=== PATIENT | female | born 1945 | race Caucasian/White ===

== ENCOUNTER 2020-11-22 18:49 | Emergency (ER) | payer OTHER ==
--- OUTSIDE RECORDS SUMMARY | 2020-11-22 18:51 | XMS REPORT | Continuity of Care Document ---
:1945 Author Organization [facility] t Address [address] [place] [address] Care Team Providers Name Role Phone Unavailable Unavailable Unavailable Problems This patient has no known problems. Allergies, Adverse Reactions, Alerts Allergy Allergy Status Severity Reaction(s) Onset Inactive Treating Comm ents Source Name Type Date Date Clinician penicill Adverse Active Info [facility] Tetanus Adverse Active Info Not [facility] Toxoid Reaction Available [facility] Amoxicil Adverse Active Info Not [facility] kaelyn Reaction Available [facility] - [facility] Medications Ordered Filled Start Stop Current Ordering Indication Dosage Frequency Signature Comments Components Source Medication Medication Date Date Medication? Clinician (SIG) Name Name Nasonex Nasonex 2018-04 Yes Na Aguilar [address] [facility] 0-22 in each [facility] 00:00: nostril [facility]oria 00 l [facility] Triamcinolo Triamcinolo 2018-04 Yes Na Aguilar [address] [facility] ne ne 0-22 applicatio [facility] - Acetonide Acetonide 00:00: n to Mem oria 00 affected l area Outpati ent Clinics Myrbetriq Myrbetriq 2020- No Na Aguilar [address] [facility] 11-17 [facility] 00:[facility]: 00:00 [facility] 00 :00 l [facility] Hemocyte Hemocyte Yes Na Aguilar [address] [facility] Plus Plus 10-28 [facility] - 00:[facility]: [facility]oria 00 l [facility] Omeprazole Omeprazole Yes Na Aguilar [address] [facility] Celexa Celexa Yes Na Aguilar TAKE [address] [facility] TABLET BY [facility] MOUTH ONCE [facility]oria DAILY l [facility] Symbicort Symbicort Yes Na Aguilar INHALE [address] [facility] PUFFS BY [facility] MOUTH 2 Memoria TIMES A l DAY [facility] Myrbetriq Myrbetriq Yes Na Aguilar TAKE [address] [facility] TABLET BY [facility] MOUTH ONCE Memoria DAILY l [facility] Temovate Temovate Yes Na Aguilar [address] [facility] applicatio [facility] - n to Memoria affected l area [facility] ProAir HFA ProAir HFA Yes Na Aguilar INHALE [address] [facility] PUFFS 4 [facility] - TIMES A Memoria DAY FOR 30 l DAYS [facility] Alendronate Alendronate Yes Na Aguilar TAKE [address] [facility] Sodium Sodium TABLET BY [facility] M[facility]TH Memoria EVERY WEEK l [facility] Cranberry Cranberry Yes Na Aguilar as [facility] Plus Plus directed [facility] Vitamin C Vitamin C [facility] ia l [facility] Centrum Centrum Yes Na Aguilar as [facility] Silver Silver directed [facility] - Adult 50+ Adult 50+ Memor ia l [facility] Turmeric Turmeric Yes Na Aguilar as [facility] directed [facility] Potassium Potassium Yes Na Aguilar TAKE [address] [facility] Chloride Chloride TABLET BY Beckie kes - Deborah ER Deborah ER MOUTH Memoria DAILY l [facility] Ocuvite Ocuvite Yes Na Aguilar [address] [facility] B12 Fast B12 Fast Yes Na Aguilar not [facility] Dissolve Dissolve defined [facility] - Memoria l [facility] ProAir HFA ProAir HFA Yes Na Aguilar INHALE [address] [facility] PUFFS 4 [facility] - TIMES A Memoria DAY FOR 30 l DAYS [facility] Citalopram Citalopram Yes Na Aguilar TAKE [address] [facility] Hydrobromid Hydrobromid TABLET BY [facility] - e e MOUTH ONCE Memoria DAILY l [facility] Magnesium Magnesium 2019- No Na Aguilar [address] [facility] Oxide -Mg Oxide -Mg 11-17 as needed [facility] - Supplement Supplement 00:00 Me moria :00 l [facility] Procedures This patient has no known procedures. Encounters Start End Encounter Admission Attending Care Care Encounter Source Date/Time Date/Time Type Type Clinicians Facility Department ID 2020-10-19 2020-10-19 Outpatient [facility] [id number] [facility] 2020-10-11 2020-10-11 Outpatient [facility] [id number] [facility] 2020-08-07 2020-08-07 Outpatient [facility] [id number] [facility] 2020-08-06 2020-08-06 Outpatient [facility] [id number] [facility] 2020-07-04 2020-07-04 Outpatient [facility] [id number] [facility] 2020-07-03 2020-07-03 Outpatient [facility] STLC [id number] [facility] 2020-06-02 2020-06-02 Outpatient [facility] [id number] [facility] 2020-04-06 2020-04-06 Outpatient [facility] [id number] [facility] 2020-04-04 2020-04-04 Outpatient [facility] [id number] [facility] 2020-01-06 2020-01-06 [facility] [id number] [facility] 04:55:00 04:55:00 t [employer] [facility] Clin[facility] 2020 2020 [facility] [id number] 13:20:00 13:20:00 t [employer] [facility] Out[facility] Clin[facility] 2019-10-28 2019-10-28 [facility] [id number] 15:22:00 15:22:00 t Wildomar [employer] s - Drive [facility] Medicine Medicine Outpati ent Clinics 2019-10-04 2019-10-04 [facility] [id number] [facility] 13:20:00 13:20:00 t Wildomar [employer] s - Drive [facility] Medicine l Medicine Outpati ent Clinics 2019-07-02 2019-07-02 [facility] [id number] 14:00:00 14:00:00 t [employer]ar [employer] s - Drive [facility] Medicine l Medicine Outpati ent Clinics 2019-06-11 2019-06-11 [facility] [id number] 14:53:00 14:53:00 t [employer]ar [employer] [facility] Outpat[facility] ent Clinics 2019-05-20 2019-05-20 [facility] [id number] 13:40:00 13:40:00 t Wildomar [employer] s - Drive [facility] Medicine Medicine Outpati ent Clinics 2019-05-05 2019-05-05 [facility] [id number] 12:00:00 12:00:00 t [employer] [facility] Outpati ent Clinics 2019-02-27 2019-02-27 [facility] [id number] [facility] 23:48:00 23:48:00 t [employer] s - Drive [facility] Medicine Medicine Outpati ent Clinics 2019-02-16 2019-02-16 [facility] [id number] 13:20:00 13:20:00 t Wildomar Wild[employer] s - Drive [facility] Medicine Medicine Outpati ent Clinics 2018-11-17 2018-11-17 [facility] [id number] [facility] 14:40:00 14:40:00 t [employer] s - Drive [facility] Outpati ent Clinics 2018-10-27 2018-10-27 [facility] [id number] 13:43:00 13:43:00 t [employer] s - Drive [facility] Outpat[facility] ent Clinics 2018-08-18 2018-08-18 [facility] [id number] 14:00:00 14:00:00 t Wildomar [employer] s - Drive [facility] Outpat[facility] ent Clinics 2018-08-07 2018-08-07 [facility] [id number] [facility] 15:28:00 15:28:00 t [employer] s - Drive [facility] Out[facility] ent Clinics 2018-07-03 2018-07-03 [facility] [id number] [facility] 09:48:00 09:48:00 t [employer] [facility] Out[facility] Clin[facility] 2018-05-20 2018-05-20 [facility] [id number] [facility] 14:45:00 14:45:00 t [employer]64 s - [employer] [facility] Out[facility] Clinics 2018-01-22 2018-01-22 [facility] [id number] [facility] 14:45:00 14:45:00 t Floor64 s - Drive [facility] Out[facility] ent Clinics 2017-10-23 2017-10-23 [facility] [id number] [facility] 14:15:00 14:15:00 t Floor64 s - Drive [facility] Out[facility] ent Clinics 2017-07-23 2017-07-23 [facility] [id number] 14:15:00 14:15:00 t Floor64 s - [employer] [facility] Out[facility] Clinics Results This patient has no known results.
== END 2020-11-22 20:14 | disposition left against medical advice (07) ==
LOC: ER 18:49
DX: Z02.9 Encounter for administrative examinations, unspecified (principal)

== ENCOUNTER 2021-01-19 16:46 | Observation (INO) | payer OTHER ==
--- NOTE | 2021-01-19 17:42 | RAD REPORT ---
EXAM DESCRIPTION: RAD - Chest Single View - 01/19/2021 5:37 pm CLINICAL HISTORY: dizziness COMPARISON: Chest Single View dated 09/19/2015; CHEST SINGLE VIEW dated 05/05/2015; ABDOMEN 1 VIEW KUB dated 05/02/2015; CHEST PA AND LAT 2 VIEW dated 05/02/2015 FINDINGS: Lines: None. Lungs: No evidence of edema or pneumonia. Pleural: No significant pleural effusions or pneumothorax. Cardiac: The heart size is within normal limits. Bones: No acute fractures. Other: IMPRESSION: No acute cardiopulmonary disease.
[2021-01-19 18:27] LABS: Absolute Lymphocytes (CBC) 2.1 K/uL (0.7-4.9); Basophils % 0.3 % (0-1.3); Lymphocytes % 26.4 % (15.3-44.8); MPV 8.5 fL (7.6-11.3); RBC Red Blood Cell Count 3.76 M/uL (3.86-4.86)
[2021-01-19 18:30] LABS: Protime INR 0.93
--- NOTE | 2021-01-19 18:36 | RAD REPORT ---
EXAM DESCRIPTION: CT - Head Brain Wo Cont - 01/19/2021 6:26 pm CLINICAL HISTORY: DIZZINESS COMPARISON: Head Brain Wo Cont dated 09/19/2015; HEAD BRAIN W O CONTRAST dated 10/22/2012 TECHNIQUE: All CT scans are performed using dose optimization technique as appropriate and may inclu de automated exposure control or mA/KV adjustment according to patient size. FINDINGS: No intracranial hemorrhage, hydrocephalus or extra-axial fluid collection.No areas of brai n edema or evidence of midline shift. Chronic small vessel ischemic changes. Cerebral atrophy. The paranasal sinuses and mastoids are clear. The calvarium is intact. IMPRESSION: No acute intracranial abnormality.
[2021-01-19 18:44] LABS: Urine Blood Negative (Negative); Urine Glucose Negative (Negative); Urine Protein Negative (Negative); Urine Specific Gravity 1.015 (1.005-1.030)
[2021-01-19 18:54] LABS: ALT/SGPT 16 U/L (12-78); AST/SGOT 12 U/L (15-37); Albumin 3.7 g/dL (3.4-5.0); Alkaline Phosphatase 88 U/L (45-117); BUN Blood Urea Nitrogen 12 mg/dL (7-18); Bicarbonate 27 mmol/L (21-32); Bilirubin Direct 0.1 mg/dL (0-0.2); Bilirubin Total 0.4 mg/dL (0.2-1.0); Glucose Level 96 mg/dL (74-106); Magnesium 2.2 mg/dL (1.8-2.4); NT PRO-BNP 850 pg/mL (<450); Potassium 3.9 mmol/L (3.5-5.1); Protein, Total 7.1 g/dL (6.4-8.2); Sodium Level 139 mmol/L (136-145); Troponin (Emerg Dept Use Only) < 0.02 ng/mL (0.0-0.045)
[2021-01-19 19:11] LABS: Urine Bacteria NONE SEEN /HPF (<20); Urine RBC NONE SEEN /HPF (NONE SEEN)
[2021-01-19] MEDS ORDERED: ASPIRIN 81 MG CHEWABLE TABLET ONE (19:55)
[2021-01-19] MEDS ORDERED: MECLIZINE HCL 12.5 MG TAB ONE (19:56)
[2021-01-19] MEDS ORDERED: NA CHLORIDE 0.9% 250 ML ONE (19:56)
[2021-01-19] MEDS ORDERED: FOLIC ACID 5 MG/ML VIAL ONE (19:57)
--- NOTE | 2021-01-19 20:11 | RAD REPORT ---
EXAM DESCRIPTION: MRI - MRA Head Wo Cont - 01/19/2021 8:06 pm CLINICAL HISTORY: DIZZINESS COMPARISON: MRI BRAIN W WO CONTRAST dated 10/23/2012 FINDINGS: The anterior circulation is intact. No aneurysm, occlusion, or stenosis. The posterior cir culation is intact. No aneurysm, occlusion, or stenosis. The vertebral arteries are codominant. type left posterior cerebral artery. IMPRESSION: No hemodynamically significance stenosis, aneurysm, or occlusion.
--- NOTE | 2021-01-19 20:15 | RAD REPORT ---
EXAM DESCRIPTION: MRI - Brain W/Wo Cont - 01/19/2021 8:06 pm CLINICAL HISTORY: DIZZINESS COMPARISON: MRA Head Wo Cont dated 01/19/2021; MRI BRAIN W WO CONTRAST dated 10/23/2012 TECHNIQUE: Sagittal and axial T1-weighted images were obtained. Axial PD/heavily T2-weighted and T2- FLAIR images were obtained along with axial DWI/ADC mapping sequences. Axial and coronal post-contras t T1-weighted images were also obtained. FINDINGS: No intracranial hemorrhage, mass or acute infarction. There is no edema or shift of midlin e structures. No extra-axial fluid collections. Contreras-matter/white matter junction is preserved. Signa l voids are seen as a normal finding in the major intracranial vessels. Mild chronic small vessel isc hemic changes. Cerebral atrophy. Post-contrast images show normal enhancement. No dural thickening. Mastoid air cells and paranasal sinuses are clear. IMPRESSION: No acute intracranial abnormality. Specifically, no evidence of acute infarct. No abnorm al enhancement. Mild chronic small vessel ischemic changes and cerebral atrophy.
--- NOTE | 2021-01-19 20:20 | RAD REPORT ---
EXAM DESCRIPTION: MRI - MRA Neck W/Wo Cont - 01/19/2021 8:06 pm CLINICAL HISTORY: DIZZINESS COMPARISON: No comparisons FINDINGS: Contrast enhance 2D [id number] MR angiography of the neck vessels was performed. Contr ast was administered. No stenosis or dissection is identified. The vertebral arteries are codominant. IMPRESSION: No hemodynamically significant stenosis within the neck. No dissection.
--- NOTE | 2021-01-19 22:05 | ER ---
Nurse's Notes [facility] Name: Qing Mojica Age: 76 yrs Sex: Female : 1945 Arrival Date: 01/19/2021 Time: 16:47 Bed 3 Private MD: Diagnosis: Other abnormalities of gait and mobility;Dizziness and giddiness Presentation: 01/19 17:01 Chief complaint: EMS states: VERTIGO x 3 DAYS. Coronavirus screen: At this time, the bp client does not indicate any symptoms associated with coronavirus-19. Ebola Screen: No symptoms or risks identified at this time. Initial Sepsis Screen: Does the patient meet any 2 criteria? No. Patient's initial sepsis screen is negative. Does the patient have a suspected source of infection? No. Patient's initial sepsis screen is negative. Risk Assessment: Do you want to hurt yourself or someone else? Patient reports no desire to harm self or others. Onset of symptoms is unknown. 17:01 Method Of Arrival: EMS: [facility] bp 17:01 Acuity: LUIS 3 bp Triage Assessment: 17:04 General: Appears in no apparent distress. comfortable, Behavior is cooperative, bp appropriate for age, anxious. Pain: Denies pain. EENT: No deficits noted. Neuro: Reports dizziness. Cardiovascular: Rhythm is sinus rhythm. Respiratory: Airway is patent Respiratory effort is even, unlabored. GI: No signs and/or symptoms were reported involving the gastrointestinal system. : No signs and/or symptoms were reported regarding the genitourinary system. Derm: No deficits noted. Musculoskeletal: No deficits noted. Historical: - Allergies: 17:04 PENICILLINS; bp - PMHx: 17:04 Anxiety; Chronic obstructive lung disease; bp 01/20 02:26 Depression; GERD; COPD; ea - PSHx: 02:26 h/ocolostomy; Hernia repair; partial hysterectomy; ea - Immunization history:: Adult Immunizations unknown. - Social history:: Smoking status: Patient reports the use of cigarette tobacco products, smokes one pack cigarettes per day. Screenin/24 17:06 Abuse screen: Denies threats or abuse. Denies injuries from another. Nutritional bp screening: No deficits noted. Tuberculosis screening: No symptoms or risk factors identified. Fall Risk None identified. Assessment: 17:06 General: SEE TRIAGE NOTE. bp 18:00 Reassessment: No changes from previously documented assessment. Patient and/or family bp updated on plan of care and expected duration. Pain level reassessed. Patient is alert, oriented x 3, equal unlabored respirations, skin warm/dry/pink. PT TO CT. Vital Signs: 17:01 BP 165 / 95; Pulse 75; Resp 18; Temp 98.8; Pulse Ox 100% ; Weight 65.77 kg; Height 5 bp ft. 5 in. (165.10 cm); 18:00 BP 160 / 71; Pulse 72; Resp 22; Pulse Ox 100% ; bp 01/20 02:50 BP 175 / 79; Pulse 62; Resp 18; Pulse Ox 100% on R/A; ea 04:59 BP 134 / 49; Pulse 64; Resp 18; Pulse Ox 96% on R/A; ea 01/19 17:01 Body Mass Index 24.13 (65.77 kg, 165.10 cm) bp ED Course: 01/19 16:47 Patient arrived in ED. ds1 17:00 Juan Armstrong, RN is Primary Nurse. bp 17:04 Triage completed. bp 17:04 Arm band placed on. bp 17:06 Patient has correct armband on for positive identification. Bed in low position. Call bp light in reach. Side rails up X2. 17:11 Syd Pak PA is PHCP. cp 17:11 Norris Ortega MD is Attending Physician. cp 17:37 XRAY Chest (1 view) In Process Unspecified. EDMS 17:50 Missed attempt(s): 20 gauge in right antecubital area. Bleeding controlled, band aid dh3 applied, catheter tip intact. 17:55 Inserted saline lock: 22 gauge in right forearm, using aseptic technique. dh3 18:04 Initial lab(s) drawn, by pr, sent to lab. dh3 18:25 CT Head Brain wo Cont In Process Unspecified. EDMS 18:36 Warm blanket given. java developer with security clearance on. Pulse ox on. NIBP on. mh5 18:36 EKG done, by ED staff, reviewed by Syd PENA. mh5 19:53 MRA Head Wo Cont In Process Unspecified. EDMS 19:53 MRA Neck W/Wo Cont In Process Unspecified. EDMS 19:53 Brain W/Wo Cont In Process Unspecified. EDMS 22:04 Joshua Arroyo MD is Hospitalizing Provider. 01/20 04:59 No provider procedures requiring assistance completed. Patient admitted, IV remains in ea place. 05:00 COVID-19 : Document "Date of Symptom Onset" if Symptomatic. Sent. ea Administered Medications: 01/19 19:55 Drug: NS 0.9% 250 ml Route: IV; Rate: bolus; Site: right wrist; mr2 19:55 Drug: NS 0.9% 250 ml Route: IV; Rate: 125 ml/hr; Site: right wrist; mr2 19:55 Drug: Aspirin Chewable Tablet 81 mg Route: PO; mr2 19:55 Drug: foLIC Acid 1 mg Route: IVPB; Site: right wrist; mr2 19:55 Drug: Meclizine 25 mg Route: PO; mr2 Outcome: 22:05 Decision to Hospitalize by Provider. 01/20 05:00 Admitted to Med/surg accompanied by tech. ea Condition: stable Instructed on the need for admit. 06:58 Patient left the ED. ea Signatures: Dispatcher [employer] EDCO Nayeli Jackson ds1 Syd Pak PA PA cp Martinez, Maria 5 Alonzo, Kristal 3 Lisa Coy RN RN ea Peltier, Brian, KAY RN Hank Schneider RN RN mr2 Corrections: (The following items were deleted from the chart) 01/19 17:05 17:04 PMHx: Chronic obstructive lung disease; bp bp 20:41 17:55 foLIC Acid 1 mg IVPB in right wrist mr2 mr2
--- NOTE | 2021-01-19 22:06 | EDPHYS ---
Physician Documentation [facility] Name: Qing Mojica Age: 76 yrs Sex: Female : 1945 Arrival Date: 01/19/2021 Time: 16:47 Bed 3 Private MD: ED Physician Norris Ortega HPI: 01/19 17:20 This 76 yrs old Female presents to ER via EMS with complaints of Dizziness. cp 17:20 The patient presents with dizziness, feeling off balance. Onset: The symptoms/episode cp began/occurred 3 day(s) ago. 17:20 Context: just prior to the episode the patient experienced no apparent symptoms. cp 17:20 Associated signs and symptoms: Pertinent negatives: abdominal pain, chest pain, cp combativeness, confusion, diaphoresis, focal weakness, head injury, headache, palpitations, shortness of breath, syncope. Patient's baseline: Neuro: alert and fully oriented, Motor: no deficits, Ambulation: walks without assistance, Speech: normal. Patient reports dizziness with unsteady gait for past 3 days. Patient denies any falls. Historical: - Allergies: 17:04 PENICILLINS; bp - PMHx: 17:04 Anxiety; Chronic obstructive lung disease; bp 01/20 02:26 Depression; GERD; COPD; ea - PSHx: 02:26 h/ocolostomy; Hernia repair; partial hysterectomy; ea - Immunization history:: Adult Immunizations unknown. - Social history:: Smoking status: Patient reports the use of cigarette tobacco products, smokes one pack cigarettes per day. ROS: 01/19 17:25 Constitutional: Negative for body aches, chills, fever, poor PO intake. cp 17:25 Eyes: Negative for injury, pain, redness, and discharge. cp 17:25 ENT: Negative for ear pain, sore throat, difficulty swallowing, difficulty handling secretions. 17:25 Cardiovascular: Negative for chest pain, edema, palpitations. 17:25 Respiratory: Negative for cough, shortness of breath, wheezing. 17:25 Abdomen/GI: Negative for abdominal pain, nausea, vomiting, and diarrhea, anorexia, black/tarry stool, rectal bleeding. 17:25 : Negative for urinary symptoms. 17:25 Neuro: Positive for dizziness, gait disturbance, Negative for altered mental status, headache, speech changes, syncope, weakness. 17:25 All other systems are negative. Exam: 17:30 Constitutional: The patient appears in no acute distress, alert, awake, comfortable, cp non-diaphoretic, non-toxic, well developed, well nourished. 17:30 Head/Face: Normocephalic, atraumatic. cp 17:30 Eyes: Periorbital structures: appear normal, Pupils: equal, round, and reactive to light and accomodation, Extraocular movements: intact throughout, Conjunctiva: normal, no exudate, no injection, Sclera: no appreciated abnormality, Lids and lashes: appear normal, bilaterally. 17:30 ENT: External ear(s): are unremarkable, Ear canal(s): are normal, clear, TM's: dullness, bilaterally, Nose: is normal, Mouth: Lips: moist, Oral mucosa: moist, Posterior pharynx: Airway: no evidence of obstruction, patent. 17:30 Neck: ROM/movement: is normal, is supple, without pain, no range of motions limitations. 17:30 Chest/axilla: Inspection: normal, Palpation: is normal, no crepitus, no tenderness. 17:30 Cardiovascular: Rate: normal, Rhythm: regular, Edema: is not appreciated, JVD: is not appreciated. 17:30 Respiratory: the patient does not display signs of respiratory distress, Respirations: normal, no use of accessory muscles, no retractions, labored breathing, is not present, Breath sounds: are clear throughout, no decreased breath sounds. 17:30 Abdomen/GI: Inspection: abdomen appears normal, Palpation: abdomen is soft and non-tender, in all quadrants. 17:30 Neuro: Orientation: to person, place \\T\\ time. Mentation: is normal, Cerebellar function: Romberg testing is negative, Motor: moves all fours, strength is normal, Sensation: is normal. 18:04 ECG was reviewed by the Attending Physician. cp Vital Signs: 17:01 BP 165 / 95; Pulse 75; Resp 18; Temp 98.8; Pulse Ox 100% ; Weight 65.77 kg; Height 5 bp ft. 5 in. (165.10 cm); 18:00 BP 160 / 71; Pulse 72; Resp 22; Pulse Ox 100% ; bp 01/20 02:50 BP 175 / 79; Pulse 62; Resp 18; Pulse Ox 100% on R/A; ea 04:59 BP 134 / 49; Pulse 64; Resp 18; Pulse Ox 96% on R/A; ea 01/19 17:01 Body Mass Index 24.13 (65.77 kg, 165.10 cm) bp MDM: 01/19 17:17 Patient medically screened. 21:00 Data reviewed: vital signs, nurses notes, lab test result(s), EKG, radiologic studies, cp CT scan, MRI, plain films. 21:00 Test interpretation: by ED physician or midlevel provider: ECG, plain radiologic cp studies. 22:00 ED course: VSS. Reevaluation: Patient ambulated in ED and requires assistance from nursing staff as patient is observed to appear unsteady and veering to left. Will admit for continued observation. 22:00 Physician consultation: Stanley PENA was contacted at 22:00, regarding admission, to the telemetry unit. patient's condition. 01/19 17:18 Order name: Basic Metabolic Panel; Complete Time: 19:25 01/19 19:25 Interpretation: Normal except: GFR 60. 01/19 17:18 Order name: CBC with Diff; Complete Time: 18:40 01/19 19:25 Interpretation: Normal except: RBC 3.76; HGB 11.6; HCT 34.0. 01/19 17:18 Order name: LFT's; Complete Time: 19:25 01/19 17:18 Order name: Magnesium; Complete Time: 19:25 01/19 17:18 Order name: NT PRO-BNP; Complete Time: 19:25 01/19 17:18 Order name: PT-INR; Complete Time: 18:40 01/19 17:18 Order name: Troponin (emerg Dept Use Only); Complete Time: 19:25 01/19 17:18 Order name: XRAY Chest (1 view); Complete Time: 18:18 01/19 17:18 Order name: CT Head Brain wo Cont; Complete Time: 18:40 01/19 17:18 Order name: Urine Microscopic Only; Complete Time: 19:25 01/19 18:44 Order name: Urine Dipstick-Ancillary; Complete Time: 19:25 EDMS 01/20 00:18 Order name: COVID-19 : Document "Date of Symptom Onset" if Symptomatic. 01/20 00:18 Order name: CORONAVIRUS EDFL 01/20 03:22 Order name: SARS-COV-2 RT PCR [facility] 01/19 17:18 Order name: EKG; Complete Time: 17:18 01/19 17:18 Order name: Cardiac monitoring; Complete Time: 17:55 01/19 17:18 Order name: EKG - Nurse/Tech; Complete Time: 17:55 01/19 17:18 Order name: IV Saline Lock; Complete Time: 17:55 01/19 17:18 Order name: Labs collected and sent; Complete Time: 18:07 01/19 17:18 Order name: O2 Per Protocol; Complete Time: 17:56 01/19 18:55 Order name: MRA Head Wo Cont; Complete Time: 20:34 [facility] 01/19 20:34 Interpretation: Report reviewed. 01/19 18:56 Order name: MRA Neck W/Wo Cont; Complete Time: 20:34 [facility] 01/19 20:35 Interpretation: Report reviewed. 01/19 18:56 Order name: Brain W/Wo Cont; Complete Time: 20:34 [facility] 01/19 20:35 Interpretation: Report reviewed. 01/20 00:20 Order name: CONS Physician Consult [facility] 01/19 17:18 Order name: O2 Sat Monitoring; Complete Time: 17:56 01/19 21:39 Order name: Misc. Order: ambulate patient; Complete Time: 05:00 cp EC:04 Rate is 58 beats/min. Rhythm is regular. IL interval is normal. QRS interval is normal. cp QT interval is normal. T waves are Inverted in lead aVR. Interpreted by me. Reviewed by me. Administered Medications: 19:55 Drug: NS 0.9% 250 ml Route: IV; Rate: bolus; Site: right wrist; mr2 19:55 Drug: NS 0.9% 250 ml Route: IV; Rate: 125 ml/hr; Site: right wrist; mr2 19:55 Drug: Aspirin Chewable Tablet 81 mg Route: PO; mr2 19:55 Drug: foLIC Acid 1 mg Route: IVPB; Site: right wrist; mr2 19:55 Drug: Meclizine 25 mg Route: PO; mr2 Disposition: 01/20 17:00 Co-signature as Attending Physician, Norris Ortega MD I agree with the assessment and kdr plan of care. Disposition Summary: 01/19/21 22:05 Hospitalization Ordered Hospitalization Status: Inpatient Admission cp Provider: Joshua Arroyo cp Location: Telemetry/MedSurg (Inpatient) cp Condition: Stable cp Problem: new cp Symptoms: are unchanged cp Bed/Room Type: Standard cp Room Assignment: 218(01/20/21 04:29) mw Diagnosis - Other abnormalities of gait and mobility cp - Dizziness and giddiness cp Forms: - Medication Reconciliation Form cp - SBAR form cp Signatures: Dispatcher [employer] EDFL Ammy Thomas RN RN mw Rittger, Kevin, MD MD kdr Syd Pak PA PA cp Lisa Coy RN RN Juan Persaud, RN RN bp Hank Pendleton RN RN mr2 Corrections: (The following items were deleted from the chart) 01/19 17:05 17:04 PMHx: Chronic obstructive lung disease; bp bp 18:55 18:44 MR STROKE PROTOCOL+MRI.RAD.BRZ ordered. EDFL EDFL 01/20 04:29 01/19 22:05 cp mw
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
[2021-01-20] MEDS ORDERED: ALBUTEROL 2.5 MG/3 ML NEB SOL NEB PRN (05:52)
[2021-01-20] MEDS ORDERED: ONDANSETRON 4 MG/2 ML VIAL IV PRN (05:52)
[2021-01-20] MEDS ORDERED: IPRATROPIUM BROM 0.5MG/2.5ML NEB PRN (05:52)
[2021-01-20] MEDS ORDERED: MECLIZINE HCL 12.5 MG TAB PO PRN (05:52)
[2021-01-20] MEDS ORDERED: ACETAMINOPHEN 500 MG TAB PO PRN (05:52)
[2021-01-20 06:19] VITALS: BMI 24.1
[2021-01-20 07:22] LABS: Absolute Lymphocytes (CBC) 1.8 K/uL (0.7-4.9); Basophils % 0.4 % (0-1.3); Hematocrit 35.8 % (36.0-45.0); MPV 8.4 fL (7.6-11.3); RBC Red Blood Cell Count 3.94 M/uL (3.86-4.86)
[2021-01-20 08:25] LABS: ALT/SGPT 18 U/L (12-78); AST/SGOT 13 U/L (15-37); Albumin 3.9 g/dL (3.4-5.0); Alkaline Phosphatase 98 U/L (45-117); BUN Blood Urea Nitrogen 11 mg/dL (7-18); Bicarbonate 27 mmol/L (21-32); Bilirubin Total 0.6 mg/dL (0.2-1.0); Ferritin 175.9 ng/mL (8-388); Folic Acid, (Folate) > 20.0 ng/mL (3.1-17.5); Glucose Level 88 mg/dL (74-106); Magnesium 2.3 mg/dL (1.8-2.4); Phosphorus 3.3 mg/dL (2.5-4.9); Potassium 3.8 mmol/L (3.5-5.1); Protein, Total 7.4 g/dL (6.4-8.2); Sodium Level 139 mmol/L (136-145); Thyroid Stimulating Hormone 0.765 uIU/mL (0.360-3.740); Transferrin 157 mg/dL (200-360)
[2021-01-20 08:46] VITALS: O2SAT 93
[2021-01-20] MEDS ORDERED: ENOXAPARIN 40 MG/0.4 ML SQ SCH (09:00)
[2021-01-20] MEDS ORDERED: POTASSIUM CL SA 10 MEQ TAB PO ONE (09:30)
[2021-01-20] MEDS ORDERED: PNEUMOCOCCAL VACCINE 0.5 ML IMVAC ONE (10:00)
--- NOTE | 2021-01-20 13:17 | P.DS ---
Admission Date: 01/20/21 Discharge Date: 01/20/21 Disposition: ROUTINE DISCHARGE Discharge Condition: FAIR Reason for Admission: vertigo - Problems (1) Vertigo Current Visit: Yes Status: Acute (2) COPD (chronic obstructive pulmonary disease) Current Visit: Yes Status: Chronic Qualifiers: COPD type: unspecified COPD Qualified Code(s): J44.9 - Chronic obstructive pulmonary disease, unspecified Brief History of Present Illness: 76 yo F with COPD presented with three days of vertigo and imbalance. She fell once and could not get up due to the dizziness. She also reported running into objects. Symptoms associated with nausea. She denied tinnitus. She was unsure if she lost consciousness. She was given meclizine in the ED and attempted to ambulate patient for discharge, but her symptoms persist and patient hospitaliz ed for further management. Hospital Course: Patient placed under observation and treated with supportive measures including IV hydration and meclizine. Patient's symptoms resolved. Noted MRI of the brain was performed in the ED which was unremarkable. MRA of the head and neck were also done which did not show any significant vascular occlusions or dilatation. Patient ambulated with physical therapy without issue. Physical therapy recommend outpatient vestibular rehab. She is currently asymptomatic. Vitals are stable. Blood pressure has improved Her symptoms could be related to benign positional vertigo. Patient deemed clinically stable for discharge. Vital Signs/Physical Exam: Temp Pulse Resp BP Pulse Ox 99.1 F 66 18 140/57 L 99 01/20/21 08:00 01/20/21 08:00 01/20/21 08:00 01/20/21 08:00 01/20/21 08:00 General: Alert, In no apparent distress, Oriented x3 HEENT: Mucous membr. moist/pink Neck: JVD not distended Respiratory: Clear to auscultation bilaterally, Normal air movement Cardiovascular: No edema, Regular rate/rhythm, Normal S1 S2 Gastrointestinal: Soft and benign, Non-distended Musculoskeletal: No swelling, No tenderness Integumentary: No rashes, No breakdown Neurological: Normal speech, Normal strength at 5/5 x4 extr, Cranial nerves 3-12 intact Laboratory Data at Discharge: WBC 7.90 K/uL (4.3-10.9) 01/20/21 06:50 Hgb 12.1 g/dL (12.0-15.0) 01/20/21 06:50 Hct 35.8 % (36.0-45.0) L 01/20/21 06:50 Plt Count 233 K/uL (152-406) 01/20/21 06:50 PT 10.7 SECONDS (9.5-12.5) 01/19/21 18:04 INR 0.93 01/19/21 18:04 Sodium 139 mmol/L (136-145) 01/20/21 06:50 Potassium 3.8 mmol/L (3.5-5.1) 01/20/21 06:50 BUN 11 mg/dL (7-18) 01/20/21 06:50 Creatinine 0.76 mg/dL (0.55-1.3) 01/20/21 06:50 Glucose 88 mg/dL (74-106) 01/20/21 06:50 Phosphorus 3.3 mg/dL (2.5-4.9) 01/20/21 06:50 Magnesium 2.3 mg/dL (1.8-2.4) 01/20/21 06:50 Total Bilirubin 0.6 mg/dL (0.2-1.0) 01/20/21 06:50 AST 13 U/L (15-37) L 01/20/21 06:50 ALT 18 U/L (12-78) 01/20/21 06:50 Alkaline Phosphatase 98 U/L (45-117) 01/20/21 06:50 Home Medications: Citalopram [Celexa*] 40 mg PO DAILY #30 tablet 05/10/15 Albuterol Sulfate [Proair Hfa] 8.5 gm IH PRN PRN 02/21/17 Alendronate Sodium [Fosamax] 40 mg PO EVERY 7TH DAY 02/21/17 Budesonide/Formoterol Fumarate [Symbicort 160-4.5 Mcg Inhaler] 1 puff IH BID 02/21/17 Cetirizine HCl [Zyrtec] 10 mg PO DAILY 02/21/17 Cranberry Fruit Extract [Cranberry] 500 mg PO DAILY 02/21/17 Ferrous Sulfate [Ferrous Sulfate*] 325 mg PO DAILY 02/21/17 L.acidoph,Paracasei, B.lactis [Probiotic] 1 each PO DAILY 02/21/17 Mirabegron [Myrbetriq] 25 mg PO DAILY 02/21/17 Mometasone Furoate [Nasonex] 17 gm NS DAILY 02/21/17 Multivitamin [Multivitamins] 1 each PO DAILY 02/21/17 Pantoprazole [Protonix Tab*] 40 mg PO DAILY 02/21/17 Tizanidine [Zanaflex*] 4 mg PO BID 02/21/17 Vit A/Vit C/Vit E/Zinc/Copper [Icaps Areds Formula Dr Tablet] 1 tab PO DAILY 02/21/17 Meclizine HCl 25 mg PO Q6H PRN #30 tablet 01/20/21 New Medications: Meclizine HCl 25 mg PO Q6H PRN #30 tablet PRN Reason: Dizziness Followup: PABLO SHAH [Primary Care Provider] -
[2021-01-20 18:27] VITALS: BP 155/85; TEMP 98.2
== END 2021-01-20 17:51 | disposition home or self-care (01) ==
LOC: ER 16:46 → ERHOLD 01-20 00:28 → 2ND 01-20 04:46
PROVIDERS: ADMIT Internal Medicine; ATTEND Internal Medicine
DX: R42 Dizziness and giddiness (principal); J44.9 Chronic obstructive pulmonary disease, unspecified; R26.89 Other abnormalities of gait and mobility; I10 Essential (primary) hypertension; K21.9 Gastro-esophageal reflux disease without esophagitis; G62.9 Polyneuropathy, unspecified; G89.29 Other chronic pain; M54.9 Dorsalgia, unspecified; F32.9 Major depressive disorder, single episode, unspecified; F17.210 Nicotine dependence, cigarettes, uncomplicated; Z90.49 Acquired absence of other specified parts of digestive tract; Z88.0 Allergy status to penicillin; Z88.2 Allergy status to sulfonamides; Z88.7 Allergy status to serum and vaccine; Z20.822 Contact with and (suspected) exposure to COVID-19
CPT/HCPCS: 85025 ×2; 80048; 36415; 83735 ×2; 84100; 85610; 80076; 84443; 84484; 84439; 82728; 82746; 82607; 83540; 80053; 83880; 84466; 70450; 71045; 70553; 70544; 70549; 97116; 97161; 94760 ×2; U0003; A9577; J1650; J7050; 81003; 81015; 93005; 96374; 96375; 99285; G0378

== ENCOUNTER 2021-10-26 19:48 | Observation (INO) | payer OTHER ==
[2021-10-26] MEDS ORDERED: ONDANSETRON 4 MG/2 ML VIAL ONE (20:35)
[2021-10-26] MEDS ORDERED: DIAZEPAM 10 MG/2 ML INJ SYRINGE ONE (20:37)
[2021-10-26 21:03] LABS: Hematocrit 33.4 % (36.0-45.0); Lymphocytes % 4.5 % (15.3-44.8); MCV 92.7 fL (80-100); MPV 8.3 fL (7.6-11.3); RBC Red Blood Cell Count 3.61 M/uL (3.86-4.86)
[2021-10-26 21:05] LABS: Protime INR 1.1
--- NOTE | 2021-10-26 21:09 | RAD REPORT ---
EXAM DESCRIPTION: Royce Single View10/26/2021 8:54 pm CLINICAL HISTORY: COPD/weakness COMPARISON: 2009 FINDINGS: Lungs mildly hyperaerated The lungs appear clear of acute infiltrate. The heart is normal size Sideplate and screws have placed into distal right humerus. This is incompletely evaluated on this ex am IMPRESSION: No acute abnormalities displayed
[2021-10-26 21:35] LABS: Albumin 3.6 g/dL (3.4-5.0); Bilirubin Direct 0.3 mg/dL (0-0.2); Bilirubin Total 0.8 mg/dL (0.2-1.0); Protein, Total 7.1 g/dL (6.4-8.2); Troponin High Sensitivity 16.9 pg/mL (<58.9)
--- NOTE | 2021-10-26 21:37 | RAD REPORT ---
EXAM DESCRIPTION: CT - Head Brain Wo Cont - 10/26/2021 9:29 pm CLINICAL HISTORY: Dizziness COMPARISON: 2020 TECHNIQUE: Computed axial tomography of the head was obtained. IV contrast was not requested. All CT scans are performed using dose optimization technique as appropriate and may include automated exposure control or mA/KV adjustment according to patient size. FINDINGS: An intracranial bleed is not seen . The ventricles are normal in caliber. No extra-axial fluid collection is noted. Mild low-density areas within periventricular, deep and subcortical white matter likely represent isc hemic changes secondary to small vessel disease. Fluid within the sinuses/ mastoids is not seen. IMPRESSION: No acute intracranial abnormality is seen. If patient's symptoms persist MRI of the bra in would be recommended.
[2021-10-26 21:46] LABS: Magnesium 1.7 mg/dL (1.8-2.4); Potassium 3.4 mmol/L (3.5-5.1)
[2021-10-26] MEDS ORDERED: VANCOMYCIN 1 GM/VIAL ONE (22:47)
[2021-10-26] MEDS ORDERED: WATER FOR INJ,STERILE 10 ML ONE (22:48)
[2021-10-26] MEDS ORDERED: NA CHLORIDE 0.9% 250 ML ONE (22:48)
--- NOTE | 2021-10-26 22:58 | ER ---
Nurse's Notes [facility] Name: Qing Mojica Age: 76 yrs Sex: Female : 1945 Arrival Date: 10/26/2021 Time: 19:50 Bed 16 Private MD: Diagnosis: Cellulitis of the Right Arm;Dizziness;Leukocytosis Presentation: 10/26 19:51 Chief complaint: Patient states: REDNESS AND SWELLING TO RIGHT FOREARM FOR 3 DAYS. [facility] Coronavirus screen: Vaccine status: Patient reports receiving the 2nd dose of the covid vaccine. Client denies travel out of the [place] in the last 14 days. At this time, the client does not indicate any symptoms associated with coronavirus-19. Ebola Screen: Patient negative for fever greater than or equal to 101.5 degrees Fahrenheit, and additional compatible Ebola Virus Disease symptoms. Initial Sepsis Screen: Does the patient meet any 2 criteria? No. Patient's initial sepsis screen is negative. Does the patient have a suspected source of infection? No. Patient's initial sepsis screen is negative. Risk Assessment: Do you want to hurt yourself or someone else? Patient reports no desire to harm self or others. Onset of symptoms was October 24, 2021. 19:51 Method Of Arrival: EMS: [place] [id number] 19:51 Acuity: LUIS 3 [facility] Triage Assessment: 19:52 General: Appears in no apparent distress. uncomfortable, Behavior is calm, cooperative, [facility] appropriate for age. Pain: Complains of pain in right arm Pain currently is 7 out of 10 on a pain scale. Quality of pain is described as throbbing. Cardiovascular: No deficits noted. Respiratory: No deficits noted. Derm: Skin is intact, Skin is red, Skin temperature is hot. Historical: - Allergies: 19:52 PENICILLINS; [facility] - Home Meds: 19:52 alendronate sodium-cholecalciferol(vitamin D3) Oral [Active]; citalopram 20 mg tab 2 bh1 tabs once daily [Active]; clobetasol 0.05 % Topical crea 2 times per day [Active]; dermarest psoriasis [Active]; loratadine 10 mg Oral TbDL 1 tab once daily [Active]; Myrbetriq 25 mg Oral Tb24 1 tab once daily [Active]; Nasonex 50 mcg/actuation Nasal spry 2 sprays once daily [Active]; symbicort [Active]; - PMHx: 19:52 Anxiety; Chronic obstructive lung disease; COPD; Depression; GERD; [facility] - PSHx: 19:52 h/ocolostomy; hernia repair; partial hysterectomy; [facility] - Immunization history:: Adult Immunizations up to date. - Social history:: Smoking status: unknown. Screenin:54 Abuse screen: Denies threats or abuse. Nutritional screening: No deficits noted. [facility] Tuberculosis screening: No symptoms or risk factors identified. Fall Risk None identified. Assessment: 19:54 Reassessment: No changes from previously documented assessment. [facility] 10/27 00:30 General: Appears in no apparent distress. comfortable. Respiratory: Respiratory effort fu is even, unlabored, Respiratory pattern is symmetrical. Derm: redness to right arm. Musculoskeletal: Reports unsteady gait. Vital Signs: 10/26 19:51 BP 141 / 72; Pulse 80; Resp 18; Temp 99.1(O); Pulse Ox 95% on R/A; Weight 65.77 kg; [facility] Height 5 ft. 6 in. (167.64 cm); Pain 7/10; 21:41 BP 146 / 65; Pulse 79; Resp 18; Pulse Ox 99% on R/A; [facility] 23:08 BP 129 / 83; Pulse 79; Resp 88; Pulse Ox 99% on R/A; [facility] 10/27 00:24 BP 120 / 64; Pulse 83; Resp 18; Temp 98.9; Pulse Ox 100% on R/A; Pain 0/10; fu 10/26 19:51 Body Mass Index 23.40 (65.77 kg, 167.64 cm) [facility] ED Course: 10/26 19:50 Patient arrived in ED. [facility] 19:52 Triage completed. [facility] 19:52 Arm band placed on right wrist. [facility] 19:54 Appears restless. Awaiting ED provider evaluation. [facility] 19:54 Bed in low position. Call light in reach. Side rails up X2. Pulse ox on. NIBP on. [facility] 19:54 No provider procedures requiring assistance completed. Inserted saline lock: 20 gauge [facility] in left forearm, using aseptic technique. 19:57 Mariano Cooley PA is PHCP. [facility] 19:57 Syd Willams MD is Attending Physician. [facility] 20:22 Norma Gonzalez, KAY is Primary Nurse. 1 20:47 Lactate Sent. 1 20:47 Blood Culture Adult (2) Sent. 1 20:48 Basic Metabolic Panel Sent. bh1 20:48 CBC with Diff Sent. bh1 20:48 LFT's Sent. bh1 20:48 Magnesium Sent. 1 20:48 NT PRO-BNP Sent. 1 20:48 PT-INR Sent. 1 20:48 Troponin HS Sent. 1 20:49 Inserted saline lock: 20 gauge in left antecubital area, using aseptic technique. Blood 1 collected. 20:55 XRAY Chest (1 view) In Process Unspecified. EDMS 21:30 Head Brain Wo Cont In Process Unspecified. EDMS 21:42 No apparent distress. Awaiting lab results, Awaiting radiology results. [facility] 22:57 Joshua Arroyo MD is Hospitalizing Provider. [facility] 23:07 SARS-COV-2 RT PCR (Document "Date of Onset" if Symptomatic) Sent. [facility] 23:08 No apparent distress. Appears restless. Awaiting lab results. [facility] 10/27 00:01 Report given to VANDANA VILLANUEVA. [facility] 00:42 Patient admitted, IV remains in place. fu Administered Medications: 10/26 20:30 Drug: Zofran (Ondansetron) 4 mg Route: IVP; Site: left forearm; [facility] 20:48 Follow up: Response: No adverse reaction [facility] 20:30 Drug: Valium (diazepam) 2 mg Route: IVP; Site: left forearm; [facility] 20:48 Follow up: Response: No adverse reaction [facility] 23:07 Drug: vancoMYCIN 1 grams Route: IVPB; Infused Over: 2 hrs; Site: left forearm; [facility] Medication: 19:54 VIS not applicable for this client. [facility] Outcome: 22:57 Decision to Hospitalize by Provider. [facility] 10/27 00:41 Admitted to Med/surg accompanied by nurse, room 223, Report called to KAY Head fu Condition: unchanged Instructed on the need for admit, Demonstrated understanding of instructions. 01:39 Patient left the ED. fu Signatures: Dispatcher [employer] EDMS Mariano Cooley PA PA jmm Umadhay, Felix RN RN fu Norma Gonzalez, RN RN bh1
--- NOTE | 2021-10-26 22:58 | EDPHYS ---
Physician Documentation [facility] Name: Qing Mojica Age: 76 yrs Sex: Female : 1945 Arrival Date: 10/26/2021 Time: 19:50 Bed 16 Private MD: ED Physician Syd Willams HPI: 10/26 20:24 This 76 yrs old Female presents to ER via EMS with complaints of Wound Infection. jmm 20:24 The patient presents with dizziness, sense of spinning. Onset: The symptoms/episode jmm began/occurred acutely, today. Modifying factors: The symptoms are alleviated by nothing, the symptoms are aggravated by movement of head, standing up. Associated signs and symptoms: Pertinent negatives: shortness of breath. This is a 76 year old female with a history of copd, depression that presents to the ED with complaints of swelling to the right forearm beginning approx 3 days ago. Patient states today developing weakness, dizziness around 0800 today. Patient has been unable to standup due to weakness. . Historical: - Allergies: 19:52 PENICILLINS; bh1 - Home Meds: 19:52 alendronate sodium-cholecalciferol(vitamin D3) Oral [Active]; citalopram 20 mg tab 2 bh1 tabs once daily [Active]; clobetasol 0.05 % Topical crea 2 times per day [Active]; dermarest psoriasis [Active]; loratadine 10 mg Oral TbDL 1 tab once daily [Active]; Myrbetriq 25 mg Oral Tb24 1 tab once daily [Active]; Nasonex 50 mcg/actuation Nasal spry 2 sprays once daily [Active]; symbicort [Active]; - PMHx: 19:52 Anxiety; Chronic obstructive lung disease; COPD; Depression; GERD; bh1 - PSHx: 19:52 h/ocolostomy; hernia repair; partial hysterectomy; bh1 - Immunization history:: Adult Immunizations up to date. - Social history:: Smoking status: unknown. ROS: 20:24 Cardiovascular: Negative for chest pain, palpitations, and edema, Respiratory: Negative jmm for shortness of breath, cough, wheezing, and pleuritic chest pain, Abdomen/GI: Negative for abdominal pain, nausea, vomiting, diarrhea, and constipation. 20:24 Constitutional: Positive for fatigue. 20:24 MS/extremity: Positive for pain, swelling. 20:24 Skin: Positive for erythema. 20:24 Neuro: Positive for dizziness. 20:24 All other systems are negative. Exam: 20:24 Constitutional: This is a well developed, well nourished patient who is awake, alert, jmm and in no acute distress. Head/Face: atraumatic. Eyes: EOMI, no conjunctival erythema appreciated ENT: Moist Mucus Membranes Neck: Trachea midline, Supple Chest/axilla: Normal chest wall appearance and motion. Cardiovascular: Regular rate and rhythm. No edema appreciated Respiratory: Normal respirations, no respiratory distress appreciated Abdomen/GI: Non distended Back: Normal ROM 20:24 Skin: erythema and induration noted to the right forearm, ttp. 20:24 Neuro: Orientation: is normal, Mentation: is normal, Memory: is normal. 20:24 Psych: Behavior/mood is pleasant, cooperative. 20:24 Eyes: Extraocular movements: intact throughout, Nystagmus: nystagmus with fast jmm component noted, bilaterally. Vital Signs: 19:51 BP 141 / 72; Pulse 80; Resp 18; Temp 99.1(O); Pulse Ox 95% on R/A; Weight 65.77 kg; [facility] Height 5 ft. 6 in. (167.64 cm); Pain 7/10; 21:41 BP 146 / 65; Pulse 79; Resp 18; Pulse Ox 99% on R/A; [facility] 23:08 BP 129 / 83; Pulse 79; Resp 88; Pulse Ox 99% on R/A; [facility] 10/27 00:24 BP 120 / 64; Pulse 83; Resp 18; Temp 98.9; Pulse Ox 100% on R/A; Pain 0/10; fu 10/26 19:51 Body Mass Index 23.40 (65.77 kg, 167.64 cm) [facility] MDM: 10/26 20:04 Patient medically screened. christy 22:54 Data reviewed: vital signs, nurses notes. Counseling: I had a detailed discussion with miguel the patient and/or guardian regarding: the historical points, exam findings, and any diagnostic results supporting the discharge/admit diagnosis, lab results, the need for further work-up and treatment in the hospital. 10/26 20:20 Order name: Basic Metabolic Panel; Complete Time: 21:[address] [facility] 10/26 20:20 Order name: CBC with Diff; Complete Time: 23:[address] [facility] 10/26 20:20 Order name: LFT's; Complete Time: 21:[address] [facility] 10/26 20:20 Order name: Magnesium; Complete Time: 21:[address] [facility] 10/26 20:20 Order name: NT PRO-BNP; Complete Time: 21:[address] [facility] 10/26 20:20 Order name: PT-INR; Complete Time: 21:[address] [facility] 10/26 20:20 Order name: Troponin HS; Complete Time: 21:[address] [facility] 10/26 20:20 Order name: XRAY Chest (1 view); Complete Time: 21:[address] [facility] 10/26 20:20 Order name: Blood Culture Adult (2) [facility] 10/26 20:20 Order name: Lactate; Complete Time: 22:[address] [facility] 10/26 20:22 Order name: CT Head Brain wo Cont [facility] 10/26 22:28 Order name: SARS-COV-2 RT PCR (Document "Date of Onset" if Symptomatic); Complete Time: [facility] 00:10 10/26 22:58 Order name: CPK; Complete Time: 23:[address] [facility] 10/26 23:04 Order name: Manual Differential; Complete Time: 23:04 [facility] 10/26 20:20 Order name: EKG; Complete Time: 20:[address] [facility] 10/26 20:20 Order name: Cardiac monitoring; Complete Time: 20:[address] [facility] 10/26 20:20 Order name: EKG - Nurse/Tech; Complete Time: 20:[address] [facility] 10/26 20:20 Order name: IV Saline Lock; Complete Time: 20:[address] [facility] 10/26 20:20 Order name: Labs collected and sent; Complete Time: 20:[address] [facility] 10/26 20:20 Order name: O2 Per Protocol; Complete Time: 20:[address] [facility] 10/26 20:20 Order name: O2 Sat Monitoring; Complete Time: 20:[address] [facility] 10/26 20:26 Order name: Head Brain Wo Cont; Complete Time: 21:48 EDMS Administered Medications: 20:30 Drug: Zofran (Ondansetron) 4 mg Route: IVP; Site: left forearm; [facility] 20:48 Follow up: Response: No adverse reaction [facility] 20:30 Drug: Valium (diazepam) 2 mg Route: IVP; Site: left forearm; [facility] 20:48 Follow up: Response: No adverse reaction [facility] 23:07 Drug: vancoMYCIN 1 grams Route: IVPB; Infused Over: 2 hrs; Site: left forearm; [facility] Disposition Summary: 10/26/21 22:57 Hospitalization Ordered Hospitalization Status: Observation [facility] Provider: Joshua Arroyo Location: Telemetry/MedSurg (observation) [facility] Condition: Stable jmm Problem: new jmm Symptoms: are unchanged [facility] Bed/Room Type: Standard [facility] Room Assignment: 223(10/27/21 00:15) mw Diagnosis - Cellulitis of the Right Arm jmm - Dizziness jmm - Leukocytosis [facility] Forms: - Medication Reconciliation Form [facility] - SBAR form [facility] Addendum: 11/11/2021 14:55 Co-signature as Attending Physician, Syd Willams MD I agree with the assessment and c phelps plan of care. Signatures: Dispatcher [employer] EDAmmy Crowder RN RN mw Anderson, Corey, MD MD cha Mickail, Joel, PA PA jm Norma Gonzalez RN RN [facility] Corrections: (The following items were deleted from the chart) 10/27 00:15 10/26 22:57 [facility]
[2021-10-26 23:03] LABS: Blood Morphology Comment NOT SEEN (NOT SEEN); Platelet Estimate ADEQ
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
[2021-10-27] MEDS ORDERED: ONDANSETRON 4 MG/2 ML VIAL IV PRN (01:06)
[2021-10-27] MEDS ORDERED: ALBUTEROL 2.5 MG/3 ML NEB SOL NEB PRN (01:06)
[2021-10-27] MEDS ORDERED: VANCOMYCIN 1 GM in NA CHLORIDE 0.9% 250 ML IVPB SCH (01:06)
[2021-10-27] MEDS ORDERED: ACETAMINOPHEN 500 MG TAB PO PRN (01:06)
[2021-10-27] MEDS: NA CHLORIDE 0.9% 1,000 ML IV SCH ×2 (02:07→11:06)
[2021-10-27 02:54] VITALS: BMI 22.1
[2021-10-27 03:13] VITALS: O2SAT 99
[2021-10-27 07:18] LABS: Absolute Lymphocytes (CBC) 2.3 K/uL (0.7-4.9); Hematocrit 30.7 % (36.0-45.0); MCV 93.1 fL (80-100); MPV 8.8 fL (7.6-11.3)
[2021-10-27 08:31] LABS: Magnesium 1.7 mg/dL (1.8-2.4); Potassium 3.6 mmol/L (3.5-5.1)
[2021-10-27] MEDS ORDERED: POTASSIUM CL SA 10 MEQ TAB PO ONE (08:34)
[2021-10-27] MEDS: ENOXAPARIN 40 MG/0.4 ML SQ SCH (09:05)
[2021-10-27] MEDS ORDERED: MAGNESIUM SULFATE 1 gm IVPB 1 GM/100 ML BAG IV ONE (13:30)
[2021-10-27] MEDS ORDERED: NA CHLORIDE 0.9% 1,000 ML IV SCH (13:47)
[2021-10-27] MEDS ORDERED: METHYLPREDNISOLONE 125 MG INJ IV ONE (13:48)
[2021-10-27] MEDS ORDERED: Levofloxacin500mg IV 500 MG/100 ML BAG IV SCH (14:00)
[2021-10-27] MEDS: CLINDAMYCIN 600MG/D5W 600 MG/50 ML BAG IV SCH (16:23)
[2021-10-27] MEDS ORDERED: CLINDAMYCIN INJ 600 MG in NA CHLORIDE 0.9% 50 ML IV SCH (17:00)
[2021-10-27] MEDS ORDERED: VANCOMYCIN 1.25 GM in NA CHLORIDE 0.9% 250 ML IVPB SCH (21:00)
[2021-10-27] MEDS ORDERED: MELATONIN 5 MG TABLET PO PRN (22:24)
[2021-10-27] MEDS: METHYLPREDNISOLONE 40 MG INJ IV SCH (22:36)
[2021-10-28] MEDS: CLINDAMYCIN 600MG/D5W 600 MG/50 ML BAG IV SCH ×2 (00:20→08:05)
[2021-10-28] MEDS: METHYLPREDNISOLONE 40 MG INJ IV SCH ×2 (00:20→08:05)
[2021-10-28 06:24] LABS: Absolute Lymphocytes (CBC) 0.7 K/uL (0.7-4.9); Hematocrit 29.4 % (36.0-45.0); Lymphocytes % 6.8 % (15.3-44.8); MCV 93.2 fL (80-100); MPV 8.6 fL (7.6-11.3); RBC Red Blood Cell Count 3.15 M/uL (3.86-4.86)
[2021-10-28] MEDS: ENOXAPARIN 40 MG/0.4 ML SQ SCH (08:05)
[2021-10-28 08:33] VITALS: BP 152/53; TEMP 97.3
--- NOTE | 2021-10-28 08:56 | P.PN ---
Date of Service: 10/27/21 Patient had cellulitis that extended from the elbow to the wrist. Patient with a lot of tenderness on palpation. Patient with erythema and warmth to the area. Continue with IV antibiotics today. Possible discharge tomorrow depending on outpatient symptoms are improving.
--- NOTE | 2021-10-28 15:26 | P.DS ---
Discharge Date: 10/28/21 Disposition: ROUTINE DISCHARGE Discharge Condition: GOOD Reason for Admission: Cellulitus, Rhabdomyolysis Brief History of Present Illness: Patient is a 76 y/o F with PMH of COPD, GERD, who presented to the ED with complaints of R forearm redness and pain. Patient reports that she noticed the redness about 3 days ago and it has gotten progressively worse. She denies any trauma to the area. She states that her cat could have potentially scratched her, but she does not think so. She states that she also been feeling very weak and this morning she fell and could not get up and was laying on the ground for a few hours and had to call EMS. Initial temp 99F. Labs significant for WBC 21.6, magnesium 1.7, BNP 3700, segs 87, bands 6, potassium 3.4, CPK 507, COVID+. She was started on IV vancomycin in ED. She is admitted for further evaluation and treatment. Hospital Course: Cellulitis has improved. Area is no longer hot or painful. Patient will continue with antibiotic therapy for 10 more days. Outpatient follow-up with PCP. Vital Signs/Physical Exam: Temp Pulse Resp BP Pulse Ox 97.3 F 79 16 152/53 H 97 10/28/21 08:00 10/28/21 08:00 10/28/21 08:00 10/28/21 08:00 10/28/21 08:00 General: Alert, In no apparent distress, Oriented x3 Laboratory Data at Discharge: WBC 9.8 K/uL (4.3-10.9) D 10/28/21 05:46 Hgb 10.2 g/dL (12.0-15.0) L 10/28/21 05:46 Hct 29.4 % (36.0-45.0) L 10/28/21 05:46 Plt Count 152 K/uL (152-406) 10/28/21 05:46 PT 12.1 SECONDS (9.5-12.5) 10/26/21 20:43 INR 1.10 10/26/21 20:43 Sodium 136 mmol/L (136-145) 10/28/21 05:46 Potassium 4.0 mmol/L (3.5-5.1) 10/28/21 05:46 BUN 12 mg/dL (7-18) 10/28/21 05:46 Creatinine 0.77 mg/dL (0.55-1.3) 10/28/21 05:46 Glucose 168 mg/dL (74-106) H 10/28/21 05:46 Magnesium 1.7 mg/dL (1.8-2.4) L 10/27/21 06:45 Total Bilirubin 0.8 mg/dL (0.2-1.0) 10/26/21 20:43 AST 30 U/L (15-37) 10/26/21 20:43 ALT 18 U/L (12-78) 10/26/21 20:43 Alkaline Phosphatase 65 U/L (45-117) 10/26/21 20:43 Home Medications: Citalopram [Celexa*] 40 mg PO DAILY #30 tablet 05/10/15 Albuterol Sulfate [Proair Hfa] 8.5 gm IH PRN PRN 02/21/17 Alendronate Sodium [Fosamax] 40 mg PO EVERY 7TH DAY 02/21/17 Budesonide/Formoterol Fumarate [Symbicort 160-4.5 Mcg Inhaler] 1 puff IH BID 02/21/17 Cetirizine HCl [Zyrtec] 10 mg PO DAILY 02/21/17 Cranberry Fruit Extract [Cranberry] 500 mg PO DAILY 02/21/17 Ferrous Sulfate [Ferrous Sulfate*] 325 mg PO DAILY 02/21/17 L.acidoph,Paracasei, B.lactis [Probiotic] 1 each PO DAILY 02/21/17 Mirabegron [Myrbetriq] 25 mg PO DAILY 02/21/17 Mometasone Furoate [Nasonex] 17 gm NS DAILY 02/21/17 Multivitamin [Multivitamins] 1 each PO DAILY 02/21/17 Pantoprazole [Protonix Tab*] 40 mg PO DAILY 02/21/17 Tizanidine [Zanaflex*] 4 mg PO BID 02/21/17 Vit A/Vit C/Vit E/Zinc/Copper [Icaps Areds Formula Dr Tablet] 1 tab PO DAILY 02/21/17 Meclizine HCl 25 mg PO Q6H PRN #30 tablet 01/20/21 Minocycline HCl 100 mg PO BID #20 capsule 10/28/21 Smz./Tmp. [Bactrim Ds 800 MG/160 MG] 1 tab PO BID #20 tab 10/28/21 predniSONE [Deltasone] 20 mg PO DAILY #5 tab 10/28/21 New Medications: Smz./Tmp. [Bactrim Ds 800 MG/160 MG] 1 tab PO BID #20 tab Minocycline HCl 100 mg PO BID #20 capsule predniSONE [Deltasone] 20 mg PO DAILY #5 tab Physician Discharge Instructions: -DC IV and DC home -Follow-up with PCP in 1 to 2 weeks -Please call Dr. Arroyo at [phone] if any questions regarding hospital stay -Please call nursing station at [phone] if any nursing or medication questions -Return to the emergency room if symptoms worsen Diet: AHA Activity: Fall precautions Time spent managing pt's care (in minutes): 35
--- NOTE | 2021-10-30 08:05 | EKG ---
Test Date: 2021-10-26 Test Time: 20:57:15 [employer] Sales [employer]: MEASUREMENT RESULTS: Intervals: Rate: 76 LA: 162 QRSD: 78 QT: 394 QTc: 443 [place]: P: 68 LA: 162 QRS: 67 T: 44 INTERPRETIVE STATEMENTS: Normal sinus rhythm Cannot rule out Anterior infarct, age undetermined Abnormal ECG Compared to ECG 01/19/2021 17:56:30 Myocardial infarct finding now present Sinus bradycardia no longer present Electronically Signed On 10-30-21 07:56:26 CDT by Krunal Robert
--- OUTSIDE RECORDS SUMMARY | 2021-11-14 05:56 | XMS REPORT | Continuity of Care Document ---
:1945 Author Organization [facility] t Address [address] [place] [address] Care Team Providers Name Role Phone Joan Aguilar Attending Clinician Unavailable Problems This patient has no known problems. Allergies, Adverse Reactions, Alerts Allergy Allergy Status Severity Reaction(s) Onset Inactive Treating Comm ents Source Name Type Date Date Clinician penicill Adverse Active Info Not Commo n in Reaction Available [facility] Tetanus Adverse Active Info Not Common Toxoid Reaction Available [facility] Amoxicil Adverse Active Info Not Commo n kaelyn Reaction Available [facility] Medications Ordered Filled Start Stop Current Ordering Indication Dosage Frequency Signature Comments Components Source Medication Medication Date Date Medication? Clinician (SIG) Name Name Nasonex Nasonex 2018- Yes Na Aguilar 2 sprays Common 0-22 in each [facility] 00:00: nostril - [facility] 00 [facility] Triamcinolo Triamcinolo 2018- Yes Na Aguilar 1 Common ne ne 0-22 applicatio [facility] Acetonide Acetonide 00:00: n to - C HI 00 affected [facility] Myrbetriq Myrbetriq 2019-0 2020- No Na Aguilar 1 tablet Common 11-17 [facility] 00:00: 00:00 - [facility] 00 :00 [facility] Hemocyte Hemocyte 2019- Yes Na Aguilar 1 capsule Common Plus Plus 10-28 [facility] 00:00: - [facility] 00 [facility] Omeprazole Omeprazole Yes Na Aguilar 1 capsule Common [facility] Celexa Celexa Yes Na Aguilar TAKE 1 Common TABLET BY Spirit MOUTH ONCE - [facility] DAILY [facility] Symbicort Symbicort Yes Na Aguilar INHALE 2 Common PUFFS BY Spirit MOUTH 2 - [facility] TIMES A [facility] Myrbetriq Myrbetriq Yes Na Aguilar TAKE 1 Common TABLET BY [facility] MOUTH ONCE - [facility] DAILY [facility] Temovate Temovate Yes Na Aguilar 1 Comm on applicatio Spirit n to - [facility] affected [facility] ProAir HFA ProAir HFA Yes Na Aguilar INHALE 2 Common PUFFS 4 Spirit TIMES A - [facility]I DAY FOR 30 [facility] Alendronate Alendronate Yes Na Aguilar TAKE 1 Common Sodium Sodium TABLET BY Spirit MOUTH - [facility] EVERY WEEK [facility] Cranberry Cranberry Yes Na Aguilar as Co mmon Plus Plus directed [facility] Vitamin C Vitamin C - [facility] Centrum Centrum Yes Na Aguilar as Common Silver Silver directed [facility] Adult 50+ Adult 50+ - [facility]I [facility] Turmeric Turmeric Yes Na Aguilar as Comm on directed [facility] - [facility] Potassium Potassium Yes Na Aguilar TAKE 1 Common Chloride Chloride TABLET BY Sp demetris [facility] MOUTH - [facility]I DAILY [facility] Ocuvite Ocuvite Yes Na Aguilar 1 tablet Co mmon [facility] B12 Fast B12 Fast Yes Na Aguilar not Comm on Dissolve Dissolve defined Spir it - CHI [facility] ProAir HFA ProAir HFA Yes Na Aguilar INHALE 2 Common PUFFS 4 Spirit TIMES A - [facility]I DAY FOR 30 [facility] Citalopram Citalopram Yes Na Aguilar TAKE 1 Common Hydrobromid Hydrobromid TABLET BY Spirit e e MOUTH ONCE - [facility] DAILY [facility] Magnesium Magnesium 2019- No Na Aguilar 1 capsule Common Oxide -Mg Oxide -Mg 17 as needed [facility] Supplement Supplement 00:00 - [facility] :00 [facility] Procedures This patient has no known procedures. Encounters Start End Encounter Admission Attending Care Care Encounter Source Date/Time Date/Time Type Type Clinicians Facility Department ID 2021-09-07 Outpatient Justine Aguilar [facility] [id number] Common 14:38:00 [facility] 2021-09-06 Outpatient Aguilar, Na STLMLC STLMLC [id number] Common 13:21:01 [facility] 2021-05-31 Outpatient Aguilar, Na STLMLC STLMLC [id number] Common 10:39:01 [facility] 2021-05-23 Outpatient Aguilar, Na STLMLC STLMLC [id number] Common 14:20:57 [id number] [facility] 2021-05-23 Outpatient Aguilar, Na STLMLC STLMLC [id number] Common 14:19:59 [id number] [facility] 2021-05-23 Outpatient Aguilar, Na STLMLC STLMLC [id number] Common 14:08:13 [id number] [facility] 2021-05-23 Outpatient Aguilar, Na STLMLC STLMLC [id number] Common 13:56:34 [id number] [facility] 2021-05-23 Outpatient Aguilar, Na STLMLC STLMLC [id number] Common 12:40:53 [id number] [facility] 2021-05-23 Outpatient Aguilar, Na STLMLC STLMLC [id number] Common 12:36:05 [id number] [facility] 2021-05-23 Outpatient Aguilar, Na STLMLC STLMLC [id number] Common 11:24:48 [id number] [facility] 2021-05-23 Outpatient Aguilar, Na STLMLC STLMLC [id number] Common 11:12:27 [id number] [facility] 2021-11-02 2021-11-02 ambulatory STLMLC STLMLC [id number] Common 00:00:00 00:00:00 [facility] 2021-10-31 2021-10-31 ambulatory STLMLC STLMLC [id number] Common 00:00:00 00:00:00 [facility] 2021-10-30 2021-10-30 ambulatory STLMLC STLMLC [id number] Common 00:00:00 00:00:00 [facility] 2021-09-21 2021-09-21 ambulatory STLMLC STLMLC [id number] Common 00:00:00 00:00:00 [facility] 2021-09-10 2021-09-10 ambulatory STLMLC STLMLC [id number] Common 00:00:00 00:00:00 [facility] 2021-08-14 2021-08-14 ambulatory STLMLC STLMLC [id number] Common 00:00:00 00:00:00 [facility] 2021-08-02 2021-08-02 ambulatory STLMLC STLMLC [id number] Common 00:00:00 00:00:00 [facility] 2021-06-06 2021-06-06 ambulatory STLMLC STLMLC [id number] Common 00:00:00 00:00:00 [facility] 2021-06-01 2021-06-01 ambulatory STLMLC STLMLC [id number] Common 00:00:00 00:00:00 [facility] 2021-03-23 2021-03-23 ambulatory STLMLC STLMLC [id number] Common 00:00:00 00:00:00 [facility] 2021-03-20 2021-03-20 ambulatory STLMLC STLMLC [id number] Common 00:00:00 00:00:00 [facility] 2021-03-02 2021-03-02 ambulatory STLMLC STLMLC [id number] Common 00:00:00 00:00:00 [facility] 2021-03-02 2021-03-02 ambulatory STLMLC STLMLC [id number] Common 00:00:00 00:00:00 [facility] 2021-01-19 2021-01-19 Outpatient STLMLC STLMLC [id number] Common 00:00:00 00:00:00 [facility] 2020-12-01 2020-12-01 Outpatient STLMLC STLMLC [id number] Common 00:00:00 00:00:00 [facility] 2020-11-24 2020-11-24 Outpatient STLMLC STLMLC [id number] Common 00:00:00 00:00:00 [facility] 2020-10-19 2020-10-19 Outpatient STLMLC STLMLC [id number] Common 00:00:00 00:00:00 [facility] 2020-10-11 2020-10-11 Outpatient STLMLC STLMLC [id number] Common 00:00:00 00:00:00 [facility] 2020-08-07 2020-08-07 Outpatient STLMLC STLMLC [id number] Common 00:00:00 00:00:00 [facility] 2020-08-06 2020-08-06 Outpatient STLMLC STLMLC [id number] Common 00:00:00 00:00:00 [facility] 2020-07-04 2020-07-04 Outpatient STLMLC STLMLC [id number] Common 00:00:00 00:00:00 [facility] 2020-07-03 2020-07-03 Outpatient STLMLC STLMLC [id number] Common 00:00:00 00:00:00 [facility] 2020-06-02 2020-06-02 Outpatient STLMLC STLMLC [id number] Common 00:00:00 00:00:00 [facility] 2020-04-06 2020-04-06 Outpatient STLMLC STLMLC [id number] Common 00:00:00 00:00:00 [facility] 2020-04-04 2020-04-04 Outpatient STLMLC STLMLC [id number] Common 00:00:00 00:00:00 [facility] 2020-01-06 2020-01-06 [facility] [id number] Common 04:55:00 04:55:[address] [employer] [address] [facility] 2020 2020 [id number] Common 13:20:00 13:20:[address] [employer] [address] [facility] 2019-10-28 2019-10-28 [facility] [id number] Common 15:22:00 15:22:[address] [facility] 2019-10-04 2019-10-04 [facility] [id number] Common 13:20:00 13:20:[address] [facility] 2019-07-02 2019-07-02 [facility] [id number] Common 14:00:00 14:00:[address] [facility] 2019-06-11 2019-06-11 [facility] [id number] Common 14:53:00 14:53:[address] [facility] 2019-05-20 2019-05-20 [facility] [id number] Common 13:40:00 13:40:[address] [facility] 2019-05-05 2019-05-05 [facility] [id number] Common 12:00:00 12:00:[address] [facility] 2019-02-27 2019-02-27 [facility] [id number] Common 23:48:00 23:48:[address] [facility] 2019-02-16 2019-02-16 [facility] [id number] Common 13:20:00 13:20:[address] [facility] 2018-11-17 2018-11-17 [facility] [id number] Common 14:40:00 14:40:[address] [facility] 2018-10-27 2018-10-27 [facility] [id number] Common 13:43:00 13:43:[address] [facility] 2018-08-18 2018-08-18 [facility] [id number] Common 14:00:00 14:00:[address] [facility] 2018-08-07 2018-08-07 [facility] [id number] Common 15:28:00 15:28:[address] [facility] 2018-07-03 2018-07-03 [facility] [id number] Common 09:48:00 09:48:[address] [facility] 2018-05-20 2018-05-20 [facility] [id number] Common 14:45:00 14:45:[address] [facility] 2018-01-22 2018-01-22 [facility] [id number] Common 14:45:00 14:45:[address] [facility] 2017-10-23 2017-10-23 [facility] [id number] Common 14:15:00 14:15:[address] [facility] 2017-07-23 2017-07-23 [facility] [id number] Common 14:15:00 14:15:[address] [facility] Results This patient has no known results.
== END 2021-10-28 10:58 | disposition home or self-care (01) ==
LOC: ER 19:48 → ERHOLD 23:39 → 2ND 10-27 00:55
PROVIDERS: ADMIT Hospitalist; ATTEND Hospitalist
DX: L03.113 Cellulitis of right upper limb (principal); M62.82 Rhabdomyolysis; U07.1 COVID-19; E83.42 Hypomagnesemia; E87.6 Hypokalemia; J44.9 Chronic obstructive pulmonary disease, unspecified; I10 Essential (primary) hypertension; K21.9 Gastro-esophageal reflux disease without esophagitis; G62.9 Polyneuropathy, unspecified; M54.9 Dorsalgia, unspecified; G89.29 Other chronic pain; F32.A Depression, unspecified; F41.9 Anxiety disorder, unspecified; F17.200 Nicotine dependence, unspecified, uncomplicated; Z79.52 Long term (current) use of systemic steroids; Z79.899 Other long term (current) drug therapy; Z88.0 Allergy status to penicillin; Z88.7 Allergy status to serum and vaccine; Z90.49 Acquired absence of other specified parts of digestive tract; Z90.710 Acquired absence of both cervix and uterus
CPT/HCPCS: 93005; 87040 ×2; 85025 ×3; 80048 ×3; 36415 ×2; 83735 ×2; 82550 ×2; 85610; 80076; 83605; 84484; 83880; 70450; 71045; 96375; 96374; 99285; U0003; J1650 ×2; J3360; J3370; J3475; J7050; J7030 ×2; J2930; J2405; J2920 ×3; G0378 ×3

== ENCOUNTER 2023-03-18 11:17 | Emergency (ER) | payer MEDICARE, OTHER ==
--- OUTSIDE RECORDS SUMMARY | 2023-03-18 11:26 | XMS REPORT | Continuity of Care Document ---
:1945 Author Organization [facility] t Address [address] [place] [address] Care Team Providers Name Role Phone Justine Wilson Primary Care Physician Tomer Hutson Attending Clinician Unavailable Franco Dennison Attending Clinician Unavailable Marycarmen Cooley Attending Clinician Unavailable Justine WILSON Attending Clinician Unavailable Karina Wheeler Attending Clinician Linda Attending Clinician Unavailable Medardo King Attending Clinician Jono Shaw Attending Clinician JONO WHITAKER Attending Clinician Unavailable Doctor Unassigned, [place] Attending Clinician Unavailable CHANELLE GALLARDO Attending Clinician Unavailable Liam_Cody Admitting Clinician Unavailable Payers Payer Name Policy Type Policy Number Effective Date Expiration Date [place] [facility] [id number] 2022 (MEDICARE 00:00:00 REPLACEMENT HMO) [facility] Dual Complete 53 [id number] 2021 Common MCR 00:00:00 [facility] AETNA MEDICARE 53 [id number] 2021 Common 00:00:00 [facility] Problems Condition Condition Condition Status Onset Resolution Last Treating Co mments Source Name Details Category Date Date Treatment Clinician Date [id number] 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 - [facility]I dysplasia [facility] [id number] Stress at Problem Com mon home Spirit - CHI [facility] [id number] Adult Problem Common general Spirit medical - [facility]I exam [facility] Abnormal Abnormal Problem Commo n mammogram mammogram Spir it - CHI [facility] Colonic Colonic Problem Common polyp polyp Spirit - [facility] Chronic 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 - [facility] stage 2 disease [facility] Iron Iron Problem Common deficiency deficiency Sp demetris - [facility] Chronic Chronic Problem Common obstructiv obstructiv Sp demetris e e - CHI pulmonary pulmonary St disease [facility] unspecifie Medica l d COPD Center type 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 - [facility] [id number] Unsteady Problem Commo n gait Spirit [facility] [id number] Need for Problem Comm on assistance Spirit due to - CHI unsteady [facility] [id number] Moderate Problem Commo n major Spirit depression - CHI , single [facility] Chronic Benign Problem Common kidney hypertensi Spirit disease on with - CHI due to chronic hypertens kidney [facility] on disease, Medical stage III Center Cervical Degenerati Problem Com mon spondylosi ve Spirit s without arthritis - CH I myelopathy of cervical [facility] spine with Medica l nerve Center compressio n [id number] Unsteadine Problem Co mmon ss Spirit - CHI [facility] Psoriasis Psoriasis Problem Com mon Spirit - CHI [facility] Hyperglyce Hyperglyce Problem C ommon mario mario [facility] CHI [facility] Gastroesop GERD Problem Commo n hageal (gastroeso Spirit reflux phageal - [facility] Hypert[facility] Problem C ommon on on Spirit CHI [facility] Vitamin Vitamin Problem Common B12 B12 Spirit deficiency deficiency - CHI [facility] Hiatal Hiatal Problem Common hernia hernia [facility] Essential Essential Problem Com mon hypertensi (primary) Spi rit on hypertensi - CHI on [facility] Degenerati Other Problem Commo n on of interverte Spirit lumbar bral disc - CHI interverte degenerati St bral disc on, lumbar [facility] Allergic Allergic Problem Commo n rhinitis rhinitis Spirit - [facility] [id number] Cigarette Problem Co mmon [id number] nicotine Spirit dependence - CHI with other St nicotine-i [facility] nduced Medical disorder Center Mixed Depression Problem Commo n anxiety with Spirit and anxiety - CHI depressive disorder 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 Chronic Chronic Problem Common back pain back pain Spir it - CHI [facility] Osteopenia Osteopenia Problem C ommon Spirit - CHI [facility] Osteoarthr Osteoarthr Problem C ommon itis itis Spirit involving - CHI multiple St joints on [facility] both sides Medica l of body Center Epidermoid Epidermoid Problem C ommon cyst of cyst of Spirit skin skin - CHI [facility] [id number] Vitamin Problem Commo n B12 Spirit deficiency - [facility] (dietary) [facility] Chronic Stage 3 Problem Common kidney chronic Spirit disease kidney - CHI stage 3 disease, [facility] whether Medical stage 3a Center or 3b CKD Hemorrhoid Unspecifie Problem C ommon s without d Spirit complicati hemorrhoid - CHI on s without St mention of [facility] complicati Medica l on Center Cramp in Leg cramps Problem Com mon lower limb Spirit - CH[facility] Nicotine Nicotine Problem Commo n dependence dependence Sp demetris - CHI [facility] [id number] Mixed Problem Common stress and Spirit urge - CHI urinary [facility] At risk At risk Problem Common for falls for falls Spir it [facility] [id number] Iron Problem Common deficiency Spirit anemia, - CHI unspecifie St d iron [facility] deficiency Medica l anemia Center type Renal Renal Problem Common insufficie insufficie Sp demetris ncy ncy - CHI syndrome syndrome [facility] Tobacco Tobacco Problem Common user use Spirit disorder - CHI [facility] Urinary Urinary Problem Common incontinen incontinen Sp demetris ce ce [facility] [id number] Varicose Problem Commo n veins of Spirit both lower - CHI extremitie St s with [facility] Center No known No known Disease Unive rs active active ity of problems problems [place] [facility] Allergies, Adverse Reactions, Alerts Allergy Allergy Status Severity Reaction(s) Onset Inactive Treating Comm ents Source Name Type Date Date Clinician Penicill Propensi Active Rash 2016-04 Univer s ins ty to 0-11 ity of adverse 00:00: [place] reaction 00 Medical s Branch Tetanus Propensi Active Unknown - 2016-04 Univ ers And ty to See comments 0-11 ity of Diphther adverse 00:00: [place] ia reaction 00 Medical Toxoids s Branch PENICILL Drug Active Rash 2016-04 Univers INS Class 0-11 ity of 00:00: [place] 00 Medical Branch TETANUS DRUG Active Unknown-Cmnt 2016-04 Uni vers AND INGREDI 0-11 ity of DIPHTHER 00:00: [place] IA 00 Medical TOXOIDS Branch 6933 Drug Active Unknown Common allergy [facility] amoxicil amoxicil Active Unknown Commo n kaelyn kaelyn [facility] Penicill Penicill Active Unknown Commo n in in [facility] Social History Social Habit Start Date Stop Date Quantity Comments Source History of Tobacco Current Smoker Co mmon [facility] Use [facility] Exposure to 2022-04-06 2022-04-16 Not sure [facility] SARS-CoV-2 (event) 00:00:00 15:58:00 [facility] Alcohol intake 2022-04-16 2022-04-16 0 /d University of 00:00:00 00:00:00 [facility] Cigarettes smoked 2016-01-22 2016-01-22 Univers ity of current (pack per 00:00:00 00:00:00 [facility] ) - Reported Branch Tobacco use and 2016-01-22 2016-01-22 Smokeless Universit y of exposure 00:00:00 00:00:00 tobacco non-user [facility] Sex Assigned At [birth year] Universit y of 00:00:00 00:00:00 [facility] Smoking Status Start Date Stop Date Source Smokes tobacco daily 2016-01-22 00:00:00 Univers ity of [facility] Medications Ordered Filled Start Stop Current Ordering Indication Dosage Frequency Signature Comments Components Source Medication Medication Date Date Medication? Clinician (SIG) Name Name Medrol 4 MG Medrol 4 MG 2021-04- No QD Medrol 4 0-07 10-13 MG 00:00: 00:00 00 :00 Medrol 4 MG Medrol 4 MG 2021-04- No QD Medrol 4 0-07 10-13 MG 00:00: 00:00 00 :00 Medrol 4 MG Medrol 4 MG 2021-04- No QD Medrol 4 0-07 10-13 MG 00:00: 00:00 00 :00 Medrol 4 MG Medrol 4 MG 2021-04- No QD Medrol 4 0-07 10-13 MG 00:00: 00:00 00 :00 Linzess 72 Linzess 72 2021- No 1{capsu QD Linzess 72 MCG MCG 11-26 le_on_a MCG 00:00: 00:00 n_empty 00 :00 _stomac h} Linzess 72 Linzess 72 2021- No 1{capsu QD Linzess 72 MCG MCG 11-26 le_on_a MCG 00:00: 00:00 n_empty 00 :00 _stomac h} Linzess 72 Linzess 72 2021- No 1{capsu QD Linzess 72 MCG MCG 11-26 le_on_a MCG 00:00: 00:00 n_empty 00 :00 _stomac h} Linzess 72 Linzess 72 2021- No 1{capsu QD Linzess 72 MCG MCG 11-26 le_on_a MCG 00:00: 00:00 n_empty 00 :00 _stomac h} Alendronate Alendronate 2020-04- No Alendronat Sodium 70 Sodium 70 05-27-29 e Sodium MG MG 00:00: 00:00 70 MG 00 :00 Alendronate Alendronate 2020-04- No Alendronat Sodium 70 Sodium 70 05-27-29 e Sodium MG MG 00:00: 00:00 70 MG 00 :00 Alendronate Alendronate 2020-04- No Alendronat Sodium 70 Sodium 70 05-27-29 e Sodium MG MG 00:00: 00:00 70 MG 00 :00 Alendronate Alendronate 2020-04- No Alendronat Sodium 70 Sodium 70 05-27-29 e Sodium MG MG 00:00: 00:00 70 MG 00 :00 Alendronate Alendronate 2020-04- No Alendronat Sodium 70 Sodium 70 05-27 e Sodium MG MG 00:00: 00:00 70 MG 00 :00 Alendronate Alendronate 2020-04- No Alendronat Sodium 70 Sodium 70 05-27 e Sodium MG MG 00:00: 00:00 70 MG 00 :00 Nasonex Nasonex 2019- Yes Na Wilson 2 sprays Common 0- in each Spirit 00:00: nostril - CHI 00 [facility] Triamcinolo Triamcinolo 2019- Yes Na Wilson 1 Common ne ne 0-22 applicatio Spirit Acetonide Acetonide 00:00: n to - C HI 00 affected [facility] Myrbetriq Myrbetriq 2018-0 2020- No Na Wilson 1 tablet Common 11-17 Spirit 00:00: 00:00 - CHI 00 :00 [facility] Hemocyte Hemocyte 2019-0 Yes Na Wilson 1 capsule Common Plus Plus - Spirit 00:00: - CHI 00 [facility] Hemocyte Hemocyte 2019-0 No 1{capsu QD Hemocyte Plus 106-1 Plus 106-1 7-03 le} Plus 106-1 MG MG 00:00: MG 00 Hemocyte Hemocyte 2019-0 No 1{capsu QD Hemocyte Plus 106-1 Plus 106-1 7-03 le} Plus 106-1 MG MG 00:00: MG 00 Hemocyte Hemocyte 2019-0 No 1{capsu QD Hemocyte Plus 106-1 Plus 106-1 7-03 le} Plus 106-1 MG MG 00:00: MG 00 Hemocyte Hemocyte 2019-0 No 1{capsu QD Hemocyte Plus 106-1 Plus 106-1 7-03 le} Plus 106-1 MG MG 00:00: MG 00 Hemocyte Hemocyte 2019-0 No 1{capsu QD Hemocyte Plus 106-1 Plus 106-1 7-03 le} Plus 106-1 MG MG 00:00: MG 00 Hemocyte Hemocyte 2019-0 No 1{capsu QD Hemocyte Plus 106-1 Plus 106-1 7-03 le} Plus 106-1 MG MG 00:00: MG 00 Hemocyte Hemocyte 2019-0 No 1{capsu QD Hemocyte Plus 106-1 Plus 106-1 7-03 le} Plus 106-1 MG MG 00:00: MG 00 Hemocyte Hemocyte 2019-0 No 1{capsu QD Plus 106-1 Plus 106-1 7-03 le} MG MG 00:00: 00 Hemocyte Hemocyte 2019-0 No 1{capsu QD Hemocyte Plus 106-1 Plus 106-1 7-03 le} Plus 106-1 MG MG 00:00: MG 00 Hemocyte Hemocyte 2019-0 No 1{capsu QD Hemocyte Plus 106-1 Plus 106-1 7-03 le} Plus 106-1 MG MG 00:00: MG 00 Hemocyte Hemocyte 2019-0 No 1{capsu QD Hemocyte Plus 106-1 Plus 106-1 7-03 le} Plus 106-1 MG MG 00:00: MG 00 Hemocyte Hemocyte 2019-0 No 1{capsu QD Hemocyte Plus 106-1 Plus 106-1 7-03 le} Plus 106-1 MG MG 00:00: MG 00 Hemocyte Hemocyte 2019-0 No 1{capsu QD Hemocyte Plus 106-1 Plus 106-1 7-03 le} Plus 106-1 MG MG 00:00: MG 00 Hemocyte Hemocyte 2019-0 No 1{capsu QD Hemocyte Plus 106-1 Plus 106-1 7-03 le} Plus 106-1 MG MG 00:00: MG 00 Hemocyte Hemocyte 2019-0 No 1{capsu QD Hemocyte Plus 106-1 Plus 106-1 7-03 le} Plus 106-1 MG MG 00:00: MG 00 Hemocyte Hemocyte 2019-0 No 1{capsu QD Hemocyte Plus 106-1 Plus 106-1 7-03 le} Plus 106-1 MG MG 00:00: MG 00 Hemocyte Hemocyte 2019-0 No 1{capsu QD Hemocyte Plus 106-1 Plus 106-1 7-03 le} Plus 106-1 MG MG 00:00: MG 00 Hemocyte Hemocyte 2019-0 No 1{capsu QD Hemocyte Plus 106-1 Plus 106-1 7-03 le} Plus 106-1 MG MG 00:00: MG 00 Hemocyte Hemocyte 2019-0 No 1{capsu QD Hemocyte Plus 106-1 Plus 106-1 7-03 le} Plus 106-1 MG MG 00:00: MG 00 Hemocyte Hemocyte 2019-0 No 1{capsu QD Hemocyte Plus 106-1 Plus 106-1 7-03 le} Plus 106-1 MG MG 00:00: MG 00 Hemocyte Hemocyte 2019-0 No 1{capsu QD Hemocyte Plus 106-1 Plus 106-1 7-03 le} Plus 106-1 MG MG 00:00: MG 00 Hemocyte Hemocyte 2019-0 No 1{capsu QD Hemocyte Plus 106-1 Plus 106-1 7-03 le} Plus 106-1 MG MG 00:00: MG 00 Hemocyte Hemocyte 2019-0 No 1{capsu QD Hemocyte Plus 106-1 Plus 106-1 7-03 le} Plus 106-1 MG MG 00:00: MG 00 Hemocyte Hemocyte 2019-0 No 1{capsu QD Hemocyte Plus 106-1 Plus 106-1 7-03 le} Plus 106-1 MG MG 00:00: MG 00 Hemocyte Hemocyte 2019-0 No 1{capsu QD Hemocyte Plus 106-1 Plus 106-1 7-03 le} Plus 106-1 MG MG 00:00: MG 00 Hemocyte Hemocyte 2019-0 No 1{capsu QD Hemocyte Plus 106-1 Plus 106-1 7-03 le} Plus 106-1 MG MG 00:00: MG 00 Hemocyte Hemocyte 2019-0 No 1{capsu QD Hemocyte Plus 106-1 Plus 106-1 7-03 le} Plus 106-1 MG MG 00:00: MG 00 Hemocyte Hemocyte 2019-0 No 1{capsu QD Hemocyte Plus 106-1 Plus 106-1 7-03 le} Plus 106-1 MG MG 00:00: MG 00 Hemocyte Hemocyte 2019-0 No 1{capsu QD Hemocyte Plus 106-1 Plus 106-1 7-03 le} Plus 106-1 MG MG 00:00: MG 00 Hemocyte Hemocyte 2019-0 No 1{capsu QD Hemocyte Plus 106-1 Plus 106-1 7-03 le} Plus 106-1 MG MG 00:00: MG 00 Hemocyte Hemocyte 2019-0 No 1{capsu QD Hemocyte Plus 106-1 Plus 106-1 7-03 le} Plus 106-1 MG MG 00:00: MG 00 Hemocyte Hemocyte 2019-0 No 1{capsu QD Hemocyte Plus 106-1 Plus 106-1 7-03 le} Plus 106-1 MG MG 00:00: MG 00 vits 2016-04 Yes 1{tbl} Take 1 Univers A-C-E-B 0-11 tablet by ity of complx-min- 13:52: mouth [place] lutein 18 daily. Medical (LIPOTRIAD, Branch WITH LUTEIN,) 5,000 unit- 120 mg-60 unit TbSR alendronate 2016-04 Yes 35mg Take 35 mg Univers (FOSAMAX) 0-11 by mouth ity of 35 mg 13:52: weekly. [place] tablet 18 Indication Medical s: Patient Branch takes on Tuesdays Swoope-3 2016-04 Yes 1{capsu Take 1 Unive rs Fatty Acids 0-11 le} capsule by it y of (FISH OIL) 13:52: mouth [place] 500 mg Cap 18 daily. Medical Branch VITAMIN E, 2016-04 Yes 100U Take 100 Uni vers DL,TOCOPHER 0-11 Units by ity of YL ACET, 13:52: mouth [place] (DL-VITAMIN 18 daily. Medica l E ACETATE) Branch 100 unit capsule LACTOBACILL 2016-04 Yes 1{tbl} Take 1 Un debbie US 0-11 tablet by ity of ACIDOPHILUS 13:52: mouth [place] (PROBIOTIC 18 daily. Medical ORAL) Branch ibuprofen 2016-04 Yes 600mg Take 600 Uni vers (ADVIL) 200 0-11 mg by ity of mg tablet 13:52: mouth [place] 18 every 6 Medical (six) Branch hours as needed. cetirizine 2016-04 Yes 10mg Take 10 mg U nivers (ZYRTEC) 10 0-11 by mouth ity of mg tablet 13:52: daily. [place] 18 Medical Branch Multivitami 2016-04 Yes 1{tbl} Take 1 Un debbie n Cmb 0-11 tablet by ity of No.21-Iron- 13:52: mouth [place] FA (CENTRUM 18 daily. Medica l COMPLETE) Branch 18-400 mg-mcg Tab CALCIUM 2016-04 Yes 1{tbl} Take 1 Univer s CARBONATE/V 0-11 tablet by ity of ITAMIN D2 13:52: mouth [place] (CALCIUM 18 daily. Medical 600 + D Branch ORAL) celecoxib 2016-04 Yes 200mg Take 200 Uni vers (CELEBREX) 0-11 mg by ity of 200 mg 13:52: mouth [place] capsule 18 daily. Medical Branch iron,iron 2016-04 Yes 1{tbl} Take 1 Univ ers asp 0-11 tablet by ity of gly-FA-nahum,m 13:52: mouth [place] in27 18 daily. Medical (CORVITE Branch FE) 125 mg iron-25 mg iron-1 mg Tab mirabegron 2016-04 Yes 1{tbl} Take 1 Uni vers (MYRBETRIQ) 0-11 tablet by ity of 25 mg 13:52: mouth [place] tablet 18 every Medical evening. Branch mometasone 2016-04 Yes 1{spray Use 1 Uni vers (NASONEX) 0-11 } [place] in ity of 50 13:52: each [place] mcg/actuati 18 nostril Medic al on nasal daily. Branch spray budesonide- 2016-04 Yes 2{puff} Inhale 2 Univers formoterol 0-11 Puffs 2 ity of (SYMBICORT) 13:52: (two) [place] 160-4.5 18 times Medical mcg/actuati daily. Branch on inhaler vitamin 2016-04 Yes 1000ug Take 1,000 Un debbie B-12 0-11 mcg by ity of (VITAMIN 13:52: mouth [place] B-12) 1,000 18 daily. Medica l mcg tablet Branch vits 2016-04 Yes 1{tbl} Take 1 Univers A-C-E-B 0-11 tablet by ity of complx-min- 13:52: mouth [place] lutein 18 daily. Medical (LIPOTRIAD, Branch WITH LUTEIN,) 5,000 unit- 120 mg-60 unit TbSR alendronate 2016-04 Yes 35mg Take 35 mg Univers (FOSAMAX) 0-11 by mouth ity of 35 mg 13:52: weekly. [place] tablet 18 Indication Medical s: Patient Branch takes on Tuesdays Swoope-3 2016-04 Yes 1{capsu Take 1 Unive rs Fatty Acids 0-11 le} capsule by it y of (FISH OIL) 13:52: mouth [place] 500 mg Cap 18 daily. Medical Branch VITAMIN E, 2016-04 Yes 100U Take 100 Uni vers DL,TOCOPHER 0-11 Units by ity of YL ACET, 13:52: mouth [place] (DL-VITAMIN 18 daily. Medica l E ACETATE) Branch 100 unit capsule LACTOBACILL 2016-04 Yes 1{tbl} Take 1 Un debbie US 0-11 tablet by ity of ACIDOPHILUS 13:52: mouth [place] (PROBIOTIC 18 daily. Medical ORAL) Branch ibuprofen 2016-04 Yes 600mg Take 600 Uni vers (ADVIL) 200 0-11 mg by ity of mg tablet 13:52: mouth [place] 18 every 6 Medical (six) Branch hours as needed. cetirizine 2016-04 Yes 10mg Take 10 mg U nivers (ZYRTEC) 10 0-11 by mouth ity of mg tablet 13:52: daily. [place] 18 Medical Branch Multivitami 2016-04 Yes 1{tbl} Take 1 Un debbie n Cmb 0-11 tablet by ity of No.21-Iron- 13:52: mouth [place] FA (CENTRUM 18 daily. Medica l COMPLETE) Branch 18-400 mg-mcg Tab CALCIUM 2016-04 Yes 1{tbl} Take 1 Univer s CARBONATE/V 0-11 tablet by ity of ITAMIN D2 13:52: mouth [place] (CALCIUM 18 daily. Medical 600 + D Branch ORAL) celecoxib 2016-04 Yes 200mg Take 200 Uni vers (CELEBREX) 0-11 mg by ity of 200 mg 13:52: mouth [place] capsule 18 daily. Medical Branch iron,iron 2016-04 Yes 1{tbl} Take 1 Univ ers asp 0-11 tablet by ity of gly-FA-nahum,m 13:52: mouth [place] in27 18 daily. Medical (CORVITE Branch FE) 125 mg iron-25 mg iron-1 mg Tab mirabegron 2016-04 Yes 1{tbl} Take 1 Uni vers (MYRBETRIQ) 0-11 tablet by ity of 25 mg 13:52: mouth [place] tablet 18 every Medical evening. Branch mometasone 2016-04 Yes 1{spray Use 1 Uni vers (NASONEX) 0-11 } [place] in ity of 50 13:52: each [place] mcg/actuati 18 nostril Medic al on nasal daily. Branch spray budesonide- 2016-04 Yes 2{puff} Inhale 2 Univers formoterol 0-11 Puffs 2 ity of (SYMBICORT) 13:52: (two) [place] 160-4.5 18 times Medical mcg/actuati daily. Branch on inhaler vitamin 2016-04 Yes 1000ug Take 1,000 Un debbie B-12 0-11 mcg by ity of (VITAMIN 13:52: mouth [place] B-12) 1,000 18 daily. Medica l mcg tablet Branch vits 2016-04 Yes 1{tbl} Take 1 Univers A-C-E-B 0-11 tablet by ity of complx-min- 13:52: mouth [place] lutein 18 daily. Medical (LIPOTRIAD, Branch WITH LUTEIN,) 5,000 unit- 120 mg-60 unit TbSR alendronate 2016-04 Yes 35mg Take 35 mg Univers (FOSAMAX) 0-11 by mouth ity of 35 mg 13:52: weekly. [place] tablet 18 Indication Medical s: Patient Branch takes on Tuesdays Swoope-3 2016-04 Yes 1{capsu Take 1 Unive rs Fatty Acids 0-11 le} capsule by it y of (FISH OIL) 13:52: mouth [place] 500 mg Cap 18 daily. Medical Branch VITAMIN E, 2016-04 Yes 100U Take 100 Uni vers DL,TOCOPHER 0-11 Units by ity of YL ACET, 13:52: mouth [place] (DL-VITAMIN 18 daily. Medica l E ACETATE) Branch 100 unit capsule LACTOBACILL 2016-04 Yes 1{tbl} Take 1 Un debbie US 0-11 tablet by ity of ACIDOPHILUS 13:52: mouth [place] (PROBIOTIC 18 daily. Medical ORAL) Branch ibuprofen 2016-04 Yes 600mg Take 600 Uni vers (ADVIL) 200 0-11 mg by ity of mg tablet 13:52: mouth [place] 18 every 6 Medical (six) Branch hours as needed. cetirizine 2016-04 Yes 10mg Take 10 mg U nivers (ZYRTEC) 10 0-11 by mouth ity of mg tablet 13:52: daily. [place] 18 Medical Branch Multivitami 2016-04 Yes 1{tbl} Take 1 Un debbie n Cmb 0-11 tablet by ity of No.21-Iron- 13:52: mouth [place] FA (CENTRUM 18 daily. Medica l COMPLETE) Branch 18-400 mg-mcg Tab CALCIUM 2016-04 Yes 1{tbl} Take 1 Univer s CARBONATE/V 0-11 tablet by ity of ITAMIN D2 13:52: mouth [place] (CALCIUM 18 daily. Medical 600 + D Branch ORAL) celecoxib 2016-04 Yes 200mg Take 200 Uni vers (CELEBREX) 0-11 mg by ity of 200 mg 13:52: mouth [place] capsule 18 daily. Medical Branch iron,iron 2016-04 Yes 1{tbl} Take 1 Univ ers asp 0-11 tablet by ity of gly-Josh,m 13:52: mouth [place] in27 18 daily. Medical (CORVITE Branch FE) 125 mg iron-25 mg iron-1 mg Tab mirabegron 2016-04 Yes 1{tbl} Take 1 Uni vers (MYRBETRIQ) 0-11 tablet by ity of 25 mg 13:52: mouth [place] tablet 18 every Medical evening. Branch mometasone 2016-04 Yes 1{spray Use 1 Uni vers (NASONEX) 0-11 } [place] in ity of 50 13:52: each [place] mcg/actuati 18 nostril Medic al on nasal daily. Branch spray budesonide- 2016-04 Yes 2{puff} Inhale 2 Univers formoterol 0-11 Puffs 2 ity of (SYMBICORT) 13:52: (two) [place] 160-4.5 18 times Medical mcg/actuati daily. Branch on inhaler vitamin 2016-04 Yes 1000ug Take 1,000 Un debbie B-12 0-11 mcg by ity of (VITAMIN 13:52: mouth [place] B-12) 1,000 18 daily. Medica l mcg tablet Branch vits 2016-04 Yes 1{tbl} Take 1 Univers A-C-E-B 0-11 tablet by ity of complx-min- 13:52: mouth [place] lutein 18 daily. Medical (LIPOTRIAD, Branch WITH LUTEIN,) 5,000 unit- 120 mg-60 unit TbSR alendronate 2016-04 Yes 35mg Take 35 mg Univers (FOSAMAX) 0-11 by mouth ity of 35 mg 13:52: weekly. [place] tablet 18 Indication Medical s: Patient Branch takes on Tuesdays Swoope-3 2016-04 Yes 1{capsu Take 1 Unive rs Fatty Acids 0-11 le} capsule by it y of (FISH OIL) 13:52: mouth [place] 500 mg Cap 18 daily. Medical Branch VITAMIN E, 2016-04 Yes 100U Take 100 Uni vers DL,TOCOPHER 0-11 Units by ity of YL ACET, 13:52: mouth [place] (DL-VITAMIN 18 daily. Medica l E ACETATE) Branch 100 unit capsule LACTOBACILL 2016-04 Yes 1{tbl} Take 1 Un debbie US 0-11 tablet by ity of ACIDOPHILUS 13:52: mouth [place] (PROBIOTIC 18 daily. Medical ORAL) Branch ibuprofen 2016-04 Yes 600mg Take 600 Uni vers (ADVIL) 200 0-11 mg by ity of mg tablet 13:52: mouth [place] 18 every 6 Medical (six) Branch hours as needed. cetirizine 2016-04 Yes 10mg Take 10 mg U nivers (ZYRTEC) 10 0-11 by mouth ity of mg tablet 13:52: daily. [place] 18 Medical Branch Multivitami 2016-04 Yes 1{tbl} Take 1 Un debbie n Cmb 0-11 tablet by ity of No.21-Iron- 13:52: mouth [place] FA (CENTRUM 18 daily. Medica l COMPLETE) Branch 18-400 mg-mcg Tab CALCIUM 2016-04 Yes 1{tbl} Take 1 Univer s CARBONATE/V 0-11 tablet by ity of ITAMIN D2 13:52: mouth [place] (CALCIUM 18 daily. Medical 600 + D Branch ORAL) celecoxib 2016-04 Yes 200mg Take 200 Uni vers (CELEBREX) 0-11 mg by ity of 200 mg 13:52: mouth [place] capsule 18 daily. Medical Branch iron,iron 2016-04 Yes 1{tbl} Take 1 Univ ers asp 0-11 tablet by ity of gly-FA-mv,m 13:52: mouth [place] in27 18 daily. Medical (CORVITE Branch FE) 125 mg iron-25 mg iron-1 mg Tab mirabegron 2016-04 Yes 1{tbl} Take 1 Uni vers (MYRBETRIQ) 0-11 tablet by ity of 25 mg 13:52: mouth [place] tablet 18 every Medical evening. Branch mometasone 2016-04 Yes 1{spray Use 1 Uni vers (NASONEX) 0-11 } [place] in ity of 50 13:52: each [place] mcg/actuati 18 nostril Medic al on nasal daily. Branch spray budesonide- 2016-04 Yes 2{puff} Inhale 2 Univers formoterol 0-11 Puffs 2 ity of (SYMBICORT) 13:52: (two) [place] 160-4.5 18 times Medical mcg/actuati daily. Branch on inhaler vitamin 2016-04 Yes 1000ug Take 1,000 Un debbie B-12 0-11 mcg by ity of (VITAMIN 13:52: mouth [place] B-12) 1,000 18 daily. Medica l mcg tablet Branch diclofenac 2016-04 Yes 75mg Take 1 Unive rs 75 mg EC 0-11 tablet by ity of tablet 00:00: mouth 2 (two) Medical times Branch daily with meals. diclofenac 2016-04 Yes 75mg Take 1 Unive rs 75 mg EC 0-11 tablet by ity of tablet 00:00: mouth 2 (two) Medical times Branch daily with meals. diclofenac 2016-04 Yes 75mg Take 1 Unive rs 75 mg EC 0-11 tablet by ity of tablet 00:00: mouth 2 (two) Medical times Branch daily with meals. diclofenac 2016-04 Yes 75mg Take 1 Unive rs 75 mg EC 0-11 tablet by ity of tablet 00:00: mouth 2 (two) Medical times Branch daily with meals. Triamcinolo Triamcinolo No 1{appli BID Triamcinol ne ne cation_ one Acetonide Acetonide to_affe Acetonide 0.1 % 0.1 % cted_ar 0.1 % ea} busPIRone busPIRone No busPIRone HCl 5 MG HCl 5 MG HCl 5 MG Citalopram Citalopram No Citalopram Hydrobromid Hydrobromid Hydrobromi e 20 MG e 20 MG de 20 MG Symbicort Symbicort No Symbicort 160-4.5 160-4.5 160-4.5 MCG/ACT MCG/ACT MCG/ACT Nasonex 50 Nasonex 50 No Nasonex 50 MCG/ACT MCG/ACT MCG/ACT Myrbetriq Myrbetriq No 1{table QD Myrbetriq 50 MG 50 MG t} 50 MG Omeprazole Omeprazole No 1{capsu QD Omeprazole 40 MG 40 MG le} 40 MG Magnesium Magnesium No 1{capsu BID Magnesium Oxide -Mg Oxide -Mg le_as_n Oxide -Mg Supplement Supplement eeded} Supplement 400 MG 400 MG 400 MG ProAir HFA ProAir HFA No ProAir HFA 108 (90 108 (90 108 (90 Base) Base) Base) MCG/ACT MCG/ACT MCG/ACT Nasonex 50 Nasonex 50 No 2{spray QD Nasonex 50 MCG/ACT MCG/ACT s_in_ea MCG/ACT ch_nost ril} Turmeric Turmeric No Turmeric 500 MG 500 MG 500 MG Triamcinolo Triamcinolo No 1{appli BID Triamcinol ne ne cation_ one Acetonide Acetonide to_affe Acetonide 0.1 % 0.1 % cted_ar 0.1 % ea} Myrbetriq Myrbetriq No Myrbetriq 25 MG 25 MG 25 MG Myrbetriq Myrbetriq No Myrbetriq 50 MG 50 MG 50 MG Temovate Temovate No 1{appli BID Temovate 0.05 % 0.05 % cation_ 0.05 % to_affe cted_ar ea} Alendronate Alendronate No Alendronat Sodium 35 Sodium 35 e Sodium MG MG 35 MG Albuterol Albuterol No QID Albuterol Sulfate HFA Sulfate HFA Sulfate 108 (90 108 (90 HFA 108 Base) Base) (90 Base) MCG/ACT MCG/ACT MCG/ACT busPIRone busPIRone No busPIRone HCl 5 MG HCl 5 MG HCl 5 MG Magnesium Magnesium No 1{capsu BID Magnesium Oxide -Mg Oxide -Mg le_as_n Oxide -Mg Supplement Supplement eeded} Supplement 400 MG 400 MG 400 MG Triamcinolo Triamcinolo No 1{appli BID Triamcinol ne ne cation_ one Acetonide Acetonide to_affe Acetonide 0.1 % 0.1 % cted_ar 0.1 % ea} Nasonex 50 Nasonex 50 No Nasonex 50 MCG/ACT MCG/ACT MCG/ACT Myrbetriq Myrbetriq No Myrbetriq 25 MG 25 MG 25 MG ProAir HFA ProAir HFA No ProAir HFA 108 (90 108 (90 108 (90 Base) Base) Base) MCG/ACT MCG/ACT MCG/ACT Temovate Temovate No 1{appli BID Temovate 0.05 % 0.05 % cation_ 0.05 % to_affe cted_ar ea} Potassium Potassium No Potassium Chloride Chloride Chloride Deborah ER 20 Deborah ER 20 Deborah ER 20 MEQ MEQ MEQ ProAir HFA ProAir HFA No ProAir HFA 108 (90 108 (90 108 (90 Base) Base) Base) MCG/ACT MCG/ACT MCG/ACT Omeprazole Omeprazole No 1{capsu QD Omeprazole 40 MG 40 MG le} 40 MG Triamcinolo Triamcinolo No 1{appli BID Triamcinol ne ne cation_ one Acetonide Acetonide to_affe Acetonide 0.1 % 0.1 % cted_ar 0.1 % ea} Myrbetriq Myrbetriq No Myrbetriq 50 MG 50 MG 50 MG Symbicort Symbicort No Symbicort 160-4.5 160-4.5 160-4.5 MCG/ACT MCG/ACT MCG/ACT Ocuvite Ocuvite No 1{table QD Ocuvite t} Alendronate Alendronate No Alendronat Sodium 35 Sodium 35 e Sodium MG MG 35 MG Citalopram Citalopram No Citalopram Hydrobromid Hydrobromid Hydrobromi e 20 MG e 20 MG de 20 MG Cranberry Cranberry No Cranberry Plus Plus Plus Vitamin C Vitamin C Vitamin C 4200-20-3 4200-20-3 4200-20-3 MG-MG-UNIT MG-MG-UNIT MG-MG-UNIT B12 Fast B12 Fast No B12 Fast Dissolve Dissolve Dissolve 5000 MCG 5000 MCG 5000 MCG Albuterol Albuterol No QID Albuterol Sulfate HFA Sulfate HFA Sulfate 108 (90 108 (90 HFA 108 Base) Base) (90 Base) MCG/ACT MCG/ACT MCG/ACT CeleXA 20 CeleXA 20 No 1{table QD CeleXA 20 MG MG t} MG CeleXA 20 CeleXA 20 No CeleXA 20 MG MG MG Centrum Centrum No Centrum Silver Silver Silver Adult 50+ - Adult 50+ - Adult 50+ - Myrbetriq Myrbetriq No 1{table QD Myrbetriq 50 MG 50 MG t} 50 MG Nasonex 50 Nasonex 50 No 2{spray QD Nasonex 50 MCG/ACT MCG/ACT s_in_ea MCG/ACT ch_nost ril} Turmeric Turmeric No Turmeric 500 MG 500 MG 500 MG busPIRone busPIRone No busPIRone HCl 5 MG HCl 5 MG HCl 5 MG Magnesium Magnesium No 1{capsu BID Magnesium Oxide -Mg Oxide -Mg le_as_n Oxide -Mg Supplement Supplement eeded} Supplement 400 MG 400 MG 400 MG Triamcinolo Triamcinolo No 1{appli BID Triamcinol ne ne cation_ one Acetonide Acetonide to_affe Acetonide 0.1 % 0.1 % cted_ar 0.1 % ea} Nasonex 50 Nasonex 50 No Nasonex 50 MCG/ACT MCG/ACT MCG/ACT Myrbetriq Myrbetriq No Myrbetriq 25 MG 25 MG 25 MG ProAir HFA ProAir HFA No ProAir HFA 108 (90 108 (90 108 (90 Base) Base) Base) MCG/ACT MCG/ACT MCG/ACT Temovate Temovate No 1{appli BID Temovate 0.05 % 0.05 % cation_ 0.05 % to_affe cted_ar ea} Potassium Potassium No Potassium Chloride Chloride Chloride Deborah ER 20 Deborah ER 20 Deborah ER 20 MEQ MEQ MEQ ProAir HFA ProAir HFA No ProAir HFA 108 (90 108 (90 108 (90 Base) Base) Base) MCG/ACT MCG/ACT MCG/ACT Omeprazole Omeprazole No 1{capsu QD Omeprazole 40 MG 40 MG le} 40 MG Triamcinolo Triamcinolo No 1{appli BID Triamcinol ne ne cation_ one Acetonide Acetonide to_affe Acetonide 0.1 % 0.1 % cted_ar 0.1 % ea} Myrbetriq Myrbetriq No Myrbetriq 50 MG 50 MG 50 MG Symbicort Symbicort No Symbicort 160-4.5 160-4.5 160-4.5 MCG/ACT MCG/ACT MCG/ACT Ocuvite Ocuvite No 1{table QD Ocuvite t} Alendronate Alendronate No Alendronat Sodium 35 Sodium 35 e Sodium MG MG 35 MG Citalopram Citalopram No Citalopram Hydrobromid Hydrobromid Hydrobromi e 20 MG e 20 MG de 20 MG Cranberry Cranberry No Cranberry Plus Plus Plus Vitamin C Vitamin C Vitamin C 20-3 20-3 20-3 MG-MG-UNIT MG-MG-UNIT MG-MG-UNIT B12 Fast B12 Fast No B12 Fast Dissolve Dissolve Dissolve 5000 MCG 5000 MCG 5000 MCG Albuterol Albuterol No QID Albuterol Sulfate HFA Sulfate HFA Sulfate 108 (90 108 (90 HFA 108 Base) Base) (90 Base) MCG/ACT MCG/ACT MCG/ACT CeleXA 20 CeleXA 20 No 1{table QD CeleXA 20 MG MG t} MG CeleXA 20 CeleXA 20 No CeleXA 20 MG MG MG Centrum Centrum No Centrum Silver Silver Silver Adult 50+ - Adult 50+ - Adult 50+ - Myrbetriq Myrbetriq No 1{table QD Myrbetriq 50 MG 50 MG t} 50 MG Nasonex 50 Nasonex 50 No 2{spray QD Nasonex 50 MCG/ACT MCG/ACT s_in_ea MCG/ACT ch_nost ril} Turmeric Turmeric No Turmeric 500 MG 500 MG 500 MG Myrbetriq Myrbetriq No 1{table QD Myrbetriq 50 MG 50 MG t} 50 MG ProAir HFA ProAir HFA No ProAir HFA 108 (90 108 (90 108 (90 Base) Base) Base) MCG/ACT MCG/ACT MCG/ACT busPIRone busPIRone No busPIRone HCl 5 MG HCl 5 MG HCl 5 MG Nasonex 50 Nasonex 50 No Nasonex 50 MCG/ACT MCG/ACT MCG/ACT ProAir HFA ProAir HFA No ProAir HFA 108 (90 108 (90 108 (90 Base) Base) Base) MCG/ACT MCG/ACT MCG/ACT Triamcinolo Triamcinolo No 1{appli BID Triamcinol ne ne cation_ one Acetonide Acetonide to_affe Acetonide 0.1 % 0.1 % cted_ar 0.1 % ea} Temovate Temovate No 1{appli BID Temovate 0.05 % 0.05 % cation_ 0.05 % to_affe cted_ar ea} Albuterol Albuterol No QID Albuterol Sulfate HFA Sulfate HFA Sulfate 108 (90 108 (90 HFA 108 Base) Base) (90 Base) MCG/ACT MCG/ACT MCG/ACT Nasonex 50 Nasonex 50 No 2{spray QD Nasonex 50 MCG/ACT MCG/ACT s_in_ea MCG/ACT ch_nost ril} Symbicort Symbicort No Symbicort 160-4.5 160-4.5 160-4.5 MCG/ACT MCG/ACT MCG/ACT Omeprazole Omeprazole No 1{capsu QD Omeprazole 40 MG 40 MG le} 40 MG Citalopram Citalopram No Citalopram Hydrobromid Hydrobromid Hydrobromi e 20 MG e 20 MG de 20 MG Potassium Potassium No Potassium Chloride Chloride Chloride Deborah ER 20 Deborah ER 20 Deborah ER 20 MEQ MEQ MEQ Myrbetriq Myrbetriq No Myrbetriq 25 MG 25 MG 25 MG Centrum Centrum No Centrum Silver Silver Silver Adult 50+ - Adult 50+ - Adult 50+ - Magnesium Magnesium No 1{capsu BID Magnesium Oxide -Mg Oxide -Mg le_as_n Oxide -Mg Supplement Supplement eeded} Supplement 400 MG 400 MG 400 MG Myrbetriq Myrbetriq No Myrbetriq 50 MG 50 MG 50 MG Alendronate Alendronate No Alendronat Sodium 35 Sodium 35 e Sodium MG MG 35 MG Turmeric Turmeric No Turmeric 500 MG 500 MG 500 MG Cranberry Cranberry No Cranberry Plus Plus Plus Vitamin C Vitamin C Vitamin C 4200-20-3 4200-20-3 4200-20-3 MG-MG-UNIT MG-MG-UNIT MG-MG-UNIT Triamcinolo Triamcinolo No 1{appli BID Triamcinol ne ne cation_ one Acetonide Acetonide to_affe Acetonide 0.1 % 0.1 % cted_ar 0.1 % ea} Ocuvite Ocuvite No 1{table QD Ocuvite t} CeleXA 20 CeleXA 20 No CeleXA 20 MG MG MG B12 Fast B12 Fast No B12 Fast Dissolve Dissolve Dissolve 5000 MCG 5000 MCG 5000 MCG Myrbetriq Myrbetriq No 1{table QD Myrbetriq 50 MG 50 MG t} 50 MG Omeprazole Omeprazole No 1{capsu QD Omeprazole 40 MG 40 MG le} 40 MG Citalopram Citalopram No Citalopram Hydrobromid Hydrobromid Hydrobromi e 20 MG e 20 MG de 20 MG Nasonex 50 Nasonex 50 No 2{spray QD Nasonex 50 MCG/ACT MCG/ACT s_in_ea MCG/ACT ch_nost ril} Albuterol Albuterol No QID Albuterol Sulfate HFA Sulfate HFA Sulfate 108 (90 108 (90 HFA 108 Base) Base) (90 Base) MCG/ACT MCG/ACT MCG/ACT busPIRone busPIRone No busPIRone HCl 5 MG HCl 5 MG HCl 5 MG Alendronate Alendronate No Alendronat Sodium 35 Sodium 35 e Sodium MG MG 35 MG Fasenra Pen Fasenra Pen No Fasenra 30 MG/ML 30 MG/ML Pen 30 MG/ML Triamcinolo Triamcinolo No 1{appli BID Triamcinol ne ne cation_ one Acetonide Acetonide to_affe Acetonide 0.1 % 0.1 % cted_ar 0.1 % ea} Turmeric Turmeric No Turmeric 500 MG 500 MG 500 MG Ocuvite Ocuvite No 1{table QD Ocuvite t} CeleXA 20 CeleXA 20 No CeleXA 20 MG MG MG Magnesium Magnesium No 1{capsu BID Magnesium Oxide -Mg Oxide -Mg le_as_n Oxide -Mg Supplement Supplement eeded} Supplement 400 MG 400 MG 400 MG Triamcinolo Triamcinolo No 1{appli BID Triamcinol ne ne cation_ one Acetonide Acetonide to_affe Acetonide 0.1 % 0.1 % cted_ar 0.1 % ea} ProAir HFA ProAir HFA No ProAir HFA 108 (90 108 (90 108 (90 Base) Base) Base) MCG/ACT MCG/ACT MCG/ACT Symbicort Symbicort No Symbicort 160-4.5 160-4.5 160-4.5 MCG/ACT MCG/ACT MCG/ACT ProAir HFA ProAir HFA No ProAir HFA 108 (90 108 (90 108 (90 Base) Base) Base) MCG/ACT MCG/ACT MCG/ACT Myrbetriq Myrbetriq No Myrbetriq 25 MG 25 MG 25 MG B12 Fast B12 Fast No B12 Fast Dissolve Dissolve Dissolve 5000 MCG 5000 MCG 5000 MCG Temovate Temovate No 1{appli BID Temovate 0.05 % 0.05 % cation_ 0.05 % to_affe cted_ar ea} Cranberry Cranberry No Cranberry Plus Plus Plus Vitamin C Vitamin C Vitamin C 4200-20-3 420020-3 42020-3 MG-MG-UNIT MG-MG-UNIT MG-MG-UNIT Potassium Potassium No Potassium Chloride Chloride Chloride Deborah ER 20 Deborah ER 20 Deborah ER 20 MEQ MEQ MEQ Centrum Centrum No Centrum Silver Silver Silver Adult 50+ - Adult 50+ - Adult 50+ - Nasonex 50 Nasonex 50 No Nasonex 50 MCG/ACT MCG/ACT MCG/ACT Myrbetriq Myrbetriq No 1{table QD Myrbetriq 50 MG 50 MG t} 50 MG Omeprazole Omeprazole No 1{capsu QD Omeprazole 40 MG 40 MG le} 40 MG Citalopram Citalopram No Citalopram Hydrobromid Hydrobromid Hydrobromi e 20 MG e 20 MG de 20 MG Nasonex 50 Nasonex 50 No 2{spray QD Nasonex 50 MCG/ACT MCG/ACT s_in_ea MCG/ACT ch_nost ril} Albuterol Albuterol No QID Albuterol Sulfate HFA Sulfate HFA Sulfate 108 (90 108 (90 HFA 108 Base) Base) (90 Base) MCG/ACT MCG/ACT MCG/ACT busPIRone busPIRone No busPIRone HCl 5 MG HCl 5 MG HCl 5 MG Alendronate Alendronate No Alendronat Sodium 35 Sodium 35 e Sodium MG MG 35 MG Fasenra Pen Fasenra Pen No Fasenra 30 MG/ML 30 MG/ML Pen 30 MG/ML Triamcinolo Triamcinolo No 1{appli BID Triamcinol ne ne cation_ one Acetonide Acetonide to_affe Acetonide 0.1 % 0.1 % cted_ar 0.1 % ea} Turmeric Turmeric No Turmeric 500 MG 500 MG 500 MG Ocuvite Ocuvite No 1{table QD Ocuvite t} CeleXA 20 CeleXA 20 No CeleXA 20 MG MG MG Magnesium Magnesium No 1{capsu BID Magnesium Oxide -Mg Oxide -Mg le_as_n Oxide -Mg Supplement Supplement eeded} Supplement 400 MG 400 MG 400 MG Triamcinolo Triamcinolo No 1{appli BID Triamcinol ne ne cation_ one Acetonide Acetonide to_affe Acetonide 0.1 % 0.1 % cted_ar 0.1 % ea} ProAir HFA ProAir HFA No ProAir HFA 108 (90 108 (90 108 (90 Base) Base) Base) MCG/ACT MCG/ACT MCG/ACT Symbicort Symbicort No Symbicort 160-4.5 160-4.5 160-4.5 MCG/ACT MCG/ACT MCG/ACT ProAir HFA ProAir HFA No ProAir HFA 108 (90 108 (90 108 (90 Base) Base) Base) MCG/ACT MCG/ACT MCG/ACT Myrbetriq Myrbetriq No Myrbetriq 25 MG 25 MG 25 MG B12 Fast B12 Fast No B12 Fast Dissolve Dissolve Dissolve 5000 MCG 5000 MCG 5000 MCG Temovate Temovate No 1{appli BID Temovate 0.05 % 0.05 % cation_ 0.05 % to_affe cted_ar ea} Cranberry Cranberry No Cranberry Plus Plus Plus Vitamin C Vitamin C Vitamin C 4200-20-3 4200-20-3 4200-20-3 MG-MG-UNIT MG-MG-UNIT MG-MG-UNIT Potassium Potassium No Potassium Chloride Chloride Chloride Deborah ER 20 Deborah ER 20 Deborah ER 20 MEQ MEQ MEQ Centrum Centrum No Centrum Silver Silver Silver Adult 50+ - Adult 50+ - Adult 50+ - Nasonex 50 Nasonex 50 No Nasonex 50 MCG/ACT MCG/ACT MCG/ACT Alendronate Alendronate No Alendronat Sodium 35 Sodium 35 e Sodium MG MG 35 MG Triamcinolo Triamcinolo No 1{appli BID Triamcinol ne ne cation_ one Acetonide Acetonide to_affe Acetonide 0.1 % 0.1 % cted_ar 0.1 % ea} Albuterol Albuterol No QID Albuterol Sulfate HFA Sulfate HFA Sulfate 108 (90 108 (90 HFA 108 Base) Base) (90 Base) MCG/ACT MCG/ACT MCG/ACT busPIRone busPIRone No busPIRone HCl 5 MG HCl 5 MG HCl 5 MG Temovate Temovate No 1{appli BID Temovate 0.05 % 0.05 % cation_ 0.05 % to_affe cted_ar ea} Symbicort Symbicort No Symbicort 160-4.5 160-4.5 160-4.5 MCG/ACT MCG/ACT MCG/ACT Fasenra Pen Fasenra Pen No Fasenra 30 MG/ML 30 MG/ML Pen 30 MG/ML ProAir HFA ProAir HFA No ProAir HFA 108 (90 108 (90 108 (90 Base) Base) Base) MCG/ACT MCG/ACT MCG/ACT CeleXA 20 CeleXA 20 No CeleXA 20 MG MG MG Myrbetriq Myrbetriq No Myrbetriq 25 MG 25 MG 25 MG Turmeric Turmeric No Turmeric 500 MG 500 MG 500 MG Myrbetriq Myrbetriq No 1{table QD Myrbetriq 50 MG 50 MG t} 50 MG Citalopram Citalopram No Citalopram Hydrobromid Hydrobromid Hydrobromi e 20 MG e 20 MG de 20 MG ProAir HFA ProAir HFA No ProAir HFA 108 (90 108 (90 108 (90 Base) Base) Base) MCG/ACT MCG/ACT MCG/ACT Magnesium Magnesium No 1{capsu BID Magnesium Oxide -Mg Oxide -Mg le_as_n Oxide -Mg Supplement Supplement eeded} Supplement 400 MG 400 MG 400 MG Omeprazole Omeprazole No 1{capsu QD Omeprazole 40 MG 40 MG le} 40 MG Ocuvite Ocuvite No 1{table QD Ocuvite t} Nasonex 50 Nasonex 50 No 2{spray QD Nasonex 50 MCG/ACT MCG/ACT s_in_ea MCG/ACT ch_nost ril} Nasonex 50 Nasonex 50 No Nasonex 50 MCG/ACT MCG/ACT MCG/ACT Triamcinolo Triamcinolo No 1{appli BID Triamcinol ne ne cation_ one Acetonide Acetonide to_affe Acetonide 0.1 % 0.1 % cted_ar 0.1 % ea} Potassium Potassium No Potassium Chloride Chloride Chloride Deborah ER 20 Deborah ER 20 Deborah ER 20 MEQ MEQ MEQ B12 Fast B12 Fast No B12 Fast Dissolve Dissolve Dissolve 5000 MCG 5000 MCG 5000 MCG Centrum Centrum No Centrum Silver Silver Silver Adult 50+ - Adult 50+ - Adult 50+ - Cranberry Cranberry No Cranberry Plus Plus Plus Vitamin C Vitamin C Vitamin C 4200-20-3 4200-20-3 4200-20-3 MG-MG-UNIT MG-MG-UNIT MG-MG-UNIT Alendronate Alendronate No Alendronat Sodium 35 Sodium 35 e Sodium MG MG 35 MG Cranberry Cranberry No Cranberry Plus Plus Plus Vitamin C Vitamin C Vitamin C 20-3 20-3 -3 MG-MG-UNIT MG-MG-UNIT MG-MG-UNIT Ocuvite Ocuvite No 1{table QD Ocuvite t} Fasenra Pen Fasenra Pen No Fasenra 30 MG/ML 30 MG/ML Pen 30 MG/ML Potassium Potassium No Potassium Chloride Chloride Chloride Deborah ER 20 Deborah ER 20 Deborah ER 20 MEQ MEQ MEQ Centrum Centrum No Centrum Silver Silver Silver Adult 50+ - Adult 50+ - Adult 50+ - Myrbetriq Myrbetriq No Myrbetriq 25 MG 25 MG 25 MG Nasonex 50 Nasonex 50 No 2{spray QD Nasonex 50 MCG/ACT MCG/ACT s_in_ea MCG/ACT ch_nost ril} Myrbetriq Myrbetriq No 1{table QD Myrbetriq 50 MG 50 MG t} 50 MG Albuterol Albuterol No QID Albuterol Sulfate HFA Sulfate HFA Sulfate 108 (90 108 (90 HFA 108 Base) Base) (90 Base) MCG/ACT MCG/ACT MCG/ACT CeleXA 20 CeleXA 20 No CeleXA 20 MG MG MG Temovate Temovate No 1{appli BID Temovate 0.05 % 0.05 % cation_ 0.05 % to_affe cted_ar ea} Nasonex 50 Nasonex 50 No Nasonex 50 MCG/ACT MCG/ACT MCG/ACT Triamcinolo Triamcinolo No 1{appli BID Triamcinol ne ne cation_ one Acetonide Acetonide to_affe Acetonide 0.1 % 0.1 % cted_ar 0.1 % ea} Omeprazole Omeprazole No 1{capsu QD Omeprazole 40 MG 40 MG le} 40 MG Turmeric Turmeric No Turmeric 500 MG 500 MG 500 MG ProAir HFA ProAir HFA No ProAir HFA 108 (90 108 (90 108 (90 Base) Base) Base) MCG/ACT MCG/ACT MCG/ACT B12 Fast B12 Fast No B12 Fast Dissolve Dissolve Dissolve 5000 MCG 5000 MCG 5000 MCG ProAir HFA ProAir HFA No ProAir HFA 108 (90 108 (90 108 (90 Base) Base) Base) MCG/ACT MCG/ACT MCG/ACT Triamcinolo Triamcinolo No 1{appli BID Triamcinol ne ne cation_ one Acetonide Acetonide to_affe Acetonide 0.1 % 0.1 % cted_ar 0.1 % ea} Magnesium Magnesium No 1{capsu BID Magnesium Oxide -Mg Oxide -Mg le_as_n Oxide -Mg Supplement Supplement eeded} Supplement 400 MG 400 MG 400 MG Symbicort Symbicort No Symbicort 160-4.5 160-4.5 160-4.5 MCG/ACT MCG/ACT MCG/ACT Citalopram Citalopram No Citalopram Hydrobromid Hydrobromid Hydrobromi e 20 MG e 20 MG de 20 MG busPIRone busPIRone No busPIRone HCl 5 MG HCl 5 MG HCl 5 MG Ocuvite Ocuvite No 1{table QD Ocuvite t} Turmeric Turmeric No Turmeric 500 MG 500 MG 500 MG Potassium Potassium No Potassium Chloride Chloride Chloride Deborah ER 20 Deborah ER 20 Deborah ER 20 MEQ MEQ MEQ Centrum Centrum No Centrum Silver Silver Silver Adult 50+ - Adult 50+ - Adult 50+ - Alendronate Alendronate No Alendronat Sodium 35 Sodium 35 e Sodium MG MG 35 MG Cranberry Cranberry No Cranberry Plus Plus Plus Vitamin C Vitamin C Vitamin C 4200-20-3 4200-20-3 4200-20-3 MG-MG-UNIT MG-MG-UNIT MG-MG-UNIT Fasenra Pen Fasenra Pen No Fasenra 30 MG/ML 30 MG/ML Pen 30 MG/ML CeleXA 20 CeleXA 20 No CeleXA 20 MG MG MG Symbicort Symbicort No Symbicort 160-4.5 160-4.5 160-4.5 MCG/ACT MCG/ACT MCG/ACT ProAir HFA ProAir HFA No ProAir HFA 108 (90 108 (90 108 (90 Base) Base) Base) MCG/ACT MCG/ACT MCG/ACT Omeprazole Omeprazole No 1{capsu QD Omeprazole 40 MG 40 MG le} 40 MG ProAir HFA ProAir HFA No ProAir HFA 108 (90 108 (90 108 (90 Base) Base) Base) MCG/ACT MCG/ACT MCG/ACT Triamcinolo Triamcinolo No 1{appli BID Triamcinol ne ne cation_ one Acetonide Acetonide to_affe Acetonide 0.1 % 0.1 % cted_ar 0.1 % ea} Myrbetriq Myrbetriq No Myrbetriq 25 MG 25 MG 25 MG Temovate Temovate No 1{appli BID Temovate 0.05 % 0.05 % cation_ 0.05 % to_affe cted_ar ea} Nasonex 50 Nasonex 50 No Nasonex 50 MCG/ACT MCG/ACT MCG/ACT B12 Fast B12 Fast No B12 Fast Dissolve Dissolve Dissolve 5000 MCG 5000 MCG 5000 MCG Nasonex 50 Nasonex 50 No 2{spray QD Nasonex 50 MCG/ACT MCG/ACT s_in_ea MCG/ACT ch_nost ril} Albuterol Albuterol No QID Albuterol Sulfate HFA Sulfate HFA Sulfate 108 (90 108 (90 HFA 108 Base) Base) (90 Base) MCG/ACT MCG/ACT MCG/ACT Magnesium Magnesium No 1{capsu BID Magnesium Oxide -Mg Oxide -Mg le_as_n Oxide -Mg Supplement Supplement eeded} Supplement 400 MG 400 MG 400 MG Triamcinolo Triamcinolo No 1{appli BID Triamcinol ne ne cation_ one Acetonide Acetonide to_affe Acetonide 0.1 % 0.1 % cted_ar 0.1 % ea} Citalopram Citalopram No Citalopram Hydrobromid Hydrobromid Hydrobromi e 20 MG e 20 MG de 20 MG busPIRone busPIRone No busPIRone HCl 5 MG HCl 5 MG HCl 5 MG Ocuvite Ocuvite No 1{table QD Ocuvite t} Turmeric Turmeric No Turmeric 500 MG 500 MG 500 MG Potassium Potassium No Potassium Chloride Chloride Chloride Deborah ER 20 Deborah ER 20 Deborah ER 20 MEQ MEQ MEQ Centrum Centrum No Centrum Silver Silver Silver Adult 50+ - Adult 50+ - Adult 50+ - Alendronate Alendronate No Alendronat Sodium 35 Sodium 35 e Sodium MG MG 35 MG Cranberry Cranberry No Cranberry Plus Plus Plus Vitamin C Vitamin C Vitamin C 4200-20-3 -3 3 MG-MG-UNIT MG-MG-UNIT MG-MG-UNIT Fasenra Pen Fasenra Pen No Fasenra 30 MG/ML 30 MG/ML Pen 30 MG/ML CeleXA 20 CeleXA 20 No CeleXA 20 MG MG MG Symbicort Symbicort No Symbicort 160-4.5 160-4.5 160-4.5 MCG/ACT MCG/ACT MCG/ACT ProAir HFA ProAir HFA No ProAir HFA 108 (90 108 (90 108 (90 Base) Base) Base) MCG/ACT MCG/ACT MCG/ACT Omeprazole Omeprazole No 1{capsu QD Omeprazole 40 MG 40 MG le} 40 MG ProAir HFA ProAir HFA No ProAir HFA 108 (90 108 (90 108 (90 Base) Base) Base) MCG/ACT MCG/ACT MCG/ACT Triamcinolo Triamcinolo No 1{appli BID Triamcinol ne ne cation_ one Acetonide Acetonide to_affe Acetonide 0.1 % 0.1 % cted_ar 0.1 % ea} Myrbetriq Myrbetriq No Myrbetriq 25 MG 25 MG 25 MG Temovate Temovate No 1{appli BID Temovate 0.05 % 0.05 % cation_ 0.05 % to_affe cted_ar ea} Nasonex 50 Nasonex 50 No Nasonex 50 MCG/ACT MCG/ACT MCG/ACT B12 Fast B12 Fast No B12 Fast Dissolve Dissolve Dissolve 5000 MCG 5000 MCG 5000 MCG Nasonex 50 Nasonex 50 No 2{spray QD Nasonex 50 MCG/ACT MCG/ACT s_in_ea MCG/ACT ch_nost ril} Albuterol Albuterol No QID Albuterol Sulfate HFA Sulfate HFA Sulfate 108 (90 108 (90 HFA 108 Base) Base) (90 Base) MCG/ACT MCG/ACT MCG/ACT Magnesium Magnesium No 1{capsu BID Magnesium Oxide -Mg Oxide -Mg le_as_n Oxide -Mg Supplement Supplement eeded} Supplement 400 MG 400 MG 400 MG Triamcinolo Triamcinolo No 1{appli BID Triamcinol ne ne cation_ one Acetonide Acetonide to_affe Acetonide 0.1 % 0.1 % cted_ar 0.1 % ea} Citalopram Citalopram No Citalopram Hydrobromid Hydrobromid Hydrobromi e 20 MG e 20 MG de 20 MG busPIRone busPIRone No busPIRone HCl 5 MG HCl 5 MG HCl 5 MG Alendronate Alendronate No Alendronat Sodium 35 Sodium 35 e Sodium MG MG 35 MG Cranberry Cranberry No Cranberry Plus Plus Plus Vitamin C Vitamin C Vitamin C 420020-3 20-3 -3 MG-MG-UNIT MG-MG-UNIT MG-MG-UNIT Ocuvite Ocuvite No 1{table QD Ocuvite t} Fasenra Pen Fasenra Pen No Fasenra 30 MG/ML 30 MG/ML Pen 30 MG/ML Potassium Potassium No Potassium Chloride Chloride Chloride Deborah ER 20 Deborah ER 20 Deborah ER 20 MEQ MEQ MEQ Centrum Centrum No Centrum Silver Silver Silver Adult 50+ - Adult 50+ - Adult 50+ - Myrbetriq Myrbetriq No Myrbetriq 25 MG 25 MG 25 MG CeleXA 20 CeleXA 20 No CeleXA 20 MG MG MG Symbicort Symbicort No Symbicort 160-4.5 160-4.5 160-4.5 MCG/ACT MCG/ACT MCG/ACT ProAir HFA ProAir HFA No ProAir HFA 108 (90 108 (90 108 (90 Base) Base) Base) MCG/ACT MCG/ACT MCG/ACT Temovate Temovate No 1{appli BID Temovate 0.05 % 0.05 % cation_ 0.05 % to_affe cted_ar ea} ProAir HFA ProAir HFA No ProAir HFA 108 (90 108 (90 108 (90 Base) Base) Base) MCG/ACT MCG/ACT MCG/ACT Triamcinolo Triamcinolo No 1{appli BID Triamcinol ne ne cation_ one Acetonide Acetonide to_affe Acetonide 0.1 % 0.1 % cted_ar 0.1 % ea} Omeprazole Omeprazole No 1{capsu QD Omeprazole 40 MG 40 MG le} 40 MG Turmeric Turmeric No Turmeric 500 MG 500 MG 500 MG Nasonex 50 Nasonex 50 No Nasonex 50 MCG/ACT MCG/ACT MCG/ACT B12 Fast B12 Fast No B12 Fast Dissolve Dissolve Dissolve 5000 MCG 5000 MCG 5000 MCG Nasonex 50 Nasonex 50 No 2{spray QD Nasonex 50 MCG/ACT MCG/ACT s_in_ea MCG/ACT ch_nost ril} Albuterol Albuterol No QID Albuterol Sulfate HFA Sulfate HFA Sulfate 108 (90 108 (90 HFA 108 Base) Base) (90 Base) MCG/ACT MCG/ACT MCG/ACT Magnesium Magnesium No 1{capsu BID Magnesium Oxide -Mg Oxide -Mg le_as_n Oxide -Mg Supplement Supplement eeded} Supplement 400 MG 400 MG 400 MG Triamcinolo Triamcinolo No 1{appli BID Triamcinol ne ne cation_ one Acetonide Acetonide to_affe Acetonide 0.1 % 0.1 % cted_ar 0.1 % ea} Citalopram Citalopram No Citalopram Hydrobromid Hydrobromid Hydrobromi e 20 MG e 20 MG de 20 MG busPIRone busPIRone No busPIRone HCl 5 MG HCl 5 MG HCl 5 MG Alendronate Alendronate No Alendronat Sodium 35 Sodium 35 e Sodium MG MG 35 MG Cranberry Cranberry No Cranberry Plus Plus Plus Vitamin C Vitamin C Vitamin C 4200-20-3 4200-20-3 4200-20-3 MG-MG-UNIT MG-MG-UNIT MG-MG-UNIT Ocuvite Ocuvite No 1{table QD Ocuvite t} Fasenra Pen Fasenra Pen No Fasenra 30 MG/ML 30 MG/ML Pen 30 MG/ML Potassium Potassium No Potassium Chloride Chloride Chloride Deborah ER 20 Deborah ER 20 Deborah ER 20 MEQ MEQ MEQ Centrum Centrum No Centrum Silver Silver Silver Adult 50+ - Adult 50+ - Adult 50+ - Myrbetriq Myrbetriq No Myrbetriq 25 MG 25 MG 25 MG CeleXA 20 CeleXA 20 No CeleXA 20 MG MG MG Symbicort Symbicort No Symbicort 160-4.5 160-4.5 160-4.5 MCG/ACT MCG/ACT MCG/ACT ProAir HFA ProAir HFA No ProAir HFA 108 (90 108 (90 108 (90 Base) Base) Base) MCG/ACT MCG/ACT MCG/ACT Temovate Temovate No 1{appli BID Temovate 0.05 % 0.05 % cation_ 0.05 % to_affe cted_ar ea} ProAir HFA ProAir HFA No ProAir HFA 108 (90 108 (90 108 (90 Base) Base) Base) MCG/ACT MCG/ACT MCG/ACT Triamcinolo Triamcinolo No 1{appli BID Triamcinol ne ne cation_ one Acetonide Acetonide to_affe Acetonide 0.1 % 0.1 % cted_ar 0.1 % ea} Omeprazole Omeprazole No 1{capsu QD Omeprazole 40 MG 40 MG le} 40 MG Turmeric Turmeric No Turmeric 500 MG 500 MG 500 MG Nasonex 50 Nasonex 50 No Nasonex 50 MCG/ACT MCG/ACT MCG/ACT B12 Fast B12 Fast No B12 Fast Dissolve Dissolve Dissolve 5000 MCG 5000 MCG 5000 MCG Nasonex 50 Nasonex 50 No 2{spray QD Nasonex 50 MCG/ACT MCG/ACT s_in_ea MCG/ACT ch_nost ril} Albuterol Albuterol No QID Albuterol Sulfate HFA Sulfate HFA Sulfate 108 (90 108 (90 HFA 108 Base) Base) (90 Base) MCG/ACT MCG/ACT MCG/ACT Magnesium Magnesium No 1{capsu BID Magnesium Oxide -Mg Oxide -Mg le_as_n Oxide -Mg Supplement Supplement eeded} Supplement 400 MG 400 MG 400 MG Triamcinolo Triamcinolo No 1{appli BID Triamcinol ne ne cation_ one Acetonide Acetonide to_affe Acetonide 0.1 % 0.1 % cted_ar 0.1 % ea} Citalopram Citalopram No Citalopram Hydrobromid Hydrobromid Hydrobromi e 20 MG e 20 MG de 20 MG busPIRone busPIRone No busPIRone HCl 5 MG HCl 5 MG HCl 5 MG Cranberry Cranberry No Cranberry Plus Plus Plus Vitamin C Vitamin C Vitamin C 4200-20-3 4200-20-3 4200-20-3 MG-MG-UNIT MG-MG-UNIT MG-MG-UNIT B12 Fast B12 Fast No B12 Fast Dissolve Dissolve Dissolve 5000 MCG 5000 MCG 5000 MCG Ocuvite Ocuvite No 1{table QD Ocuvite t} Fasenra Pen Fasenra Pen No Fasenra 30 MG/ML 30 MG/ML Pen 30 MG/ML Potassium Potassium No Potassium Chloride Chloride Chloride Deborah ER 20 Deborah ER 20 Deborah ER 20 MEQ MEQ MEQ Centrum Centrum No Centrum Silver Silver Silver Adult 50+ - Adult 50+ - Adult 50+ - Myrbetriq Myrbetriq No Myrbetriq 25 MG 25 MG 25 MG Symbicort Symbicort No Symbicort 160-4.5 160-4.5 160-4.5 MCG/ACT MCG/ACT MCG/ACT Alendronate Alendronate No Alendronat Sodium 35 Sodium 35 e Sodium MG MG 35 MG ProAir HFA ProAir HFA No ProAir HFA 108 (90 108 (90 108 (90 Base) Base) Base) MCG/ACT MCG/ACT MCG/ACT Triamcinolo Triamcinolo No 1{appli BID Triamcinol ne ne cation_ one Acetonide Acetonide to_affe Acetonide 0.1 % 0.1 % cted_ar 0.1 % ea} Temovate Temovate No 1{appli BID Temovate 0.05 % 0.05 % cation_ 0.05 % to_affe cted_ar ea} ProAir HFA ProAir HFA No ProAir HFA 108 (90 108 (90 108 (90 Base) Base) Base) MCG/ACT MCG/ACT MCG/ACT CeleXA 20 CeleXA 20 No CeleXA 20 MG MG MG Omeprazole Omeprazole No 1{capsu QD Omeprazole 40 MG 40 MG le} 40 MG Turmeric Turmeric No Turmeric 500 MG 500 MG 500 MG Nasonex 50 Nasonex 50 No Nasonex 50 MCG/ACT MCG/ACT MCG/ACT Nasonex 50 Nasonex 50 No 2{spray QD Nasonex 50 MCG/ACT MCG/ACT s_in_ea MCG/ACT ch_nost ril} Albuterol Albuterol No QID Albuterol Sulfate HFA Sulfate HFA Sulfate 108 (90 108 (90 HFA 108 Base) Base) (90 Base) MCG/ACT MCG/ACT MCG/ACT Magnesium Magnesium No 1{capsu BID Magnesium Oxide -Mg Oxide -Mg le_as_n Oxide -Mg Supplement Supplement eeded} Supplement 400 MG 400 MG 400 MG Triamcinolo Triamcinolo No 1{appli BID Triamcinol ne ne cation_ one Acetonide Acetonide to_affe Acetonide 0.1 % 0.1 % cted_ar 0.1 % ea} Citalopram Citalopram No Citalopram Hydrobromid Hydrobromid Hydrobromi e 20 MG e 20 MG de 20 MG busPIRone busPIRone No busPIRone HCl 5 MG HCl 5 MG HCl 5 MG Cranberry Cranberry No Cranberry Plus Plus Plus Vitamin C Vitamin C Vitamin C 4200-20-3 4200-20-3 4200-20-3 MG-MG-UNIT MG-MG-UNIT MG-MG-UNIT B12 Fast B12 Fast No B12 Fast Dissolve Dissolve Dissolve 5000 MCG 5000 MCG 5000 MCG Ocuvite Ocuvite No 1{table QD Ocuvite t} Fasenra Pen Fasenra Pen No Fasenra 30 MG/ML 30 MG/ML Pen 30 MG/ML Potassium Potassium No Potassium Chloride Chloride Chloride Deborah ER 20 Deborah ER 20 Deborah ER 20 MEQ MEQ MEQ Centrum Centrum No Centrum Silver Silver Silver Adult 50+ - Adult 50+ - Adult 50+ - Myrbetriq Myrbetriq No Myrbetriq 25 MG 25 MG 25 MG Symbicort Symbicort No Symbicort 160-4.5 160-4.5 160-4.5 MCG/ACT MCG/ACT MCG/ACT Alendronate Alendronate No Alendronat Sodium 35 Sodium 35 e Sodium MG MG 35 MG ProAir HFA ProAir HFA No ProAir HFA 108 (90 108 (90 108 (90 Base) Base) Base) MCG/ACT MCG/ACT MCG/ACT Triamcinolo Triamcinolo No 1{appli BID Triamcinol ne ne cation_ one Acetonide Acetonide to_affe Acetonide 0.1 % 0.1 % cted_ar 0.1 % ea} Temovate Temovate No 1{appli BID Temovate 0.05 % 0.05 % cation_ 0.05 % to_affe cted_ar ea} ProAir HFA ProAir HFA No ProAir HFA 108 (90 108 (90 108 (90 Base) Base) Base) MCG/ACT MCG/ACT MCG/ACT CeleXA 20 CeleXA 20 No CeleXA 20 MG MG MG Omeprazole Omeprazole No 1{capsu QD Omeprazole 40 MG 40 MG le} 40 MG Turmeric Turmeric No Turmeric 500 MG 500 MG 500 MG Nasonex 50 Nasonex 50 No Nasonex 50 MCG/ACT MCG/ACT MCG/ACT Nasonex 50 Nasonex 50 No 2{spray QD Nasonex 50 MCG/ACT MCG/ACT s_in_ea MCG/ACT ch_nost ril} Albuterol Albuterol No QID Albuterol Sulfate HFA Sulfate HFA Sulfate 108 (90 108 (90 HFA 108 Base) Base) (90 Base) MCG/ACT MCG/ACT MCG/ACT Magnesium Magnesium No 1{capsu BID Magnesium Oxide -Mg Oxide -Mg le_as_n Oxide -Mg Supplement Supplement eeded} Supplement 400 MG 400 MG 400 MG Triamcinolo Triamcinolo No 1{appli BID Triamcinol ne ne cation_ one Acetonide Acetonide to_affe Acetonide 0.1 % 0.1 % cted_ar 0.1 % ea} Citalopram Citalopram No Citalopram Hydrobromid Hydrobromid Hydrobromi e 20 MG e 20 MG de 20 MG busPIRone busPIRone No busPIRone HCl 5 MG HCl 5 MG HCl 5 MG Docusate Docusate No 1{capsu QD Docusate Sodium 100 Sodium 100 le_as_n Sodium 100 MG MG eeded} MG Ocuvite Ocuvite No 1{table QD Ocuvite t} Mesalamine Mesalamine No 2{table QD Mesalamine 1.2 GM 1.2 GM ts_with 1.2 GM _a_meal } Cranberry Cranberry No Cranberry Plus Plus Plus Vitamin C Vitamin C Vitamin C 4200-20-3 4200-20-3 4200-20-3 MG-MG-UNIT MG-MG-UNIT MG-MG-UNIT Triamcinolo Triamcinolo No 1{appli BID Triamcinol ne ne cation_ one Acetonide Acetonide to_affe Acetonide 0.1 % 0.1 % cted_ar 0.1 % ea} B12 Fast B12 Fast No B12 Fast Dissolve Dissolve Dissolve 5000 MCG 5000 MCG 5000 MCG ProAir HFA ProAir HFA No ProAir HFA 108 (90 108 (90 108 (90 Base) Base) Base) MCG/ACT MCG/ACT MCG/ACT Turmeric Turmeric No Turmeric 500 MG 500 MG 500 MG Triamcinolo Triamcinolo No 1{appli BID Triamcinol ne ne cation_ one Acetonide Acetonide to_affe Acetonide 0.1 % 0.1 % cted_ar 0.1 % ea} Temovate Temovate No 1{appli BID Temovate 0.05 % 0.05 % cation_ 0.05 % to_affe cted_ar ea} Omeprazole Omeprazole Yes Na Wilson 1 capsule [facility] Celexa Celexa Yes Na Wilson TAKE 1 Common TABLET BY Spirit MOUTH ONCE - [facility] DAILY [facility] Symbicort Symbicort Yes Na Wilson INHALE 2 Common PUFFS BY Spirit MOUTH 2 - [facility] TIMES [facility] Myrbetriq Myrbetriq Yes Na Wilson TAKE 1 Common TABLET BY Spirit MOUTH ONCE - [facility] DAILY [facility] Temovate Temovate Yes Na Wilson 1 Comm on applicatio Spirit n to - [facility] affected [facility] ProAir HFA ProAir HFA Yes Na Wilson INHALE 2 Common PUFFS 4 Spirit TIMES A - [facility] DAY FOR 30 [facility] Alendronate Alendronate Yes Na Wilson TAKE 1 Common Sodium Sodium TABLET BY Spirit MOUTH - [facility] EVERY WEEK [facility] Cranberry Cranberry Yes Na Wilson as Co mmon Plus Plus directed Spirit Vitamin C Vitamin C - [facility] Centrum Centrum Yes Na Wilson as Common Silver Silver directed Spirit Adult 50+ Adult 50+ - [facility] Turmeric Turmeric Yes Na Wilson as Comm on directed Spirit [facility] Potassium Potassium Yes Na Wilson TAKE 1 Common Chloride Chloride TABLET BY Sp demetris Deborah ER Deborah ER MOUTH - [facility] DAILY [facility] Ocuvite Ocuvite Yes Na Wilson 1 tablet Co mmon [facility] B12 Fast B12 Fast Yes Na Wilson not Comm on Dissolve Dissolve defined Spir it - [facility] ProAir HFA ProAir HFA Yes Na Wilson INHALE 2 Common PUFFS 4 Spirit TIMES A - [facility] DAY FOR [address] [facility] Citalopram Citalopram Yes Na Wilson TAKE 1 Common Hydrobromid Hydrobromid TABLET BY Spirit e e MOUTH ONCE - [facility] DAILY [facility] Myrbetriq Myrbetriq No Myrbetriq 25 MG 25 MG 25 MG ProAir HFA ProAir HFA No ProAir HFA 108 (90 108 (90 108 (90 Base) Base) Base) MCG/ACT MCG/ACT MCG/ACT Albuterol Albuterol No QID Albuterol Sulfate HFA Sulfate HFA Sulfate 108 (90 108 (90 HFA 108 Base) Base) (90 Base) MCG/ACT MCG/ACT MCG/ACT Alendronate Alendronate No Alendronat Sodium 35 Sodium 35 e Sodium MG MG 35 MG Magnesium Magnesium No 1{capsu BID Magnesium Oxide -Mg Oxide -Mg le_as_n Oxide -Mg Supplement Supplement eeded} Supplement 400 MG 400 MG 400 MG Nasonex 50 Nasonex 50 No 2{spray QD Nasonex 50 MCG/ACT MCG/ACT s_in_ea MCG/ACT ch_nost ril} Centrum Centrum No Centrum Silver Silver Silver Adult 50+ - Adult 50+ - Adult 50+ - Fasenra Pen Fasenra Pen No Fasenra 30 MG/ML 30 MG/ML Pen 30 MG/ML busPIRone busPIRone No busPIRone HCl 5 MG HCl 5 MG HCl 5 MG Potassium Potassium No Potassium Chloride Chloride Chloride Deborah ER 20 Deborah ER 20 Deborah ER 20 MEQ MEQ MEQ Omeprazole Omeprazole No 1{capsu QD Omeprazole 40 MG 40 MG le} 40 MG guaiFENesin guaiFENesin No 1{table 6xD guaiFENesi 400 MG 400 MG t_as_ne n 400 MG eded} CeleXA 20 CeleXA 20 No CeleXA 20 MG MG MG Symbicort Symbicort No Symbicort 160-4.5 160-4.5 160-4.5 MCG/ACT MCG/ACT MCG/ACT Docusate Docusate No 1{capsu QD Docusate Sodium 100 Sodium 100 le_as_n Sodium 100 MG MG eeded} MG Ocuvite Ocuvite No 1{table QD Ocuvite t} Mesalamine Mesalamine No 2{table QD Mesalamine 1.2 GM 1.2 GM ts_with 1.2 GM _a_meal } Cranberry Cranberry No Cranberry Plus Plus Plus Vitamin C Vitamin C Vitamin C 4200-20-3 4200-20-3 4200-20-3 MG-MG-UNIT MG-MG-UNIT MG-MG-UNIT Triamcinolo Triamcinolo No 1{appli BID Triamcinol ne ne cation_ one Acetonide Acetonide to_affe Acetonide 0.1 % 0.1 % cted_ar 0.1 % ea} B12 Fast B12 Fast No B12 Fast Dissolve Dissolve Dissolve 5000 MCG 5000 MCG 5000 MCG ProAir HFA ProAir HFA No ProAir HFA 108 (90 108 (90 108 (90 Base) Base) Base) MCG/ACT MCG/ACT MCG/ACT Turmeric Turmeric No Turmeric 500 MG 500 MG 500 MG Triamcinolo Triamcinolo No 1{appli BID Triamcinol ne ne cation_ one Acetonide Acetonide to_affe Acetonide 0.1 % 0.1 % cted_ar 0.1 % ea} Temovate Temovate No 1{appli BID Temovate 0.05 % 0.05 % cation_ 0.05 % to_affe cted_ar ea} Myrbetriq Myrbetriq No Myrbetriq 25 MG 25 MG 25 MG ProAir HFA ProAir HFA No ProAir HFA 108 (90 108 (90 108 (90 Base) Base) Base) MCG/ACT MCG/ACT MCG/ACT Albuterol Albuterol No QID Albuterol Sulfate HFA Sulfate HFA Sulfate 108 (90 108 (90 HFA 108 Base) Base) (90 Base) MCG/ACT MCG/ACT MCG/ACT Alendronate Alendronate No Alendronat Sodium 35 Sodium 35 e Sodium MG MG 35 MG Magnesium Magnesium No 1{capsu BID Magnesium Oxide -Mg Oxide -Mg le_as_n Oxide -Mg Supplement Supplement eeded} Supplement 400 MG 400 MG 400 MG Nasonex 50 Nasonex 50 No 2{spray QD Nasonex 50 MCG/ACT MCG/ACT s_in_ea MCG/ACT ch_nost ril} Centrum Centrum No Centrum Silver Silver Silver Adult 50+ - Adult 50+ - Adult 50+ - Fasenra Pen Fasenra Pen No Fasenra 30 MG/ML 30 MG/ML Pen 30 MG/ML busPIRone busPIRone No busPIRone HCl 5 MG HCl 5 MG HCl 5 MG Potassium Potassium No Potassium Chloride Chloride Chloride Deborah ER 20 Deborah ER 20 Deborah ER 20 MEQ MEQ MEQ Omeprazole Omeprazole No 1{capsu QD Omeprazole 40 MG 40 MG le} 40 MG guaiFENesin guaiFENesin No 1{table 6xD guaiFENesi 400 MG 400 MG t_as_ne n 400 MG eded} CeleXA 20 CeleXA 20 No CeleXA 20 MG MG MG Symbicort Symbicort No Symbicort 160-4.5 160-4.5 160-4.5 MCG/ACT MCG/ACT MCG/ACT Magnesium Magnesium No 1{capsu BID Magnesium Oxide -Mg Oxide -Mg le_as_n Oxide -Mg Supplement Supplement eeded} Supplement 400 MG 400 MG 400 MG B12 Fast B12 Fast No B12 Fast Dissolve Dissolve Dissolve 5000 MCG 5000 MCG 5000 MCG Centrum Centrum No Centrum Silver Silver Silver Adult 50+ - Adult 50+ - Adult 50+ - Docusate Docusate No 1{capsu QD Docusate Sodium 100 Sodium 100 le_as_n Sodium 100 MG MG eeded} MG ProAir HFA ProAir HFA No ProAir HFA 108 (90 108 (90 108 (90 Base) Base) Base) MCG/ACT MCG/ACT MCG/ACT Cranberry Cranberry No Cranberry Plus Plus Plus Vitamin C Vitamin C Vitamin C 4200-20-3 4200-20-3 4200-20-3 MG-MG-UNIT MG-MG-UNIT MG-MG-UNIT Symbicort Symbicort No 2{puffs BID Symbicort 160-4.5 160-4.5 } 160-4.5 MCG/ACT MCG/ACT MCG/ACT Ocuvite Ocuvite No 1{table QD Ocuvite t} Omeprazole Omeprazole No 1{capsu QD Omeprazole 40 MG 40 MG le} 40 MG Triamcinolo Triamcinolo No 1{appli BID Triamcinol ne ne cation_ one Acetonide Acetonide to_affe Acetonide 0.1 % 0.1 % cted_ar 0.1 % ea} Triamcinolo Triamcinolo No 1{appli BID Triamcinol ne ne cation_ one Acetonide Acetonide to_affe Acetonide 0.1 % 0.1 % cted_ar 0.1 % ea} Alendronate Alendronate No Alendronat Sodium 35 Sodium 35 e Sodium MG MG 35 MG Temovate Temovate No 1{appli BID Temovate 0.05 % 0.05 % cation_ 0.05 % to_affe cted_ar ea} Fasenra Pen Fasenra Pen No Fasenra 30 MG/ML 30 MG/ML Pen 30 MG/ML Myrbetriq Myrbetriq No Myrbetriq 25 MG 25 MG 25 MG busPIRone busPIRone No busPIRone HCl 5 MG HCl 5 MG HCl 5 MG Nasonex 50 Nasonex 50 No 2{spray QD Nasonex 50 MCG/ACT MCG/ACT s_in_ea MCG/ACT ch_nost ril} Albuterol Albuterol No 2{puffs QID Albuterol Sulfate HFA Sulfate HFA _as_nee Sulfate 108 (90 108 (90 ded} HFA 108 Base) Base) (90 Base) MCG/ACT MCG/ACT MCG/ACT Turmeric Turmeric No Turmeric 500 MG 500 MG 500 MG Mesalamine Mesalamine No 2{table QD Mesalamine 1.2 GM 1.2 GM ts_with 1.2 GM _a_meal } guaiFENesin guaiFENesin No 1{table 6xD guaiFENesi 400 MG 400 MG t_as_ne n 400 MG eded} Potassium Potassium No Potassium Chloride Chloride Chloride Deborah ER 20 Deborah ER 20 Deborah ER 20 MEQ MEQ MEQ CeleXA 20 CeleXA 20 No QD CeleXA 20 MG MG MG Magnesium Magnesium No 1{capsu BID Magnesium Oxide -Mg Oxide -Mg le_as_n Oxide -Mg Supplement Supplement eeded} Supplement 400 MG 400 MG 400 MG B12 Fast B12 Fast No B12 Fast Dissolve Dissolve Dissolve 5000 MCG 5000 MCG 5000 MCG Centrum Centrum No Centrum Silver Silver Silver Adult 50+ - Adult 50+ - Adult 50+ - Docusate Docusate No 1{capsu QD Docusate Sodium 100 Sodium 100 le_as_n Sodium 100 MG MG eeded} MG ProAir HFA ProAir HFA No ProAir HFA 108 (90 108 (90 108 (90 Base) Base) Base) MCG/ACT MCG/ACT MCG/ACT Cranberry Cranberry No Cranberry Plus Plus Plus Vitamin C Vitamin C Vitamin C 4200-20-3 4200-20-3 4200-20-3 MG-MG-UNIT MG-MG-UNIT MG-MG-UNIT Symbicort Symbicort No 2{puffs BID Symbicort 160-4.5 160-4.5 } 160-4.5 MCG/ACT MCG/ACT MCG/ACT Ocuvite Ocuvite No 1{table QD Ocuvite t} Omeprazole Omeprazole No 1{capsu QD Omeprazole 40 MG 40 MG le} 40 MG Triamcinolo Triamcinolo No 1{appli BID Triamcinol ne ne cation_ one Acetonide Acetonide to_affe Acetonide 0.1 % 0.1 % cted_ar 0.1 % ea} Triamcinolo Triamcinolo No 1{appli BID Triamcinol ne ne cation_ one Acetonide Acetonide to_affe Acetonide 0.1 % 0.1 % cted_ar 0.1 % ea} Alendronate Alendronate No Alendronat Sodium 35 Sodium 35 e Sodium MG MG 35 MG Temovate Temovate No 1{appli BID Temovate 0.05 % 0.05 % cation_ 0.05 % to_affe cted_ar ea} Fasenra Pen Fasenra Pen No Fasenra 30 MG/ML 30 MG/ML Pen 30 MG/ML Myrbetriq Myrbetriq No Myrbetriq 25 MG 25 MG 25 MG busPIRone busPIRone No busPIRone HCl 5 MG HCl 5 MG HCl 5 MG Nasonex 50 Nasonex 50 No 2{spray QD Nasonex 50 MCG/ACT MCG/ACT s_in_ea MCG/ACT ch_nost ril} Albuterol Albuterol No 2{puffs QID Albuterol Sulfate HFA Sulfate HFA _as_nee Sulfate 108 (90 108 (90 ded} HFA 108 Base) Base) (90 Base) MCG/ACT MCG/ACT MCG/ACT Turmeric Turmeric No Turmeric 500 MG 500 MG 500 MG Mesalamine Mesalamine No 2{table QD Mesalamine 1.2 GM 1.2 GM ts_with 1.2 GM _a_meal } guaiFENesin guaiFENesin No 1{table 6xD guaiFENesi 400 MG 400 MG t_as_ne n 400 MG eded} Potassium Potassium No Potassium Chloride Chloride Chloride Deborah ER 20 Deborah ER 20 Deborah ER 20 MEQ MEQ MEQ CeleXA 20 CeleXA 20 No QD CeleXA 20 MG MG MG Magnesium Magnesium No 1{capsu BID Magnesium Oxide -Mg Oxide -Mg le_as_n Oxide -Mg Supplement Supplement eeded} Supplement 400 MG 400 MG 400 MG B12 Fast B12 Fast No B12 Fast Dissolve Dissolve Dissolve 5000 MCG 5000 MCG 5000 MCG Centrum Centrum No Centrum Silver Silver Silver Adult 50+ - Adult 50+ - Adult 50+ - Docusate Docusate No 1{capsu QD Docusate Sodium 100 Sodium 100 le_as_n Sodium 100 MG MG eeded} MG ProAir HFA ProAir HFA No ProAir HFA 108 (90 108 (90 108 (90 Base) Base) Base) MCG/ACT MCG/ACT MCG/ACT Cranberry Cranberry No Cranberry Plus Plus Plus Vitamin C Vitamin C Vitamin C 4200-20-3 4200-20-3 4200-20-3 MG-MG-UNIT MG-MG-UNIT MG-MG-UNIT Symbicort Symbicort No 2{puffs BID Symbicort 160-4.5 160-4.5 } 160-4.5 MCG/ACT MCG/ACT MCG/ACT Ocuvite Ocuvite No 1{table QD Ocuvite t} Omeprazole Omeprazole No 1{capsu QD Omeprazole 40 MG 40 MG le} 40 MG Triamcinolo Triamcinolo No 1{appli BID Triamcinol ne ne cation_ one Acetonide Acetonide to_affe Acetonide 0.1 % 0.1 % cted_ar 0.1 % ea} Triamcinolo Triamcinolo No 1{appli BID Triamcinol ne ne cation_ one Acetonide Acetonide to_affe Acetonide 0.1 % 0.1 % cted_ar 0.1 % ea} Myrbetriq Myrbetriq No Myrbetriq 25 MG 25 MG 25 MG Temovate Temovate No 1{appli BID Temovate 0.05 % 0.05 % cation_ 0.05 % to_affe cted_ar ea} Fasenra Pen Fasenra Pen No Fasenra 30 MG/ML 30 MG/ML Pen 30 MG/ML Albuterol Albuterol No Albuterol Sulfate HFA Sulfate HFA Sulfate 108 (90 108 (90 HFA 108 Base) Base) (90 Base) MCG/ACT MCG/ACT MCG/ACT busPIRone busPIRone No busPIRone HCl 5 MG HCl 5 MG HCl 5 MG Nasonex 50 Nasonex 50 No 2{spray QD Nasonex 50 MCG/ACT MCG/ACT s_in_ea MCG/ACT ch_nost ril} CeleXA 20 CeleXA 20 No QD CeleXA 20 MG MG MG Turmeric Turmeric No Turmeric 500 MG 500 MG 500 MG Mesalamine Mesalamine No 2{table QD Mesalamine 1.2 GM 1.2 GM ts_with 1.2 GM _a_meal } guaiFENesin guaiFENesin No 1{table 6xD guaiFENesi 400 MG 400 MG t_as_ne n 400 MG eded} Potassium Potassium No Potassium Chloride Chloride Chloride Deborah ER 20 Deborah ER 20 Deborah ER 20 MEQ MEQ MEQ Alendronate Alendronate No Alendronat Sodium 35 Sodium 35 e Sodium MG MG 35 MG Alendronate Alendronate No Alendronat Sodium 35 Sodium 35 e Sodium MG MG 35 MG Mesalamine Mesalamine No 2{table QD Mesalamine 1.2 GM 1.2 GM ts_with 1.2 GM _a_meal } Centrum Centrum No Centrum Silver Silver Silver Adult 50+ - Adult 50+ - Adult 50+ - Omeprazole Omeprazole No 1{capsu QD Omeprazole 40 MG 40 MG le} 40 MG Citalopram Citalopram No QD Citalopram Hydrobromid Hydrobromid Hydrobromi e 20 MG e 20 MG de 20 MG Albuterol Albuterol No Albuterol Sulfate HFA Sulfate HFA Sulfate 108 (90 108 (90 HFA 108 Base) Base) (90 Base) MCG/ACT MCG/ACT MCG/ACT Cranberry Cranberry No Cranberry Atorvastati Atorvastati No 1{table QD Atorvastat n Calcium n Calcium t} in Calcium 10 MG 10 MG 10 MG Cranberry Cranberry No Cranberry Plus Plus Plus Vitamin C Vitamin C Vitamin C 4200-20-3 4200-20-3 4200-20-3 MG-MG-UNIT MG-MG-UNIT MG-MG-UNIT Symbicort Symbicort No 2{puffs BID Symbicort 160-4.5 160-4.5 } 160-4.5 MCG/ACT MCG/ACT MCG/ACT Nasonex 50 Nasonex 50 No 2{spray QD Nasonex 50 MCG/ACT MCG/ACT s_in_ea MCG/ACT ch_nost ril} Docusate Docusate No 1{capsu QD Docusate Sodium 100 Sodium 100 le_as_n Sodium 100 MG MG eeded} MG B12 Fast B12 Fast No B12 Fast Dissolve Dissolve Dissolve 5000 MCG 5000 MCG 5000 MCG ProAir HFA ProAir HFA No ProAir HFA 108 (90 108 (90 108 (90 Base) Base) Base) MCG/ACT MCG/ACT MCG/ACT Potassium Potassium No Potassium Chloride Chloride Chloride Deborah ER 20 Deborah ER 20 Deborah ER 20 MEQ MEQ MEQ Ocuvite Ocuvite No 1{table QD Ocuvite t} Turmeric Turmeric No Turmeric 500 MG 500 MG 500 MG Myrbetriq Myrbetriq No Myrbetriq 50 MG 50 MG 50 MG Magnesium Magnesium No 1{capsu BID Magnesium Oxide -Mg Oxide -Mg le_as_n Oxide -Mg Supplement Supplement eeded} Supplement 400 MG 400 MG 400 MG Alendronate Alendronate No Alendronat Sodium 35 Sodium 35 e Sodium MG MG 35 MG Ocuvite Ocuvite No 1{table QD Ocuvite t} Mesalamine Mesalamine No 2{table QD Mesalamine 1.2 GM 1.2 GM ts_with 1.2 GM _a_meal } Centrum Centrum No Centrum Silver Silver Silver Adult 50+ - Adult 50+ - Adult 50+ - Omeprazole Omeprazole No 1{capsu QD Omeprazole 40 MG 40 MG le} 40 MG Citalopram Citalopram No QD Citalopram Hydrobromid Hydrobromid Hydrobromi e 20 MG e 20 MG de 20 MG Fasenra Pen Fasenra Pen No Fasenra 30 MG/ML 30 MG/ML Pen 30 MG/ML Albuterol Albuterol No Albuterol Sulfate HFA Sulfate HFA Sulfate 108 (90 108 (90 HFA 108 Base) Base) (90 Base) MCG/ACT MCG/ACT MCG/ACT Cranberry Cranberry No Cranberry Atorvastati Atorvastati No 1{table QD Atorvastat n Calcium n Calcium t} in Calcium 10 MG 10 MG 10 MG Symbicort Symbicort No 2{puffs BID Symbicort 160-4.5 160-4.5 } 160-4.5 MCG/ACT MCG/ACT MCG/ACT Nasonex 50 Nasonex 50 No 2{spray QD Nasonex 50 MCG/ACT MCG/ACT s_in_ea MCG/ACT ch_nost ril} Docusate Docusate No 1{capsu QD Docusate Sodium 100 Sodium 100 le_as_n Sodium 100 MG MG eeded} MG B12 Fast B12 Fast No B12 Fast Dissolve Dissolve Dissolve 5000 MCG 5000 MCG 5000 MCG ProAir HFA ProAir HFA No ProAir HFA 108 (90 108 (90 108 (90 Base) Base) Base) MCG/ACT MCG/ACT MCG/ACT Potassium Potassium No Potassium Chloride Chloride Chloride Deborah ER 20 Deborah ER 20 Deborah ER 20 MEQ MEQ MEQ Ocuvite Ocuvite No 1{table QD Ocuvite t} Potassium Potassium No Potassium Chloride Chloride Chloride Deborah ER 20 Deborah ER 20 Deborah ER 20 MEQ MEQ MEQ Turmeric Turmeric No Turmeric 500 MG 500 MG 500 MG Myrbetriq Myrbetriq No Myrbetriq 50 MG 50 MG 50 MG Magnesium Magnesium No 1{capsu BID Magnesium Oxide -Mg Oxide -Mg le_as_n Oxide -Mg Supplement Supplement eeded} Supplement 400 MG 400 MG 400 MG Alendronate Alendronate No Alendronat Sodium 35 Sodium 35 e Sodium MG MG 35 MG Centrum Centrum No Centrum Silver Silver Silver Adult 50+ - Adult 50+ - Adult 50+ - Myrbetriq Myrbetriq No Myrbetriq 25 MG 25 MG 25 MG Mesalamine Mesalamine No 2{table QD Mesalamine 1.2 GM 1.2 GM ts_with 1.2 GM _a_meal } Centrum Centrum No Centrum Silver Silver Silver Adult 50+ - Adult 50+ - Adult 50+ - Omeprazole Omeprazole No 1{capsu QD Omeprazole 40 MG 40 MG le} 40 MG Citalopram Citalopram No QD Citalopram Hydrobromid Hydrobromid Hydrobromi e 20 MG e 20 MG de 20 MG Albuterol Albuterol No Albuterol Sulfate HFA Sulfate HFA Sulfate 108 (90 108 (90 HFA 108 Base) Base) (90 Base) MCG/ACT MCG/ACT MCG/ACT Cranberry Cranberry No Cranberry Atorvastati Atorvastati No 1{table QD Atorvastat n Calcium n Calcium t} in Calcium 10 MG 10 MG 10 MG Nasonex 50 Nasonex 50 No 2{spray QD Nasonex 50 MCG/ACT MCG/ACT s_in_ea MCG/ACT ch_nost ril} Symbicort Symbicort No 2{puffs BID Symbicort 160-4.5 160-4.5 } 160-4.5 MCG/ACT MCG/ACT MCG/ACT Nasonex 50 Nasonex 50 No 2{spray QD Nasonex 50 MCG/ACT MCG/ACT s_in_ea MCG/ACT ch_nost ril} Docusate Docusate No 1{capsu QD Docusate Sodium 100 Sodium 100 le_as_n Sodium 100 MG MG eeded} MG B12 Fast B12 Fast No B12 Fast Dissolve Dissolve Dissolve 5000 MCG 5000 MCG 5000 MCG ProAir HFA ProAir HFA No ProAir HFA 108 (90 108 (90 108 (90 Base) Base) Base) MCG/ACT MCG/ACT MCG/ACT Potassium Potassium No Potassium Chloride Chloride Chloride Deborah ER 20 Deborah ER 20 Deborah ER 20 MEQ MEQ MEQ Ocuvite Ocuvite No 1{table QD Ocuvite t} Turmeric Turmeric No Turmeric 500 MG 500 MG 500 MG Myrbetriq Myrbetriq No Myrbetriq 50 MG 50 MG 50 MG Magnesium Magnesium No 1{capsu BID Magnesium Oxide -Mg Oxide -Mg le_as_n Oxide -Mg Supplement Supplement eeded} Supplement 400 MG 400 MG 400 MG Myrbetriq Myrbetriq No 1{table QD Myrbetriq 50 MG 50 MG t} 50 MG Alendronate Alendronate No Alendronat Sodium 35 Sodium 35 e Sodium MG MG 35 MG Mesalamine Mesalamine No 2{table QD Mesalamine 1.2 GM 1.2 GM ts_with 1.2 GM _a_meal } Centrum Centrum No Centrum Silver Silver Silver Adult 50+ - Adult 50+ - Adult 50+ - Omeprazole Omeprazole No 1{capsu QD Omeprazole 40 MG 40 MG le} 40 MG Citalopram Citalopram No QD Citalopram Hydrobromid Hydrobromid Hydrobromi e 20 MG e 20 MG de 20 MG Albuterol Albuterol No Albuterol Sulfate HFA Sulfate HFA Sulfate 108 (90 108 (90 HFA 108 Base) Base) (90 Base) MCG/ACT MCG/ACT MCG/ACT Albuterol Albuterol No QID Albuterol Sulfate HFA Sulfate HFA Sulfate 108 (90 108 (90 HFA 108 Base) Base) (90 Base) MCG/ACT MCG/ACT MCG/ACT Cranberry Cranberry No Cranberry Atorvastati Atorvastati No 1{table QD Atorvastat n Calcium n Calcium t} in Calcium 10 MG 10 MG 10 MG Symbicort Symbicort No 2{puffs BID Symbicort 160-4.5 160-4.5 } 160-4.5 MCG/ACT MCG/ACT MCG/ACT Nasonex 50 Nasonex 50 No 2{spray QD Nasonex 50 MCG/ACT MCG/ACT s_in_ea MCG/ACT ch_nost ril} Docusate Docusate No 1{capsu QD Docusate Sodium 100 Sodium 100 le_as_n Sodium 100 MG MG eeded} MG B12 Fast B12 Fast No B12 Fast Dissolve Dissolve Dissolve 5000 MCG 5000 MCG 5000 MCG ProAir HFA ProAir HFA No ProAir HFA 108 (90 108 (90 108 (90 Base) Base) Base) MCG/ACT MCG/ACT MCG/ACT Potassium Potassium No Potassium Chloride Chloride Chloride Deborah ER 20 Deborah ER 20 Deborah ER 20 MEQ MEQ MEQ Ocuvite Ocuvite No 1{table QD Ocuvite t} Turmeric Turmeric No Turmeric 500 MG 500 MG 500 MG CeleXA 20 CeleXA 20 No CeleXA 20 MG MG MG Myrbetriq Myrbetriq No Myrbetriq 50 MG 50 MG 50 MG Magnesium Magnesium No 1{capsu BID Magnesium Oxide -Mg Oxide -Mg le_as_n Oxide -Mg Supplement Supplement eeded} Supplement 400 MG 400 MG 400 MG Alendronate Alendronate No Alendronat Sodium 35 Sodium 35 e Sodium MG MG 35 MG Temovate Temovate No 1{appli BID Temovate 0.05 % 0.05 % cation_ 0.05 % to_affe cted_ar ea} Mesalamine Mesalamine No 2{table QD Mesalamine 1.2 GM 1.2 GM ts_with 1.2 GM _a_meal } Centrum Centrum No Centrum Silver Silver Silver Adult 50+ - Adult 50+ - Adult 50+ - Omeprazole Omeprazole No 1{capsu QD Omeprazole 40 MG 40 MG le} 40 MG Ocuvite Ocuvite No 1{table QD Ocuvite t} Albuterol Albuterol No Albuterol Sulfate HFA Sulfate HFA Sulfate 108 (90 108 (90 HFA 108 Base) Base) (90 Base) MCG/ACT MCG/ACT MCG/ACT Symbicort Symbicort No 2{puffs BID Symbicort 160-4.5 160-4.5 } 160-4.5 MCG/ACT MCG/ACT MCG/ACT Alendronate Alendronate No Alendronat Sodium 35 Sodium 35 e Sodium MG MG 35 MG Atorvastati Atorvastati No 1{table QD Atorvastat n Calcium n Calcium t} in Calcium 10 MG 10 MG 10 MG Nasonex 50 Nasonex 50 No 2{spray QD Nasonex 50 MCG/ACT MCG/ACT s_in_ea MCG/ACT ch_nost ril} Nasonex 50 Nasonex 50 No Nasonex 50 MCG/ACT MCG/ACT MCG/ACT B12 Fast B12 Fast No B12 Fast Dissolve Dissolve Dissolve 5000 MCG 5000 MCG 5000 MCG Citalopram Citalopram No QD Citalopram Hydrobromid Hydrobromid Hydrobromi e 20 MG e 20 MG de 20 MG Cranberry Cranberry No Cranberry Turmeric Turmeric No Turmeric 500 MG 500 MG 500 MG Magnesium Magnesium No 1{capsu BID Magnesium Oxide -Mg Oxide -Mg le_as_n Oxide -Mg Supplement Supplement eeded} Supplement 400 MG 400 MG 400 MG Docusate Docusate No 1{capsu QD Docusate Sodium 100 Sodium 100 le_as_n Sodium 100 MG MG eeded} MG Myrbetriq Myrbetriq No Myrbetriq 50 MG 50 MG 50 MG ProAir HFA ProAir HFA No ProAir HFA 108 (90 108 (90 108 (90 Base) Base) Base) MCG/ACT MCG/ACT MCG/ACT Potassium Potassium No Potassium Chloride Chloride Chloride Deborah ER 20 Deborah ER 20 Deborah ER 20 MEQ MEQ MEQ Triamcinolo Triamcinolo No 1{appli BID Triamcinol ne ne cation_ one Acetonide Acetonide to_affe Acetonide 0.1 % 0.1 % cted_ar 0.1 % ea} Mesalamine Mesalamine No 2{table QD Mesalamine 1.2 GM 1.2 GM ts_with 1.2 GM _a_meal } Centrum Centrum No Centrum Silver Silver Silver Adult 50+ - Adult 50+ - Adult 50+ - Omeprazole Omeprazole No 1{capsu QD Omeprazole 40 MG 40 MG le} 40 MG Ocuvite Ocuvite No 1{table QD Ocuvite t} Albuterol Albuterol No Albuterol Sulfate HFA Sulfate HFA Sulfate 108 (90 108 (90 HFA 108 Base) Base) (90 Base) MCG/ACT MCG/ACT MCG/ACT Symbicort Symbicort No 2{puffs BID Symbicort 160-4.5 160-4.5 } 160-4.5 MCG/ACT MCG/ACT MCG/ACT Alendronate Alendronate No Alendronat Sodium 35 Sodium 35 e Sodium MG MG 35 MG Omeprazole Omeprazole No 1{capsu QD Omeprazole 40 MG 40 MG le} 40 MG Atorvastati Atorvastati No 1{table QD Atorvastat n Calcium n Calcium t} in Calcium 10 MG 10 MG 10 MG Nasonex 50 Nasonex 50 No 2{spray QD Nasonex 50 MCG/ACT MCG/ACT s_in_ea MCG/ACT ch_nost ril} B12 Fast B12 Fast No B12 Fast Dissolve Dissolve Dissolve 5000 MCG 5000 MCG 5000 MCG Citalopram Citalopram No QD Citalopram Hydrobromid Hydrobromid Hydrobromi e 20 MG e 20 MG de 20 MG Cranberry Cranberry No Cranberry Turmeric Turmeric No Turmeric 500 MG 500 MG 500 MG Magnesium Magnesium No 1{capsu BID Magnesium Oxide -Mg Oxide -Mg le_as_n Oxide -Mg Supplement Supplement eeded} Supplement 400 MG 400 MG 400 MG Docusate Docusate No 1{capsu QD Docusate Sodium 100 Sodium 100 le_as_n Sodium 100 MG MG eeded} MG Myrbetriq Myrbetriq No Myrbetriq 50 MG 50 MG 50 MG ProAir HFA ProAir HFA No ProAir HFA 108 (90 108 (90 108 (90 Base) Base) Base) MCG/ACT MCG/ACT MCG/ACT Turmeric Turmeric No Turmeric 500 MG 500 MG 500 MG Potassium Potassium No Potassium Chloride Chloride Chloride Deborah ER 20 Deborah ER 20 Deborah ER 20 MEQ MEQ MEQ Mesalamine Mesalamine No 2{table QD Mesalamine 1.2 GM 1.2 GM ts_with 1.2 GM _a_meal } Centrum Centrum No Centrum Silver Silver Silver Adult 50+ - Adult 50+ - Adult 50+ - Omeprazole Omeprazole No 1{capsu QD Omeprazole 40 MG 40 MG le} 40 MG Ocuvite Ocuvite No 1{table QD Ocuvite t} Albuterol Albuterol No Albuterol Sulfate HFA Sulfate HFA Sulfate 108 (90 108 (90 HFA 108 Base) Base) (90 Base) MCG/ACT MCG/ACT MCG/ACT ProAir HFA ProAir HFA No ProAir HFA 108 (90 108 (90 108 (90 Base) Base) Base) MCG/ACT MCG/ACT MCG/ACT Symbicort Symbicort No 2{puffs BID Symbicort 160-4.5 160-4.5 } 160-4.5 MCG/ACT MCG/ACT MCG/ACT Alendronate Alendronate No Alendronat Sodium 35 Sodium 35 e Sodium MG MG 35 MG Atorvastati Atorvastati No 1{table QD Atorvastat n Calcium n Calcium t} in Calcium 10 MG 10 MG 10 MG Nasonex 50 Nasonex 50 No 2{spray QD Nasonex 50 MCG/ACT MCG/ACT s_in_ea MCG/ACT ch_nost ril} B12 Fast B12 Fast No B12 Fast Dissolve Dissolve Dissolve 5000 MCG 5000 MCG 5000 MCG Citalopram Citalopram No QD Citalopram Hydrobromid Hydrobromid Hydrobromi e 20 MG e 20 MG de 20 MG Cranberry Cranberry No Cranberry Turmeric Turmeric No Turmeric 500 MG 500 MG 500 MG Magnesium Magnesium No 1{capsu BID Magnesium Oxide -Mg Oxide -Mg le_as_n Oxide -Mg Supplement Supplement eeded} Supplement 400 MG 400 MG 400 MG Docusate Docusate No 1{capsu QD Docusate Sodium 100 Sodium 100 le_as_n Sodium 100 MG MG eeded} MG B12 Fast B12 Fast No B12 Fast Dissolve Dissolve Dissolve 5000 MCG 5000 MCG 5000 MCG Myrbetriq Myrbetriq No Myrbetriq 50 MG 50 MG 50 MG ProAir HFA ProAir HFA No ProAir HFA 108 (90 108 (90 108 (90 Base) Base) Base) MCG/ACT MCG/ACT MCG/ACT Potassium Potassium No Potassium Chloride Chloride Chloride Deborah ER 20 Deborah ER 20 Deborah ER 20 MEQ MEQ MEQ ProAir HFA ProAir HFA No ProAir HFA 108 (90 108 (90 108 (90 Base) Base) Base) MCG/ACT MCG/ACT MCG/ACT Triamcinolo Triamcinolo No 1{appli BID Triamcinol ne ne cation_ one Acetonide Acetonide to_affe Acetonide 0.1 % 0.1 % cted_ar 0.1 % ea} Magnesium Magnesium No 1{capsu BID Magnesium Oxide -Mg Oxide -Mg le_as_n Oxide -Mg Supplement Supplement eeded} Supplement 400 MG 400 MG 400 MG Symbicort Symbicort No Symbicort 160-4.5 160-4.5 160-4.5 MCG/ACT MCG/ACT MCG/ACT Citalopram Citalopram No Citalopram Hydrobromid Hydrobromid Hydrobromi e 20 MG e 20 MG de 20 MG busPIRone busPIRone No busPIRone HCl 5 MG HCl 5 MG HCl 5 MG Ocuvite Ocuvite No 1{table QD Ocuvite t} Turmeric Turmeric No Turmeric 500 MG 500 MG 500 MG Potassium Potassium No Potassium Chloride Chloride Chloride Deborah ER 20 Deborah ER 20 Deborah ER 20 MEQ MEQ MEQ Centrum Centrum No Centrum Silver Silver Silver Adult 50+ - Adult 50+ - Adult 50+ - Alendronate Alendronate No Alendronat Sodium 35 Sodium 35 e Sodium MG MG 35 MG Cranberry Cranberry No Cranberry Plus Plus Plus Vitamin C Vitamin C Vitamin C 4200-20-3 420020-3 20-3 MG-MG-UNIT MG-MG-UNIT MG-MG-UNIT Fasenra Pen Fasenra Pen No Fasenra 30 MG/ML 30 MG/ML Pen 30 MG/ML CeleXA 20 CeleXA 20 No CeleXA 20 MG MG MG Symbicort Symbicort No Symbicort 160-4.5 160-4.5 160-4.5 MCG/ACT MCG/ACT MCG/ACT ProAir HFA ProAir HFA No ProAir HFA 108 (90 108 (90 108 (90 Base) Base) Base) MCG/ACT MCG/ACT MCG/ACT Omeprazole Omeprazole No 1{capsu QD Omeprazole 40 MG 40 MG le} 40 MG ProAir HFA ProAir HFA No ProAir HFA 108 (90 108 (90 108 (90 Base) Base) Base) MCG/ACT MCG/ACT MCG/ACT Triamcinolo Triamcinolo No 1{appli BID Triamcinol ne ne cation_ one Acetonide Acetonide to_affe Acetonide 0.1 % 0.1 % cted_ar 0.1 % ea} Myrbetriq Myrbetriq No Myrbetriq 25 MG 25 MG 25 MG Temovate Temovate No 1{appli BID Temovate 0.05 % 0.05 % cation_ 0.05 % to_affe cted_ar ea} Nasonex 50 Nasonex 50 No Nasonex 50 MCG/ACT MCG/ACT MCG/ACT B12 Fast B12 Fast No B12 Fast Dissolve Dissolve Dissolve 5000 MCG 5000 MCG 5000 MCG Nasonex 50 Nasonex 50 No 2{spray QD Nasonex 50 MCG/ACT MCG/ACT s_in_ea MCG/ACT ch_nost ril} Albuterol Albuterol No QID Albuterol Sulfate HFA Sulfate HFA Sulfate 108 (90 108 (90 HFA 108 Base) Base) (90 Base) MCG/ACT MCG/ACT MCG/ACT Magnesium Magnesium No 1{capsu BID Magnesium Oxide -Mg Oxide -Mg le_as_n Oxide -Mg Supplement Supplement eeded} Supplement 400 MG 400 MG 400 MG Triamcinolo Triamcinolo No 1{appli BID Triamcinol ne ne cation_ one Acetonide Acetonide to_affe Acetonide 0.1 % 0.1 % cted_ar 0.1 % ea} Citalopram Citalopram No Citalopram Hydrobromid Hydrobromid Hydrobromi e 20 MG e 20 MG de 20 MG busPIRone busPIRone No busPIRone HCl 5 MG HCl 5 MG HCl 5 MG Ocuvite Ocuvite No 1{table QD Ocuvite t} Turmeric Turmeric No Turmeric 500 MG 500 MG 500 MG Potassium Potassium No Potassium Chloride Chloride Chloride Deborah ER 20 Deborah ER 20 Deborah ER 20 MEQ MEQ MEQ Centrum Centrum No Centrum Silver Silver Silver Adult 50+ - Adult 50+ - Adult 50+ - Alendronate Alendronate No Alendronat Sodium 35 Sodium 35 e Sodium MG MG 35 MG Cranberry Cranberry No Cranberry Plus Plus Plus Vitamin C Vitamin C Vitamin C 4200-20-3 4200-20-3 4200-20-3 MG-MG-UNIT MG-MG-UNIT MG-MG-UNIT Fasenra Pen Fasenra Pen No Fasenra 30 MG/ML 30 MG/ML Pen 30 MG/ML CeleXA 20 CeleXA 20 No CeleXA 20 MG MG MG Symbicort Symbicort No Symbicort 160-4.5 160-4.5 160-4.5 MCG/ACT MCG/ACT MCG/ACT ProAir HFA ProAir HFA No ProAir HFA 108 (90 108 (90 108 (90 Base) Base) Base) MCG/ACT MCG/ACT MCG/ACT Omeprazole Omeprazole No 1{capsu QD Omeprazole 40 MG 40 MG le} 40 MG ProAir HFA ProAir HFA No ProAir HFA 108 (90 108 (90 108 (90 Base) Base) Base) MCG/ACT MCG/ACT MCG/ACT Triamcinolo Triamcinolo No 1{appli BID Triamcinol ne ne cation_ one Acetonide Acetonide to_affe Acetonide 0.1 % 0.1 % cted_ar 0.1 % ea} Myrbetriq Myrbetriq No Myrbetriq 25 MG 25 MG 25 MG Temovate Temovate No 1{appli BID Temovate 0.05 % 0.05 % cation_ 0.05 % to_affe cted_ar ea} Nasonex 50 Nasonex 50 No Nasonex 50 MCG/ACT MCG/ACT MCG/ACT B12 Fast B12 Fast No B12 Fast Dissolve Dissolve Dissolve 5000 MCG 5000 MCG 5000 MCG Nasonex 50 Nasonex 50 No 2{spray QD Nasonex 50 MCG/ACT MCG/ACT s_in_ea MCG/ACT ch_nost ril} Albuterol Albuterol No QID Albuterol Sulfate HFA Sulfate HFA Sulfate 108 (90 108 (90 HFA 108 Base) Base) (90 Base) MCG/ACT MCG/ACT MCG/ACT Magnesium Magnesium No 1{capsu BID Magnesium Oxide -Mg Oxide -Mg le_as_n Oxide -Mg Supplement Supplement eeded} Supplement 400 MG 400 MG 400 MG Triamcinolo Triamcinolo No 1{appli BID Triamcinol ne ne cation_ one Acetonide Acetonide to_affe Acetonide 0.1 % 0.1 % cted_ar 0.1 % ea} Citalopram Citalopram No Citalopram Hydrobromid Hydrobromid Hydrobromi e 20 MG e 20 MG de 20 MG busPIRone busPIRone No busPIRone HCl 5 MG HCl 5 MG HCl 5 MG Triamcinolo Triamcinolo No 1{appli BID ne ne cation_ Acetonide Acetonide to_affe 0.1 % 0.1 % cted_ar ea} Magnesium Magnesium No 1{capsu BID Oxide -Mg Oxide -Mg le_as_n Supplement Supplement eeded} 400 MG 400 MG CeleXA 20 CeleXA 20 No MG MG Potassium Potassium No Chloride Chloride Deborah ER 20 Deborah ER 20 MEQ MEQ ProAir HFA ProAir HFA No 108 (90 108 (90 Base) Base) MCG/ACT MCG/ACT Centrum Centrum No Silver Silver Adult 50+ - Adult 50+ - busPIRone busPIRone No 1{table HCl 5 MG HCl 5 MG t} Turmeric Turmeric No 500 MG 500 MG Symbicort Symbicort No 2{puffs BID 160-4.5 160-4.5 } MCG/ACT MCG/ACT Temovate Temovate No 1{appli BID 0.05 % 0.05 % cation_ to_affe cted_ar ea} Citalopram Citalopram No Hydrobromid Hydrobromid e 20 MG e 20 MG Albuterol Albuterol No Sulfate HFA Sulfate HFA 108 (90 108 (90 Base) Base) MCG/ACT MCG/ACT B12 Fast B12 Fast No Dissolve Dissolve 5000 MCG 5000 MCG Cranberry Cranberry No Plus Plus Vitamin C Vitamin C 4200-20-3 4200-20-3 MG-MG-UNIT MG-MG-UNIT Omeprazole Omeprazole No 1{capsu QD 40 MG 40 MG le} Alendronate Alendronate No Sodium 35 Sodium 35 MG MG ProAir HFA ProAir HFA No 108 (90 108 (90 Base) Base) MCG/ACT MCG/ACT Myrbetriq Myrbetriq No 25 MG 25 MG Nasonex 50 Nasonex 50 No MCG/ACT MCG/ACT Ocuvite Ocuvite No 1{table QD t} Triamcinolo Triamcinolo No 1{appli BID ne ne cation_ Acetonide Acetonide to_affe 0.1 % 0.1 % cted_ar ea} Nasonex 50 Nasonex 50 No 2{spray QD MCG/ACT MCG/ACT s_in_ea ch_nost ril} Myrbetriq Myrbetriq No 1{table QD 50 MG 50 MG t} Myrbetriq Myrbetriq No 50 MG 50 MG CeleXA 20 CeleXA 20 No 1{table QD MG MG t} Triamcinolo Triamcinolo No 1{appli BID Triamcinol ne ne cation_ one Acetonide Acetonide to_affe Acetonide 0.1 % 0.1 % cted_ar 0.1 % ea} Magnesium Magnesium No 1{capsu BID Magnesium Oxide -Mg Oxide -Mg le_as_n Oxide -Mg Supplement Supplement eeded} Supplement 400 MG 400 MG 400 MG CeleXA 20 CeleXA 20 No CeleXA 20 MG MG MG Potassium Potassium No Potassium Chloride Chloride Chloride Deborah ER 20 Deborah ER 20 Deborah ER 20 MEQ MEQ MEQ ProAir HFA ProAir HFA No ProAir HFA 108 (90 108 (90 108 (90 Base) Base) Base) MCG/ACT MCG/ACT MCG/ACT Centrum Centrum No Centrum Silver Silver Silver Adult 50+ - Adult 50+ - Adult 50+ - busPIRone busPIRone No 1{table busPIRone HCl 5 MG HCl 5 MG t} HCl 5 MG Turmeric Turmeric No Turmeric 500 MG 500 MG 500 MG Symbicort Symbicort No 2{puffs BID Symbicort 160-4.5 160-4.5 } 160-4.5 MCG/ACT MCG/ACT MCG/ACT Temovate Temovate No 1{appli BID Temovate 0.05 % 0.05 % cation_ 0.05 % to_affe cted_ar ea} Citalopram Citalopram No Citalopram Hydrobromid Hydrobromid Hydrobromi e 20 MG e 20 MG de 20 MG Albuterol Albuterol No Albuterol Sulfate HFA Sulfate HFA Sulfate 108 (90 108 (90 HFA 108 Base) Base) (90 Base) MCG/ACT MCG/ACT MCG/ACT B12 Fast B12 Fast No B12 Fast Dissolve Dissolve Dissolve 5000 MCG 5000 MCG 5000 MCG Cranberry Cranberry No Cranberry Plus Plus Plus Vitamin C Vitamin C Vitamin C 4200-20-3 4200-20-3 4200-20-3 MG-MG-UNIT MG-MG-UNIT MG-MG-UNIT Omeprazole Omeprazole No 1{capsu QD Omeprazole 40 MG 40 MG le} 40 MG Alendronate Alendronate No Alendronat Sodium 35 Sodium 35 e Sodium MG MG 35 MG ProAir HFA ProAir HFA No ProAir HFA 108 (90 108 (90 108 (90 Base) Base) Base) MCG/ACT MCG/ACT MCG/ACT Myrbetriq Myrbetriq No Myrbetriq 25 MG 25 MG 25 MG Nasonex 50 Nasonex 50 No Nasonex 50 MCG/ACT MCG/ACT MCG/ACT Ocuvite Ocuvite No 1{table QD Ocuvite t} Triamcinolo Triamcinolo No 1{appli BID Triamcinol ne ne cation_ one Acetonide Acetonide to_affe Acetonide 0.1 % 0.1 % cted_ar 0.1 % ea} Nasonex 50 Nasonex 50 No 2{spray QD Nasonex 50 MCG/ACT MCG/ACT s_in_ea MCG/ACT ch_nost ril} Myrbetriq Myrbetriq No 1{table QD Myrbetriq 50 MG 50 MG t} 50 MG Myrbetriq Myrbetriq No Myrbetriq 50 MG 50 MG 50 MG CeleXA 20 CeleXA 20 No 1{table QD CeleXA 20 MG MG t} MG Triamcinolo Triamcinolo No 1{appli BID Triamcinol ne ne cation_ one Acetonide Acetonide to_affe Acetonide 0.1 % 0.1 % cted_ar 0.1 % ea} Magnesium Magnesium No 1{capsu BID Magnesium Oxide -Mg Oxide -Mg le_as_n Oxide -Mg Supplement Supplement eeded} Supplement 400 MG 400 MG 400 MG CeleXA 20 CeleXA 20 No CeleXA 20 MG MG MG Potassium Potassium No Potassium Chloride Chloride Chloride Deborah ER 20 Deborah ER 20 Deborah ER 20 MEQ MEQ MEQ ProAir HFA ProAir HFA No ProAir HFA 108 (90 108 (90 108 (90 Base) Base) Base) MCG/ACT MCG/ACT MCG/ACT Centrum Centrum No Centrum Silver Silver Silver Adult 50+ - Adult 50+ - Adult 50+ - busPIRone busPIRone No 1{table busPIRone HCl 5 MG HCl 5 MG t} HCl 5 MG Turmeric Turmeric No Turmeric 500 MG 500 MG 500 MG Symbicort Symbicort No 2{puffs BID Symbicort 160-4.5 160-4.5 } 160-4.5 MCG/ACT MCG/ACT MCG/ACT Temovate Temovate No 1{appli BID Temovate 0.05 % 0.05 % cation_ 0.05 % to_affe cted_ar ea} Citalopram Citalopram No Citalopram Hydrobromid Hydrobromid Hydrobromi e 20 MG e 20 MG de 20 MG Albuterol Albuterol No QID Albuterol Sulfate HFA Sulfate HFA Sulfate 108 (90 108 (90 HFA 108 Base) Base) (90 Base) MCG/ACT MCG/ACT MCG/ACT B12 Fast B12 Fast No B12 Fast Dissolve Dissolve Dissolve 5000 MCG 5000 MCG 5000 MCG Cranberry Cranberry No Cranberry Plus Plus Plus Vitamin C Vitamin C Vitamin C 4200-20-3 420020-3 20-3 MG-MG-UNIT MG-MG-UNIT MG-MG-UNIT Nasonex 50 Nasonex 50 No Nasonex 50 MCG/ACT MCG/ACT MCG/ACT Alendronate Alendronate No Alendronat Sodium 35 Sodium 35 e Sodium MG MG 35 MG ProAir HFA ProAir HFA No ProAir HFA 108 (90 108 (90 108 (90 Base) Base) Base) MCG/ACT MCG/ACT MCG/ACT Myrbetriq Myrbetriq No Myrbetriq 25 MG 25 MG 25 MG Ocuvite Ocuvite No 1{table QD Ocuvite t} Omeprazole Omeprazole No 1{capsu QD Omeprazole 40 MG 40 MG le} 40 MG Triamcinolo Triamcinolo No 1{appli BID Triamcinol ne ne cation_ one Acetonide Acetonide to_affe Acetonide 0.1 % 0.1 % cted_ar 0.1 % ea} Nasonex 50 Nasonex 50 No 2{spray QD Nasonex 50 MCG/ACT MCG/ACT s_in_ea MCG/ACT ch_nost ril} Myrbetriq Myrbetriq No 1{table QD Myrbetriq 50 MG 50 MG t} 50 MG Myrbetriq Myrbetriq No Myrbetriq 50 MG 50 MG 50 MG CeleXA 20 CeleXA 20 No 1{table QD CeleXA 20 MG MG t} MG Turmeric Turmeric No Turmeric 500 MG 500 MG 500 MG Triamcinolo Triamcinolo No 1{appli BID Triamcinol ne ne cation_ one Acetonide Acetonide to_affe Acetonide 0.1 % 0.1 % cted_ar 0.1 % ea} Omeprazole Omeprazole No 1{capsu QD Omeprazole 40 MG 40 MG le} 40 MG B12 Fast B12 Fast No B12 Fast Dissolve Dissolve Dissolve 5000 MCG 5000 MCG 5000 MCG Cranberry Cranberry No Cranberry Plus Plus Plus Vitamin C Vitamin C Vitamin C 4200-20-3 4200-20-3 4200-20-3 MG-MG-UNIT MG-MG-UNIT MG-MG-UNIT Temovate Temovate No 1{appli BID Temovate 0.05 % 0.05 % cation_ 0.05 % to_affe cted_ar ea} Ocuvite Ocuvite No 1{table QD Ocuvite t} Myrbetriq Myrbetriq No Myrbetriq 25 MG 25 MG 25 MG Magnesium Magnesium No 1{capsu BID Magnesium Oxide -Mg Oxide -Mg le_as_n Oxide -Mg Supplement Supplement eeded} Supplement 400 MG 400 MG 400 MG Centrum Centrum No Centrum Silver Silver Silver Adult 50+ - Adult 50+ - Adult 50+ - Symbicort Symbicort No 2{puffs BID Symbicort 160-4.5 160-4.5 } 160-4.5 MCG/ACT MCG/ACT MCG/ACT Albuterol Albuterol No QID Albuterol Sulfate HFA Sulfate HFA Sulfate 108 (90 108 (90 HFA 108 Base) Base) (90 Base) MCG/ACT MCG/ACT MCG/ACT Nasonex 50 Nasonex 50 No 2{spray QD Nasonex 50 MCG/ACT MCG/ACT s_in_ea MCG/ACT ch_nost ril} CeleXA 20 CeleXA 20 No 1{table QD CeleXA 20 MG MG t} MG Triamcinolo Triamcinolo No 1{appli BID Triamcinol ne ne cation_ one Acetonide Acetonide to_affe Acetonide 0.1 % 0.1 % cted_ar 0.1 % ea} Citalopram Citalopram No Citalopram Hydrobromid Hydrobromid Hydrobromi e 20 MG e 20 MG de 20 MG CeleXA 20 CeleXA 20 No CeleXA 20 MG MG MG ProAir HFA ProAir HFA No ProAir HFA 108 (90 108 (90 108 (90 Base) Base) Base) MCG/ACT MCG/ACT MCG/ACT Alendronate Alendronate No Alendronat Sodium 35 Sodium 35 e Sodium MG MG 35 MG Potassium Potassium No Potassium Chloride Chloride Chloride Deborah ER 20 Deborah ER 20 Deborah ER 20 MEQ MEQ MEQ Myrbetriq Myrbetriq No 1{table QD Myrbetriq 50 MG 50 MG t} 50 MG Myrbetriq Myrbetriq No Myrbetriq 50 MG 50 MG 50 MG ProAir HFA ProAir HFA No ProAir HFA 108 (90 108 (90 108 (90 Base) Base) Base) MCG/ACT MCG/ACT MCG/ACT busPIRone busPIRone No 1{table busPIRone HCl 5 MG HCl 5 MG t} HCl 5 MG Nasonex 50 Nasonex 50 No Nasonex 50 MCG/ACT MCG/ACT MCG/ACT Cranberry Cranberry No Cranberry Plus Plus Plus Vitamin C Vitamin C Vitamin C 020-3 20-3 20-3 MG-MG-UNIT MG-MG-UNIT MG-MG-UNIT Temovate Temovate No 1{appli BID Temovate 0.05 % 0.05 % cation_ 0.05 % to_affe cted_ar ea} Ocuvite Ocuvite No 1{table QD Ocuvite t} Myrbetriq Myrbetriq No Myrbetriq 25 MG 25 MG 25 MG CeleXA 20 CeleXA 20 No CeleXA 20 MG MG MG Magnesium Magnesium No 1{capsu BID Magnesium Oxide -Mg Oxide -Mg le_as_n Oxide -Mg Supplement Supplement eeded} Supplement 400 MG 400 MG 400 MG Centrum Centrum No Centrum Silver Silver Silver Adult 50+ - Adult 50+ - Adult 50+ - Symbicort Symbicort No 2{puffs BID Symbicort 160-4.5 160-4.5 } 160-4.5 MCG/ACT MCG/ACT MCG/ACT Triamcinolo Triamcinolo No 1{appli BID Triamcinol ne ne cation_ one Acetonide Acetonide to_affe Acetonide 0.1 % 0.1 % cted_ar 0.1 % ea} Alendronate Alendronate No Alendronat Sodium 35 Sodium 35 e Sodium MG MG 35 MG Omeprazole Omeprazole No 1{capsu QD Omeprazole 40 MG 40 MG le} 40 MG B12 Fast B12 Fast No B12 Fast Dissolve Dissolve Dissolve 5000 MCG 5000 MCG 5000 MCG Nasonex 50 Nasonex 50 No 2{spray QD Nasonex 50 MCG/ACT MCG/ACT s_in_ea MCG/ACT ch_nost ril} Potassium Potassium No Potassium Chloride Chloride Chloride Deborah ER 20 Deborah ER 20 Deborah ER 20 MEQ MEQ MEQ ProAir HFA ProAir HFA No ProAir HFA 108 (90 108 (90 108 (90 Base) Base) Base) MCG/ACT MCG/ACT MCG/ACT Triamcinolo Triamcinolo No 1{appli BID Triamcinol ne ne cation_ one Acetonide Acetonide to_affe Acetonide 0.1 % 0.1 % cted_ar 0.1 % ea} Citalopram Citalopram No Citalopram Hydrobromid Hydrobromid Hydrobromi e 20 MG e 20 MG de 20 MG Turmeric Turmeric No Turmeric 500 MG 500 MG 500 MG Albuterol Albuterol No QID Albuterol Sulfate HFA Sulfate HFA Sulfate 108 (90 108 (90 HFA 108 Base) Base) (90 Base) MCG/ACT MCG/ACT MCG/ACT CeleXA 20 CeleXA 20 No 1{table QD CeleXA 20 MG MG t} MG ProAir HFA ProAir HFA No ProAir HFA 108 (90 108 (90 108 (90 Base) Base) Base) MCG/ACT MCG/ACT MCG/ACT busPIRone busPIRone No 1{table busPIRone HCl 5 MG HCl 5 MG t} HCl 5 MG Nasonex 50 Nasonex 50 No Nasonex 50 MCG/ACT MCG/ACT MCG/ACT Myrbetriq Myrbetriq No Myrbetriq 50 MG 50 MG 50 MG Magnesium Magnesium No 1{capsu BID Magnesium Oxide -Mg Oxide -Mg le_as_n Oxide -Mg Supplement Supplement eeded} Supplement 400 MG 400 MG 400 MG ProAir HFA ProAir HFA No ProAir HFA 108 (90 108 (90 108 (90 Base) Base) Base) MCG/ACT MCG/ACT MCG/ACT Alendronate Alendronate No Alendronat Sodium 35 Sodium 35 e Sodium MG MG 35 MG Triamcinolo Triamcinolo No 1{appli BID Triamcinol ne ne cation_ one Acetonide Acetonide to_affe Acetonide 0.1 % 0.1 % cted_ar 0.1 % ea} Myrbetriq Myrbetriq No Myrbetriq 50 MG 50 MG 50 MG Nasonex 50 Nasonex 50 No Nasonex 50 MCG/ACT MCG/ACT MCG/ACT Omeprazole Omeprazole No 1{capsu QD Omeprazole 40 MG 40 MG le} 40 MG CeleXA 20 CeleXA 20 No CeleXA 20 MG MG MG Ocuvite Ocuvite No 1{table QD Ocuvite t} busPIRone busPIRone No 1{table busPIRone HCl 5 MG HCl 5 MG t} HCl 5 MG Symbicort Symbicort No 2{puffs BID Symbicort 160-4.5 160-4.5 } 160-4.5 MCG/ACT MCG/ACT MCG/ACT Potassium Potassium No Potassium Chloride Chloride Chloride Deborah ER 20 Deborah ER 20 Deborah ER 20 MEQ MEQ MEQ Albuterol Albuterol No QID Albuterol Sulfate HFA Sulfate HFA Sulfate 108 (90 108 (90 HFA 108 Base) Base) (90 Base) MCG/ACT MCG/ACT MCG/ACT B12 Fast B12 Fast No B12 Fast Dissolve Dissolve Dissolve 5000 MCG 5000 MCG 5000 MCG Turmeric Turmeric No Turmeric 500 MG 500 MG 500 MG ProAir HFA ProAir HFA No ProAir HFA 108 (90 108 (90 108 (90 Base) Base) Base) MCG/ACT MCG/ACT MCG/ACT Triamcinolo Triamcinolo No 1{appli BID Triamcinol ne ne cation_ one Acetonide Acetonide to_affe Acetonide 0.1 % 0.1 % cted_ar 0.1 % ea} Citalopram Citalopram No Citalopram Hydrobromid Hydrobromid Hydrobromi e 20 MG e 20 MG de 20 MG Myrbetriq Myrbetriq No Myrbetriq 25 MG 25 MG 25 MG Centrum Centrum No Centrum Silver Silver Silver Adult 50+ - Adult 50+ - Adult 50+ - Temovate Temovate No 1{appli BID Temovate 0.05 % 0.05 % cation_ 0.05 % to_affe cted_ar ea} Myrbetriq Myrbetriq No 1{table QD Myrbetriq 50 MG 50 MG t} 50 MG Cranberry Cranberry No Cranberry Plus Plus Plus Vitamin C Vitamin C Vitamin C 4200-20-3 4200-20-3 4200-20-3 MG-MG-UNIT MG-MG-UNIT MG-MG-UNIT Nasonex 50 Nasonex 50 No 2{spray QD Nasonex 50 MCG/ACT MCG/ACT s_in_ea MCG/ACT ch_nost ril} CeleXA 20 CeleXA 20 No 1{table QD CeleXA 20 MG MG t} MG Magnesium Magnesium No 1{capsu BID Magnesium Oxide -Mg Oxide -Mg le_as_n Oxide -Mg Supplement Supplement eeded} Supplement 400 MG 400 MG 400 MG ProAir HFA ProAir HFA No ProAir HFA 108 (90 108 (90 108 (90 Base) Base) Base) MCG/ACT MCG/ACT MCG/ACT Alendronate Alendronate No Alendronat Sodium 35 Sodium 35 e Sodium MG MG 35 MG Triamcinolo Triamcinolo No 1{appli BID Triamcinol ne ne cation_ one Acetonide Acetonide to_affe Acetonide 0.1 % 0.1 % cted_ar 0.1 % ea} Myrbetriq Myrbetriq No Myrbetriq 50 MG 50 MG 50 MG Nasonex 50 Nasonex 50 No Nasonex 50 MCG/ACT MCG/ACT MCG/ACT Omeprazole Omeprazole No 1{capsu QD Omeprazole 40 MG 40 MG le} 40 MG CeleXA 20 CeleXA 20 No CeleXA 20 MG MG MG Ocuvite Ocuvite No 1{table QD Ocuvite t} busPIRone busPIRone No 1{table busPIRone HCl 5 MG HCl 5 MG t} HCl 5 MG Symbicort Symbicort No 2{puffs BID Symbicort 160-4.5 160-4.5 } 160-4.5 MCG/ACT MCG/ACT MCG/ACT Potassium Potassium No Potassium Chloride Chloride Chloride Deborah ER 20 Deborah ER 20 Deborah ER 20 MEQ MEQ MEQ Albuterol Albuterol No QID Albuterol Sulfate HFA Sulfate HFA Sulfate 108 (90 108 (90 HFA 108 Base) Base) (90 Base) MCG/ACT MCG/ACT MCG/ACT B12 Fast B12 Fast No B12 Fast Dissolve Dissolve Dissolve 5000 MCG 5000 MCG 5000 MCG Turmeric Turmeric No Turmeric 500 MG 500 MG 500 MG ProAir HFA ProAir HFA No ProAir HFA 108 (90 108 (90 108 (90 Base) Base) Base) MCG/ACT MCG/ACT MCG/ACT Triamcinolo Triamcinolo No 1{appli BID Triamcinol ne ne cation_ one Acetonide Acetonide to_affe Acetonide 0.1 % 0.1 % cted_ar 0.1 % ea} Citalopram Citalopram No Citalopram Hydrobromid Hydrobromid Hydrobromi e 20 MG e 20 MG de 20 MG Myrbetriq Myrbetriq No Myrbetriq 25 MG 25 MG 25 MG Centrum Centrum No Centrum Silver Silver Silver Adult 50+ - Adult 50+ - Adult 50+ - Temovate Temovate No 1{appli BID Temovate 0.05 % 0.05 % cation_ 0.05 % to_affe cted_ar ea} Myrbetriq Myrbetriq No 1{table QD Myrbetriq 50 MG 50 MG t} 50 MG Cranberry Cranberry No Cranberry Plus Plus Plus Vitamin C Vitamin C Vitamin C 4200-20-3 4200-20-3 420-20-3 MG-MG-UNIT MG-MG-UNIT MG-MG-UNIT Nasonex 50 Nasonex 50 No 2{spray QD Nasonex 50 MCG/ACT MCG/ACT s_in_ea MCG/ACT ch_nost ril} CeleXA 20 CeleXA 20 No 1{table QD CeleXA 20 MG MG t} MG Magnesium Magnesium No 1{capsu BID Magnesium Oxide -Mg Oxide -Mg le_as_n Oxide -Mg Supplement Supplement eeded} Supplement 400 MG 400 MG 400 MG CeleXA 20 CeleXA 20 No CeleXA 20 MG MG MG Alendronate Alendronate No Alendronat Sodium 35 Sodium 35 e Sodium MG MG 35 MG ProAir HFA ProAir HFA No ProAir HFA 108 (90 108 (90 108 (90 Base) Base) Base) MCG/ACT MCG/ACT MCG/ACT Ocuvite Ocuvite No 1{table QD Ocuvite t} busPIRone busPIRone No 1{table busPIRone HCl 5 MG HCl 5 MG t} HCl 5 MG Omeprazole Omeprazole No 1{capsu QD Omeprazole 40 MG 40 MG le} 40 MG Nasonex 50 Nasonex 50 No Nasonex 50 MCG/ACT MCG/ACT MCG/ACT Triamcinolo Triamcinolo No 1{appli BID Triamcinol ne ne cation_ one Acetonide Acetonide to_affe Acetonide 0.1 % 0.1 % cted_ar 0.1 % ea} Symbicort Symbicort No 2{puffs BID Symbicort 160-4.5 160-4.5 } 160-4.5 MCG/ACT MCG/ACT MCG/ACT Potassium Potassium No Potassium Chloride Chloride Chloride Deborah ER 20 Deborah ER 20 Deborah ER 20 MEQ MEQ MEQ Albuterol Albuterol No QID Albuterol Sulfate HFA Sulfate HFA Sulfate 108 (90 108 (90 HFA 108 Base) Base) (90 Base) MCG/ACT MCG/ACT MCG/ACT Citalopram Citalopram No Citalopram Hydrobromid Hydrobromid Hydrobromi e 20 MG e 20 MG de 20 MG Turmeric Turmeric No Turmeric 500 MG 500 MG 500 MG ProAir HFA ProAir HFA No ProAir HFA 108 (90 108 (90 108 (90 Base) Base) Base) MCG/ACT MCG/ACT MCG/ACT B12 Fast B12 Fast No B12 Fast Dissolve Dissolve Dissolve 5000 MCG 5000 MCG 5000 MCG Triamcinolo Triamcinolo No 1{appli BID Triamcinol ne ne cation_ one Acetonide Acetonide to_affe Acetonide 0.1 % 0.1 % cted_ar 0.1 % ea} Myrbetriq Myrbetriq No Myrbetriq 25 MG 25 MG 25 MG Centrum Centrum No Centrum Silver Silver Silver Adult 50+ - Adult 50+ - Adult 50+ - Temovate Temovate No 1{appli BID Temovate 0.05 % 0.05 % cation_ 0.05 % to_affe cted_ar ea} Myrbetriq Myrbetriq No Myrbetriq 50 MG 50 MG 50 MG Cranberry Cranberry No Cranberry Plus Plus Plus Vitamin C Vitamin C Vitamin C 4200-20-3 4200-20-3 4200-20-3 MG-MG-UNIT MG-MG-UNIT MG-MG-UNIT Nasonex 50 Nasonex 50 No 2{spray QD Nasonex 50 MCG/ACT MCG/ACT s_in_ea MCG/ACT ch_nost ril} CeleXA 20 CeleXA 20 No 1{table QD CeleXA 20 MG MG t} MG B12 Fast B12 Fast No B12 Fast Dissolve Dissolve Dissolve 5000 MCG 5000 MCG 5000 MCG Centrum Centrum No Centrum Silver Silver Silver Adult 50+ - Adult 50+ - Adult 50+ - ProAir HFA ProAir HFA No ProAir HFA 108 (90 108 (90 108 (90 Base) Base) Base) MCG/ACT MCG/ACT MCG/ACT Nasonex 50 Nasonex 50 No 2{spray QD Nasonex 50 MCG/ACT MCG/ACT s_in_ea MCG/ACT ch_nost ril} CeleXA 20 CeleXA 20 No CeleXA 20 MG MG MG Cranberry Cranberry No Cranberry Plus Plus Plus Vitamin C Vitamin C Vitamin C 4200-20-3 420-20-3 420-20-3 MG-MG-UNIT MG-MG-UNIT MG-MG-UNIT Ocuvite Ocuvite No 1{table QD Ocuvite t} CeleXA 20 CeleXA 20 No 1{table QD CeleXA 20 MG MG t} MG Triamcinolo Triamcinolo No 1{appli BID Triamcinol ne ne cation_ one Acetonide Acetonide to_affe Acetonide 0.1 % 0.1 % cted_ar 0.1 % ea} Potassium Potassium No Potassium Chloride Chloride Chloride Deborah ER 20 Deborah ER 20 Deborah ER 20 MEQ MEQ MEQ Citalopram Citalopram No Citalopram Hydrobromid Hydrobromid Hydrobromi e 20 MG e 20 MG de 20 MG Triamcinolo Triamcinolo No 1{appli BID Triamcinol ne ne cation_ one Acetonide Acetonide to_affe Acetonide 0.1 % 0.1 % cted_ar 0.1 % ea} Myrbetriq Myrbetriq No Myrbetriq 25 MG 25 MG 25 MG Nasonex 50 Nasonex 50 No Nasonex 50 MCG/ACT MCG/ACT MCG/ACT ProAir HFA ProAir HFA No ProAir HFA 108 (90 108 (90 108 (90 Base) Base) Base) MCG/ACT MCG/ACT MCG/ACT Magnesium Magnesium No 1{capsu BID Magnesium Oxide -Mg Oxide -Mg le_as_n Oxide -Mg Supplement Supplement eeded} Supplement 400 MG 400 MG 400 MG busPIRone busPIRone No 1{table busPIRone HCl 5 MG HCl 5 MG t} HCl 5 MG Myrbetriq Myrbetriq No 1{table QD Myrbetriq 50 MG 50 MG t} 50 MG Symbicort Symbicort No Symbicort 160-4.5 160-4.5 160-4.5 MCG/ACT MCG/ACT MCG/ACT Turmeric Turmeric No Turmeric 500 MG 500 MG 500 MG Omeprazole Omeprazole No 1{capsu QD Omeprazole 40 MG 40 MG le} 40 MG Temovate Temovate No 1{appli BID Temovate 0.05 % 0.05 % cation_ 0.05 % to_affe cted_ar ea} Alendronate Alendronate No Alendronat Sodium 35 Sodium 35 e Sodium MG MG 35 MG Myrbetriq Myrbetriq No Myrbetriq 50 MG 50 MG 50 MG Albuterol Albuterol No QID Albuterol Sulfate HFA Sulfate HFA Sulfate 108 (90 108 (90 HFA 108 Base) Base) (90 Base) MCG/ACT MCG/ACT MCG/ACT B12 Fast B12 Fast No B12 Fast Dissolve Dissolve Dissolve 5000 MCG 5000 MCG 5000 MCG CeleXA 20 CeleXA 20 No 1{table QD CeleXA 20 MG MG t} MG ProAir HFA ProAir HFA No ProAir HFA 108 (90 108 (90 108 (90 Base) Base) Base) MCG/ACT MCG/ACT MCG/ACT Centrum Centrum No Centrum Silver Silver Silver Adult 50+ - Adult 50+ - Adult 50+ - CeleXA 20 CeleXA 20 No CeleXA 20 MG MG MG Potassium Potassium No Potassium Chloride Chloride Chloride Deborah ER 20 Deborah ER 20 Deborah ER 20 MEQ MEQ MEQ Ocuvite Ocuvite No 1{table QD Ocuvite t} Cranberry Cranberry No Cranberry Plus Plus Plus Vitamin C Vitamin C Vitamin C 4200-20-3 4200-20-3 4200-20-3 MG-MG-UNIT MG-MG-UNIT MG-MG-UNIT Triamcinolo Triamcinolo No 1{appli BID Triamcinol ne ne cation_ one Acetonide Acetonide to_affe Acetonide 0.1 % 0.1 % cted_ar 0.1 % ea} busPIRone busPIRone No busPIRone HCl 5 MG HCl 5 MG HCl 5 MG Citalopram Citalopram No Citalopram Hydrobromid Hydrobromid Hydrobromi e 20 MG e 20 MG de 20 MG Symbicort Symbicort No Symbicort 160-4.5 160-4.5 160-4.5 MCG/ACT MCG/ACT MCG/ACT Nasonex 50 Nasonex 50 No Nasonex 50 MCG/ACT MCG/ACT MCG/ACT Myrbetriq Myrbetriq No 1{table QD Myrbetriq 50 MG 50 MG t} 50 MG Omeprazole Omeprazole No 1{capsu QD Omeprazole 40 MG 40 MG le} 40 MG Magnesium Magnesium No 1{capsu BID Magnesium Oxide -Mg Oxide -Mg le_as_n Oxide -Mg Supplement Supplement eeded} Supplement 400 MG 400 MG 400 MG ProAir HFA ProAir HFA No ProAir HFA 108 (90 108 (90 108 (90 Base) Base) Base) MCG/ACT MCG/ACT MCG/ACT Nasonex 50 Nasonex 50 No 2{spray QD Nasonex 50 MCG/ACT MCG/ACT s_in_ea MCG/ACT ch_nost ril} Turmeric Turmeric No Turmeric 500 MG 500 MG 500 MG Triamcinolo Triamcinolo No 1{appli BID Triamcinol ne ne cation_ one Acetonide Acetonide to_affe Acetonide 0.1 % 0.1 % cted_ar 0.1 % ea} Myrbetriq Myrbetriq No Myrbetriq 25 MG 25 MG 25 MG Myrbetriq Myrbetriq No Myrbetriq 50 MG 50 MG 50 MG Temovate Temovate No 1{appli BID Temovate 0.05 % 0.05 % cation_ 0.05 % to_affe cted_ar ea} Alendronate Alendronate No Alendronat Sodium 35 Sodium 35 e Sodium MG MG 35 MG Albuterol Albuterol No QID Albuterol Sulfate HFA Sulfate HFA Sulfate 108 (90 108 (90 HFA 108 Base) Base) (90 Base) MCG/ACT MCG/ACT MCG/ACT B12 Fast B12 Fast No B12 Fast Dissolve Dissolve Dissolve 5000 MCG 5000 MCG 5000 MCG CeleXA 20 CeleXA 20 No 1{table QD CeleXA 20 MG MG t} MG ProAir HFA ProAir HFA No ProAir HFA 108 (90 108 (90 108 (90 Base) Base) Base) MCG/ACT MCG/ACT MCG/ACT Centrum Centrum No Centrum Silver Silver Silver Adult 50+ - Adult 50+ - Adult 50+ - CeleXA 20 CeleXA 20 No CeleXA 20 MG MG MG Potassium Potassium No Potassium Chloride Chloride Chloride Deborah ER 20 Deborah ER 20 Deborah ER 20 MEQ MEQ MEQ Ocuvite Ocuvite No 1{table QD Ocuvite t} Cranberry Cranberry No Cranberry Plus Plus Plus Vitamin C Vitamin C Vitamin C 020-3 20-3 20-3 MG-MG-UNIT MG-MG-UNIT MG-MG-UNIT Myrbetriq Myrbetriq 2023- No 1{table QD Myrbetriq 50 MG 50 MG 07-31 t} 50 MG 00:00 :00 Myrbetriq Myrbetriq 2023- No 1{table QD Myrbetriq 50 MG 50 MG 04 t} 50 MG 00:00 :00 Myrbetriq Myrbetriq 2023- No 1{table QD Myrbetriq 50 MG 50 MG 07-31 t} 50 MG 00:00 :00 Myrbetriq Myrbetriq 2023- No 1{table QD Myrbetriq 50 MG 50 MG 07-31 t} 50 MG 00:00 :00 Myrbetriq Myrbetriq 2023- No 1{table QD Myrbetriq 50 MG 50 MG 07-31 t} 50 MG 00:00 :00 Myrbetriq Myrbetriq 2023- No 1{table QD Myrbetriq 50 MG 50 MG 07-31 t} 50 MG 00:00 :00 Myrbetriq Myrbetriq 2023- No 1{table QD Myrbetriq 50 MG 50 MG 07-31 t} 50 MG 00:00 :00 Myrbetriq Myrbetriq 2023- No 1{table QD Myrbetriq 50 MG 50 MG 07-31 t} 50 MG 00:00 :00 Myrbetriq Myrbetriq 2023- No 1{table QD Myrbetriq 50 MG 50 MG 07-31 t} 50 MG 00:00 :00 Myrbetriq Myrbetriq 2023- No 1{table QD Myrbetriq 50 MG 50 MG 05 t} 50 MG 00:00 :00 Symbicort Symbicort 1- No BID 160-4.5 160-4.5 12-13 MCG/ACT MCG/ACT 00:00 :00 Symbicort Symbicort 1- No BID Symbicort 160-4.5 160-4.5 12-13 160-4.5 MCG/ACT MCG/ACT 00:00 MCG/ACT :00 Symbicort Symbicort 1- No BID Symbicort 160-4.5 160-4.5 12-13 160-4.5 MCG/ACT MCG/ACT 00:00 MCG/ACT :00 Symbicort Symbicort 2020- BID Symbicort 160-4.5 160-4.5 12-13 160-4.5 MCG/ACT MCG/ACT 00:00 MCG/ACT :00 Magnesium Magnesium 2019- No Na Wilson 1 capsule [facility] Oxide -Mg Oxide -Mg 03-14 as needed [facility] Supp[facility] Supplement 00:00 - [facility] :00 [facility] Immunizations Ordered Filled Immunization Date Status Comments [facility] Immunization Name Name FluAD FluAD 2021-01-30 [facility]pleted [facility] 13:48:00 - [facility] FluAD FluAD 2021-01-30 [facility]pleted [facility] 13:48:00 - [facility] FluAD FluAD 2021-01-30 [facility]pleted [facility] 13:48:00 - [facility] FluAD FluAD 2021-01-30 [facility]pleted [facility] 13:48:00 - [facility] FluAD FluAD 2021-01-30 [facility]pleted [facility] 13:48:00 - [facility] FluAD FluAD 2021-01-30 [facility]pleted [facility] 13:48:00 - [facility] FluAD FluAD 2021-01-30 [facility]pleted [facility] 13:48:00 - [facility] FluAD FluAD 2021-01-30 [facility]pleted [facility] 13:48:00 - [facility] FluAD FluAD 2021-01-30 [facility]pleted [facility] 13:48:00 - [facility] FluAD FluAD 2021-01-30 [facility]pleted [facility] 13:48:00 - [facility] FluAD FluAD 2021-01-30 [facility]pleted [facility] 13:48:00 - [facility] FluAD FluAD 2021-01-30 [facility]pleted [facility] 13:48:00 - [facility] FluAD FluAD 2021-01-30 Completed [facility] 13:48:00 - [facility] FluAD FluAD 2021-01-30 Completed [facility] 13:48:00 - [facility] FluAD FluAD 2021-01-30 Completed [facility] 13:48:00 - [facility] FluAD FluAD 2021-01-30 [facility]pleted [facility] 13:48:00 - [facility] FluAD FluAD 2021-01-30 Completed [facility] 13:48:00 - [facility] FluAD FluAD 2021-01-30 Completed [facility] 13:48:00 - [facility] FluAD FluAD 2021-01-30 Completed [facility] 13:48:00 - [facility] FluAD FluAD 2021-01-30 Completed [facility] 13:48:00 - [facility] FluAD FluAD 2021-01-30 [facility]pleted [facility] 13:48:00 - [facility] FluAD FluAD 2021-01-30 Completed [facility] 13:48:00 - [facility] FluAD FluAD 2021-01-30 Completed [facility] 13:48:00 - [facility] FluAD FluAD 2021-01-30 Completed [facility] 13:48:00 - [facility] FluAD FluAD 2021-01-30 Completed [facility] 13:48:00 - [facility] FluAD FluAD 2021-01-30 [facility]pleted [facility] 13:48:00 - [facility] FluAD FluAD 2021-01-30 [facility]pleted [facility] 13:48:00 - [facility] FluAD FluAD 2021-01-30 [facility]pleted [facility] 13:48:00 - [facility] FluAD FluAD 2021-01-30 Completed [facility] 13:48:00 - [facility] FluAD FluAD 2021-01-30 Completed [facility] 13:48:00 - [facility] FluAD FluAD 2021-01-30 Completed [facility] 13:48:00 - [facility] FluAD FluAD 2021-01-30 Completed [facility] 13:48:00 - [facility] Prevnar 20 (PCV20) Prevnar 20 (PCV20) Unknown Completed [facility] FluAD FluAD Unknown Completed [facility] Prevnar 20 (PCV20) Prevnar 20 (PCV20) Unknown Completed [facility] FluAD FluAD Unknown Com[facility] Prevnar 20 (PCV20) Prevnar 20 (PCV20) Unknown Completed [facility] FluAD FluAD Unknown Completed [facility] Prevnar 20 (PCV20) Prevnar 20 (PCV20) Unknown Completed [facility] FluAD FluAD Unknown Completed [facility] Prevnar 20 (PCV20) Prevnar 20 (PCV20) Unknown Completed [facility] FluAD FluAD Unknown Completed [facility] Prevnar 20 (PCV20) Prevnar 20 (PCV20) Unknown Completed [facility] FluAD FluAD Unknown Completed [facility] Prevnar 20 (PCV20) Prevnar 20 (PCV20) Unknown Completed [facility] FluAD FluAD Unknown Completed [facility] Vital Signs Vital Name Observation Time Observation Value Comments Source height 2022-05-15 14:00:00 63.00 [in_i] [facility] weight 2022-05-15 14:00:00 128.6 [lb_av] [facility] temperature 2022-05-15 14:00:00 97.9 [degF] [facility] bmi 2022-05-15 14:00:00 22.78 kg/m2 [facility] oximetry 2022-05-15 14:00:00 100 % [facility] respiratory rate 2022-05-15 14:00:00 17 /min Comm on [facility] blood pressure 2022-05-15 14:00:00 128 mm[Hg] [facility] systolic [facility] blood pressure 2022-05-15 14:00:00 67 mm[Hg] [facility] diastolic [facility] height 2022-01-28 16:00:00 63.00 [in_i] [facility] weight 2022-01-28 16:00:00 132 [lb_av] [facility] temperature 2022-01-28 16:00:00 97.6 [degF] [facility] bmi 2022-01-28 16:00:00 23.38 kg/m2 [facility] oximetry 2022-01-28 16:00:00 96 % [facility] respiratory rate 2022-01-28 16:00:00 17 /min Comm on [facility] blood pressure 2022-01-28 16:00:00 138 mm[Hg] [facility] - systolic [facility] blood pressure 2022-01-28 16:00:00 86 mm[Hg] [facility] - diastolic [facility] height 2021-11-27 15:40:00 63.00 [in_i] [facility] weight 2021-11-27 15:40:00 133.8 [lb_av] [facility] temperature 2021-11-27 15:40:00 97.2 [degF] [facility] bmi 2021-11-27 15:40:00 23.70 kg/m2 [facility] oximetry 2021-11-27 15:40:00 99 % [facility] respiratory rate 2021-11-27 15:40:00 16 /min Comm on [facility] blood pressure 2021-11-27 15:40:00 138 mm[Hg] [facility] - systolic [facility] blood pressure 2021-11-27 15:40:00 67 mm[Hg] [facility] - diastolic [facility] height 2021-09-10 15:00:00 79.00 [in_i] [facility] weight 2021-09-10 15:00:00 135.0 [lb_av] [facility] temperature 2021-09-10 15:00:00 97.1 [degF] [facility] bmi 2021-09-10 15:00:00 15.21 kg/m2 [facility] oximetry 2021-09-10 15:00:00 100 % [facility] respiratory rate 2021-09-10 15:00:00 18 /min Comm on [facility] blood pressure 2021-09-10 15:00:00 135 mm[Hg] [facility] - systolic [facility] blood pressure 2021-09-10 15:00:00 67 mm[Hg] [facility] - diastolic [facility] height 2021-03-02 14:40:00 79.0 [in_i] [facility] weight 2021-03-02 14:40:00 141 [lb_av] [facility] temperature 2021-03-02 14:40:00 97.2 [degF] [facility] bmi 2021-03-02 14:40:00 15.88 kg/m2 [facility] oximetry 2021-03-02 14:40:00 72 % [facility] respiratory rate 2021-03-02 14:40:00 18 /min Comm on [facility] blood pressure 2021-03-02 14:40:00 130 mm[Hg] [facility] - systolic [facility] blood pressure 2021-03-02 14:40:00 82 mm[Hg] [facility] - diastolic [facility] height 2021-03-02 14:40:00 79.00 [in_i] [facility] weight 2021-03-02 14:40:00 141.0 [lb_av] Common [facility] temperature 2021-03-02 14:40:00 97.2 [degF] [facility] bmi 2021-03-02 14:40:00 15.88 kg/m2 [facility] oximetry 2021-03-02 14:40:00 72 % [facility] respiratory rate 2021-03-02 14:40:00 18 /min Comm on [facility] blood pressure 2021-03-02 14:40:00 130 mm[Hg] [facility] - systolic [facility] blood pressure 2021-03-02 14:40:00 82 mm[Hg] [facility] - diastolic [facility] height 2021-01-30 13:00:00 79.00 [in_i] [facility] weight 2021-01-30 13:00:00 142 [lb_av] [facility] temperature 2021-01-30 13:00:00 98 [degF] [facility] bmi 2021-01-30 13:00:00 16 kg/m2 [facility] oximetry 2021-01-30 13:00:00 98 % [facility] respiratory rate 2021-01-30 13:00:00 23 /min Comm on [facility] blood pressure 2021-01-30 13:00:00 127 mm[Hg] [facility] - systolic [facility] blood pressure 2021-01-30 13:00:00 76 mm[Hg] Common [facility] diastolic [facility] Procedures Procedure Date / Time Performed Performing Clinician [facility] CONSENT/REFUSAL FOR 2022-04-16 21:58:19 [facility] TREATMENT REFERRAL- 2022-04-02 06:01:00 Doctor Unassigned, No Univer [facility] [place] REQUEST/RESPONSE Name [facility] Encounters Start End Encounter Admission Attending Care Care Encounter Source Date/Time Date/Time Type Type Clinicians Facility Department ID 2022-09-27 Outpatient Hutson, STLMLC STLC [id number] [facility] 09:48:00 Tomer [id number] [facility] 2022-09-11 Outpatient Hutson, STLMLC STLMLC [id number] [facility] 12:43:00 Tomer [id number] [facility] 2022-09-04 Outpatient Dennison, STLMLC STLMLC [id number] [facility] 08:39:00 Avnee [id number] [facility] 2022-08-02 Outpatient Dennison, STLMLC STLMLC [id number] [facility] 13:26:00 Avnee [id number] [facility] 2022-08-01 Outpatient Dennison, STLMLC STLMLC [id number] [facility] 15:33:00 Avnee [id number] [facility] 2022-07-10 Outpatient Lenora, STLMLC STLMLC [id number] Common 14:01:00 Maryacrmen [id number] [facility] 2022-05-15 Outpatient Lenora, STLMLC STLMLC [id number] [facility] 13:46:00 Marycarmen [id number] [facility] 2022-05-13 Outpatient WILSON, Na STLMLC STLMLC [id number] 2 [facility] 07:41:00 [id number] [facility] 2022-01-24 Outpatient Wilson, Na STLMLC STLMLC [id number] 2 [facility] 13:29:00 [id number] [facility] 2021-12-07 Outpatient Wilson, Na STLMLC STLMLC [id number] 2 [facility] 11:02:00 [facility] 2021-09-07 Outpatient Wilson, Na STLMLC STLMLC [id number] 2 [facility] 14:38:00 [facility] 2021-09-06 Outpatient Wilson, Na STLMLC STLMLC [id number] 2 [facility] 13:21:01 [facility] 2021-05-31 Outpatient Wilson, Na STLMLC STLMLC [id number] 2 [facility] 10:39:01 [facility] 2021-05-23 Outpatient Wilson, Na STLMLC STLMLC [id number] 2 [facility] 14:20:57 [facility] 2021-05-23 Outpatient Wilson, Na STLMLC STLMLC [id number] 2 [facility] 14:19:59 [facility] 2021-05-23 Outpatient Wilson, Na STLMLC STLMLC [id number] 2 [facility] 14:08:13 [id number] [facility] 2021-05-23 Outpatient Wilson, Na STLMLC STLMLC [id number] 2 [facility] 13:56:34 [id number] [facility] 2021-05-23 Outpatient Wilson, Na STLMLC STLMLC [id number] 2 [facility] 12:40:53 [id number] [facility] 2021-05-23 Outpatient Wilson, Na STLMLC STLMLC [id number] 2 [facility] 12:36:05 [id number] [facility] 2021-05-23 Outpatient Wilson, Na STLMLC STLMLC [id number] 2 [facility] 11:24:48 [id number] [facility] 2021-05-23 Outpatient Wilson, Na STLMLC STLMLC [id number] 2 [facility] 11:12:27 [id number] [facility] 2022-11-22 2022-11-22 JOSE Wheeler [id number] [facility] 15:30:00 16:30:00 [id number] [facility] [id number] 2022-11-19 2022-11-19 Outpatient Hunt_A [facility] 00:00:00 00:00:00 [id number] [facility] 2022-11-19 2022-11-19 Outpatient Hunt_A [facility] 00:00:00 00:00:00 [id number] [facility] 2022-08-30 2022-08-30 Outpatient [facility] 00:00:00 00:00:00 [id number] [facility] 2022-08-26 2022-08-26 (TEL) STLMLC STLMLC [id number] Co mmon 00:00:00 00:00:00 [facility] 2022-08-02 2022-08-02 (TEL) STLMLC STLMLC [id number] Co mmon 00:00:00 00:00:00 [facility] 2022-07-31 2022-07-31 August Batres [id number] [id number] [facility] 16:30:00 17:00:00 Dwayne King [id number] [facility] [id number] 2022-07-31 2022-07-31 (TEL) STLMLC STLMLC [id number] Co mmon 00:00:00 00:00:00 [facility] 2022-07-18 2022-07-18 Outpatient DMG DMG [id number] [facility] 00:00:00 00:00:00 [id number] [facility] 2022-07-05 2022-07-05 (TEL) STLMLC STLMLC [id number] Co mmon 00:00:00 00:00:00 [facility] 2022-07-04 2022-07-04 (TEL) STLMLC STLMLC [id number] Co mmon 00:00:00 00:00:00 [facility] 2022-06-27 2022-06-27 (TEL) STLMLC STLMLC [id number] Co mmon 00:00:00 00:00:00 [facility] 2022-05-31 2022-05-31 (TEL) STLMLC STLMLC [id number] Co mmon 00:00:00 00:00:00 [facility] 2022-05-24 2022-05-24 (TEL) STLMLC STLMLC [id number] Co mmon 00:00:00 00:00:00 [facility] 2022-05-15 2022-05-15 OFFICE STLMLC STLMLC [id number] Co mmon 00:00:00 00:00:00 VISIT [facility] LEVEL 4 [facility] 2022-05-08 2022-05-08 (TEL) STLMLC STLMLC [id number] Co mmon 00:00:00 00:00:00 [facility] 2022-04-18 2022-04-18 (TEL) STLMLC STLMLC [id number] Co mmon 00:00:00 00:00:00 [facility] 2022-04-16 2022-04-16 Office Julianne [facility] [id number] Univers 16:00:00 16:30:00 Visit Jono [facility] [id number] it y of [place] [id number] Aime as MARICHUY?BLEA [phone] [address] MEDICAL OFFICE [facility] 2022-04-16 2022-04-16 [facility] [id number] Univers 16:00:00 16:00:00 JONO [facility] 2022-04-16 2022-04-16 Orders Doctor EDDIE [id number] Univers 00:00:00 00:00:00 Only Unassigned, MICHAEL [id number] ity of [place] [facility] [id number] Aime as [phone] [address] 2022-04-03 2022-04-03 [facility] [id number] Univers 15:30:00 15:30:00 CHANELLE [facility] 2022-04-02 2022-04-02 Orders Doctor EDDIE [id number] Univers 00:00:00 00:00:00 Only Unassigned, MICHAEL [id number] ity of [place] [facility] [id number] Aime as [phone] [address] 2022-03-19 2022-03-19 (TEL) STLMLC STLMLC [id number] Co mmon 00:00:00 00:00:00 [facility] 2022-03-11 2022-03-11 (TEL) STLMLC STLMLC [id number] Co mmon 00:00:00 00:00:00 [facility] 2022-01-29 2022-01-29 (TEL) STLMLC STLMLC [id number] Co mmon 00:00:00 00:00:00 [facility] 2022-01-28 2022-01-28 OFFICE STLMLC STLMLC [id number] Co mmon 00:00:00 00:00:00 VISIT EST Spir it PT LEVEL 3 [facility] 2022-01-28 2022-01-28 (TEL) STLMLC STLMLC [id number] Co mmon 00:00:00 00:00:00 [facility] 2021-12-13 2021-12-13 (TEL) STLMLC STLMLC [id number] Co mmon 00:00:00 00:00:00 [facility] 2021-11-27 2021-11-27 OFFICE STLMLC STLMLC [id number] Co mmon 00:00:00 00:00:00 VISIT [facility] PT [facility] LEVEL 4 [facility] 2021-11-27 2021-11-27 (TEL) STLMLC STLMLC [id number] Co mmon 00:00:00 00:00:00 [facility] 2021-11-26 2021-11-26 (TEL) STLMLC STLMLC [id number] Co mmon 00:00:00 00:00:00 [facility] 2021-11-02 2021-11-02 (TEL) STLMLC STLMLC [id number] Co mmon 00:00:00 00:00:00 [facility] 2021-10-31 2021-10-31 OL DIG E/M STLMLC STLMLC [id number] Common 00:00:00 00:00:00 SVC [address]+ [facility] 2021-10-30 2021-10-30 (TEL) STLMLC STLMLC [id number] Co mmon 00:00:00 00:00:00 [facility] 2021-09-21 2021-09-21 (TEL) STLMLC STLMLC [id number] Co mmon 00:00:00 00:00:00 [facility] 2021-09-10 2021-09-10 OFFICE STLMLC STLMLC [id number] Co mmon 00:00:00 00:00:00 VISIT EST Spir it PT LEVEL 3 [facility] 2021-08-14 2021-08-14 (TEL) STLMLC STLMLC [id number] Co mmon 00:00:00 00:00:00 [facility] 2021-08-02 2021-08-02 (TEL) STLMLC STLMLC [id number] Co mmon 00:00:00 00:00:00 [facility] 2021-06-06 2021-06-06 OL DIG E/M STLMLC STLMLC [id number] Common 00:00:00 00:00:00 C 11-20 Spir it MIN [facility] 2021-06-01 2021-06-01 (TEL) STLMLC STLMLC [id number] Co mmon 00:00:00 00:00:00 [facility] 2021-04-10 2021-04-10 (TEL) STLMLC STLMLC [id number] Co mmon 00:00:00 00:00:00 [facility] 2021-03-23 2021-03-23 (TEL) STLMLC STLMLC [id number] Co mmon 00:00:00 00:00:00 [facility] 2021-03-20 2021-03-20 (TEL) STLMLC STLMLC [id number] Co mmon 00:00:00 00:00:00 [facility] 2021-03-02 2021-03-02 SUB ANNUAL STLMLC STLMLC [id number] Common 00:00:00 00:00:00 MCR [facility] - [facility] VISIT [facility] 2021-03-02 2021-03-02 OFFICE STLMLC STLMLC [id number] Co mmon 00:00:00 00:00:00 VISIT EST Spir it PT LEVEL 3 [facility] 2021-02-05 2021-02-05 (TEL) STLMLC STLMLC [id number] Co mmon 00:00:00 00:00:00 [facility] 2021-01-30 2021-01-30 OFFICE STLMLC STLMLC [id number] Co mmon 00:00:00 00:00:00 VISIT [facility] LEVEL 3 [facility] 2021-01-19 2021-01-19 Outpatient STLMLC STLMLC [id number] Common 00:00:00 00:00:00 [facility] 2020-12-01 2020-12-01 Outpatient STLMLC STLMLC [id number] Common 00:00:00 00:00:00 [facility] 2020-11-24 2020-11-24 Outpatient STLMLC STLMLC [id number] Common 00:00:00 00:00:00 [facility] 2020-10-19 2020-10-19 Outpatient STLMLC STLMLC [id number] Common 00:00:00 00:00:00 [facility] 2020-10-11 2020-10-11 Outpatient STLMLC STLMLC [id number] Common 00:00:00 00:00:00 [facility] 2020-08-07 2020-08-07 Outpatient STLMLC STLMLC [id number] Common 00:00:00 00:00:00 [facility] 2020-08-06 2020-08-06 Outpatient STLMLC STLMLC [id number] Common 00:00:00 00:00:00 [facility] 2020-07-04 2020-07-04 Outpatient STLMLC STLMLC [id number] Common 00:00:00 00:00:00 [facility] 2020-07-03 2020-07-03 Outpatient STLMLC STLMLC [id number] Common 00:00:00 00:00:00 [facility] 2020-06-02 2020-06-02 Outpatient STLMLC STLMLC [id number] Common 00:00:00 00:00:00 [facility] 2020-04-06 2020-04-06 Outpatient STLMLC STLMLC [id number] Common 00:00:00 00:00:00 [facility] 2020-04-04 2020-04-04 Outpatient STLMLC STLMLC [id number] Common 00:00:00 00:00:00 [facility] 2020-01-06 2020-01-06 [facility] [id number] Common 04:55:00 04:55:[address] [facility] 2020 2020 [facility] [id number] Common 13:20:00 13:20:[address] [facility] 2019-10-28 2019-10-28 [facility] [id number] Common 15:22:00 15:22:[address] [facility] 2019-10-04 2019-10-04 [facility] [id number] Common 13:20:00 13:20:[address] [facility] 2019-07-02 2019-07-02 [facility] [id number] Common 14:00:00 14:00:[address] [facility] 2019-06-11 2019-06-11 [facility] [id number] Common 14:53:00 14:53:[address] [facility] 2019-05-20 2019-05-20 [facility] [id number] Common 13:40:00 13:40:[address] [facility] 2019-05-05 2019-05-05 [facility] [id number] Common 12:00:00 12:00:[address] [facility] 2019-02-27 2019-02-27 [facility] [id number] Common 23:48:00 23:48:[address] [facility] 2019-02-16 2019-02-16 [facility] [id number] Common 13:20:00 13:20:[address] [facility] 2018-11-17 2018-11-17 [facility] [id number] Common 14:40:00 14:40:[address] [facility] 2018-10-27 2018-10-27 [facility] [id number] Common 13:43:00 13:43:[address] [facility] 2018-08-18 2018-08-18 [facility] [id number] Common 14:00:00 14:00:[address] [facility] 2018-08-07 2018-08-07 [facility] [id number] Common 15:28:00 15:28:[address] [facility] 2018-07-03 2018-07-03 [facility] [id number] Common 09:48:00 09:48:[address] [facility] 2018-05-20 2018-05-20 [facility] [id number] Common 14:45:00 14:45:[address] [facility] 2018-01-22 2018-01-22 [facility] [id number] Common 14:45:00 14:45:[address] [facility] 2017-10-23 2017-10-23 [facility] [id number] Common 14:15:00 14:15:[address] [facility] 2017-07-23 2017-07-23 [facility] [id number] Common 14:15:00 14:15:[address] [facility] Results This patient has no known results.
--- NOTE | 2023-03-18 13:05 | RAD REPORT ---
EXAM DESCRIPTION: RAD - Hand Left 3 View - 03/18/2023 12:58 pm CLINICAL HISTORY: ANIMAL BITE COMPARISON: No comparisons FINDINGS/IMPRESSION: No acute fracture. Advanced degenerative changes are present at the base of the thumb. Metallic densities overlying the thumb proximal phalanx. Degenerative changes are present at the third and fourth MTP joints and second DIP joint. No soft tissue gas.
[2023-03-18 13:18] LABS: Absolute Lymphocytes (CBC) 1.8 K/uL (0.7-4.9); Hematocrit 32.2 % (36.0-45.0); Lymphocytes % 11.2 % (15.3-44.8); MCV 98.1 fL (80-100); MPV 8.7 fL (7.6-11.3); Platelets 192 thou/uL (152-406); RBC Red Blood Cell Count 3.28 M/uL (3.86-4.86)
[2023-03-18] MEDS ORDERED: ACETAMINOPHEN 500 MG TAB ONE (13:26)
[2023-03-18 13:27] LABS: Protime INR 0.98
[2023-03-18] MEDS ORDERED: PIPERACIL/TAZO 3.375 GM VIAL IV ONE (13:27)
[2023-03-18] MEDS ORDERED: VANCOMYCIN 500 MG/VIAL ONE (13:27)
[2023-03-18] MEDS ORDERED: VANCOMYCIN 1 GM/VIAL ONE (13:27)
[2023-03-18] MEDS ORDERED: NA CHLORIDE 0.9% 100 ML ONE (13:27)
[2023-03-18] MEDS ORDERED: NA CHLORIDE 0.9% 250 ML ONE (13:27)
[2023-03-18 13:42] LABS: Albumin 3.3 g/dL (3.4-5.0); Bilirubin Total 0.4 mg/dL (0.2-1.0); Potassium 3.5 mEq/L (3.5-5.1)
--- NOTE | 2023-03-18 13:54 | EDPHYS ---
Physician Documentation [facility] Name: Qing Mojica Age: 78 yrs Sex: Female : 1945 Arrival Date: 03/18/2023 Time: 11:17 Bed 15 Private MD: ED Physician Lele Alberto HPI: 03/18 12:04 This 78 yrs old Female presents to ER via Ambulatory with complaints of Cat ec2 Bite. 12:04 Patient arrives today for evaluation of a Wound. Patient reports that she was bitten ec2 yesterday by a cat, states that the cat is familiar to her, it is a feral cat however she tends to it. Patient reports that the cat has not been behaving abnormally, no increased aggression, she typically feeds. Patient does not believe cat is up-to-date on vaccines. Patient reports pain and redness at the hand up the arm as well. Denies any fevers or chills, denies nausea or vomiting.. Historical: - Allergies: 12:02 PENICILLINS; nj1 - PMHx: 12:02 Anxiety; Chronic obstructive lung disease; COPD; Depression; GERD; nj1 - PSHx: 12:02 h/ocolostomy; hernia repair; partial hysterectomy; nj1 - Immunization history:: Client reports receiving the 2nd dose of the Covid vaccine. - Social history:: Smoking status: Patient reports the use of cigarette tobacco products, smokes one pack cigarettes per day. ROS: 12:04 Constitutional: as per hpi ec2 Exam: 12:04 Constitutional: GEN: NAD Head: atraumatic Eyes: EOMI Ears: External ears are ec2 normal. CV: regular rate LUNGS: no respiratory distress ABD: non-distended SKIN: Erythema and swelling to the first and second metacarpal area, TTP, tracking lymphangitis proximally, extends past the elbow. MSK: no evidence of trauma NEURO: moves all extremities equally Vital Signs: 11:57 BP 133 / 77; Pulse 73; Resp 18; Temp 98.4(O); Pulse Ox 100% ; Weight 61.23 kg; Height 5 nj1 ft. 3 in. ; 13:00 BP 137 / 62; Pulse 70; Resp 17; Pulse Ox 100% on R/A; me1 13:30 BP 137 / 65; Pulse 75; Resp 21; Pulse Ox 100% on R/A; me1 14:30 BP 117 / 49; Pulse 74; Resp 18; Pulse Ox 100% on R/A; me1 15:00 BP 116 / 70; Pulse 72; Resp 18; Pulse Ox 100% on R/A; me1 15:45 BP 129 / 67; Pulse 74; Resp 20; Pulse Ox 100% on R/A; me1 16:24 BP 134 / 63; Pulse 77; Resp 20; Pulse Ox 99% on R/A; me1 17:04 BP 129 / 64; Pulse 80; Resp 17; Pulse Ox 100% on R/A; me1 11:57 Body Mass Index 23.91 (61.23 kg, 160.02 cm) nj1 MDM: 11:55 Patient medically screened. ec2 12:08 Data reviewed: vital signs. ED course: Patient arrives today for evaluation of left ec2 hand injury after bitten by a cat. Examination remarkable for rash findings as noted above. Will obtain lab work, blood cultures, empirically give antibiotics given the tracking lymphangitis. Will also obtain an x-ray of the hand.. 12:41 ED course: EKG independently reviewed and interpreted by me, shows normal sinus rhythm, ec2 rate of 73, no acute ST segment elevations, PAC noted. Intervals otherwise nonconcerning. . 13:08 ED course: Hand x-ray with no acute traumatic pathology identified, retained metallic ec2 foreign bodies noted, will defer extraction.. 13:29 ED course: CBC with leukocytosis noted.. ec2 13:47 ED course: Metabolic profile with some renal dysfunction noted. Lactic acid within ec2 normal ranges. . 13:52 ED course: I recommended inpatient hospitalization for continued IV antibiotics given ec2 the degree of lymphangitis as well as a leukocytosis however the patient declined, patient will leave after informed discussion. Will prescribe antibiotics however I instructed her if she changes her mind she should come back to the emergency department to be evaluated and admitted to the hospital. She expressed understanding regarding the risk and benefits and was agreeable. Patient also declined rabies vaccines and will continue to monitor the cat. Return precautions given.. 03/18 12:01 Order name: Blood Culture Adult (2) ec2 03/18 12:01 Order name: CBC with Diff; Complete Time: 13:29 ec2 03/18 12:01 Order name: CMP; Complete Time: 13:47 ec2 03/18 12:01 Order name: Lactate w/ 2H reflex if indic.; Complete Time: 13:47 ec2 03/18 12:01 Order name: Protime (+inr); Complete Time: 13:29 ec2 03/18 12:01 Order name: Ptt, Activated; Complete Time: 13:29 ec2 03/18 12:04 Order name: Hand Left 3 View XRAY; Complete Time: 13:07 ec2 03/18 12:01 Order name: EKG; Complete Time: 12:02 ec2 03/18 12:01 Order name: Accucheck; Complete Time: 16:12 ec2 03/18 12:01 Order name: Cardiac monitoring; Complete Time: 16:12 ec2 03/18 12:01 Order name: EKG - Nurse/Tech; Complete Time: 16:12 ec2 03/18 12:01 Order name: IV Saline Lock - Large Bore; Complete Time: 16:12 ec2 03/18 12:01 Order name: Labs collected and sent; Complete Time: 16:12 ec2 03/18 12:01 Order name: O2 Per Protocol; Complete Time: 16:11 ec2 03/18 12:01 Order name: O2 Sat Monitoring; Complete Time: 16:11 ec2 03/18 12:01 Order name: Vital Signs; Complete Time: 16:11 ec2 Administered Medications: 13:33 Drug: Acetaminophen PO 1000 mg PO once Route: PO; me1 14:39 Follow up: Response: No adverse reaction; Pain is decreased me1 13:33 Drug: Piperacillin-Tazobactam IVPB 3.375 grams IVPB once over 60 mins; (mix in NS 100 me1 mL) Route: IVPB; Infused Over: 60 mins; Site: left antecubital; 14:38 Follow up: Response: No adverse reaction; IV Status: Completed infusion me1 14:38 Drug: vancoMYCIN IVPB 1.5 grams IVPB at calculated rate once Route: IVPB; Rate: me1 calculated rate; Site: left antecubital; 16:25 Follow up: Response: No adverse reaction; IV Status: Completed infusion me1 Disposition Summary: 03/18/23 13:54 Discharge Ordered Notes: Location: Home ec2 Condition: Stable ec2 Diagnosis - Cat Bite ec2 - Cellulitis of left upper limb ec2 - Acute lymphangitis of left upper limb ec2 Discharge Instructions: - Discharge Summary Sheet ec2 - Lymphangitis, Adult ec2 Forms: - Medication Reconciliation Form ec2 - Thank You Letter ec2 - Antibiotic Education ec2 - Prescription Opioid Use ec2 - Patient Portal Instructions ec2 - Leadership Thank You Letter ec2 Prescriptions: - Clindamycin HCl 300 mg Oral capsule - take 1 capsule ORAL route every 8 hours for 7 days; 21 capsule; Refills: 0, ec2 Product Selection Permitted - Doxycycline Monohydrate 100 mg Oral tablet - take 1 tablet ORAL route every 12 hours for 7 days; 14 tablet; Refills: 0, ec2 Product Selection Permitted Signatures: Dispatcher [employer] EDMS Pat Edwards RN RN nj1 Madhavi Olmedo RN RN me1 Lele Alberto MD MD ec2 Corrections: (The following items were deleted from the chart) 12:05 12:04 Patient arrives today for evaluation of a Wound.. ec2 ec2 12:13 12:12 Patient medically screened. ec2 ec2 14:19 13:52 ED course: I recommended inpatient hospitalization for continued IV antibiotics ec2 given the degree of lymphangitis as well as a leukocytosis however the patient declined, patient will leave after informed discussion. Will prescribe antibiotics however I instructed her if she changes her mind she should come back to the emergency department to be evaluated and admitted to the hospital. She expressed understanding regarding the risk and benefits and was agreeable.. ec2
--- NOTE | 2023-03-18 13:54 | ER ---
Nurse's Notes [facility] Name: Qing Mojica Age: 78 yrs Sex: Female : 1945 Arrival Date: 03/18/2023 Time: 11:17 Bed 15 Private MD: Diagnosis: Cat Bite;Cellulitis of left upper limb;Acute lymphangitis of left upper limb Presentation: 03/18 11:57 Chief complaint: Patient states: Left hand/arm painful, swelling, redness. Her cat bit nj1 her yesterday. Denies fever, nausea. Coronavirus screen: Vaccine status: Patient reports receiving the 2nd dose of the covid vaccine. Ebola Screen: Patient denies travel to an Ebola-affected area in the 21 days before illness onset. Initial Sepsis Screen: Does the patient meet any 2 criteria? No. Patient's initial sepsis screen is negative. Does the patient have a suspected source of infection? No. Patient's initial sepsis screen is negative. Risk Assessment: Do you want to hurt yourself or someone else? Patient reports no desire to harm self or others. Onset of symptoms was March 17, 2023. 11:57 Method Of Arrival: Ambulatory [facility] 11:57 Acuity: LUIS 3 [facility] Triage Assessment: 17:06 Bite description: by a cat. [facility] 17:06 Bite description: bite sustained to left arm. al1 17:06 Bite description: animal information: vaccination(s) is unknown. [facility] Historical: - Allergies: 12:02 PENICILLINS; nj1 - PMHx: 12:02 Anxiety; Chronic obstructive lung disease; COPD; Depression; GERD; [facility] - PSHx: 12:02 h/ocolostomy; hernia repair; partial hysterectomy; nj1 - Immunization history:: Client reports receiving the 2nd dose of the Covid vaccine. - Social history:: Smoking status: Patient reports the use of cigarette tobacco products, smokes one pack cigarettes per day. Screenin:54 [facility] ED Fall Risk Assessment (Adult) History of falling in the last 3 months, al1 including since admission No falls in past 3 months (0 pts) Confusion or Disorientation No (0 pts) Intoxicated or Sedated No (0 pts) Impaired Gait No (0 pts) Mobility Assist Device Used No (0 pt) Altered Elimination No (0 pt) Score/Fall Risk Level 0 - 2 = Low Risk Maintained a safe environment, Provided non-skid footwear, Hourly rounding (assess needs \T\ fall precautionary measures) done. 17:05 Abuse screen: Denies threats or abuse. Nutritional screening: No deficits noted. me1 Tuberculosis screening: No symptoms or risk factors identified. Assessment: 14:54 General: Appears comfortable, well groomed, well developed, well nourished, Behavior is me1 calm, cooperative, appropriate for age. Pain: Complains of pain in left arm Pain does not radiate. Pain currently is 3 out of 10 on a pain scale. Quality of pain is described as aching, Pain began 1 day ago. Is continuous. Neuro: Level of Consciousness is awake, alert, obeys commands, Oriented to person, place, time, situation, Appropriate for age. Cardiovascular: Capillary refill < 3 seconds Patient's skin is warm and dry. Respiratory: Airway is patent Respiratory effort is even, unlabored, Respiratory pattern is regular, symmetrical. Derm: Skin has lesions on bite and scratch chaparro from a cat- yesterday Skin is red. Vital Signs: 11:57 BP 133 / 77; Pulse 73; Resp 18; Temp 98.4(O); Pulse Ox 100% ; Weight 61.23 kg; Height 5 nj1 ft. 3 in. ; 13:00 BP 137 / 62; Pulse 70; Resp 17; Pulse Ox 100% on R/A; me1 13:30 BP 137 / 65; Pulse 75; Resp 21; Pulse Ox 100% on R/A; me1 14:30 BP 117 / 49; Pulse 74; Resp 18; Pulse Ox 100% on R/A; me1 15:00 BP 116 / 70; Pulse 72; Resp 18; Pulse Ox 100% on R/A; me1 15:45 BP 129 / 67; Pulse 74; Resp 20; Pulse Ox 100% on R/A; me1 16:24 BP 134 / 63; Pulse 77; Resp 20; Pulse Ox 99% on R/A; me1 17:04 BP 129 / 64; Pulse 80; Resp 17; Pulse Ox 100% on R/A; me1 11:57 Body Mass Index 23.91 (61.23 kg, 160.02 cm) mt1 ED Course: 11:21 Patient arrived in ED. mg5 11:21 Lele Alberto MD is Attending Physician. ec2 12:02 Triage completed. nj1 12:03 Arm band placed on right wrist. nj1 12:24 Madhavi Olmedo, RN is Primary Nurse. me1 13:00 Hand Left 3 View XRAY In Process Unspecified. EDMS 13:33 Blood Culture Adult (2) Sent. me1 14:54 Patient has correct armband on for positive identification. Bed in low position. Call me1 light in reach. Side rails up X 1. Provided Education on: POC. Verbalized understanding. . 14:54 No provider procedures requiring assistance completed. me1 17:05 IV discontinued, intact, bleeding controlled, No redness/swelling at site. Pressure me1 dressing applied. Administered Medications: 13:33 Drug: Acetaminophen PO 1000 mg PO once Route: PO; me1 14:39 Follow up: Response: No adverse reaction; Pain is decreased me1 13:33 Drug: Piperacillin-Tazobactam IVPB 3.375 grams IVPB once over 60 mins; (mix in NS 100 me1 mL) Route: IVPB; Infused Over: 60 mins; Site: left antecubital; 14:38 Follow up: Response: No adverse reaction; IV Status: Completed infusion me1 14:38 Drug: vancoMYCIN IVPB 1.5 grams IVPB at calculated rate once Route: IVPB; Rate: me1 calculated rate; Site: left antecubital; 16:25 Follow up: Response: No adverse reaction; IV Status: Completed infusion me1 Medication: 14:54 VIS not applicable for this client. me1 Outcome: 13:54 Discharge ordered by . ec2 17:05 Discharged to home ambulatory, with family, me1 17:05 Condition: stable 17:05 Discharge instructions given to patient, family, Instructed on discharge instructions, follow up and referral plans. medication usage, Demonstrated understanding of instructions, follow-up care, medications, Prescriptions given X 2, 17:07 Patient left the ED. me1 Signatures: Dispatcher [employer] EDKS Pat Edwards RN RN nj1 Madhavi Olmedo, RN RN me1 Marion Interiano mg5 Lele Alberto MD MD ec2 Corrections: (The following items were deleted from the chart) 14:54 11:57 Chief complaint: Patient states: Left hand/arm painful, swelling, redness. Her me1 cat bit her yesterday. Denies fever, nausea. nj1
[2023-03-18 17:36] VITALS: TEMP 98.4
[2023-03-18 17:49] VITALS: BP 129/64; O2SAT 100
--- NOTE | 2023-03-19 16:52 | EKG ---
Test Date: 2023-03-18 Test Time: 12:36:04 Director Of Child Welfare Services: LEWIS MEASUREMENT RESULTS: Intervals: Rate: 73 VA: 182 QRSD: 74 QT: 394 QTc: 434 Fletcher: P: 80 VA: 182 QRS: 79 T: 59 INTERPRETIVE STATEMENTS: Sinus rhythm with premature atrial complexes Otherwise normal ECG Compared to ECG 10/26/2021 20:57:15 Atrial premature complex(es) now present Myocardial infarct finding no longer present Electronically Signed On 03-19-23 16:49:45 [employer] by Gilberto Shah
== END 2023-03-18 17:07 | disposition home or self-care (01) ==
LOC: ER 11:17
DX: L03.114 Cellulitis of left upper limb (principal); I89.1 Lymphangitis; W55.01XA Bitten by cat, initial encounter; Z88.0 Allergy status to penicillin; F17.210 Nicotine dependence, cigarettes, uncomplicated
CPT/HCPCS: 96365; 96367; 93005; 87040 ×2; 85025; 36415; 85610; 83605; 85730; 80053; 73130; 99284; 96366; J2543; J7050

== ENCOUNTER → 2023-06-09 | Emergency (ER) | payer OTHER ==
--- OUTSIDE RECORDS SUMMARY | 2023-06-09 09:33 | XMS REPORT | Continuity of Care Document ---
Author Name Unknown Address [address] [facility] [address] [place] [address] [facility] Address [address] [facility] [address] [place] [address] Care Team Providers Care [employer] Name Role Phone Justine Wilson Primary Care Physician [phone] Tomer Hutson Attending Clinician Unavailable Franco Dennison Attending Clinician Unavailable Marycarmen Cooley Attending Clinician Unavailable Justine WILSON Attending Clinician Unavailable Karina Wheeler Attending Clinician [phone] Linda Attending Clinician Unavailable Medardo King Attending Clinician Jono Shaw Attending Clinician [phone] JONO WHITAKER Attending Clinician Unavailable Doctor Unassigned, [place] Attending Clinician U CHANELLE Lopez Attending Clinician Unavailabl e Wallyt_A Admitting Clinician Unavailable Payers Payer Name Policy Type Policy Number Effective Date Expirati on Date Source [facility] (MEDICARE REPLACEMENT HMO) [id number] 2022 00:00:00 [facility] Dual Complete MCR 53 [id number] 2021 00:00:00 [facility] [employer] MEDICARE 53 [id number] 2021 00:00:00 [facility] Problems Condition Name Condition Details Condition Category Status Onset Date Resolution Date Last Treatment Date Treating Clinician Comments Source [id number] 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 Problem Common [facility] [id number] Stress at home Problem [facility] [id number] Adult general medical exam Problem [facility] Abnormal mammogram Abnormal mammogram Problem [facility] Colonic polyp Colonic polyp Problem [facility] Chronic kidney disease stage 2 Stage 2 chronic kidney disease Problem [facility] Iron deficiency Iron deficiency Problem [facility] Chronic obstructiv e pulmonary disease Chronic obstructiv e pulmonary disease, unspecifie d COPD type Problem [facility] Idiopathic peripheral neuropathy Idiopathic peripheral neuropathy Problem [facility] [id number] Unsteady gait Problem [facility] [id number] Need for assistance due to unsteady gait Problem [facility] [id number] Moderate major depression , single episode Problem [facility] Chronic kidney disease due to hypertensi on Benign hypertensi on with chronic kidney disease, stage III Problem [facility] 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 Problem Common [facility] [id number] Unsteadine ss Problem [facility] Psoriasis Psoriasis Problem Comm on [facility] Hyperglyce mario Hyperglyce mario Problem [facility] Gastroesop hageal reflux disease GERD (gastroeso phageal reflux disease) Problem [facility] Hypertensi on Hypertensi on Problem [facility] Vitamin B12 deficiency Vitamin B12 deficiency Problem [facility] Hiatal hernia Hiatal hernia Problem [facility] Essential hypertensi on Essential (primary) hypertensi on Problem [facility] Degenerati on of lumbar interverte bral disc Other interverte bral disc degenerati on, lumbar region Problem [facility] Allergic rhinitis Allergic rhinitis Problem [facility] [id number] Cigarette nicotine dependence with other nicotine-i nduced disorder Problem [facility] Mixed anxiety and depressive disorder Depression with anxiety Problem [facility] [id number] Irritable bowel syndrome with diarrhea Problem [facility] Chronic back pain Chronic back pain Problem [facility] Osteopenia Osteopenia Problem [facility] Osteoarthr itis Osteoarthr itis involving multiple joints on both sides of body Problem [facility] Epidermoid cyst of skin Epidermoid cyst of skin Problem [facility] [id number] Vitamin B12 deficiency (dietary) anemia Problem [facility] Chronic kidney disease stage 3 Stage 3 chronic kidney disease, unspecifie d whether stage 3a or 3b CKD Problem [facility] Hemorrhoid s without complicati on Unspecifie d hemorrhoid s without mention of complicati on Problem [facility] Cramp in lower limb Leg cramps Problem [facility] Nicotine dependence Nicotine dependence Problem [facility] [id number] Mixed stress and urge urinary incontinen ce Problem [facility] At risk for falls At risk for falls Problem [facility] [id number] Iron deficiency anemia, unspecifie d iron deficiency anemia type Problem [facility] Renal insufficie ncy syndrome Renal insufficie ncy syndrome Problem [facility] Tobacco user Tobacco use disorder Problem [facility] Urinary incontinen ce Urinary incontinen ce Problem [facility] [id number] 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 Problem [facility] No known active problems No known active problems Disease [facility] Allergies, Adverse Reactions, Alerts Allergy Name Allergy Type Status Severity Reaction(s) Onset Date Inactive Date Treating Clinician Comments Source Penicill ins Propensi ty to adverse reaction s Active Rash 2016-04 00:00: 00 [facility] Tetanus And Diphther ia Toxoids Propensi ty to adverse reaction s Active Unknown - See comments 2016-04 00:00: 00 [facility] PENICILL INS Drug Class Active Rash 2016-04 00:00: 00 [facility] TETANUS AND DIPHTHER IA TOXOIDS DRUG INGREDI Active Unknown-Cmnt 2016-04 00:00: 00 [facility] [id number] Drug allergy Active Unknown [facility] amoxicil kaelyn amoxicil kaelyn Active Unknown [facility] Penicill in Penicill in Active Unknown [facility] Social History Social Habit Start Date Stop Date Quantity Comments Source History of Tobacco Use Current Smoker [facility] Exposure to SARS-CoV-2 (event) 2022-04-06 00:00:00 2022-04-16 15:58:00 Not sure [facility] Alcohol intake 2022-04-16 00:00:00 2022-04-16 00:00:00 0 /d [facility] Cigarettes smoked current (pack per day) - Reported 2016-01-22 00:00:00 2016-01-22 00:00:00 [facility] Tobacco use and exposure 2016-01-22 00:00:00 2016-01-22 00:00:00 Smokeless tobacco non-user [facility] Sex Assigned At 1945 00:00:00 1945 00:00:00 [facility] Smoking Status Start Date Stop Date Source Smokes tobacco daily 2016-01-22 00:00:00 [facility] Medications Ordered Medication Name Filled Medication Name Start Date Stop Date Current Medication? Ordering Clinician Indication Dosage Frequency Signature (SIG) Comments Components Source Medrol 4 MG Medrol 4 MG 2021-04 0-07 00:00: 00 02-07 00:00 :00 No QD Medrol 4 MG Medrol 4 MG Medrol 4 MG 2021-04 0-07 00:00: 00 02-07 00:00 :00 No QD Medrol 4 MG Medrol 4 MG Medrol 4 MG 2021-04 0-07 00:00: 00 02-07 00:00 :00 No QD Medrol 4 MG Medrol 4 MG Medrol 4 MG 2021-04 0-07 00:00: 00 02-07 00:00 :00 No QD Medrol 4 MG Linzess 72 MCG Linzess 72 MCG 2021-0 8- 00:00: 00 01-25 00:00 :00 No 1{capsu le_on_a n_empty _stomac h} QD Linzess 72 MCG Linzess 72 MCG Linzess 72 MCG 2021-0 8- 00:00: 00 01-25 00:00 :00 No 1{capsu le_on_a n_empty _stomac h} QD Linzess 72 MCG Linzess 72 MCG Linzess 72 MCG 2021-0 8- 00:00: 00 01-25 00:00 :00 No 1{capsu le_on_a n_empty _stomac h} QD Linzess 72 MCG Linzess 72 MCG Linzess 72 MCG 2021-0 8- 00:00: 00 01-25 00:00 :00 No 1{capsu le_on_a n_empty _stomac h} QD Linzess 72 MCG Alendronate Sodium 70 MG Alendronate Sodium 70 MG 2020-04 00:00: 00 09-23 00:00 :00 No Alendronat e Sodium 70 MG Alendronate Sodium 70 MG Alendronate Sodium 70 MG 2020-04 00:00: 00 09-23 00:00 :00 No Alendronat e Sodium 70 MG Alendronate Sodium 70 MG Alendronate Sodium 70 MG 2020-04 00:00: 00 09-23 00:00 :00 No Alendronat e Sodium 70 MG Alendronate Sodium 70 MG Alendronate Sodium 70 MG 2020-04 00:00: 00 09-23 00:00 :00 No Alendronat e Sodium 70 MG Alendronate Sodium 70 MG Alendronate Sodium 70 MG 2020-04 00:00: 00 09-23 00:00 :00 No Alendronat e Sodium 70 MG Alendronate Sodium 70 MG Alendronate Sodium 70 MG 2020-04 00:00: 00 09-23 00:00 :00 No Alendronat e Sodium 70 MG Nasonex Nasonex 2018-04 00:00: 00 Yes Na Wilson 2 sprays in each nostril [facility] Triamcinolo ne Acetonide Triamcinolo ne Acetonide 2018-04 00:00: 00 Yes Na Wilson 1 applicatio n to affected area [facility] Myrbetriq Myrbetriq 11-17 00:00: 00 05-16 00:00 :00 No Na Wilson 1 tablet [facility] Hemocyte Plus Hemocyte Plus 2018-0 10-28 00:00: 00 Yes Na Wilson 1 capsule [facility] Hemocyte Plus 106-1 MG Hemocyte Plus 106-1 MG 2018-0 10-28 00:00: 00 No 1{capsu le} QD Hemocyte Plus 106-1 MG Hemocyte Plus 106-1 MG Hemocyte Plus 106-1 MG 2018-0 10-28 00:00: 00 No 1{capsu le} QD Hemocyte Plus 106-1 MG Hemocyte Plus 106-1 MG Hemocyte Plus 106-1 MG 2018-0 10-28 00:00: 00 No 1{capsu le} QD Hemocyte Plus 106-1 MG Hemocyte Plus 106-1 MG Hemocyte Plus 106-1 MG 2018-0 10-28 00:00: 00 No 1{capsu le} QD Hemocyte Plus 106-1 MG Hemocyte Plus 106-1 MG Hemocyte Plus 106-1 MG 2018-0 10-28 00:00: 00 No 1{capsu le} QD Hemocyte Plus 106-1 MG Hemocyte Plus 106-1 MG Hemocyte Plus 106-1 MG 2018-0 10-28 00:00: 00 No 1{capsu le} QD Hemocyte Plus 106-1 MG Hemocyte Plus 106-1 MG Hemocyte Plus 106-1 MG 2018-0 10-28 00:00: 00 No 1{capsu le} QD Hemocyte Plus 106-1 MG Hemocyte Plus 106-1 MG Hemocyte Plus 106-1 MG 2018-0 10-28 00:00: 00 No 1{capsu le} QD Hemocyte Plus 106-1 MG Hemocyte Plus 106-1 MG 2018-0 10-28 00:00: 00 No 1{capsu le} QD Hemocyte Plus 106-1 MG Hemocyte Plus 106-1 MG Hemocyte Plus 106-1 MG 2018-0 10-28 00:00: 00 No 1{capsu le} QD Hemocyte Plus 106-1 MG Hemocyte Plus 106-1 MG Hemocyte Plus 106-1 MG 2018-0 10-28 00:00: 00 No 1{capsu le} QD Hemocyte Plus 106-1 MG Hemocyte Plus 106-1 MG Hemocyte Plus 106-1 MG 2018-0 10-28 00:00: 00 No 1{capsu le} QD Hemocyte Plus 106-1 MG Hemocyte Plus 106-1 MG Hemocyte Plus 106-1 MG 2018-0 10-28 00:00: 00 No 1{capsu le} QD Hemocyte Plus 106-1 MG Hemocyte Plus 106-1 MG Hemocyte Plus 106-1 MG 2018-0 10-28 00:00: 00 No 1{capsu le} QD Hemocyte Plus 106-1 MG Hemocyte Plus 106-1 MG Hemocyte Plus 106-1 MG 2018-0 10-28 00:00: 00 No 1{capsu le} QD Hemocyte Plus 106-1 MG Hemocyte Plus 106-1 MG Hemocyte Plus 106-1 MG 2018-0 10-28 00:00: 00 No 1{capsu le} QD Hemocyte Plus 106-1 MG Hemocyte Plus 106-1 MG Hemocyte Plus 106-1 MG 2018-0 10-28 00:00: 00 No 1{capsu le} QD Hemocyte Plus 106-1 MG Hemocyte Plus 106-1 MG Hemocyte Plus 106-1 MG 2018-0 10-28 00:00: 00 No 1{capsu le} QD Hemocyte Plus 106-1 MG Hemocyte Plus 106-1 MG Hemocyte Plus 106-1 MG 2018-0 10-28 00:00: 00 No 1{capsu le} QD Hemocyte Plus 106-1 MG Hemocyte Plus 106-1 MG Hemocyte Plus 106-1 MG 2018-0 10-28 00:00: 00 No 1{capsu le} QD Hemocyte Plus 106-1 MG Hemocyte Plus 106-1 MG Hemocyte Plus 106-1 MG 2018-0 10-28 00:00: 00 No 1{capsu le} QD Hemocyte Plus 106-1 MG Hemocyte Plus 106-1 MG Hemocyte Plus 106-1 MG 2018-0 10-28 00:00: 00 No 1{capsu le} QD Hemocyte Plus 106-1 MG Hemocyte Plus 106-1 MG Hemocyte Plus 106-1 MG 2018-0 10-28 00:00: 00 No 1{capsu le} QD Hemocyte Plus 106-1 MG Hemocyte Plus 106-1 MG Hemocyte Plus 106-1 MG 2018-0 10-28 00:00: 00 No 1{capsu le} QD Hemocyte Plus 106-1 MG Hemocyte Plus 106-1 MG Hemocyte Plus 106-1 MG 2018-0 10-28 00:00: 00 No 1{capsu le} QD Hemocyte Plus 106-1 MG Hemocyte Plus 106-1 MG Hemocyte Plus 106-1 MG 2018-0 10-28 00:00: 00 No 1{capsu le} QD Hemocyte Plus 106-1 MG Hemocyte Plus 106-1 MG Hemocyte Plus 106-1 MG 2018-0 10-28 00:00: 00 No 1{capsu le} QD Hemocyte Plus 106-1 MG Hemocyte Plus 106-1 MG Hemocyte Plus 106-1 MG 2018-0 10-28 00:00: 00 No 1{capsu le} QD Hemocyte Plus 106-1 MG Hemocyte Plus 106-1 MG Hemocyte Plus 106-1 MG 2018-0 10-28 00:00: 00 No 1{capsu le} QD Hemocyte Plus 106-1 MG Hemocyte Plus 106-1 MG Hemocyte Plus 106-1 MG 2018-0 10-28 00:00: 00 No 1{capsu le} QD Hemocyte Plus 106-1 MG Hemocyte Plus 106-1 MG Hemocyte Plus 106-1 MG 2018-0 10-28 00:00: 00 No 1{capsu le} QD Hemocyte Plus 106-1 MG Hemocyte Plus 106-1 MG Hemocyte Plus 106-1 MG 2018-0 10-28 00:00: 00 No 1{capsu le} QD Hemocyte Plus 106-1 MG vits A-C-E-B complx-min- lutein (LIPOTRIAD, WITH LUTEIN,) 5,000 unit- 120 mg-60 unit TbSR 2016-04 011 13:52: 18 Yes 1{tbl} Take 1 tablet by mouth daily. [facility] alendronate (FOSAMAX) 35 mg tablet 2016-04 13:52: 18 Yes 35mg Take 35 mg by mouth weekly. Indication s: Patient takes on Tuesdays [facility] [place]-3 Fatty Acids (FISH OIL) 500 mg Cap 2016-04 13:52: 18 Yes 1{capsu le} Take 1 capsule by mouth daily. [facility] VITAMIN E, DL,TOCOPHER YL ACET, (DL-VITAMIN E ACETATE) 100 unit capsule 2016-04 13:52: 18 Yes 100U Take 100 Units by mouth daily. [facility] LACTOBACILL US ACIDOPHILUS (PROBIOTIC ORAL) 2016-04 13:52: 18 Yes 1{tbl} Take 1 tablet by mouth daily. [facility] ibuprofen (ADVIL) 200 mg tablet 2016-04 13:52: 18 Yes 600mg Take 600 mg by mouth every 6 (six) hours as needed. [facility] cetirizine (ZYRTEC) 10 mg tablet 2016-04 13:52: 18 Yes 10mg Take 10 mg by mouth daily. [facility] Multivitami n Cmb No.21-Iron- FA (CENTRUM COMPLETE) 18-400 mg-mcg Tab 2016-04 13:52: 18 Yes 1{tbl} Take 1 tablet by mouth daily. [facility] CALCIUM CARBONATE/V ITAMIN D2 (CALCIUM 600 + D ORAL) 2016-04 13:52: 18 Yes 1{tbl} Take 1 tablet by mouth daily. [facility] celecoxib (CELEBREX) 200 mg capsule 2016-04 13:52: 18 Yes 200mg Take 200 mg by mouth daily. [facility] iron,iron asp gly-FA-mv,m in27 (CORVITE FE) 125 mg iron-25 mg iron-1 mg Tab 2016-04 13:52: 18 Yes 1{tbl} Take 1 tablet by mouth daily. [facility] mirabegron (MYRBETRIQ) 25 mg tablet 2016-04 13:52: 18 Yes 1{tbl} Take 1 tablet by mouth every evening. [facility] mometasone (NASONEX) 50 mcg/actuati on nasal spray 2016-04 13:52: 18 Yes 1{spray } Use 1 [place] in each nostril daily. [facility] budesonide- formoterol (SYMBICORT) 160-4.5 mcg/actuati on inhaler 2016-04 13:52: 18 Yes 2{puff} Inhale 2 Puffs 2 (two) times daily. [facility] vitamin B-12 (VITAMIN B-12) 1,000 mcg tablet 2016-04 13:52: 18 Yes 1000ug Take 1,000 mcg by mouth daily. [facility] vits A-C-E-B complx-min- lutein (LIPOTRIAD, WITH LUTEIN,) 5,000 unit- 120 mg-60 unit TbSR 2016-04 13:52: 18 Yes 1{tbl} Take 1 tablet by mouth daily. [facility] alendronate (FOSAMAX) 35 mg tablet 2016-04 13:52: 18 Yes 35mg Take 35 mg by mouth weekly. Indication s: Patient takes on Tuesdays [facility] [place]-3 Fatty Acids (FISH OIL) 500 mg Cap 2016-04 13:52: 18 Yes 1{capsu le} Take 1 capsule by mouth daily. [facility] VITAMIN E, DL,TOCOPHER YL ACET, (DL-VITAMIN E ACETATE) 100 unit capsule 2016-04 13:52: 18 Yes 100U Take 100 Units by mouth daily. [facility] LACTOBACILL US ACIDOPHILUS (PROBIOTIC ORAL) 2016-04 13:52: 18 Yes 1{tbl} Take 1 tablet by mouth daily. [facility] ibuprofen (ADVIL) 200 mg tablet 2016-04 13:52: 18 Yes 600mg Take 600 mg by mouth every 6 (six) hours as needed. [facility] cetirizine (ZYRTEC) 10 mg tablet 2016-04 13:52: 18 Yes 10mg Take 10 mg by mouth daily. [facility] Multivitami n Cmb No.21-Iron- FA (CENTRUM COMPLETE) 18-400 mg-mcg Tab 2016-04 13:52: 18 Yes 1{tbl} Take 1 tablet by mouth daily. [facility] CALCIUM CARBONATE/V ITAMIN D2 (CALCIUM 600 + D ORAL) 2016-04 13:52: 18 Yes 1{tbl} Take 1 tablet by mouth daily. [facility] celecoxib (CELEBREX) 200 mg capsule 2016-04 13:52: 18 Yes 200mg Take 200 mg by mouth daily. [facility] iron,iron asp gly-FA-mv,m in27 (CORVITE FE) 125 mg iron-25 mg iron-1 mg Tab 2016-04 13:52: 18 Yes 1{tbl} Take 1 tablet by mouth daily. [facility] mirabegron (MYRBETRIQ) 25 mg tablet 2016-04 13:52: 18 Yes 1{tbl} Take 1 tablet by mouth every evening. [facility] mometasone (NASONEX) 50 mcg/actuati on nasal spray 2016-04 13:52: 18 Yes 1{spray } Use 1 [place] in each nostril daily. [facility] budesonide- formoterol (SYMBICORT) 160-4.5 mcg/actuati on inhaler 2016-04 13:52: 18 Yes 2{puff} Inhale 2 Puffs 2 (two) times daily. [facility] vitamin B-12 (VITAMIN B-12) 1,000 mcg tablet 2016-04 13:52: 18 Yes 1000ug Take 1,000 mcg by mouth daily. [facility] vits A-C-E-B complx-min- lutein (LIPOTRIAD, WITH LUTEIN,) 5,000 unit- 120 mg-60 unit TbSR 2016-04 13:52: 18 Yes 1{tbl} Take 1 tablet by mouth daily. [facility] alendronate (FOSAMAX) 35 mg tablet 2016-04 13:52: 18 Yes 35mg Take 35 mg by mouth weekly. Indication s: Patient takes on Tuesdays [facility] [place]-3 Fatty Acids (FISH OIL) 500 mg Cap 2016-04 13:52: 18 Yes 1{capsu le} Take 1 capsule by mouth daily. [facility] VITAMIN E, DL,TOCOPHER YL ACET, (DL-VITAMIN E ACETATE) 100 unit capsule 2016-04 13:52: 18 Yes 100U Take 100 Units by mouth daily. [facility] LACTOBACILL US ACIDOPHILUS (PROBIOTIC ORAL) 2016-04 13:52: 18 Yes 1{tbl} Take 1 tablet by mouth daily. [facility] ibuprofen (ADVIL) 200 mg tablet 2016-04 13:52: 18 Yes 600mg Take 600 mg by mouth every 6 (six) hours as needed. [facility] cetirizine (ZYRTEC) 10 mg tablet 2016-04 13:52: 18 Yes 10mg Take 10 mg by mouth daily. [facility] Multivitami n Cmb No.21-Iron- FA (CENTRUM COMPLETE) 18-400 mg-mcg Tab 2016-04 13:52: 18 Yes 1{tbl} Take 1 tablet by mouth daily. [facility] CALCIUM CARBONATE/V ITAMIN D2 (CALCIUM 600 + D ORAL) 2016-04 13:52: 18 Yes 1{tbl} Take 1 tablet by mouth daily. [facility] celecoxib (CELEBREX) 200 mg capsule 2016-04 13:52: 18 Yes 200mg Take 200 mg by mouth daily. [facility] iron,iron asp gly-FA-mv,m in27 (CORVITE FE) 125 mg iron-25 mg iron-1 mg Tab 2016-04 13:52: 18 Yes 1{tbl} Take 1 tablet by mouth daily. [facility] mirabegron (MYRBETRIQ) 25 mg tablet 2016-04 13:52: 18 Yes 1{tbl} Take 1 tablet by mouth every evening. [facility] mometasone (NASONEX) 50 mcg/actuati on nasal spray 2016-04 13:52: 18 Yes 1{spray } Use 1 [place] in each nostril daily. [facility] budesonide- formoterol (SYMBICORT) 160-4.5 mcg/actuati on inhaler 2016-04 13:52: 18 Yes 2{puff} Inhale 2 Puffs 2 (two) times daily. [facility] vitamin B-12 (VITAMIN B-12) 1,000 mcg tablet 2016-04 13:52: 18 Yes 1000ug Take 1,000 mcg by mouth daily. [facility] vits A-C-E-B complx-min- lutein (LIPOTRIAD, WITH LUTEIN,) 5,000 unit- 120 mg-60 unit TbSR 2016-04 13:52: 18 Yes 1{tbl} Take 1 tablet by mouth daily. [facility] alendronate (FOSAMAX) 35 mg tablet 2016-04 13:52: 18 Yes 35mg Take 35 mg by mouth weekly. Indication s: Patient takes on Tuesdays [facility] [place]-3 Fatty Acids (FISH OIL) 500 mg Cap 2016-04 13:52: 18 Yes 1{capsu le} Take 1 capsule by mouth daily. [facility] VITAMIN E, DL,TOCOPHER YL ACET, (DL-VITAMIN E ACETATE) 100 unit capsule 2016-04 13:52: 18 Yes 100U Take 100 Units by mouth daily. [facility] LACTOBACILL US ACIDOPHILUS (PROBIOTIC ORAL) 2016-04 13:52: 18 Yes 1{tbl} Take 1 tablet by mouth daily. [facility] ibuprofen (ADVIL) 200 mg tablet 2016-04 13:52: 18 Yes 600mg Take 600 mg by mouth every 6 (six) hours as needed. [facility] cetirizine (ZYRTEC) 10 mg tablet 2016-04 13:52: 18 Yes 10mg Take 10 mg by mouth daily. [facility] Multivitami n Cmb No.21-Iron- FA (CENTRUM COMPLETE) 18-400 mg-mcg Tab 2016-04 13:52: 18 Yes 1{tbl} Take 1 tablet by mouth daily. [facility] CALCIUM CARBONATE/V ITAMIN D2 (CALCIUM 600 + D ORAL) 2016-04 13:52: 18 Yes 1{tbl} Take 1 tablet by mouth daily. [facility] celecoxib (CELEBREX) 200 mg capsule 2016-04 13:52: 18 Yes 200mg Take 200 mg by mouth daily. [facility] iron,iron asp gly-FA-mv,m in27 (CORVITE FE) 125 mg iron-25 mg iron-1 mg Tab 2016-04 13:52: 18 Yes 1{tbl} Take 1 tablet by mouth daily. [facility] mirabegron (MYRBETRIQ) 25 mg tablet 2016-04 13:52: 18 Yes 1{tbl} Take 1 tablet by mouth every evening. [facility] mometasone (NASONEX) 50 mcg/actuati on nasal spray 2016-04 13:52: 18 Yes 1{spray } Use 1 [place] in each nostril daily. [facility] budesonide- formoterol (SYMBICORT) 160-4.5 mcg/actuati on inhaler 2016-04 13:52: 18 Yes 2{puff} Inhale 2 Puffs 2 (two) times daily. [facility] vitamin B-12 (VITAMIN B-12) 1,000 mcg tablet 2016-04 13:52: 18 Yes 1000ug Take 1,000 mcg by mouth daily. [facility] diclofenac 75 mg EC tablet 2016-04 00:00: 00 Yes 75mg Take 1 tablet by mouth 2 (two) times daily with meals. [facility] diclofenac 75 mg EC tablet 2016-04 00:00: 00 Yes 75mg Take 1 tablet by mouth 2 (two) times daily with meals. [facility] diclofenac 75 mg EC tablet 2016-04 00:00: 00 Yes 75mg Take 1 tablet by mouth 2 (two) times daily with meals. [facility] diclofenac 75 mg EC tablet 2016-04 00:00: 00 Yes 75mg Take 1 tablet by mouth 2 (two) times daily with meals. [facility] Myrbetriq 25 MG Myrbetriq 25 MG No Myrbetriq 25 MG Temovate 0.05 % Temovate 0.05 % No 1{appli cation_ to_affe cted_ar ea} BID Temovate 0.05 % Nasonex 50 MCG/ACT Nasonex 50 MCG/ACT No Nasonex 50 MCG/ACT B12 Fast Dissolve 5000 MCG B12 Fast Dissolve 5000 MCG No B12 Fast Dissolve 5000 MCG Nasonex 50 MCG/ACT Nasonex 50 MCG/ACT No 2{spray s_in_ea ch_nost ril} QD Nasonex 50 MCG/ACT Albuterol Sulfate HFA 108 (90 Base) MCG/ACT Albuterol Sulfate HFA 108 (90 Base) MCG/ACT No QID Albuterol Sulfate HFA 108 (90 Base) MCG/ACT Magnesium Oxide -Mg Supplement 400 MG Magnesium Oxide -Mg Supplement 400 MG No 1{capsu le_as_n eeded} BID Magnesium Oxide -Mg Supplement 400 MG Triamcinolo ne Acetonide 0.1 % Triamcinolo ne Acetonide 0.1 % No 1{appli cation_ to_affe cted_ar ea} BID Triamcinol one Acetonide 0.1 % Citalopram Hydrobromid e 20 MG Citalopram Hydrobromid e 20 MG No Citalopram Hydrobromi de 20 MG busPIRone HCl 5 MG busPIRone HCl 5 MG No busPIRone HCl 5 MG Triamcinolo ne Acetonide 0.1 % Triamcinolo ne Acetonide 0.1 % No 1{appli cation_ to_affe cted_ar ea} BID Magnesium Oxide -Mg Supplement 400 MG Magnesium Oxide -Mg Supplement 400 MG No 1{capsu le_as_n eeded} BID CeleXA 20 MG CeleXA 20 MG No Potassium Chloride Deborah ER 20 MEQ Potassium Chloride Deborah ER 20 MEQ No ProAir HFA 108 (90 Base) MCG/ACT ProAir HFA 108 (90 Base) MCG/ACT No Centrum Silver Adult 50+ - Centrum Silver Adult 50+ - No busPIRone HCl 5 MG busPIRone HCl 5 MG No 1{table t} Turmeric 500 MG Turmeric 500 MG No Symbicort 160-4.5 MCG/ACT Symbicort 160-4.5 MCG/ACT No 2{puffs } BID Temovate 0.05 % Temovate 0.05 % No 1{appli cation_ to_affe cted_ar ea} BID Citalopram Hydrobromid e 20 MG Citalopram Hydrobromid e 20 MG No Albuterol Sulfate HFA 108 (90 Base) MCG/ACT Albuterol Sulfate HFA 108 (90 Base) MCG/ACT No B12 Fast Dissolve 5000 MCG B12 Fast Dissolve 5000 MCG No Cranberry Plus Vitamin C 4200-20-3 MG-MG-UNIT Cranberry Plus Vitamin C 4200-20-3 MG-MG-UNIT No Omeprazole 40 MG Omeprazole 40 MG No 1{capsu le} QD Alendronate Sodium 35 MG Alendronate Sodium 35 MG No ProAir HFA 108 (90 Base) MCG/ACT ProAir HFA 108 (90 Base) MCG/ACT No Myrbetriq 25 MG Myrbetriq 25 MG No Nasonex 50 MCG/ACT Nasonex 50 MCG/ACT No Ocuvite Ocuvite No 1{table t} QD Triamcinolo ne Acetonide 0.1 % Triamcinolo ne Acetonide 0.1 % No 1{appli cation_ to_affe cted_ar ea} BID Nasonex 50 MCG/ACT Nasonex 50 MCG/ACT No 2{spray s_in_ea ch_nost ril} QD Myrbetriq 50 MG Myrbetriq 50 MG No 1{table t} QD Myrbetriq 50 MG Myrbetriq 50 MG No CeleXA 20 MG CeleXA 20 MG No 1{table t} QD Triamcinolo ne Acetonide 0.1 % Triamcinolo ne Acetonide 0.1 % No 1{appli cation_ to_affe cted_ar ea} BID Triamcinol one Acetonide 0.1 % Magnesium Oxide -Mg Supplement 400 MG Magnesium Oxide -Mg Supplement 400 MG No 1{capsu le_as_n eeded} BID Magnesium Oxide -Mg Supplement 400 MG CeleXA 20 MG CeleXA 20 MG No CeleXA 20 MG Potassium Chloride Deborah ER 20 MEQ Potassium Chloride Deborah ER 20 MEQ No Potassium Chloride Deborah ER 20 MEQ ProAir HFA 108 (90 Base) MCG/ACT ProAir HFA 108 (90 Base) MCG/ACT No ProAir HFA 108 (90 Base) MCG/ACT Centrum Silver Adult 50+ - Centrum Silver Adult 50+ - No Centrum Silver Adult 50+ - busPIRone HCl 5 MG busPIRone HCl 5 MG No 1{table t} busPIRone HCl 5 MG Turmeric 500 MG Turmeric 500 MG No Turmeric 500 MG Symbicort 160-4.5 MCG/ACT Symbicort 160-4.5 MCG/ACT No 2{puffs } BID Symbicort 160-4.5 MCG/ACT Temovate 0.05 % Temovate 0.05 % No 1{appli cation_ to_affe cted_ar ea} BID Temovate 0.05 % Citalopram Hydrobromid e 20 MG Citalopram Hydrobromid e 20 MG No Citalopram Hydrobromi de 20 MG Albuterol Sulfate HFA 108 (90 Base) MCG/ACT Albuterol Sulfate HFA 108 (90 Base) MCG/ACT No Albuterol Sulfate HFA 108 (90 Base) MCG/ACT B12 Fast Dissolve 5000 MCG B12 Fast Dissolve 5000 MCG No B12 Fast Dissolve 5000 MCG Cranberry Plus Vitamin C 4200-20-3 MG-MG-UNIT Cranberry Plus Vitamin C 4200-20-3 MG-MG-UNIT No Cranberry Plus Vitamin C 4200-20-3 MG-MG-UNIT Omeprazole 40 MG Omeprazole 40 MG No 1{capsu le} QD Omeprazole 40 MG Alendronate Sodium 35 MG Alendronate Sodium 35 MG No Alendronat e Sodium 35 MG ProAir HFA 108 (90 Base) MCG/ACT ProAir HFA 108 (90 Base) MCG/ACT No ProAir HFA 108 (90 Base) MCG/ACT Myrbetriq 25 MG Myrbetriq 25 MG No Myrbetriq 25 MG Nasonex 50 MCG/ACT Nasonex 50 MCG/ACT No Nasonex 50 MCG/ACT Ocuvite Ocuvite No 1{table t} QD Ocuvite Triamcinolo ne Acetonide 0.1 % Triamcinolo ne Acetonide 0.1 % No 1{appli cation_ to_affe cted_ar ea} BID Triamcinol one Acetonide 0.1 % Nasonex 50 MCG/ACT Nasonex 50 MCG/ACT No 2{spray s_in_ea ch_nost ril} QD Nasonex 50 MCG/ACT Myrbetriq 50 MG Myrbetriq 50 MG No 1{table t} QD Myrbetriq 50 MG Myrbetriq 50 MG Myrbetriq 50 MG No Myrbetriq 50 MG CeleXA 20 MG CeleXA 20 MG No 1{table t} QD CeleXA 20 MG Triamcinolo ne Acetonide 0.1 % Triamcinolo ne Acetonide 0.1 % No 1{appli cation_ to_affe cted_ar ea} BID Triamcinol one Acetonide 0.1 % Magnesium Oxide -Mg Supplement 400 MG Magnesium Oxide -Mg Supplement 400 MG No 1{capsu le_as_n eeded} BID Magnesium Oxide -Mg Supplement 400 MG CeleXA 20 MG CeleXA 20 MG No CeleXA 20 MG Potassium Chloride Deborah ER 20 MEQ Potassium Chloride Deborah ER 20 MEQ No Potassium Chloride Deborah ER 20 MEQ ProAir HFA 108 (90 Base) MCG/ACT ProAir HFA 108 (90 Base) MCG/ACT No ProAir HFA 108 (90 Base) MCG/ACT Centrum Silver Adult 50+ - Centrum Silver Adult 50+ - No Centrum Silver Adult 50+ - busPIRone HCl 5 MG busPIRone HCl 5 MG No 1{table t} busPIRone HCl 5 MG Turmeric 500 MG Turmeric 500 MG No Turmeric 500 MG Symbicort 160-4.5 MCG/ACT Symbicort 160-4.5 MCG/ACT No 2{puffs } BID Symbicort 160-4.5 MCG/ACT Temovate 0.05 % Temovate 0.05 % No 1{appli cation_ to_affe cted_ar ea} BID Temovate 0.05 % Citalopram Hydrobromid e 20 MG Citalopram Hydrobromid e 20 MG No Citalopram Hydrobromi de 20 MG Albuterol Sulfate HFA 108 (90 Base) MCG/ACT Albuterol Sulfate HFA 108 (90 Base) MCG/ACT No QID Albuterol Sulfate HFA 108 (90 Base) MCG/ACT B12 Fast Dissolve 5000 MCG B12 Fast Dissolve 5000 MCG No B12 Fast Dissolve 5000 MCG Cranberry Plus Vitamin C 4200-20-3 MG-MG-UNIT Cranberry Plus Vitamin C 4200-20-3 MG-MG-UNIT No Cranberry Plus Vitamin C 4200-20-3 MG-MG-UNIT Nasonex 50 MCG/ACT Nasonex 50 MCG/ACT No Nasonex 50 MCG/ACT Alendronate Sodium 35 MG Alendronate Sodium 35 MG No Alendronat e Sodium 35 MG ProAir HFA 108 (90 Base) MCG/ACT ProAir HFA 108 (90 Base) MCG/ACT No ProAir HFA 108 (90 Base) MCG/ACT Myrbetriq 25 MG Myrbetriq 25 MG No Myrbetriq 25 MG Ocuvite Ocuvite No 1{table t} QD Ocuvite Omeprazole 40 MG Omeprazole 40 MG No 1{capsu le} QD Omeprazole 40 MG Triamcinolo ne Acetonide 0.1 % Triamcinolo ne Acetonide 0.1 % No 1{appli cation_ to_affe cted_ar ea} BID Triamcinol one Acetonide 0.1 % Nasonex 50 MCG/ACT Nasonex 50 MCG/ACT No 2{spray s_in_ea ch_nost ril} QD Nasonex 50 MCG/ACT Myrbetriq 50 MG Myrbetriq 50 MG No 1{table t} QD Myrbetriq 50 MG Myrbetriq 50 MG Myrbetriq 50 MG No Myrbetriq 50 MG CeleXA 20 MG CeleXA 20 MG No 1{table t} QD CeleXA 20 MG Turmeric 500 MG Turmeric 500 MG No Turmeric 500 MG Triamcinolo ne Acetonide 0.1 % Triamcinolo ne Acetonide 0.1 % No 1{appli cation_ to_affe cted_ar ea} BID Triamcinol one Acetonide 0.1 % Omeprazole 40 MG Omeprazole 40 MG No 1{capsu le} QD Omeprazole 40 MG B12 Fast Dissolve 5000 MCG B12 Fast Dissolve 5000 MCG No B12 Fast Dissolve 5000 MCG Cranberry Plus Vitamin C 4200-20-3 MG-MG-UNIT Cranberry Plus Vitamin C 4200-20-3 MG-MG-UNIT No Cranberry Plus Vitamin C 4200-20-3 MG-MG-UNIT Temovate 0.05 % Temovate 0.05 % No 1{appli cation_ to_affe cted_ar ea} BID Temovate 0.05 % Ocuvite Ocuvite No 1{table t} QD Ocuvite Myrbetriq 25 MG Myrbetriq 25 MG No Myrbetriq 25 MG Magnesium Oxide -Mg Supplement 400 MG Magnesium Oxide -Mg Supplement 400 MG No 1{capsu le_as_n eeded} BID Magnesium Oxide -Mg Supplement 400 MG Centrum Silver Adult 50+ - Centrum Silver Adult 50+ - No Centrum Silver Adult 50+ - Symbicort 160-4.5 MCG/ACT Symbicort 160-4.5 MCG/ACT No 2{puffs } BID Symbicort 160-4.5 MCG/ACT Albuterol Sulfate HFA 108 (90 Base) MCG/ACT Albuterol Sulfate HFA 108 (90 Base) MCG/ACT No QID Albuterol Sulfate HFA 108 (90 Base) MCG/ACT Nasonex 50 MCG/ACT Nasonex 50 MCG/ACT No 2{spray s_in_ea ch_nost ril} QD Nasonex 50 MCG/ACT CeleXA 20 MG CeleXA 20 MG No 1{table t} QD CeleXA 20 MG Triamcinolo ne Acetonide 0.1 % Triamcinolo ne Acetonide 0.1 % No 1{appli cation_ to_affe cted_ar ea} BID Triamcinol one Acetonide 0.1 % Citalopram Hydrobromid e 20 MG Citalopram Hydrobromid e 20 MG No Citalopram Hydrobromi de 20 MG CeleXA 20 MG CeleXA 20 MG No CeleXA 20 MG ProAir HFA 108 (90 Base) MCG/ACT ProAir HFA 108 (90 Base) MCG/ACT No ProAir HFA 108 (90 Base) MCG/ACT Alendronate Sodium 35 MG Alendronate Sodium 35 MG No Alendronat e Sodium 35 MG Potassium Chloride Deborah ER 20 MEQ Potassium Chloride Deborah ER 20 MEQ No Potassium Chloride Deborah ER 20 MEQ Myrbetriq 50 MG Myrbetriq 50 MG No 1{table t} QD Myrbetriq 50 MG Myrbetriq 50 MG Myrbetriq 50 MG No Myrbetriq 50 MG ProAir HFA 108 (90 Base) MCG/ACT ProAir HFA 108 (90 Base) MCG/ACT No ProAir HFA 108 (90 Base) MCG/ACT busPIRone HCl 5 MG busPIRone HCl 5 MG No 1{table t} busPIRone HCl 5 MG Nasonex 50 MCG/ACT Nasonex 50 MCG/ACT No Nasonex 50 MCG/ACT Cranberry Plus Vitamin C 4200-20-3 MG-MG-UNIT Cranberry Plus Vitamin C 4200-20-3 MG-MG-UNIT No Cranberry Plus Vitamin C 4200-20-3 MG-MG-UNIT Temovate 0.05 % Temovate 0.05 % No 1{appli cation_ to_affe cted_ar ea} BID Temovate 0.05 % Ocuvite Ocuvite No 1{table t} QD Ocuvite Myrbetriq 25 MG Myrbetriq 25 MG No Myrbetriq 25 MG CeleXA 20 MG CeleXA 20 MG No CeleXA 20 MG Magnesium Oxide -Mg Supplement 400 MG Magnesium Oxide -Mg Supplement 400 MG No 1{capsu le_as_n eeded} BID Magnesium Oxide -Mg Supplement 400 MG Centrum Silver Adult 50+ - Centrum Silver Adult 50+ - No Centrum Silver Adult 50+ - Symbicort 160-4.5 MCG/ACT Symbicort 160-4.5 MCG/ACT No 2{puffs } BID Symbicort 160-4.5 MCG/ACT Triamcinolo ne Acetonide 0.1 % Triamcinolo ne Acetonide 0.1 % No 1{appli cation_ to_affe cted_ar ea} BID Triamcinol one Acetonide 0.1 % Alendronate Sodium 35 MG Alendronate Sodium 35 MG No Alendronat e Sodium 35 MG Omeprazole 40 MG Omeprazole 40 MG No 1{capsu le} QD Omeprazole 40 MG B12 Fast Dissolve 5000 MCG B12 Fast Dissolve 5000 MCG No B12 Fast Dissolve 5000 MCG Nasonex 50 MCG/ACT Nasonex 50 MCG/ACT No 2{spray s_in_ea ch_nost ril} QD Nasonex 50 MCG/ACT Potassium Chloride Deborah ER 20 MEQ Potassium Chloride Deborah ER 20 MEQ No Potassium Chloride Deborah ER 20 MEQ ProAir HFA 108 (90 Base) MCG/ACT ProAir HFA 108 (90 Base) MCG/ACT No ProAir HFA 108 (90 Base) MCG/ACT Triamcinolo ne Acetonide 0.1 % Triamcinolo ne Acetonide 0.1 % No 1{appli cation_ to_affe cted_ar ea} BID Triamcinol one Acetonide 0.1 % Citalopram Hydrobromid e 20 MG Citalopram Hydrobromid e 20 MG No Citalopram Hydrobromi de 20 MG Turmeric 500 MG Turmeric 500 MG No Turmeric 500 MG Albuterol Sulfate HFA 108 (90 Base) MCG/ACT Albuterol Sulfate HFA 108 (90 Base) MCG/ACT No QID Albuterol Sulfate HFA 108 (90 Base) MCG/ACT CeleXA 20 MG CeleXA 20 MG No 1{table t} QD CeleXA 20 MG ProAir HFA 108 (90 Base) MCG/ACT ProAir HFA 108 (90 Base) MCG/ACT No ProAir HFA 108 (90 Base) MCG/ACT busPIRone HCl 5 MG busPIRone HCl 5 MG No 1{table t} busPIRone HCl 5 MG Nasonex 50 MCG/ACT Nasonex 50 MCG/ACT No Nasonex 50 MCG/ACT Myrbetriq 50 MG Myrbetriq 50 MG No Myrbetriq 50 MG Magnesium Oxide -Mg Supplement 400 MG Magnesium Oxide -Mg Supplement 400 MG No 1{capsu le_as_n eeded} BID Magnesium Oxide -Mg Supplement 400 MG ProAir HFA 108 (90 Base) MCG/ACT ProAir HFA 108 (90 Base) MCG/ACT No ProAir HFA 108 (90 Base) MCG/ACT Alendronate Sodium 35 MG Alendronate Sodium 35 MG No Alendronat e Sodium 35 MG Triamcinolo ne Acetonide 0.1 % Triamcinolo ne Acetonide 0.1 % No 1{appli cation_ to_affe cted_ar ea} BID Triamcinol one Acetonide 0.1 % Myrbetriq 50 MG Myrbetriq 50 MG No Myrbetriq 50 MG Nasonex 50 MCG/ACT Nasonex 50 MCG/ACT No Nasonex 50 MCG/ACT Omeprazole 40 MG Omeprazole 40 MG No 1{capsu le} QD Omeprazole 40 MG CeleXA 20 MG CeleXA 20 MG No CeleXA 20 MG Ocuvite Ocuvite No 1{table t} QD Ocuvite busPIRone HCl 5 MG busPIRone HCl 5 MG No 1{table t} busPIRone HCl 5 MG Symbicort 160-4.5 MCG/ACT Symbicort 160-4.5 MCG/ACT No 2{puffs } BID Symbicort 160-4.5 MCG/ACT Potassium Chloride Deborah ER 20 MEQ Potassium Chloride Deborah ER 20 MEQ No Potassium Chloride Deborah ER 20 MEQ Albuterol Sulfate HFA 108 (90 Base) MCG/ACT Albuterol Sulfate HFA 108 (90 Base) MCG/ACT No QID Albuterol Sulfate HFA 108 (90 Base) MCG/ACT B12 Fast Dissolve 5000 MCG B12 Fast Dissolve 5000 MCG No B12 Fast Dissolve 5000 MCG Turmeric 500 MG Turmeric 500 MG No Turmeric 500 MG ProAir HFA 108 (90 Base) MCG/ACT ProAir HFA 108 (90 Base) MCG/ACT No ProAir HFA 108 (90 Base) MCG/ACT Triamcinolo ne Acetonide 0.1 % Triamcinolo ne Acetonide 0.1 % No 1{appli cation_ to_affe cted_ar ea} BID Triamcinol one Acetonide 0.1 % Citalopram Hydrobromid e 20 MG Citalopram Hydrobromid e 20 MG No Citalopram Hydrobromi de 20 MG Myrbetriq 25 MG Myrbetriq 25 MG No Myrbetriq 25 MG Centrum Silver Adult 50+ - Centrum Silver Adult 50+ - No Centrum Silver Adult 50+ - Temovate 0.05 % Temovate 0.05 % No 1{appli cation_ to_affe cted_ar ea} BID Temovate 0.05 % Myrbetriq 50 MG Myrbetriq 50 MG No 1{table t} QD Myrbetriq 50 MG Cranberry Plus Vitamin C 4200-20-3 MG-MG-UNIT Cranberry Plus Vitamin C 4200-20-3 MG-MG-UNIT No Cranberry Plus Vitamin C 4200-20-3 MG-MG-UNIT Nasonex 50 MCG/ACT Nasonex 50 MCG/ACT No 2{spray s_in_ea ch_nost ril} QD Nasonex 50 MCG/ACT CeleXA 20 MG CeleXA 20 MG No 1{table t} QD CeleXA 20 MG Magnesium Oxide -Mg Supplement 400 MG Magnesium Oxide -Mg Supplement 400 MG No 1{capsu le_as_n eeded} BID Magnesium Oxide -Mg Supplement 400 MG ProAir HFA 108 (90 Base) MCG/ACT ProAir HFA 108 (90 Base) MCG/ACT No ProAir HFA 108 (90 Base) MCG/ACT Alendronate Sodium 35 MG Alendronate Sodium 35 MG No Alendronat e Sodium 35 MG Triamcinolo ne Acetonide 0.1 % Triamcinolo ne Acetonide 0.1 % No 1{appli cation_ to_affe cted_ar ea} BID Triamcinol one Acetonide 0.1 % Myrbetriq 50 MG Myrbetriq 50 MG No Myrbetriq 50 MG Nasonex 50 MCG/ACT Nasonex 50 MCG/ACT No Nasonex 50 MCG/ACT Omeprazole 40 MG Omeprazole 40 MG No 1{capsu le} QD Omeprazole 40 MG CeleXA 20 MG CeleXA 20 MG No CeleXA 20 MG Ocuvite Ocuvite No 1{table t} QD Ocuvite busPIRone HCl 5 MG busPIRone HCl 5 MG No 1{table t} busPIRone HCl 5 MG Symbicort 160-4.5 MCG/ACT Symbicort 160-4.5 MCG/ACT No 2{puffs } BID Symbicort 160-4.5 MCG/ACT Potassium Chloride Deborah ER 20 MEQ Potassium Chloride Deborah ER 20 MEQ No Potassium Chloride Deborah ER 20 MEQ Albuterol Sulfate HFA 108 (90 Base) MCG/ACT Albuterol Sulfate HFA 108 (90 Base) MCG/ACT No QID Albuterol Sulfate HFA 108 (90 Base) MCG/ACT B12 Fast Dissolve 5000 MCG B12 Fast Dissolve 5000 MCG No B12 Fast Dissolve 5000 MCG Turmeric 500 MG Turmeric 500 MG No Turmeric 500 MG ProAir HFA 108 (90 Base) MCG/ACT ProAir HFA 108 (90 Base) MCG/ACT No ProAir HFA 108 (90 Base) MCG/ACT Triamcinolo ne Acetonide 0.1 % Triamcinolo ne Acetonide 0.1 % No 1{appli cation_ to_affe cted_ar ea} BID Triamcinol one Acetonide 0.1 % Citalopram Hydrobromid e 20 MG Citalopram Hydrobromid e 20 MG No Citalopram Hydrobromi de 20 MG Myrbetriq 25 MG Myrbetriq 25 MG No Myrbetriq 25 MG Centrum Silver Adult 50+ - Centrum Silver Adult 50+ - No Centrum Silver Adult 50+ - Temovate 0.05 % Temovate 0.05 % No 1{appli cation_ to_affe cted_ar ea} BID Temovate 0.05 % Myrbetriq 50 MG Myrbetriq 50 MG No 1{table t} QD Myrbetriq 50 MG Cranberry Plus Vitamin C 4200-20-3 MG-MG-UNIT Cranberry Plus Vitamin C 4200-20-3 MG-MG-UNIT No Cranberry Plus Vitamin C 4200-20-3 MG-MG-UNIT Nasonex 50 MCG/ACT Nasonex 50 MCG/ACT No 2{spray s_in_ea ch_nost ril} QD Nasonex 50 MCG/ACT CeleXA 20 MG CeleXA 20 MG No 1{table t} QD CeleXA 20 MG Magnesium Oxide -Mg Supplement 400 MG Magnesium Oxide -Mg Supplement 400 MG No 1{capsu le_as_n eeded} BID Magnesium Oxide -Mg Supplement 400 MG CeleXA 20 MG CeleXA 20 MG No CeleXA 20 MG Alendronate Sodium 35 MG Alendronate Sodium 35 MG No Alendronat e Sodium 35 MG ProAir HFA 108 (90 Base) MCG/ACT ProAir HFA 108 (90 Base) MCG/ACT No ProAir HFA 108 (90 Base) MCG/ACT Ocuvite Ocuvite No 1{table t} QD Ocuvite busPIRone HCl 5 MG busPIRone HCl 5 MG No 1{table t} busPIRone HCl 5 MG Omeprazole 40 MG Omeprazole 40 MG No 1{capsu le} QD Omeprazole 40 MG Nasonex 50 MCG/ACT Nasonex 50 MCG/ACT No Nasonex 50 MCG/ACT Triamcinolo ne Acetonide 0.1 % Triamcinolo ne Acetonide 0.1 % No 1{appli cation_ to_affe cted_ar ea} BID Triamcinol one Acetonide 0.1 % Symbicort 160-4.5 MCG/ACT Symbicort 160-4.5 MCG/ACT No 2{puffs } BID Symbicort 160-4.5 MCG/ACT Potassium Chloride Deborah ER 20 MEQ Potassium Chloride Deborah ER 20 MEQ No Potassium Chloride Deborah ER 20 MEQ Albuterol Sulfate HFA 108 (90 Base) MCG/ACT Albuterol Sulfate HFA 108 (90 Base) MCG/ACT No QID Albuterol Sulfate HFA 108 (90 Base) MCG/ACT Citalopram Hydrobromid e 20 MG Citalopram Hydrobromid e 20 MG No Citalopram Hydrobromi de 20 MG Turmeric 500 MG Turmeric 500 MG No Turmeric 500 MG ProAir HFA 108 (90 Base) MCG/ACT ProAir HFA 108 (90 Base) MCG/ACT No ProAir HFA 108 (90 Base) MCG/ACT B12 Fast Dissolve 5000 MCG B12 Fast Dissolve 5000 MCG No B12 Fast Dissolve 5000 MCG Triamcinolo ne Acetonide 0.1 % Triamcinolo ne Acetonide 0.1 % No 1{appli cation_ to_affe cted_ar ea} BID Triamcinol one Acetonide 0.1 % Myrbetriq 25 MG Myrbetriq 25 MG No Myrbetriq 25 MG Centrum Silver Adult 50+ - Centrum Silver Adult 50+ - No Centrum Silver Adult 50+ - Temovate 0.05 % Temovate 0.05 % No 1{appli cation_ to_affe cted_ar ea} BID Temovate 0.05 % Myrbetriq 50 MG Myrbetriq 50 MG No Myrbetriq 50 MG Cranberry Plus Vitamin C 4200-20-3 MG-MG-UNIT Cranberry Plus Vitamin C 4200-20-3 MG-MG-UNIT No Cranberry Plus Vitamin C 4200-20-3 MG-MG-UNIT Nasonex 50 MCG/ACT Nasonex 50 MCG/ACT No 2{spray s_in_ea ch_nost ril} QD Nasonex 50 MCG/ACT CeleXA 20 MG CeleXA 20 MG No 1{table t} QD CeleXA 20 MG B12 Fast Dissolve 5000 MCG B12 Fast Dissolve 5000 MCG No B12 Fast Dissolve 5000 MCG Centrum Silver Adult 50+ - Centrum Silver Adult 50+ - No Centrum Silver Adult 50+ - ProAir HFA 108 (90 Base) MCG/ACT ProAir HFA 108 (90 Base) MCG/ACT No ProAir HFA 108 (90 Base) MCG/ACT Nasonex 50 MCG/ACT Nasonex 50 MCG/ACT No 2{spray s_in_ea ch_nost ril} QD Nasonex 50 MCG/ACT CeleXA 20 MG CeleXA 20 MG No CeleXA 20 MG Cranberry Plus Vitamin C 4200-20-3 MG-MG-UNIT Cranberry Plus Vitamin C 4200-20-3 MG-MG-UNIT No Cranberry Plus Vitamin C 4200-20-3 MG-MG-UNIT Ocuvite Ocuvite No 1{table t} QD Ocuvite CeleXA 20 MG CeleXA 20 MG No 1{table t} QD CeleXA 20 MG Triamcinolo ne Acetonide 0.1 % Triamcinolo ne Acetonide 0.1 % No 1{appli cation_ to_affe cted_ar ea} BID Triamcinol one Acetonide 0.1 % Potassium Chloride Deborah ER 20 MEQ Potassium Chloride Deborah ER 20 MEQ No Potassium Chloride Deborah ER 20 MEQ Citalopram Hydrobromid e 20 MG Citalopram Hydrobromid e 20 MG No Citalopram Hydrobromi de 20 MG Triamcinolo ne Acetonide 0.1 % Triamcinolo ne Acetonide 0.1 % No 1{appli cation_ to_affe cted_ar ea} BID Triamcinol one Acetonide 0.1 % Myrbetriq 25 MG Myrbetriq 25 MG No Myrbetriq 25 MG Nasonex 50 MCG/ACT Nasonex 50 MCG/ACT No Nasonex 50 MCG/ACT ProAir HFA 108 (90 Base) MCG/ACT ProAir HFA 108 (90 Base) MCG/ACT No ProAir HFA 108 (90 Base) MCG/ACT Magnesium Oxide -Mg Supplement 400 MG Magnesium Oxide -Mg Supplement 400 MG No 1{capsu le_as_n eeded} BID Magnesium Oxide -Mg Supplement 400 MG busPIRone HCl 5 MG busPIRone HCl 5 MG No 1{table t} busPIRone HCl 5 MG Myrbetriq 50 MG Myrbetriq 50 MG No 1{table t} QD Myrbetriq 50 MG Symbicort 160-4.5 MCG/ACT Symbicort 160-4.5 MCG/ACT No Symbicort 160-4.5 MCG/ACT Turmeric 500 MG Turmeric 500 MG No Turmeric 500 MG Omeprazole 40 MG Omeprazole 40 MG No 1{capsu le} QD Omeprazole 40 MG Temovate 0.05 % Temovate 0.05 % No 1{appli cation_ to_affe cted_ar ea} BID Temovate 0.05 % Alendronate Sodium 35 MG Alendronate Sodium 35 MG No Alendronat e Sodium 35 MG Myrbetriq 50 MG Myrbetriq 50 MG No Myrbetriq 50 MG Albuterol Sulfate HFA 108 (90 Base) MCG/ACT Albuterol Sulfate HFA 108 (90 Base) MCG/ACT No QID Albuterol Sulfate HFA 108 (90 Base) MCG/ACT B12 Fast Dissolve 5000 MCG B12 Fast Dissolve 5000 MCG No B12 Fast Dissolve 5000 MCG CeleXA 20 MG CeleXA 20 MG No 1{table t} QD CeleXA 20 MG ProAir HFA 108 (90 Base) MCG/ACT ProAir HFA 108 (90 Base) MCG/ACT No ProAir HFA 108 (90 Base) MCG/ACT Centrum Silver Adult 50+ - Centrum Silver Adult 50+ - No Centrum Silver Adult 50+ - CeleXA 20 MG CeleXA 20 MG No CeleXA 20 MG Potassium Chloride Deborah ER 20 MEQ Potassium Chloride Deborah ER 20 MEQ No Potassium Chloride Deborah ER 20 MEQ Ocuvite Ocuvite No 1{table t} QD Ocuvite Cranberry Plus Vitamin C 4200-20-3 MG-MG-UNIT Cranberry Plus Vitamin C 4200-20-3 MG-MG-UNIT No Cranberry Plus Vitamin C 4200-20-3 MG-MG-UNIT Triamcinolo ne Acetonide 0.1 % Triamcinolo ne Acetonide 0.1 % No 1{appli cation_ to_affe cted_ar ea} BID Triamcinol one Acetonide 0.1 % busPIRone HCl 5 MG busPIRone HCl 5 MG No busPIRone HCl 5 MG Citalopram Hydrobromid e 20 MG Citalopram Hydrobromid e 20 MG No Citalopram Hydrobromi de 20 MG Symbicort 160-4.5 MCG/ACT Symbicort 160-4.5 MCG/ACT No Symbicort 160-4.5 MCG/ACT Nasonex 50 MCG/ACT Nasonex 50 MCG/ACT No Nasonex 50 MCG/ACT Myrbetriq 50 MG Myrbetriq 50 MG No 1{table t} QD Myrbetriq 50 MG Omeprazole 40 MG Omeprazole 40 MG No 1{capsu le} QD Omeprazole 40 MG Magnesium Oxide -Mg Supplement 400 MG Magnesium Oxide -Mg Supplement 400 MG No 1{capsu le_as_n eeded} BID Magnesium Oxide -Mg Supplement 400 MG ProAir HFA 108 (90 Base) MCG/ACT ProAir HFA 108 (90 Base) MCG/ACT No ProAir HFA 108 (90 Base) MCG/ACT Nasonex 50 MCG/ACT Nasonex 50 MCG/ACT No 2{spray s_in_ea ch_nost ril} QD Nasonex 50 MCG/ACT Turmeric 500 MG Turmeric 500 MG No Turmeric 500 MG Triamcinolo ne Acetonide 0.1 % Triamcinolo ne Acetonide 0.1 % No 1{appli cation_ to_affe cted_ar ea} BID Triamcinol one Acetonide 0.1 % Myrbetriq 25 MG Myrbetriq 25 MG No Myrbetriq 25 MG Myrbetriq 50 MG Myrbetriq 50 MG No Myrbetriq 50 MG Temovate 0.05 % Temovate 0.05 % No 1{appli cation_ to_affe cted_ar ea} BID Temovate 0.05 % Alendronate Sodium 35 MG Alendronate Sodium 35 MG No Alendronat e Sodium 35 MG Albuterol Sulfate HFA 108 (90 Base) MCG/ACT Albuterol Sulfate HFA 108 (90 Base) MCG/ACT No QID Albuterol Sulfate HFA 108 (90 Base) MCG/ACT B12 Fast Dissolve 5000 MCG B12 Fast Dissolve 5000 MCG No B12 Fast Dissolve 5000 MCG CeleXA 20 MG CeleXA 20 MG No 1{table t} QD CeleXA 20 MG ProAir HFA 108 (90 Base) MCG/ACT ProAir HFA 108 (90 Base) MCG/ACT No ProAir HFA 108 (90 Base) MCG/ACT Centrum Silver Adult 50+ - Centrum Silver Adult 50+ - No Centrum Silver Adult 50+ - CeleXA 20 MG CeleXA 20 MG No CeleXA 20 MG Potassium Chloride Deborah ER 20 MEQ Potassium Chloride Deborah ER 20 MEQ No Potassium Chloride Deborah ER 20 MEQ Ocuvite Ocuvite No 1{table t} QD Ocuvite Cranberry Plus Vitamin C 4200-20-3 MG-MG-UNIT Cranberry Plus Vitamin C 4200-20-3 MG-MG-UNIT No Cranberry Plus Vitamin C 4200-20-3 MG-MG-UNIT Triamcinolo ne Acetonide 0.1 % Triamcinolo ne Acetonide 0.1 % No 1{appli cation_ to_affe cted_ar ea} BID Triamcinol one Acetonide 0.1 % busPIRone HCl 5 MG busPIRone HCl 5 MG No busPIRone HCl 5 MG Citalopram Hydrobromid e 20 MG Citalopram Hydrobromid e 20 MG No Citalopram Hydrobromi de 20 MG Symbicort 160-4.5 MCG/ACT Symbicort 160-4.5 MCG/ACT No Symbicort 160-4.5 MCG/ACT Nasonex 50 MCG/ACT Nasonex 50 MCG/ACT No Nasonex 50 MCG/ACT Myrbetriq 50 MG Myrbetriq 50 MG No 1{table t} QD Myrbetriq 50 MG Omeprazole 40 MG Omeprazole 40 MG No 1{capsu le} QD Omeprazole 40 MG Magnesium Oxide -Mg Supplement 400 MG Magnesium Oxide -Mg Supplement 400 MG No 1{capsu le_as_n eeded} BID Magnesium Oxide -Mg Supplement 400 MG ProAir HFA 108 (90 Base) MCG/ACT ProAir HFA 108 (90 Base) MCG/ACT No ProAir HFA 108 (90 Base) MCG/ACT Nasonex 50 MCG/ACT Nasonex 50 MCG/ACT No 2{spray s_in_ea ch_nost ril} QD Nasonex 50 MCG/ACT Turmeric 500 MG Turmeric 500 MG No Turmeric 500 MG Triamcinolo ne Acetonide 0.1 % Triamcinolo ne Acetonide 0.1 % No 1{appli cation_ to_affe cted_ar ea} BID Triamcinol one Acetonide 0.1 % Myrbetriq 25 MG Myrbetriq 25 MG No Myrbetriq 25 MG Myrbetriq 50 MG Myrbetriq 50 MG No Myrbetriq 50 MG Temovate 0.05 % Temovate 0.05 % No 1{appli cation_ to_affe cted_ar ea} BID Temovate 0.05 % Alendronate Sodium 35 MG Alendronate Sodium 35 MG No Alendronat e Sodium 35 MG Albuterol Sulfate HFA 108 (90 Base) MCG/ACT Albuterol Sulfate HFA 108 (90 Base) MCG/ACT No QID Albuterol Sulfate HFA 108 (90 Base) MCG/ACT busPIRone HCl 5 MG busPIRone HCl 5 MG No busPIRone HCl 5 MG Magnesium Oxide -Mg Supplement 400 MG Magnesium Oxide -Mg Supplement 400 MG No 1{capsu le_as_n eeded} BID Magnesium Oxide -Mg Supplement 400 MG Triamcinolo ne Acetonide 0.1 % Triamcinolo ne Acetonide 0.1 % No 1{appli cation_ to_affe cted_ar ea} BID Triamcinol one Acetonide 0.1 % Nasonex 50 MCG/ACT Nasonex 50 MCG/ACT No Nasonex 50 MCG/ACT Myrbetriq 25 MG Myrbetriq 25 MG No Myrbetriq 25 MG ProAir HFA 108 (90 Base) MCG/ACT ProAir HFA 108 (90 Base) MCG/ACT No ProAir HFA 108 (90 Base) MCG/ACT Temovate 0.05 % Temovate 0.05 % No 1{appli cation_ to_affe cted_ar ea} BID Temovate 0.05 % Potassium Chloride Deborah ER 20 MEQ Potassium Chloride Deborah ER 20 MEQ No Potassium Chloride Deborah ER 20 MEQ ProAir HFA 108 (90 Base) MCG/ACT ProAir HFA 108 (90 Base) MCG/ACT No ProAir HFA 108 (90 Base) MCG/ACT Omeprazole 40 MG Omeprazole 40 MG No 1{capsu le} QD Omeprazole 40 MG Triamcinolo ne Acetonide 0.1 % Triamcinolo ne Acetonide 0.1 % No 1{appli cation_ to_affe cted_ar ea} BID Triamcinol one Acetonide 0.1 % Myrbetriq 50 MG Myrbetriq 50 MG No Myrbetriq 50 MG Symbicort 160-4.5 MCG/ACT Symbicort 160-4.5 MCG/ACT No Symbicort 160-4.5 MCG/ACT Ocuvite Ocuvite No 1{table t} QD Ocuvite Alendronate Sodium 35 MG Alendronate Sodium 35 MG No Alendronat e Sodium 35 MG Citalopram Hydrobromid e 20 MG Citalopram Hydrobromid e 20 MG No Citalopram Hydrobromi de 20 MG Cranberry Plus Vitamin C 4200-20-3 MG-MG-UNIT Cranberry Plus Vitamin C 4200-20-3 MG-MG-UNIT No Cranberry Plus Vitamin C 4200-20-3 MG-MG-UNIT B12 Fast Dissolve 5000 MCG B12 Fast Dissolve 5000 MCG No B12 Fast Dissolve 5000 MCG Albuterol Sulfate HFA 108 (90 Base) MCG/ACT Albuterol Sulfate HFA 108 (90 Base) MCG/ACT No QID Albuterol Sulfate HFA 108 (90 Base) MCG/ACT CeleXA 20 MG CeleXA 20 MG No 1{table t} QD CeleXA 20 MG CeleXA 20 MG CeleXA 20 MG No CeleXA 20 MG Centrum Silver Adult 50+ - Centrum Silver Adult 50+ - No Centrum Silver Adult 50+ - Myrbetriq 50 MG Myrbetriq 50 MG No 1{table t} QD Myrbetriq 50 MG Nasonex 50 MCG/ACT Nasonex 50 MCG/ACT No 2{spray s_in_ea ch_nost ril} QD Nasonex 50 MCG/ACT Turmeric 500 MG Turmeric 500 MG No Turmeric 500 MG busPIRone HCl 5 MG busPIRone HCl 5 MG No busPIRone HCl 5 MG Magnesium Oxide -Mg Supplement 400 MG Magnesium Oxide -Mg Supplement 400 MG No 1{capsu le_as_n eeded} BID Magnesium Oxide -Mg Supplement 400 MG Triamcinolo ne Acetonide 0.1 % Triamcinolo ne Acetonide 0.1 % No 1{appli cation_ to_affe cted_ar ea} BID Triamcinol one Acetonide 0.1 % Nasonex 50 MCG/ACT Nasonex 50 MCG/ACT No Nasonex 50 MCG/ACT Myrbetriq 25 MG Myrbetriq 25 MG No Myrbetriq 25 MG ProAir HFA 108 (90 Base) MCG/ACT ProAir HFA 108 (90 Base) MCG/ACT No ProAir HFA 108 (90 Base) MCG/ACT Temovate 0.05 % Temovate 0.05 % No 1{appli cation_ to_affe cted_ar ea} BID Temovate 0.05 % Potassium Chloride Deborah ER 20 MEQ Potassium Chloride Deborah ER 20 MEQ No Potassium Chloride Deborah ER 20 MEQ ProAir HFA 108 (90 Base) MCG/ACT ProAir HFA 108 (90 Base) MCG/ACT No ProAir HFA 108 (90 Base) MCG/ACT Omeprazole 40 MG Omeprazole 40 MG No 1{capsu le} QD Omeprazole 40 MG Triamcinolo ne Acetonide 0.1 % Triamcinolo ne Acetonide 0.1 % No 1{appli cation_ to_affe cted_ar ea} BID Triamcinol one Acetonide 0.1 % Myrbetriq 50 MG Myrbetriq 50 MG No Myrbetriq 50 MG Symbicort 160-4.5 MCG/ACT Symbicort 160-4.5 MCG/ACT No Symbicort 160-4.5 MCG/ACT Ocuvite Ocuvite No 1{table t} QD Ocuvite Alendronate Sodium 35 MG Alendronate Sodium 35 MG No Alendronat e Sodium 35 MG Citalopram Hydrobromid e 20 MG Citalopram Hydrobromid e 20 MG No Citalopram Hydrobromi de 20 MG Cranberry Plus Vitamin C 4200-20-3 MG-MG-UNIT Cranberry Plus Vitamin C 4200-20-3 MG-MG-UNIT No Cranberry Plus Vitamin C 4200-20-3 MG-MG-UNIT B12 Fast Dissolve 5000 MCG B12 Fast Dissolve 5000 MCG No B12 Fast Dissolve 5000 MCG Albuterol Sulfate HFA 108 (90 Base) MCG/ACT Albuterol Sulfate HFA 108 (90 Base) MCG/ACT No QID Albuterol Sulfate HFA 108 (90 Base) MCG/ACT CeleXA 20 MG CeleXA 20 MG No 1{table t} QD CeleXA 20 MG CeleXA 20 MG CeleXA 20 MG No CeleXA 20 MG Centrum Silver Adult 50+ - Centrum Silver Adult 50+ - No Centrum Silver Adult 50+ - Myrbetriq 50 MG Myrbetriq 50 MG No 1{table t} QD Myrbetriq 50 MG Nasonex 50 MCG/ACT Nasonex 50 MCG/ACT No 2{spray s_in_ea ch_nost ril} QD Nasonex 50 MCG/ACT Turmeric 500 MG Turmeric 500 MG No Turmeric 500 MG Myrbetriq 50 MG Myrbetriq 50 MG No 1{table t} QD Myrbetriq 50 MG ProAir HFA 108 (90 Base) MCG/ACT ProAir HFA 108 (90 Base) MCG/ACT No ProAir HFA 108 (90 Base) MCG/ACT busPIRone HCl 5 MG busPIRone HCl 5 MG No busPIRone HCl 5 MG Nasonex 50 MCG/ACT Nasonex 50 MCG/ACT No Nasonex 50 MCG/ACT ProAir HFA 108 (90 Base) MCG/ACT ProAir HFA 108 (90 Base) MCG/ACT No ProAir HFA 108 (90 Base) MCG/ACT Triamcinolo ne Acetonide 0.1 % Triamcinolo ne Acetonide 0.1 % No 1{appli cation_ to_affe cted_ar ea} BID Triamcinol one Acetonide 0.1 % Temovate 0.05 % Temovate 0.05 % No 1{appli cation_ to_affe cted_ar ea} BID Temovate 0.05 % Albuterol Sulfate HFA 108 (90 Base) MCG/ACT Albuterol Sulfate HFA 108 (90 Base) MCG/ACT No QID Albuterol Sulfate HFA 108 (90 Base) MCG/ACT Nasonex 50 MCG/ACT Nasonex 50 MCG/ACT No 2{spray s_in_ea ch_nost ril} QD Nasonex 50 MCG/ACT Symbicort 160-4.5 MCG/ACT Symbicort 160-4.5 MCG/ACT No Symbicort 160-4.5 MCG/ACT Omeprazole 40 MG Omeprazole 40 MG No 1{capsu le} QD Omeprazole 40 MG Citalopram Hydrobromid e 20 MG Citalopram Hydrobromid e 20 MG No Citalopram Hydrobromi de 20 MG Potassium Chloride Deborah ER 20 MEQ Potassium Chloride Deborah ER 20 MEQ No Potassium Chloride Deborah ER 20 MEQ Myrbetriq 25 MG Myrbetriq 25 MG No Myrbetriq 25 MG Centrum Silver Adult 50+ - Centrum Silver Adult 50+ - No Centrum Silver Adult 50+ - Magnesium Oxide -Mg Supplement 400 MG Magnesium Oxide -Mg Supplement 400 MG No 1{capsu le_as_n eeded} BID Magnesium Oxide -Mg Supplement 400 MG Myrbetriq 50 MG Myrbetriq 50 MG No Myrbetriq 50 MG Alendronate Sodium 35 MG Alendronate Sodium 35 MG No Alendronat e Sodium 35 MG Turmeric 500 MG Turmeric 500 MG No Turmeric 500 MG Cranberry Plus Vitamin C 4200-20-3 MG-MG-UNIT Cranberry Plus Vitamin C 4200-20-3 MG-MG-UNIT No Cranberry Plus Vitamin C 4200-20-3 MG-MG-UNIT Triamcinolo ne Acetonide 0.1 % Triamcinolo ne Acetonide 0.1 % No 1{appli cation_ to_affe cted_ar ea} BID Triamcinol one Acetonide 0.1 % Ocuvite Ocuvite No 1{table t} QD Ocuvite CeleXA 20 MG CeleXA 20 MG No CeleXA 20 MG B12 Fast Dissolve 5000 MCG B12 Fast Dissolve 5000 MCG No B12 Fast Dissolve 5000 MCG Myrbetriq 50 MG Myrbetriq 50 MG No 1{table t} QD Myrbetriq 50 MG Omeprazole 40 MG Omeprazole 40 MG No 1{capsu le} QD Omeprazole 40 MG Citalopram Hydrobromid e 20 MG Citalopram Hydrobromid e 20 MG No Citalopram Hydrobromi de 20 MG Nasonex 50 MCG/ACT Nasonex 50 MCG/ACT No 2{spray s_in_ea ch_nost ril} QD Nasonex 50 MCG/ACT Albuterol Sulfate HFA 108 (90 Base) MCG/ACT Albuterol Sulfate HFA 108 (90 Base) MCG/ACT No QID Albuterol Sulfate HFA 108 (90 Base) MCG/ACT busPIRone HCl 5 MG busPIRone HCl 5 MG No busPIRone HCl 5 MG Alendronate Sodium 35 MG Alendronate Sodium 35 MG No Alendronat e Sodium 35 MG Fasenra Pen 30 MG/ML Fasenra Pen 30 MG/ML No Fasenra Pen 30 MG/ML Triamcinolo ne Acetonide 0.1 % Triamcinolo ne Acetonide 0.1 % No 1{appli cation_ to_affe cted_ar ea} BID Triamcinol one Acetonide 0.1 % Turmeric 500 MG Turmeric 500 MG No Turmeric 500 MG Ocuvite Ocuvite No 1{table t} QD Ocuvite CeleXA 20 MG CeleXA 20 MG No CeleXA 20 MG Magnesium Oxide -Mg Supplement 400 MG Magnesium Oxide -Mg Supplement 400 MG No 1{capsu le_as_n eeded} BID Magnesium Oxide -Mg Supplement 400 MG Triamcinolo ne Acetonide 0.1 % Triamcinolo ne Acetonide 0.1 % No 1{appli cation_ to_affe cted_ar ea} BID Triamcinol one Acetonide 0.1 % ProAir HFA 108 (90 Base) MCG/ACT ProAir HFA 108 (90 Base) MCG/ACT No ProAir HFA 108 (90 Base) MCG/ACT Symbicort 160-4.5 MCG/ACT Symbicort 160-4.5 MCG/ACT No Symbicort 160-4.5 MCG/ACT ProAir HFA 108 (90 Base) MCG/ACT ProAir HFA 108 (90 Base) MCG/ACT No ProAir HFA 108 (90 Base) MCG/ACT Myrbetriq 25 MG Myrbetriq 25 MG No Myrbetriq 25 MG B12 Fast Dissolve 5000 MCG B12 Fast Dissolve 5000 MCG No B12 Fast Dissolve 5000 MCG Temovate 0.05 % Temovate 0.05 % No 1{appli cation_ to_affe cted_ar ea} BID Temovate 0.05 % Cranberry Plus Vitamin C 4200-20-3 MG-MG-UNIT Cranberry Plus Vitamin C 4200-20-3 MG-MG-UNIT No Cranberry Plus Vitamin C 4200-20-3 MG-MG-UNIT Potassium Chloride Deborah ER 20 MEQ Potassium Chloride Deborah ER 20 MEQ No Potassium Chloride Deborah ER 20 MEQ Centrum Silver Adult 50+ - Centrum Silver Adult 50+ - No Centrum Silver Adult 50+ - Nasonex 50 MCG/ACT Nasonex 50 MCG/ACT No Nasonex 50 MCG/ACT Myrbetriq 50 MG Myrbetriq 50 MG No 1{table t} QD Myrbetriq 50 MG Omeprazole 40 MG Omeprazole 40 MG No 1{capsu le} QD Omeprazole 40 MG Citalopram Hydrobromid e 20 MG Citalopram Hydrobromid e 20 MG No Citalopram Hydrobromi de 20 MG Nasonex 50 MCG/ACT Nasonex 50 MCG/ACT No 2{spray s_in_ea ch_nost ril} QD Nasonex 50 MCG/ACT Albuterol Sulfate HFA 108 (90 Base) MCG/ACT Albuterol Sulfate HFA 108 (90 Base) MCG/ACT No QID Albuterol Sulfate HFA 108 (90 Base) MCG/ACT busPIRone HCl 5 MG busPIRone HCl 5 MG No busPIRone HCl 5 MG Alendronate Sodium 35 MG Alendronate Sodium 35 MG No Alendronat e Sodium 35 MG Fasenra Pen 30 MG/ML Fasenra Pen 30 MG/ML No Fasenra Pen 30 MG/ML Triamcinolo ne Acetonide 0.1 % Triamcinolo ne Acetonide 0.1 % No 1{appli cation_ to_affe cted_ar ea} BID Triamcinol one Acetonide 0.1 % Turmeric 500 MG Turmeric 500 MG No Turmeric 500 MG Ocuvite Ocuvite No 1{table t} QD Ocuvite CeleXA 20 MG CeleXA 20 MG No CeleXA 20 MG Magnesium Oxide -Mg Supplement 400 MG Magnesium Oxide -Mg Supplement 400 MG No 1{capsu le_as_n eeded} BID Magnesium Oxide -Mg Supplement 400 MG Triamcinolo ne Acetonide 0.1 % Triamcinolo ne Acetonide 0.1 % No 1{appli cation_ to_affe cted_ar ea} BID Triamcinol one Acetonide 0.1 % ProAir HFA 108 (90 Base) MCG/ACT ProAir HFA 108 (90 Base) MCG/ACT No ProAir HFA 108 (90 Base) MCG/ACT Symbicort 160-4.5 MCG/ACT Symbicort 160-4.5 MCG/ACT No Symbicort 160-4.5 MCG/ACT ProAir HFA 108 (90 Base) MCG/ACT ProAir HFA 108 (90 Base) MCG/ACT No ProAir HFA 108 (90 Base) MCG/ACT Myrbetriq 25 MG Myrbetriq 25 MG No Myrbetriq 25 MG B12 Fast Dissolve 5000 MCG B12 Fast Dissolve 5000 MCG No B12 Fast Dissolve 5000 MCG Temovate 0.05 % Temovate 0.05 % No 1{appli cation_ to_affe cted_ar ea} BID Temovate 0.05 % Cranberry Plus Vitamin C 4200-20-3 MG-MG-UNIT Cranberry Plus Vitamin C 4200-20-3 MG-MG-UNIT No Cranberry Plus Vitamin C 4200-20-3 MG-MG-UNIT Potassium Chloride Deborah ER 20 MEQ Potassium Chloride Deborah ER 20 MEQ No Potassium Chloride Deborah ER 20 MEQ Centrum Silver Adult 50+ - Centrum Silver Adult 50+ - No Centrum Silver Adult 50+ - Nasonex 50 MCG/ACT Nasonex 50 MCG/ACT No Nasonex 50 MCG/ACT Alendronate Sodium 35 MG Alendronate Sodium 35 MG No Alendronat e Sodium 35 MG Triamcinolo ne Acetonide 0.1 % Triamcinolo ne Acetonide 0.1 % No 1{appli cation_ to_affe cted_ar ea} BID Triamcinol one Acetonide 0.1 % Albuterol Sulfate HFA 108 (90 Base) MCG/ACT Albuterol Sulfate HFA 108 (90 Base) MCG/ACT No QID Albuterol Sulfate HFA 108 (90 Base) MCG/ACT busPIRone HCl 5 MG busPIRone HCl 5 MG No busPIRone HCl 5 MG Temovate 0.05 % Temovate 0.05 % No 1{appli cation_ to_affe cted_ar ea} BID Temovate 0.05 % Symbicort 160-4.5 MCG/ACT Symbicort 160-4.5 MCG/ACT No Symbicort 160-4.5 MCG/ACT Fasenra Pen 30 MG/ML Fasenra Pen 30 MG/ML No Fasenra Pen 30 MG/ML ProAir HFA 108 (90 Base) MCG/ACT ProAir HFA 108 (90 Base) MCG/ACT No ProAir HFA 108 (90 Base) MCG/ACT CeleXA 20 MG CeleXA 20 MG No CeleXA 20 MG Myrbetriq 25 MG Myrbetriq 25 MG No Myrbetriq 25 MG Turmeric 500 MG Turmeric 500 MG No Turmeric 500 MG Myrbetriq 50 MG Myrbetriq 50 MG No 1{table t} QD Myrbetriq 50 MG Citalopram Hydrobromid e 20 MG Citalopram Hydrobromid e 20 MG No Citalopram Hydrobromi de 20 MG ProAir HFA 108 (90 Base) MCG/ACT ProAir HFA 108 (90 Base) MCG/ACT No ProAir HFA 108 (90 Base) MCG/ACT Magnesium Oxide -Mg Supplement 400 MG Magnesium Oxide -Mg Supplement 400 MG No 1{capsu le_as_n eeded} BID Magnesium Oxide -Mg Supplement 400 MG Omeprazole 40 MG Omeprazole 40 MG No 1{capsu le} QD Omeprazole 40 MG Ocuvite Ocuvite No 1{table t} QD Ocuvite Nasonex 50 MCG/ACT Nasonex 50 MCG/ACT No 2{spray s_in_ea ch_nost ril} QD Nasonex 50 MCG/ACT Nasonex 50 MCG/ACT Nasonex 50 MCG/ACT No Nasonex 50 MCG/ACT Triamcinolo ne Acetonide 0.1 % Triamcinolo ne Acetonide 0.1 % No 1{appli cation_ to_affe cted_ar ea} BID Triamcinol one Acetonide 0.1 % Potassium Chloride Deborah ER 20 MEQ Potassium Chloride Deborah ER 20 MEQ No Potassium Chloride Deborah ER 20 MEQ B12 Fast Dissolve 5000 MCG B12 Fast Dissolve 5000 MCG No B12 Fast Dissolve 5000 MCG Centrum Silver Adult 50+ - Centrum Silver Adult 50+ - No Centrum Silver Adult 50+ - Cranberry Plus Vitamin C 4200-20-3 MG-MG-UNIT Cranberry Plus Vitamin C 4200-20-3 MG-MG-UNIT No Cranberry Plus Vitamin C 4200-20-3 MG-MG-UNIT Alendronate Sodium 35 MG Alendronate Sodium 35 MG No Alendronat e Sodium 35 MG Cranberry Plus Vitamin C 4200-20-3 MG-MG-UNIT Cranberry Plus Vitamin C 4200-20-3 MG-MG-UNIT No Cranberry Plus Vitamin C 4200-20-3 MG-MG-UNIT Ocuvite Ocuvite No 1{table t} QD Ocuvite Fasenra Pen 30 MG/ML Fasenra Pen 30 MG/ML No Fasenra Pen 30 MG/ML Potassium Chloride Deborah ER 20 MEQ Potassium Chloride Deborah ER 20 MEQ No Potassium Chloride Deborah ER 20 MEQ Centrum Silver Adult 50+ - Centrum Silver Adult 50+ - No Centrum Silver Adult 50+ - Myrbetriq 25 MG Myrbetriq 25 MG No Myrbetriq 25 MG Nasonex 50 MCG/ACT Nasonex 50 MCG/ACT No 2{spray s_in_ea ch_nost ril} QD Nasonex 50 MCG/ACT Myrbetriq 50 MG Myrbetriq 50 MG No 1{table t} QD Myrbetriq 50 MG Albuterol Sulfate HFA 108 (90 Base) MCG/ACT Albuterol Sulfate HFA 108 (90 Base) MCG/ACT No QID Albuterol Sulfate HFA 108 (90 Base) MCG/ACT CeleXA 20 MG CeleXA 20 MG No CeleXA 20 MG Temovate 0.05 % Temovate 0.05 % No 1{appli cation_ to_affe cted_ar ea} BID Temovate 0.05 % Nasonex 50 MCG/ACT Nasonex 50 MCG/ACT No Nasonex 50 MCG/ACT Triamcinolo ne Acetonide 0.1 % Triamcinolo ne Acetonide 0.1 % No 1{appli cation_ to_affe cted_ar ea} BID Triamcinol one Acetonide 0.1 % Omeprazole 40 MG Omeprazole 40 MG No 1{capsu le} QD Omeprazole 40 MG Turmeric 500 MG Turmeric 500 MG No Turmeric 500 MG ProAir HFA 108 (90 Base) MCG/ACT ProAir HFA 108 (90 Base) MCG/ACT No ProAir HFA 108 (90 Base) MCG/ACT B12 Fast Dissolve 5000 MCG B12 Fast Dissolve 5000 MCG No B12 Fast Dissolve 5000 MCG ProAir HFA 108 (90 Base) MCG/ACT ProAir HFA 108 (90 Base) MCG/ACT No ProAir HFA 108 (90 Base) MCG/ACT Triamcinolo ne Acetonide 0.1 % Triamcinolo ne Acetonide 0.1 % No 1{appli cation_ to_affe cted_ar ea} BID Triamcinol one Acetonide 0.1 % Magnesium Oxide -Mg Supplement 400 MG Magnesium Oxide -Mg Supplement 400 MG No 1{capsu le_as_n eeded} BID Magnesium Oxide -Mg Supplement 400 MG Symbicort 160-4.5 MCG/ACT Symbicort 160-4.5 MCG/ACT No Symbicort 160-4.5 MCG/ACT Citalopram Hydrobromid e 20 MG Citalopram Hydrobromid e 20 MG No Citalopram Hydrobromi de 20 MG busPIRone HCl 5 MG busPIRone HCl 5 MG No busPIRone HCl 5 MG Ocuvite Ocuvite No 1{table t} QD Ocuvite Turmeric 500 MG Turmeric 500 MG No Turmeric 500 MG Potassium Chloride Deborah ER 20 MEQ Potassium Chloride Deborah ER 20 MEQ No Potassium Chloride Deborah ER 20 MEQ Centrum Silver Adult 50+ - Centrum Silver Adult 50+ - No Centrum Silver Adult 50+ - Alendronate Sodium 35 MG Alendronate Sodium 35 MG No Alendronat e Sodium 35 MG Cranberry Plus Vitamin C 4200-20-3 MG-MG-UNIT Cranberry Plus Vitamin C 4200-20-3 MG-MG-UNIT No Cranberry Plus Vitamin C 4200-20-3 MG-MG-UNIT Fasenra Pen 30 MG/ML Fasenra Pen 30 MG/ML No Fasenra Pen 30 MG/ML CeleXA 20 MG CeleXA 20 MG No CeleXA 20 MG Symbicort 160-4.5 MCG/ACT Symbicort 160-4.5 MCG/ACT No Symbicort 160-4.5 MCG/ACT ProAir HFA 108 (90 Base) MCG/ACT ProAir HFA 108 (90 Base) MCG/ACT No ProAir HFA 108 (90 Base) MCG/ACT Omeprazole 40 MG Omeprazole 40 MG No 1{capsu le} QD Omeprazole 40 MG ProAir HFA 108 (90 Base) MCG/ACT ProAir HFA 108 (90 Base) MCG/ACT No ProAir HFA 108 (90 Base) MCG/ACT Triamcinolo ne Acetonide 0.1 % Triamcinolo ne Acetonide 0.1 % No 1{appli cation_ to_affe cted_ar ea} BID Triamcinol one Acetonide 0.1 % Myrbetriq 25 MG Myrbetriq 25 MG No Myrbetriq 25 MG Temovate 0.05 % Temovate 0.05 % No 1{appli cation_ to_affe cted_ar ea} BID Temovate 0.05 % Nasonex 50 MCG/ACT Nasonex 50 MCG/ACT No Nasonex 50 MCG/ACT B12 Fast Dissolve 5000 MCG B12 Fast Dissolve 5000 MCG No B12 Fast Dissolve 5000 MCG Nasonex 50 MCG/ACT Nasonex 50 MCG/ACT No 2{spray s_in_ea ch_nost ril} QD Nasonex 50 MCG/ACT Albuterol Sulfate HFA 108 (90 Base) MCG/ACT Albuterol Sulfate HFA 108 (90 Base) MCG/ACT No QID Albuterol Sulfate HFA 108 (90 Base) MCG/ACT Magnesium Oxide -Mg Supplement 400 MG Magnesium Oxide -Mg Supplement 400 MG No 1{capsu le_as_n eeded} BID Magnesium Oxide -Mg Supplement 400 MG Triamcinolo ne Acetonide 0.1 % Triamcinolo ne Acetonide 0.1 % No 1{appli cation_ to_affe cted_ar ea} BID Triamcinol one Acetonide 0.1 % Citalopram Hydrobromid e 20 MG Citalopram Hydrobromid e 20 MG No Citalopram Hydrobromi de 20 MG busPIRone HCl 5 MG busPIRone HCl 5 MG No busPIRone HCl 5 MG Ocuvite Ocuvite No 1{table t} QD Ocuvite Turmeric 500 MG Turmeric 500 MG No Turmeric 500 MG Potassium Chloride Deborah ER 20 MEQ Potassium Chloride Deborah ER 20 MEQ No Potassium Chloride Deborah ER 20 MEQ Centrum Silver Adult 50+ - Centrum Silver Adult 50+ - No Centrum Silver Adult 50+ - Alendronate Sodium 35 MG Alendronate Sodium 35 MG No Alendronat e Sodium 35 MG Cranberry Plus Vitamin C 4200-20-3 MG-MG-UNIT Cranberry Plus Vitamin C 4200-20-3 MG-MG-UNIT No Cranberry Plus Vitamin C 4200-20-3 MG-MG-UNIT Fasenra Pen 30 MG/ML Fasenra Pen 30 MG/ML No Fasenra Pen 30 MG/ML CeleXA 20 MG CeleXA 20 MG No CeleXA 20 MG Symbicort 160-4.5 MCG/ACT Symbicort 160-4.5 MCG/ACT No Symbicort 160-4.5 MCG/ACT ProAir HFA 108 (90 Base) MCG/ACT ProAir HFA 108 (90 Base) MCG/ACT No ProAir HFA 108 (90 Base) MCG/ACT Omeprazole 40 MG Omeprazole 40 MG No 1{capsu le} QD Omeprazole 40 MG ProAir HFA 108 (90 Base) MCG/ACT ProAir HFA 108 (90 Base) MCG/ACT No ProAir HFA 108 (90 Base) MCG/ACT Triamcinolo ne Acetonide 0.1 % Triamcinolo ne Acetonide 0.1 % No 1{appli cation_ to_affe cted_ar ea} BID Triamcinol one Acetonide 0.1 % Myrbetriq 25 MG Myrbetriq 25 MG No Myrbetriq 25 MG Temovate 0.05 % Temovate 0.05 % No 1{appli cation_ to_affe cted_ar ea} BID Temovate 0.05 % Nasonex 50 MCG/ACT Nasonex 50 MCG/ACT No Nasonex 50 MCG/ACT B12 Fast Dissolve 5000 MCG B12 Fast Dissolve 5000 MCG No B12 Fast Dissolve 5000 MCG Nasonex 50 MCG/ACT Nasonex 50 MCG/ACT No 2{spray s_in_ea ch_nost ril} QD Nasonex 50 MCG/ACT Albuterol Sulfate HFA 108 (90 Base) MCG/ACT Albuterol Sulfate HFA 108 (90 Base) MCG/ACT No QID Albuterol Sulfate HFA 108 (90 Base) MCG/ACT Magnesium Oxide -Mg Supplement 400 MG Magnesium Oxide -Mg Supplement 400 MG No 1{capsu le_as_n eeded} BID Magnesium Oxide -Mg Supplement 400 MG Triamcinolo ne Acetonide 0.1 % Triamcinolo ne Acetonide 0.1 % No 1{appli cation_ to_affe cted_ar ea} BID Triamcinol one Acetonide 0.1 % Citalopram Hydrobromid e 20 MG Citalopram Hydrobromid e 20 MG No Citalopram Hydrobromi de 20 MG busPIRone HCl 5 MG busPIRone HCl 5 MG No busPIRone HCl 5 MG Alendronate Sodium 35 MG Alendronate Sodium 35 MG No Alendronat e Sodium 35 MG Cranberry Plus Vitamin C 4200-20-3 MG-MG-UNIT Cranberry Plus Vitamin C 4200-20-3 MG-MG-UNIT No Cranberry Plus Vitamin C 4200-20-3 MG-MG-UNIT Ocuvite Ocuvite No 1{table t} QD Ocuvite Fasenra Pen 30 MG/ML Fasenra Pen 30 MG/ML No Fasenra Pen 30 MG/ML Potassium Chloride Deborah ER 20 MEQ Potassium Chloride Deborah ER 20 MEQ No Potassium Chloride Deborah ER 20 MEQ Centrum Silver Adult 50+ - Centrum Silver Adult 50+ - No Centrum Silver Adult 50+ - Myrbetriq 25 MG Myrbetriq 25 MG No Myrbetriq 25 MG CeleXA 20 MG CeleXA 20 MG No CeleXA 20 MG Symbicort 160-4.5 MCG/ACT Symbicort 160-4.5 MCG/ACT No Symbicort 160-4.5 MCG/ACT ProAir HFA 108 (90 Base) MCG/ACT ProAir HFA 108 (90 Base) MCG/ACT No ProAir HFA 108 (90 Base) MCG/ACT Temovate 0.05 % Temovate 0.05 % No 1{appli cation_ to_affe cted_ar ea} BID Temovate 0.05 % ProAir HFA 108 (90 Base) MCG/ACT ProAir HFA 108 (90 Base) MCG/ACT No ProAir HFA 108 (90 Base) MCG/ACT Triamcinolo ne Acetonide 0.1 % Triamcinolo ne Acetonide 0.1 % No 1{appli cation_ to_affe cted_ar ea} BID Triamcinol one Acetonide 0.1 % Omeprazole 40 MG Omeprazole 40 MG No 1{capsu le} QD Omeprazole 40 MG Turmeric 500 MG Turmeric 500 MG No Turmeric 500 MG Nasonex 50 MCG/ACT Nasonex 50 MCG/ACT No Nasonex 50 MCG/ACT B12 Fast Dissolve 5000 MCG B12 Fast Dissolve 5000 MCG No B12 Fast Dissolve 5000 MCG Nasonex 50 MCG/ACT Nasonex 50 MCG/ACT No 2{spray s_in_ea ch_nost ril} QD Nasonex 50 MCG/ACT Albuterol Sulfate HFA 108 (90 Base) MCG/ACT Albuterol Sulfate HFA 108 (90 Base) MCG/ACT No QID Albuterol Sulfate HFA 108 (90 Base) MCG/ACT Magnesium Oxide -Mg Supplement 400 MG Magnesium Oxide -Mg Supplement 400 MG No 1{capsu le_as_n eeded} BID Magnesium Oxide -Mg Supplement 400 MG Triamcinolo ne Acetonide 0.1 % Triamcinolo ne Acetonide 0.1 % No 1{appli cation_ to_affe cted_ar ea} BID Triamcinol one Acetonide 0.1 % Citalopram Hydrobromid e 20 MG Citalopram Hydrobromid e 20 MG No Citalopram Hydrobromi de 20 MG busPIRone HCl 5 MG busPIRone HCl 5 MG No busPIRone HCl 5 MG Alendronate Sodium 35 MG Alendronate Sodium 35 MG No Alendronat e Sodium 35 MG Cranberry Plus Vitamin C 4200-20-3 MG-MG-UNIT Cranberry Plus Vitamin C 4200-20-3 MG-MG-UNIT No Cranberry Plus Vitamin C 4200-20-3 MG-MG-UNIT Ocuvite Ocuvite No 1{table t} QD Ocuvite Fasenra Pen 30 MG/ML Fasenra Pen 30 MG/ML No Fasenra Pen 30 MG/ML Potassium Chloride Deborah ER 20 MEQ Potassium Chloride Deborah ER 20 MEQ No Potassium Chloride Deborah ER 20 MEQ Centrum Silver Adult 50+ - Centrum Silver Adult 50+ - No Centrum Silver Adult 50+ - Myrbetriq 25 MG Myrbetriq 25 MG No Myrbetriq 25 MG CeleXA 20 MG CeleXA 20 MG No CeleXA 20 MG Symbicort 160-4.5 MCG/ACT Symbicort 160-4.5 MCG/ACT No Symbicort 160-4.5 MCG/ACT ProAir HFA 108 (90 Base) MCG/ACT ProAir HFA 108 (90 Base) MCG/ACT No ProAir HFA 108 (90 Base) MCG/ACT Temovate 0.05 % Temovate 0.05 % No 1{appli cation_ to_affe cted_ar ea} BID Temovate 0.05 % ProAir HFA 108 (90 Base) MCG/ACT ProAir HFA 108 (90 Base) MCG/ACT No ProAir HFA 108 (90 Base) MCG/ACT Triamcinolo ne Acetonide 0.1 % Triamcinolo ne Acetonide 0.1 % No 1{appli cation_ to_affe cted_ar ea} BID Triamcinol one Acetonide 0.1 % Omeprazole 40 MG Omeprazole 40 MG No 1{capsu le} QD Omeprazole 40 MG Turmeric 500 MG Turmeric 500 MG No Turmeric 500 MG Nasonex 50 MCG/ACT Nasonex 50 MCG/ACT No Nasonex 50 MCG/ACT B12 Fast Dissolve 5000 MCG B12 Fast Dissolve 5000 MCG No B12 Fast Dissolve 5000 MCG Nasonex 50 MCG/ACT Nasonex 50 MCG/ACT No 2{spray s_in_ea ch_nost ril} QD Nasonex 50 MCG/ACT Albuterol Sulfate HFA 108 (90 Base) MCG/ACT Albuterol Sulfate HFA 108 (90 Base) MCG/ACT No QID Albuterol Sulfate HFA 108 (90 Base) MCG/ACT Magnesium Oxide -Mg Supplement 400 MG Magnesium Oxide -Mg Supplement 400 MG No 1{capsu le_as_n eeded} BID Magnesium Oxide -Mg Supplement 400 MG Triamcinolo ne Acetonide 0.1 % Triamcinolo ne Acetonide 0.1 % No 1{appli cation_ to_affe cted_ar ea} BID Triamcinol one Acetonide 0.1 % Citalopram Hydrobromid e 20 MG Citalopram Hydrobromid e 20 MG No Citalopram Hydrobromi de 20 MG busPIRone HCl 5 MG busPIRone HCl 5 MG No busPIRone HCl 5 MG Cranberry Plus Vitamin C 4200-20-3 MG-MG-UNIT Cranberry Plus Vitamin C 4200-20-3 MG-MG-UNIT No Cranberry Plus Vitamin C 4200-20-3 MG-MG-UNIT B12 Fast Dissolve 5000 MCG B12 Fast Dissolve 5000 MCG No B12 Fast Dissolve 5000 MCG Ocuvite Ocuvite No 1{table t} QD Ocuvite Fasenra Pen 30 MG/ML Fasenra Pen 30 MG/ML No Fasenra Pen 30 MG/ML Potassium Chloride Deborah ER 20 MEQ Potassium Chloride Deborah ER 20 MEQ No Potassium Chloride Deborah ER 20 MEQ Centrum Silver Adult 50+ - Centrum Silver Adult 50+ - No Centrum Silver Adult 50+ - Myrbetriq 25 MG Myrbetriq 25 MG No Myrbetriq 25 MG Symbicort 160-4.5 MCG/ACT Symbicort 160-4.5 MCG/ACT No Symbicort 160-4.5 MCG/ACT Alendronate Sodium 35 MG Alendronate Sodium 35 MG No Alendronat e Sodium 35 MG ProAir HFA 108 (90 Base) MCG/ACT ProAir HFA 108 (90 Base) MCG/ACT No ProAir HFA 108 (90 Base) MCG/ACT Triamcinolo ne Acetonide 0.1 % Triamcinolo ne Acetonide 0.1 % No 1{appli cation_ to_affe cted_ar ea} BID Triamcinol one Acetonide 0.1 % Temovate 0.05 % Temovate 0.05 % No 1{appli cation_ to_affe cted_ar ea} BID Temovate 0.05 % ProAir HFA 108 (90 Base) MCG/ACT ProAir HFA 108 (90 Base) MCG/ACT No ProAir HFA 108 (90 Base) MCG/ACT CeleXA 20 MG CeleXA 20 MG No CeleXA 20 MG Omeprazole 40 MG Omeprazole 40 MG No 1{capsu le} QD Omeprazole 40 MG Turmeric 500 MG Turmeric 500 MG No Turmeric 500 MG Nasonex 50 MCG/ACT Nasonex 50 MCG/ACT No Nasonex 50 MCG/ACT Nasonex 50 MCG/ACT Nasonex 50 MCG/ACT No 2{spray s_in_ea ch_nost ril} QD Nasonex 50 MCG/ACT Albuterol Sulfate HFA 108 (90 Base) MCG/ACT Albuterol Sulfate HFA 108 (90 Base) MCG/ACT No QID Albuterol Sulfate HFA 108 (90 Base) MCG/ACT Magnesium Oxide -Mg Supplement 400 MG Magnesium Oxide -Mg Supplement 400 MG No 1{capsu le_as_n eeded} BID Magnesium Oxide -Mg Supplement 400 MG Triamcinolo ne Acetonide 0.1 % Triamcinolo ne Acetonide 0.1 % No 1{appli cation_ to_affe cted_ar ea} BID Triamcinol one Acetonide 0.1 % Citalopram Hydrobromid e 20 MG Citalopram Hydrobromid e 20 MG No Citalopram Hydrobromi de 20 MG busPIRone HCl 5 MG busPIRone HCl 5 MG No busPIRone HCl 5 MG Cranberry Plus Vitamin C 4200-20-3 MG-MG-UNIT Cranberry Plus Vitamin C 4200-20-3 MG-MG-UNIT No Cranberry Plus Vitamin C 4200-20-3 MG-MG-UNIT B12 Fast Dissolve 5000 MCG B12 Fast Dissolve 5000 MCG No B12 Fast Dissolve 5000 MCG Ocuvite Ocuvite No 1{table t} QD Ocuvite Fasenra Pen 30 MG/ML Fasenra Pen 30 MG/ML No Fasenra Pen 30 MG/ML Potassium Chloride Deborah ER 20 MEQ Potassium Chloride Deborah ER 20 MEQ No Potassium Chloride Deborah ER 20 MEQ Centrum Silver Adult 50+ - Centrum Silver Adult 50+ - No Centrum Silver Adult 50+ - Myrbetriq 25 MG Myrbetriq 25 MG No Myrbetriq 25 MG Symbicort 160-4.5 MCG/ACT Symbicort 160-4.5 MCG/ACT No Symbicort 160-4.5 MCG/ACT Alendronate Sodium 35 MG Alendronate Sodium 35 MG No Alendronat e Sodium 35 MG ProAir HFA 108 (90 Base) MCG/ACT ProAir HFA 108 (90 Base) MCG/ACT No ProAir HFA 108 (90 Base) MCG/ACT Triamcinolo ne Acetonide 0.1 % Triamcinolo ne Acetonide 0.1 % No 1{appli cation_ to_affe cted_ar ea} BID Triamcinol one Acetonide 0.1 % Temovate 0.05 % Temovate 0.05 % No 1{appli cation_ to_affe cted_ar ea} BID Temovate 0.05 % ProAir HFA 108 (90 Base) MCG/ACT ProAir HFA 108 (90 Base) MCG/ACT No ProAir HFA 108 (90 Base) MCG/ACT CeleXA 20 MG CeleXA 20 MG No CeleXA 20 MG Omeprazole 40 MG Omeprazole 40 MG No 1{capsu le} QD Omeprazole 40 MG Turmeric 500 MG Turmeric 500 MG No Turmeric 500 MG Nasonex 50 MCG/ACT Nasonex 50 MCG/ACT No Nasonex 50 MCG/ACT Nasonex 50 MCG/ACT Nasonex 50 MCG/ACT No 2{spray s_in_ea ch_nost ril} QD Nasonex 50 MCG/ACT Albuterol Sulfate HFA 108 (90 Base) MCG/ACT Albuterol Sulfate HFA 108 (90 Base) MCG/ACT No QID Albuterol Sulfate HFA 108 (90 Base) MCG/ACT Magnesium Oxide -Mg Supplement 400 MG Magnesium Oxide -Mg Supplement 400 MG No 1{capsu le_as_n eeded} BID Magnesium Oxide -Mg Supplement 400 MG Triamcinolo ne Acetonide 0.1 % Triamcinolo ne Acetonide 0.1 % No 1{appli cation_ to_affe cted_ar ea} BID Triamcinol one Acetonide 0.1 % Citalopram Hydrobromid e 20 MG Citalopram Hydrobromid e 20 MG No Citalopram Hydrobromi de 20 MG busPIRone HCl 5 MG busPIRone HCl 5 MG No busPIRone HCl 5 MG Docusate Sodium 100 MG Docusate Sodium 100 MG No 1{capsu le_as_n eeded} QD Docusate Sodium 100 MG Ocuvite Ocuvite No 1{table t} QD Ocuvite Mesalamine 1.2 GM Mesalamine 1.2 GM No 2{table ts_with _a_meal } QD Mesalamine 1.2 GM Cranberry Plus Vitamin C 4200-20-3 MG-MG-UNIT Cranberry Plus Vitamin C 4200-20-3 MG-MG-UNIT No Cranberry Plus Vitamin C 4200-20-3 MG-MG-UNIT Triamcinolo ne Acetonide 0.1 % Triamcinolo ne Acetonide 0.1 % No 1{appli cation_ to_affe cted_ar ea} BID Triamcinol one Acetonide 0.1 % B12 Fast Dissolve 5000 MCG B12 Fast Dissolve 5000 MCG No B12 Fast Dissolve 5000 MCG ProAir HFA 108 (90 Base) MCG/ACT ProAir HFA 108 (90 Base) MCG/ACT No ProAir HFA 108 (90 Base) MCG/ACT Turmeric 500 MG Turmeric 500 MG No Turmeric 500 MG Triamcinolo ne Acetonide 0.1 % Triamcinolo ne Acetonide 0.1 % No 1{appli cation_ to_affe cted_ar ea} BID Triamcinol one Acetonide 0.1 % Temovate 0.05 % Temovate 0.05 % No 1{appli cation_ to_affe cted_ar ea} BID Temovate 0.05 % Omeprazole Omeprazole Yes Na Wilson 1 capsule [facility] Celexa Celexa Yes Na Wilson TAKE 1 TABLET BY MOUTH ONCE DAILY [facility] Symbicort Symbicort Yes Na Wilson INHA LE 2 PUFFS BY MOUTH 2 TIMES A DAY [facility] Myrbetriq Myrbetriq Yes Na Wilson TAKE 1 TABLET BY MOUTH ONCE DAILY [facility] Temovate Temovate Yes Na Wilson 1 applicatio n to affected area [facility] ProAir HFA ProAir HFA Yes Na Wilson IN CHOU 2 PUFFS 4 TIMES A DAY FOR 30 DAYS [facility] Alendronate Sodium Alendronate Sodium Yes Na Wilson TAKE 1 TABLET BY MOUTH EVERY WEEK [facility] Cranberry Plus Vitamin C Cranberry Plus Vitamin C Yes Na Wilson as directed [facility] Centrum Silver Adult 50+ Centrum Silver Adult 50+ Yes Na Wilson as directed [facility] Turmeric Turmeric Yes Na Wilson as directed [facility] Potassium Chloride Deborah ER Potassium Chloride Deborah ER Yes Na Wilson TAKE 1 TABLET BY MOUTH DAILY [facility] Ocuvite Ocuvite Yes Na Wilson 1 tablet [facility] B12 Fast Dissolve B12 Fast Dissolve Yes Na Wilson not defined [facility] ProAir HFA ProAir HFA Yes Na Wilson IN CHOU 2 PUFFS 4 TIMES A DAY FOR 30 DAYS [facility] Citalopram Hydrobromid e Citalopram Hydrobromid e Yes Na Wilson TAKE 1 TABLET BY MOUTH ONCE DAILY [facility] Myrbetriq 25 MG Myrbetriq 25 MG No Myrbetriq 25 MG ProAir HFA 108 (90 Base) MCG/ACT ProAir HFA 108 (90 Base) MCG/ACT No ProAir HFA 108 (90 Base) MCG/ACT Albuterol Sulfate HFA 108 (90 Base) MCG/ACT Albuterol Sulfate HFA 108 (90 Base) MCG/ACT No QID Albuterol Sulfate HFA 108 (90 Base) MCG/ACT Alendronate Sodium 35 MG Alendronate Sodium 35 MG No Alendronat e Sodium 35 MG Magnesium Oxide -Mg Supplement 400 MG Magnesium Oxide -Mg Supplement 400 MG No 1{capsu le_as_n eeded} BID Magnesium Oxide -Mg Supplement 400 MG Nasonex 50 MCG/ACT Nasonex 50 MCG/ACT No 2{spray s_in_ea ch_nost ril} QD Nasonex 50 MCG/ACT Centrum Silver Adult 50+ - Centrum Silver Adult 50+ - No Centrum Silver Adult 50+ - Fasenra Pen 30 MG/ML Fasenra Pen 30 MG/ML No Fasenra Pen 30 MG/ML busPIRone HCl 5 MG busPIRone HCl 5 MG No busPIRone HCl 5 MG Potassium Chloride Deborah ER 20 MEQ Potassium Chloride Deborah ER 20 MEQ No Potassium Chloride Deborah ER 20 MEQ Omeprazole 40 MG Omeprazole 40 MG No 1{capsu le} QD Omeprazole 40 MG guaiFENesin 400 MG guaiFENesin 400 MG No 1{table t_as_ne eded} 6xD guaiFENesi n 400 MG CeleXA 20 MG CeleXA 20 MG No CeleXA 20 MG Symbicort 160-4.5 MCG/ACT Symbicort 160-4.5 MCG/ACT No Symbicort 160-4.5 MCG/ACT Docusate Sodium 100 MG Docusate Sodium 100 MG No 1{capsu le_as_n eeded} QD Docusate Sodium 100 MG Ocuvite Ocuvite No 1{table t} QD Ocuvite Mesalamine 1.2 GM Mesalamine 1.2 GM No 2{table ts_with _a_meal } QD Mesalamine 1.2 GM Cranberry Plus Vitamin C 4200-20-3 MG-MG-UNIT Cranberry Plus Vitamin C 4200-20-3 MG-MG-UNIT No Cranberry Plus Vitamin C 4200-20-3 MG-MG-UNIT Triamcinolo ne Acetonide 0.1 % Triamcinolo ne Acetonide 0.1 % No 1{appli cation_ to_affe cted_ar ea} BID Triamcinol one Acetonide 0.1 % B12 Fast Dissolve 5000 MCG B12 Fast Dissolve 5000 MCG No B12 Fast Dissolve 5000 MCG ProAir HFA 108 (90 Base) MCG/ACT ProAir HFA 108 (90 Base) MCG/ACT No ProAir HFA 108 (90 Base) MCG/ACT Turmeric 500 MG Turmeric 500 MG No Turmeric 500 MG Triamcinolo ne Acetonide 0.1 % Triamcinolo ne Acetonide 0.1 % No 1{appli cation_ to_affe cted_ar ea} BID Triamcinol one Acetonide 0.1 % Temovate 0.05 % Temovate 0.05 % No 1{appli cation_ to_affe cted_ar ea} BID Temovate 0.05 % Myrbetriq 25 MG Myrbetriq 25 MG No Myrbetriq 25 MG ProAir HFA 108 (90 Base) MCG/ACT ProAir HFA 108 (90 Base) MCG/ACT No ProAir HFA 108 (90 Base) MCG/ACT Albuterol Sulfate HFA 108 (90 Base) MCG/ACT Albuterol Sulfate HFA 108 (90 Base) MCG/ACT No QID Albuterol Sulfate HFA 108 (90 Base) MCG/ACT Alendronate Sodium 35 MG Alendronate Sodium 35 MG No Alendronat e Sodium 35 MG Magnesium Oxide -Mg Supplement 400 MG Magnesium Oxide -Mg Supplement 400 MG No 1{capsu le_as_n eeded} BID Magnesium Oxide -Mg Supplement 400 MG Nasonex 50 MCG/ACT Nasonex 50 MCG/ACT No 2{spray s_in_ea ch_nost ril} QD Nasonex 50 MCG/ACT Centrum Silver Adult 50+ - Centrum Silver Adult 50+ - No Centrum Silver Adult 50+ - Fasenra Pen 30 MG/ML Fasenra Pen 30 MG/ML No Fasenra Pen 30 MG/ML busPIRone HCl 5 MG busPIRone HCl 5 MG No busPIRone HCl 5 MG Potassium Chloride Deborah ER 20 MEQ Potassium Chloride Deborah ER 20 MEQ No Potassium Chloride Deborah ER 20 MEQ Omeprazole 40 MG Omeprazole 40 MG No 1{capsu le} QD Omeprazole 40 MG guaiFENesin 400 MG guaiFENesin 400 MG No 1{table t_as_ne eded} 6xD guaiFENesi n 400 MG CeleXA 20 MG CeleXA 20 MG No CeleXA 20 MG Symbicort 160-4.5 MCG/ACT Symbicort 160-4.5 MCG/ACT No Symbicort 160-4.5 MCG/ACT Magnesium Oxide -Mg Supplement 400 MG Magnesium Oxide -Mg Supplement 400 MG No 1{capsu le_as_n eeded} BID Magnesium Oxide -Mg Supplement 400 MG B12 Fast Dissolve 5000 MCG B12 Fast Dissolve 5000 MCG No B12 Fast Dissolve 5000 MCG Centrum Silver Adult 50+ - Centrum Silver Adult 50+ - No Centrum Silver Adult 50+ - Docusate Sodium 100 MG Docusate Sodium 100 MG No 1{capsu le_as_n eeded} QD Docusate Sodium 100 MG ProAir HFA 108 (90 Base) MCG/ACT ProAir HFA 108 (90 Base) MCG/ACT No ProAir HFA 108 (90 Base) MCG/ACT Cranberry Plus Vitamin C 4200-20-3 MG-MG-UNIT Cranberry Plus Vitamin C 4200-20-3 MG-MG-UNIT No Cranberry Plus Vitamin C 4200-20-3 MG-MG-UNIT Symbicort 160-4.5 MCG/ACT Symbicort 160-4.5 MCG/ACT No 2{puffs } BID Symbicort 160-4.5 MCG/ACT Ocuvite Ocuvite No 1{table t} QD Ocuvite Omeprazole 40 MG Omeprazole 40 MG No 1{capsu le} QD Omeprazole 40 MG Triamcinolo ne Acetonide 0.1 % Triamcinolo ne Acetonide 0.1 % No 1{appli cation_ to_affe cted_ar ea} BID Triamcinol one Acetonide 0.1 % Triamcinolo ne Acetonide 0.1 % Triamcinolo ne Acetonide 0.1 % No 1{appli cation_ to_affe cted_ar ea} BID Triamcinol one Acetonide 0.1 % Alendronate Sodium 35 MG Alendronate Sodium 35 MG No Alendronat e Sodium 35 MG Temovate 0.05 % Temovate 0.05 % No 1{appli cation_ to_affe cted_ar ea} BID Temovate 0.05 % Fasenra Pen 30 MG/ML Fasenra Pen 30 MG/ML No Fasenra Pen 30 MG/ML Myrbetriq 25 MG Myrbetriq 25 MG No Myrbetriq 25 MG busPIRone HCl 5 MG busPIRone HCl 5 MG No busPIRone HCl 5 MG Nasonex 50 MCG/ACT Nasonex 50 MCG/ACT No 2{spray s_in_ea ch_nost ril} QD Nasonex 50 MCG/ACT Albuterol Sulfate HFA 108 (90 Base) MCG/ACT Albuterol Sulfate HFA 108 (90 Base) MCG/ACT No 2{puffs _as_nee ded} QID Albuterol Sulfate HFA 108 (90 Base) MCG/ACT Turmeric 500 MG Turmeric 500 MG No Turmeric 500 MG Mesalamine 1.2 GM Mesalamine 1.2 GM No 2{table ts_with _a_meal } QD Mesalamine 1.2 GM guaiFENesin 400 MG guaiFENesin 400 MG No 1{table t_as_ne eded} 6xD guaiFENesi n 400 MG Potassium Chloride Deborah ER 20 MEQ Potassium Chloride Deborah ER 20 MEQ No Potassium Chloride Deborah ER 20 MEQ CeleXA 20 MG CeleXA 20 MG No QD CeleXA 20 MG Magnesium Oxide -Mg Supplement 400 MG Magnesium Oxide -Mg Supplement 400 MG No 1{capsu le_as_n eeded} BID Magnesium Oxide -Mg Supplement 400 MG B12 Fast Dissolve 5000 MCG B12 Fast Dissolve 5000 MCG No B12 Fast Dissolve 5000 MCG Centrum Silver Adult 50+ - Centrum Silver Adult 50+ - No Centrum Silver Adult 50+ - Docusate Sodium 100 MG Docusate Sodium 100 MG No 1{capsu le_as_n eeded} QD Docusate Sodium 100 MG ProAir HFA 108 (90 Base) MCG/ACT ProAir HFA 108 (90 Base) MCG/ACT No ProAir HFA 108 (90 Base) MCG/ACT Cranberry Plus Vitamin C 4200-20-3 MG-MG-UNIT Cranberry Plus Vitamin C 4200-20-3 MG-MG-UNIT No Cranberry Plus Vitamin C 4200-20-3 MG-MG-UNIT Symbicort 160-4.5 MCG/ACT Symbicort 160-4.5 MCG/ACT No 2{puffs } BID Symbicort 160-4.5 MCG/ACT Ocuvite Ocuvite No 1{table t} QD Ocuvite Omeprazole 40 MG Omeprazole 40 MG No 1{capsu le} QD Omeprazole 40 MG Triamcinolo ne Acetonide 0.1 % Triamcinolo ne Acetonide 0.1 % No 1{appli cation_ to_affe cted_ar ea} BID Triamcinol one Acetonide 0.1 % Triamcinolo ne Acetonide 0.1 % Triamcinolo ne Acetonide 0.1 % No 1{appli cation_ to_affe cted_ar ea} BID Triamcinol one Acetonide 0.1 % Alendronate Sodium 35 MG Alendronate Sodium 35 MG No Alendronat e Sodium 35 MG Temovate 0.05 % Temovate 0.05 % No 1{appli cation_ to_affe cted_ar ea} BID Temovate 0.05 % Fasenra Pen 30 MG/ML Fasenra Pen 30 MG/ML No Fasenra Pen 30 MG/ML Myrbetriq 25 MG Myrbetriq 25 MG No Myrbetriq 25 MG busPIRone HCl 5 MG busPIRone HCl 5 MG No busPIRone HCl 5 MG Nasonex 50 MCG/ACT Nasonex 50 MCG/ACT No 2{spray s_in_ea ch_nost ril} QD Nasonex 50 MCG/ACT Albuterol Sulfate HFA 108 (90 Base) MCG/ACT Albuterol Sulfate HFA 108 (90 Base) MCG/ACT No 2{puffs _as_nee ded} QID Albuterol Sulfate HFA 108 (90 Base) MCG/ACT Turmeric 500 MG Turmeric 500 MG No Turmeric 500 MG Mesalamine 1.2 GM Mesalamine 1.2 GM No 2{table ts_with _a_meal } QD Mesalamine 1.2 GM guaiFENesin 400 MG guaiFENesin 400 MG No 1{table t_as_ne eded} 6xD guaiFENesi n 400 MG Potassium Chloride Deborah ER 20 MEQ Potassium Chloride Deborah ER 20 MEQ No Potassium Chloride Deborah ER 20 MEQ CeleXA 20 MG CeleXA 20 MG No QD CeleXA 20 MG Magnesium Oxide -Mg Supplement 400 MG Magnesium Oxide -Mg Supplement 400 MG No 1{capsu le_as_n eeded} BID Magnesium Oxide -Mg Supplement 400 MG B12 Fast Dissolve 5000 MCG B12 Fast Dissolve 5000 MCG No B12 Fast Dissolve 5000 MCG Centrum Silver Adult 50+ - Centrum Silver Adult 50+ - No Centrum Silver Adult 50+ - Docusate Sodium 100 MG Docusate Sodium 100 MG No 1{capsu le_as_n eeded} QD Docusate Sodium 100 MG ProAir HFA 108 (90 Base) MCG/ACT ProAir HFA 108 (90 Base) MCG/ACT No ProAir HFA 108 (90 Base) MCG/ACT Cranberry Plus Vitamin C 4200-20-3 MG-MG-UNIT Cranberry Plus Vitamin C 4200-20-3 MG-MG-UNIT No Cranberry Plus Vitamin C 4200-20-3 MG-MG-UNIT Symbicort 160-4.5 MCG/ACT Symbicort 160-4.5 MCG/ACT No 2{puffs } BID Symbicort 160-4.5 MCG/ACT Ocuvite Ocuvite No 1{table t} QD Ocuvite Omeprazole 40 MG Omeprazole 40 MG No 1{capsu le} QD Omeprazole 40 MG Triamcinolo ne Acetonide 0.1 % Triamcinolo ne Acetonide 0.1 % No 1{appli cation_ to_affe cted_ar ea} BID Triamcinol one Acetonide 0.1 % Triamcinolo ne Acetonide 0.1 % Triamcinolo ne Acetonide 0.1 % No 1{appli cation_ to_affe cted_ar ea} BID Triamcinol one Acetonide 0.1 % Myrbetriq 25 MG Myrbetriq 25 MG No Myrbetriq 25 MG Temovate 0.05 % Temovate 0.05 % No 1{appli cation_ to_affe cted_ar ea} BID Temovate 0.05 % Fasenra Pen 30 MG/ML Fasenra Pen 30 MG/ML No Fasenra Pen 30 MG/ML Albuterol Sulfate HFA 108 (90 Base) MCG/ACT Albuterol Sulfate HFA 108 (90 Base) MCG/ACT No Albuterol Sulfate HFA 108 (90 Base) MCG/ACT busPIRone HCl 5 MG busPIRone HCl 5 MG No busPIRone HCl 5 MG Nasonex 50 MCG/ACT Nasonex 50 MCG/ACT No 2{spray s_in_ea ch_nost ril} QD Nasonex 50 MCG/ACT CeleXA 20 MG CeleXA 20 MG No QD CeleXA 20 MG Turmeric 500 MG Turmeric 500 MG No Turmeric 500 MG Mesalamine 1.2 GM Mesalamine 1.2 GM No 2{table ts_with _a_meal } QD Mesalamine 1.2 GM guaiFENesin 400 MG guaiFENesin 400 MG No 1{table t_as_ne eded} 6xD guaiFENesi n 400 MG Potassium Chloride Deborah ER 20 MEQ Potassium Chloride Deborah ER 20 MEQ No Potassium Chloride Deborah ER 20 MEQ Alendronate Sodium 35 MG Alendronate Sodium 35 MG No Alendronat e Sodium 35 MG Alendronate Sodium 35 MG Alendronate Sodium 35 MG No Alendronat e Sodium 35 MG Mesalamine 1.2 GM Mesalamine 1.2 GM No 2{table ts_with _a_meal } QD Mesalamine 1.2 GM Centrum Silver Adult 50+ - Centrum Silver Adult 50+ - No Centrum Silver Adult 50+ - Omeprazole 40 MG Omeprazole 40 MG No 1{capsu le} QD Omeprazole 40 MG Citalopram Hydrobromid e 20 MG Citalopram Hydrobromid e 20 MG No QD Citalopram Hydrobromi de 20 MG Albuterol Sulfate HFA 108 (90 Base) MCG/ACT Albuterol Sulfate HFA 108 (90 Base) MCG/ACT No Albuterol Sulfate HFA 108 (90 Base) MCG/ACT Cranberry Cranberry No Cranberry Atorvastati n Calcium 10 MG Atorvastati n Calcium 10 MG No 1{table t} QD Atorvastat in Calcium 10 MG Cranberry Plus Vitamin C 4200-20-3 MG-MG-UNIT Cranberry Plus Vitamin C 4200-20-3 MG-MG-UNIT No Cranberry Plus Vitamin C 4200-20-3 MG-MG-UNIT Symbicort 160-4.5 MCG/ACT Symbicort 160-4.5 MCG/ACT No 2{puffs } BID Symbicort 160-4.5 MCG/ACT Nasonex 50 MCG/ACT Nasonex 50 MCG/ACT No 2{spray s_in_ea ch_nost ril} QD Nasonex 50 MCG/ACT Docusate Sodium 100 MG Docusate Sodium 100 MG No 1{capsu le_as_n eeded} QD Docusate Sodium 100 MG B12 Fast Dissolve 5000 MCG B12 Fast Dissolve 5000 MCG No B12 Fast Dissolve 5000 MCG ProAir HFA 108 (90 Base) MCG/ACT ProAir HFA 108 (90 Base) MCG/ACT No ProAir HFA 108 (90 Base) MCG/ACT Potassium Chloride Deborah ER 20 MEQ Potassium Chloride Deborah ER 20 MEQ No Potassium Chloride Deborah ER 20 MEQ Ocuvite Ocuvite No 1{table t} QD Ocuvite Turmeric 500 MG Turmeric 500 MG No Turmeric 500 MG Myrbetriq 50 MG Myrbetriq 50 MG No Myrbetriq 50 MG Magnesium Oxide -Mg Supplement 400 MG Magnesium Oxide -Mg Supplement 400 MG No 1{capsu le_as_n eeded} BID Magnesium Oxide -Mg Supplement 400 MG Alendronate Sodium 35 MG Alendronate Sodium 35 MG No Alendronat e Sodium 35 MG Ocuvite Ocuvite No 1{table t} QD Ocuvite Mesalamine 1.2 GM Mesalamine 1.2 GM No 2{table ts_with _a_meal } QD Mesalamine 1.2 GM Centrum Silver Adult 50+ - Centrum Silver Adult 50+ - No Centrum Silver Adult 50+ - Omeprazole 40 MG Omeprazole 40 MG No 1{capsu le} QD Omeprazole 40 MG Citalopram Hydrobromid e 20 MG Citalopram Hydrobromid e 20 MG No QD Citalopram Hydrobromi de 20 MG Fasenra Pen 30 MG/ML Fasenra Pen 30 MG/ML No Fasenra Pen 30 MG/ML Albuterol Sulfate HFA 108 (90 Base) MCG/ACT Albuterol Sulfate HFA 108 (90 Base) MCG/ACT No Albuterol Sulfate HFA 108 (90 Base) MCG/ACT Cranberry Cranberry No Cranberry Atorvastati n Calcium 10 MG Atorvastati n Calcium 10 MG No 1{table t} QD Atorvastat in Calcium 10 MG Symbicort 160-4.5 MCG/ACT Symbicort 160-4.5 MCG/ACT No 2{puffs } BID Symbicort 160-4.5 MCG/ACT Nasonex 50 MCG/ACT Nasonex 50 MCG/ACT No 2{spray s_in_ea ch_nost ril} QD Nasonex 50 MCG/ACT Docusate Sodium 100 MG Docusate Sodium 100 MG No 1{capsu le_as_n eeded} QD Docusate Sodium 100 MG B12 Fast Dissolve 5000 MCG B12 Fast Dissolve 5000 MCG No B12 Fast Dissolve 5000 MCG ProAir HFA 108 (90 Base) MCG/ACT ProAir HFA 108 (90 Base) MCG/ACT No ProAir HFA 108 (90 Base) MCG/ACT Potassium Chloride Deborah ER 20 MEQ Potassium Chloride Deborah ER 20 MEQ No Potassium Chloride Deborah ER 20 MEQ Ocuvite Ocuvite No 1{table t} QD Ocuvite Potassium Chloride Deborah ER 20 MEQ Potassium Chloride Deborah ER 20 MEQ No Potassium Chloride Deborah ER 20 MEQ Turmeric 500 MG Turmeric 500 MG No Turmeric 500 MG Myrbetriq 50 MG Myrbetriq 50 MG No Myrbetriq 50 MG Magnesium Oxide -Mg Supplement 400 MG Magnesium Oxide -Mg Supplement 400 MG No 1{capsu le_as_n eeded} BID Magnesium Oxide -Mg Supplement 400 MG Alendronate Sodium 35 MG Alendronate Sodium 35 MG No Alendronat e Sodium 35 MG Centrum Silver Adult 50+ - Centrum Silver Adult 50+ - No Centrum Silver Adult 50+ - Myrbetriq 25 MG Myrbetriq 25 MG No Myrbetriq 25 MG Mesalamine 1.2 GM Mesalamine 1.2 GM No 2{table ts_with _a_meal } QD Mesalamine 1.2 GM Centrum Silver Adult 50+ - Centrum Silver Adult 50+ - No Centrum Silver Adult 50+ - Omeprazole 40 MG Omeprazole 40 MG No 1{capsu le} QD Omeprazole 40 MG Citalopram Hydrobromid e 20 MG Citalopram Hydrobromid e 20 MG No QD Citalopram Hydrobromi de 20 MG Albuterol Sulfate HFA 108 (90 Base) MCG/ACT Albuterol Sulfate HFA 108 (90 Base) MCG/ACT No Albuterol Sulfate HFA 108 (90 Base) MCG/ACT Cranberry Cranberry No Cranberry Atorvastati n Calcium 10 MG Atorvastati n Calcium 10 MG No 1{table t} QD Atorvastat in Calcium 10 MG Nasonex 50 MCG/ACT Nasonex 50 MCG/ACT No 2{spray s_in_ea ch_nost ril} QD Nasonex 50 MCG/ACT Symbicort 160-4.5 MCG/ACT Symbicort 160-4.5 MCG/ACT No 2{puffs } BID Symbicort 160-4.5 MCG/ACT Nasonex 50 MCG/ACT Nasonex 50 MCG/ACT No 2{spray s_in_ea ch_nost ril} QD Nasonex 50 MCG/ACT Docusate Sodium 100 MG Docusate Sodium 100 MG No 1{capsu le_as_n eeded} QD Docusate Sodium 100 MG B12 Fast Dissolve 5000 MCG B12 Fast Dissolve 5000 MCG No B12 Fast Dissolve 5000 MCG ProAir HFA 108 (90 Base) MCG/ACT ProAir HFA 108 (90 Base) MCG/ACT No ProAir HFA 108 (90 Base) MCG/ACT Potassium Chloride Deborah ER 20 MEQ Potassium Chloride Deborah ER 20 MEQ No Potassium Chloride Deborah ER 20 MEQ Ocuvite Ocuvite No 1{table t} QD Ocuvite Turmeric 500 MG Turmeric 500 MG No Turmeric 500 MG Myrbetriq 50 MG Myrbetriq 50 MG No Myrbetriq 50 MG Magnesium Oxide -Mg Supplement 400 MG Magnesium Oxide -Mg Supplement 400 MG No 1{capsu le_as_n eeded} BID Magnesium Oxide -Mg Supplement 400 MG Myrbetriq 50 MG Myrbetriq 50 MG No 1{table t} QD Myrbetriq 50 MG Alendronate Sodium 35 MG Alendronate Sodium 35 MG No Alendronat e Sodium 35 MG Mesalamine 1.2 GM Mesalamine 1.2 GM No 2{table ts_with _a_meal } QD Mesalamine 1.2 GM Centrum Silver Adult 50+ - Centrum Silver Adult 50+ - No Centrum Silver Adult 50+ - Omeprazole 40 MG Omeprazole 40 MG No 1{capsu le} QD Omeprazole 40 MG Citalopram Hydrobromid e 20 MG Citalopram Hydrobromid e 20 MG No QD Citalopram Hydrobromi de 20 MG Albuterol Sulfate HFA 108 (90 Base) MCG/ACT Albuterol Sulfate HFA 108 (90 Base) MCG/ACT No Albuterol Sulfate HFA 108 (90 Base) MCG/ACT Albuterol Sulfate HFA 108 (90 Base) MCG/ACT Albuterol Sulfate HFA 108 (90 Base) MCG/ACT No QID Albuterol Sulfate HFA 108 (90 Base) MCG/ACT Cranberry Cranberry No Cranberry Atorvastati n Calcium 10 MG Atorvastati n Calcium 10 MG No 1{table t} QD Atorvastat in Calcium 10 MG Symbicort 160-4.5 MCG/ACT Symbicort 160-4.5 MCG/ACT No 2{puffs } BID Symbicort 160-4.5 MCG/ACT Nasonex 50 MCG/ACT Nasonex 50 MCG/ACT No 2{spray s_in_ea ch_nost ril} QD Nasonex 50 MCG/ACT Docusate Sodium 100 MG Docusate Sodium 100 MG No 1{capsu le_as_n eeded} QD Docusate Sodium 100 MG B12 Fast Dissolve 5000 MCG B12 Fast Dissolve 5000 MCG No B12 Fast Dissolve 5000 MCG ProAir HFA 108 (90 Base) MCG/ACT ProAir HFA 108 (90 Base) MCG/ACT No ProAir HFA 108 (90 Base) MCG/ACT Potassium Chloride Deborah ER 20 MEQ Potassium Chloride Deborah ER 20 MEQ No Potassium Chloride Deborah ER 20 MEQ Ocuvite Ocuvite No 1{table t} QD Ocuvite Turmeric 500 MG Turmeric 500 MG No Turmeric 500 MG CeleXA 20 MG CeleXA 20 MG No CeleXA 20 MG Myrbetriq 50 MG Myrbetriq 50 MG No Myrbetriq 50 MG Magnesium Oxide -Mg Supplement 400 MG Magnesium Oxide -Mg Supplement 400 MG No 1{capsu le_as_n eeded} BID Magnesium Oxide -Mg Supplement 400 MG Alendronate Sodium 35 MG Alendronate Sodium 35 MG No Alendronat e Sodium 35 MG Temovate 0.05 % Temovate 0.05 % No 1{appli cation_ to_affe cted_ar ea} BID Temovate 0.05 % Mesalamine 1.2 GM Mesalamine 1.2 GM No 2{table ts_with _a_meal } QD Mesalamine 1.2 GM Centrum Silver Adult 50+ - Centrum Silver Adult 50+ - No Centrum Silver Adult 50+ - Omeprazole 40 MG Omeprazole 40 MG No 1{capsu le} QD Omeprazole 40 MG Ocuvite Ocuvite No 1{table t} QD Ocuvite Albuterol Sulfate HFA 108 (90 Base) MCG/ACT Albuterol Sulfate HFA 108 (90 Base) MCG/ACT No Albuterol Sulfate HFA 108 (90 Base) MCG/ACT Symbicort 160-4.5 MCG/ACT Symbicort 160-4.5 MCG/ACT No 2{puffs } BID Symbicort 160-4.5 MCG/ACT Alendronate Sodium 35 MG Alendronate Sodium 35 MG No Alendronat e Sodium 35 MG Atorvastati n Calcium 10 MG Atorvastati n Calcium 10 MG No 1{table t} QD Atorvastat in Calcium 10 MG Nasonex 50 MCG/ACT Nasonex 50 MCG/ACT No 2{spray s_in_ea ch_nost ril} QD Nasonex 50 MCG/ACT Nasonex 50 MCG/ACT Nasonex 50 MCG/ACT No Nasonex 50 MCG/ACT B12 Fast Dissolve 5000 MCG B12 Fast Dissolve 5000 MCG No B12 Fast Dissolve 5000 MCG Citalopram Hydrobromid e 20 MG Citalopram Hydrobromid e 20 MG No QD Citalopram Hydrobromi de 20 MG Cranberry Cranberry No Cranberry Turmeric 500 MG Turmeric 500 MG No Turmeric 500 MG Magnesium Oxide -Mg Supplement 400 MG Magnesium Oxide -Mg Supplement 400 MG No 1{capsu le_as_n eeded} BID Magnesium Oxide -Mg Supplement 400 MG Docusate Sodium 100 MG Docusate Sodium 100 MG No 1{capsu le_as_n eeded} QD Docusate Sodium 100 MG Myrbetriq 50 MG Myrbetriq 50 MG No Myrbetriq 50 MG ProAir HFA 108 (90 Base) MCG/ACT ProAir HFA 108 (90 Base) MCG/ACT No ProAir HFA 108 (90 Base) MCG/ACT Potassium Chloride Deborah ER 20 MEQ Potassium Chloride Deborah ER 20 MEQ No Potassium Chloride Deborah ER 20 MEQ Triamcinolo ne Acetonide 0.1 % Triamcinolo ne Acetonide 0.1 % No 1{appli cation_ to_affe cted_ar ea} BID Triamcinol one Acetonide 0.1 % Mesalamine 1.2 GM Mesalamine 1.2 GM No 2{table ts_with _a_meal } QD Mesalamine 1.2 GM Centrum Silver Adult 50+ - Centrum Silver Adult 50+ - No Centrum Silver Adult 50+ - Omeprazole 40 MG Omeprazole 40 MG No 1{capsu le} QD Omeprazole 40 MG Ocuvite Ocuvite No 1{table t} QD Ocuvite Albuterol Sulfate HFA 108 (90 Base) MCG/ACT Albuterol Sulfate HFA 108 (90 Base) MCG/ACT No Albuterol Sulfate HFA 108 (90 Base) MCG/ACT Symbicort 160-4.5 MCG/ACT Symbicort 160-4.5 MCG/ACT No 2{puffs } BID Symbicort 160-4.5 MCG/ACT Alendronate Sodium 35 MG Alendronate Sodium 35 MG No Alendronat e Sodium 35 MG Omeprazole 40 MG Omeprazole 40 MG No 1{capsu le} QD Omeprazole 40 MG Atorvastati n Calcium 10 MG Atorvastati n Calcium 10 MG No 1{table t} QD Atorvastat in Calcium 10 MG Nasonex 50 MCG/ACT Nasonex 50 MCG/ACT No 2{spray s_in_ea ch_nost ril} QD Nasonex 50 MCG/ACT B12 Fast Dissolve 5000 MCG B12 Fast Dissolve 5000 MCG No B12 Fast Dissolve 5000 MCG Citalopram Hydrobromid e 20 MG Citalopram Hydrobromid e 20 MG No QD Citalopram Hydrobromi de 20 MG Cranberry Cranberry No Cranberry Turmeric 500 MG Turmeric 500 MG No Turmeric 500 MG Magnesium Oxide -Mg Supplement 400 MG Magnesium Oxide -Mg Supplement 400 MG No 1{capsu le_as_n eeded} BID Magnesium Oxide -Mg Supplement 400 MG Docusate Sodium 100 MG Docusate Sodium 100 MG No 1{capsu le_as_n eeded} QD Docusate Sodium 100 MG Myrbetriq 50 MG Myrbetriq 50 MG No Myrbetriq 50 MG ProAir HFA 108 (90 Base) MCG/ACT ProAir HFA 108 (90 Base) MCG/ACT No ProAir HFA 108 (90 Base) MCG/ACT Turmeric 500 MG Turmeric 500 MG No Turmeric 500 MG Potassium Chloride Deborah ER 20 MEQ Potassium Chloride Deborah ER 20 MEQ No Potassium Chloride Deborah ER 20 MEQ Mesalamine 1.2 GM Mesalamine 1.2 GM No 2{table ts_with _a_meal } QD Mesalamine 1.2 GM Centrum Silver Adult 50+ - Centrum Silver Adult 50+ - No Centrum Silver Adult 50+ - Omeprazole 40 MG Omeprazole 40 MG No 1{capsu le} QD Omeprazole 40 MG Ocuvite Ocuvite No 1{table t} QD Ocuvite Albuterol Sulfate HFA 108 (90 Base) MCG/ACT Albuterol Sulfate HFA 108 (90 Base) MCG/ACT No Albuterol Sulfate HFA 108 (90 Base) MCG/ACT ProAir HFA 108 (90 Base) MCG/ACT ProAir HFA 108 (90 Base) MCG/ACT No ProAir HFA 108 (90 Base) MCG/ACT Symbicort 160-4.5 MCG/ACT Symbicort 160-4.5 MCG/ACT No 2{puffs } BID Symbicort 160-4.5 MCG/ACT Alendronate Sodium 35 MG Alendronate Sodium 35 MG No Alendronat e Sodium 35 MG Atorvastati n Calcium 10 MG Atorvastati n Calcium 10 MG No 1{table t} QD Atorvastat in Calcium 10 MG Nasonex 50 MCG/ACT Nasonex 50 MCG/ACT No 2{spray s_in_ea ch_nost ril} QD Nasonex 50 MCG/ACT B12 Fast Dissolve 5000 MCG B12 Fast Dissolve 5000 MCG No B12 Fast Dissolve 5000 MCG Citalopram Hydrobromid e 20 MG Citalopram Hydrobromid e 20 MG No QD Citalopram Hydrobromi de 20 MG Cranberry Cranberry No Cranberry Turmeric 500 MG Turmeric 500 MG No Turmeric 500 MG Magnesium Oxide -Mg Supplement 400 MG Magnesium Oxide -Mg Supplement 400 MG No 1{capsu le_as_n eeded} BID Magnesium Oxide -Mg Supplement 400 MG Docusate Sodium 100 MG Docusate Sodium 100 MG No 1{capsu le_as_n eeded} QD Docusate Sodium 100 MG B12 Fast Dissolve 5000 MCG B12 Fast Dissolve 5000 MCG No B12 Fast Dissolve 5000 MCG Myrbetriq 50 MG Myrbetriq 50 MG No Myrbetriq 50 MG ProAir HFA 108 (90 Base) MCG/ACT ProAir HFA 108 (90 Base) MCG/ACT No ProAir HFA 108 (90 Base) MCG/ACT Potassium Chloride Deborah ER 20 MEQ Potassium Chloride Deborah ER 20 MEQ No Potassium Chloride Deborah ER 20 MEQ Mesalamine 1.2 GM Mesalamine 1.2 GM No 2{table ts_with _a_meal } QD Mesalamine 1.2 GM Centrum Silver Adult 50+ - Centrum Silver Adult 50+ - No Centrum Silver Adult 50+ - Omeprazole 40 MG Omeprazole 40 MG No 1{capsu le} QD Omeprazole 40 MG ProAir HFA 108 (90 Base) MCG/ACT ProAir HFA 108 (90 Base) MCG/ACT No ProAir HFA 108 (90 Base) MCG/ACT Ocuvite Ocuvite No 1{table t} QD Ocuvite Albuterol Sulfate HFA 108 (90 Base) MCG/ACT Albuterol Sulfate HFA 108 (90 Base) MCG/ACT No Albuterol Sulfate HFA 108 (90 Base) MCG/ACT Symbicort 160-4.5 MCG/ACT Symbicort 160-4.5 MCG/ACT No 2{puffs } BID Symbicort 160-4.5 MCG/ACT Alendronate Sodium 35 MG Alendronate Sodium 35 MG No Alendronat e Sodium 35 MG Atorvastati n Calcium 10 MG Atorvastati n Calcium 10 MG No 1{table t} QD Atorvastat in Calcium 10 MG Nasonex 50 MCG/ACT Nasonex 50 MCG/ACT No 2{spray s_in_ea ch_nost ril} QD Nasonex 50 MCG/ACT B12 Fast Dissolve 5000 MCG B12 Fast Dissolve 5000 MCG No B12 Fast Dissolve 5000 MCG Citalopram Hydrobromid e 20 MG Citalopram Hydrobromid e 20 MG No QD Citalopram Hydrobromi de 20 MG Cranberry Cranberry No Cranberry Turmeric 500 MG Turmeric 500 MG No Turmeric 500 MG Triamcinolo ne Acetonide 0.1 % Triamcinolo ne Acetonide 0.1 % No 1{appli cation_ to_affe cted_ar ea} BID Triamcinol one Acetonide 0.1 % Magnesium Oxide -Mg Supplement 400 MG Magnesium Oxide -Mg Supplement 400 MG No 1{capsu le_as_n eeded} BID Magnesium Oxide -Mg Supplement 400 MG Docusate Sodium 100 MG Docusate Sodium 100 MG No 1{capsu le_as_n eeded} QD Docusate Sodium 100 MG Myrbetriq 50 MG Myrbetriq 50 MG No Myrbetriq 50 MG ProAir HFA 108 (90 Base) MCG/ACT ProAir HFA 108 (90 Base) MCG/ACT No ProAir HFA 108 (90 Base) MCG/ACT Potassium Chloride Deborah ER 20 MEQ Potassium Chloride Deborah ER 20 MEQ No Potassium Chloride Deborah ER 20 MEQ Magnesium Oxide -Mg Supplement 400 MG Magnesium Oxide -Mg Supplement 400 MG No 1{capsu le_as_n eeded} BID Magnesium Oxide -Mg Supplement 400 MG Symbicort 160-4.5 MCG/ACT Symbicort 160-4.5 MCG/ACT No Symbicort 160-4.5 MCG/ACT Mesalamine 1.2 GM Mesalamine 1.2 GM No 2{table ts_with _a_meal } QD Mesalamine 1.2 GM Centrum Silver Adult 50+ - Centrum Silver Adult 50+ - No Centrum Silver Adult 50+ - Omeprazole 40 MG Omeprazole 40 MG No 1{capsu le} QD Omeprazole 40 MG Ocuvite Ocuvite No 1{table t} QD Ocuvite Albuterol Sulfate HFA 108 (90 Base) MCG/ACT Albuterol Sulfate HFA 108 (90 Base) MCG/ACT No Albuterol Sulfate HFA 108 (90 Base) MCG/ACT Symbicort 160-4.5 MCG/ACT Symbicort 160-4.5 MCG/ACT No 2{puffs } BID Symbicort 160-4.5 MCG/ACT Alendronate Sodium 35 MG Alendronate Sodium 35 MG No Alendronat e Sodium 35 MG Citalopram Hydrobromid e 20 MG Citalopram Hydrobromid e 20 MG No Citalopram Hydrobromi de 20 MG Atorvastati n Calcium 10 MG Atorvastati n Calcium 10 MG No 1{table t} QD Atorvastat in Calcium 10 MG Nasonex 50 MCG/ACT Nasonex 50 MCG/ACT No 2{spray s_in_ea ch_nost ril} QD Nasonex 50 MCG/ACT B12 Fast Dissolve 5000 MCG B12 Fast Dissolve 5000 MCG No B12 Fast Dissolve 5000 MCG Citalopram Hydrobromid e 20 MG Citalopram Hydrobromid e 20 MG No QD Citalopram Hydrobromi de 20 MG Cranberry Cranberry No Cranberry Turmeric 500 MG Turmeric 500 MG No Turmeric 500 MG Magnesium Oxide -Mg Supplement 400 MG Magnesium Oxide -Mg Supplement 400 MG No 1{capsu le_as_n eeded} BID Magnesium Oxide -Mg Supplement 400 MG Docusate Sodium 100 MG Docusate Sodium 100 MG No 1{capsu le_as_n eeded} QD Docusate Sodium 100 MG Myrbetriq 50 MG Myrbetriq 50 MG No Myrbetriq 50 MG ProAir HFA 108 (90 Base) MCG/ACT ProAir HFA 108 (90 Base) MCG/ACT No ProAir HFA 108 (90 Base) MCG/ACT busPIRone HCl 5 MG busPIRone HCl 5 MG No busPIRone HCl 5 MG Potassium Chloride Deborah ER 20 MEQ Potassium Chloride Deborah ER 20 MEQ No Potassium Chloride Deborah ER 20 MEQ Mesalamine 1.2 GM Mesalamine 1.2 GM No 2{table ts_with _a_meal } QD Mesalamine 1.2 GM Centrum Silver Adult 50+ - Centrum Silver Adult 50+ - No Centrum Silver Adult 50+ - Omeprazole 40 MG Omeprazole 40 MG No 1{capsu le} QD Omeprazole 40 MG Ocuvite Ocuvite No 1{table t} QD Ocuvite Albuterol Sulfate HFA 108 (90 Base) MCG/ACT Albuterol Sulfate HFA 108 (90 Base) MCG/ACT No Albuterol Sulfate HFA 108 (90 Base) MCG/ACT Symbicort 160-4.5 MCG/ACT Symbicort 160-4.5 MCG/ACT No 2{puffs } BID Symbicort 160-4.5 MCG/ACT Alendronate Sodium 35 MG Alendronate Sodium 35 MG No Alendronat e Sodium 35 MG Atorvastati n Calcium 10 MG Atorvastati n Calcium 10 MG No 1{table t} QD Atorvastat in Calcium 10 MG Nasonex 50 MCG/ACT Nasonex 50 MCG/ACT No 2{spray s_in_ea ch_nost ril} QD Nasonex 50 MCG/ACT B12 Fast Dissolve 5000 MCG B12 Fast Dissolve 5000 MCG No B12 Fast Dissolve 5000 MCG Citalopram Hydrobromid e 20 MG Citalopram Hydrobromid e 20 MG No QD Citalopram Hydrobromi de 20 MG Cranberry Cranberry No Cranberry Turmeric 500 MG Turmeric 500 MG No Turmeric 500 MG Magnesium Oxide -Mg Supplement 400 MG Magnesium Oxide -Mg Supplement 400 MG No 1{capsu le_as_n eeded} BID Magnesium Oxide -Mg Supplement 400 MG Docusate Sodium 100 MG Docusate Sodium 100 MG No 1{capsu le_as_n eeded} QD Docusate Sodium 100 MG Myrbetriq 50 MG Myrbetriq 50 MG No Myrbetriq 50 MG ProAir HFA 108 (90 Base) MCG/ACT ProAir HFA 108 (90 Base) MCG/ACT No ProAir HFA 108 (90 Base) MCG/ACT Potassium Chloride Deborah ER 20 MEQ Potassium Chloride Deborah ER 20 MEQ No Potassium Chloride Deborah ER 20 MEQ Ocuvite Ocuvite No 1{table t} QD Ocuvite Mesalamine 1.2 GM Mesalamine 1.2 GM No 2{table ts_with _a_meal } QD Mesalamine 1.2 GM Centrum Silver Adult 50+ - Centrum Silver Adult 50+ - No Centrum Silver Adult 50+ - Omeprazole 40 MG Omeprazole 40 MG No 1{capsu le} QD Omeprazole 40 MG Ocuvite Ocuvite No 1{table t} QD Ocuvite Albuterol Sulfate HFA 108 (90 Base) MCG/ACT Albuterol Sulfate HFA 108 (90 Base) MCG/ACT No Albuterol Sulfate HFA 108 (90 Base) MCG/ACT Symbicort 160-4.5 MCG/ACT Symbicort 160-4.5 MCG/ACT No 2{puffs } BID Symbicort 160-4.5 MCG/ACT Alendronate Sodium 35 MG Alendronate Sodium 35 MG No Alendronat e Sodium 35 MG Atorvastati n Calcium 10 MG Atorvastati n Calcium 10 MG No 1{table t} QD Atorvastat in Calcium 10 MG Nasonex 50 MCG/ACT Nasonex 50 MCG/ACT No 2{spray s_in_ea ch_nost ril} QD Nasonex 50 MCG/ACT B12 Fast Dissolve 5000 MCG B12 Fast Dissolve 5000 MCG No B12 Fast Dissolve 5000 MCG Citalopram Hydrobromid e 20 MG Citalopram Hydrobromid e 20 MG No QD Citalopram Hydrobromi de 20 MG Cranberry Cranberry No Cranberry Turmeric 500 MG Turmeric 500 MG No Turmeric 500 MG Magnesium Oxide -Mg Supplement 400 MG Magnesium Oxide -Mg Supplement 400 MG No 1{capsu le_as_n eeded} BID Magnesium Oxide -Mg Supplement 400 MG Docusate Sodium 100 MG Docusate Sodium 100 MG No 1{capsu le_as_n eeded} QD Docusate Sodium 100 MG Myrbetriq 50 MG Myrbetriq 50 MG No Myrbetriq 50 MG ProAir HFA 108 (90 Base) MCG/ACT ProAir HFA 108 (90 Base) MCG/ACT No ProAir HFA 108 (90 Base) MCG/ACT Potassium Chloride Deborah ER 20 MEQ Potassium Chloride Deborah ER 20 MEQ No Potassium Chloride Deborah ER 20 MEQ Turmeric 500 MG Turmeric 500 MG No Turmeric 500 MG Mesalamine 1.2 GM Mesalamine 1.2 GM No 2{table ts_with _a_meal } QD Mesalamine 1.2 GM Centrum Silver Adult 50+ - Centrum Silver Adult 50+ - No Centrum Silver Adult 50+ - Omeprazole 40 MG Omeprazole 40 MG No 1{capsu le} QD Omeprazole 40 MG Ocuvite Ocuvite No 1{table t} QD Ocuvite Albuterol Sulfate HFA 108 (90 Base) MCG/ACT Albuterol Sulfate HFA 108 (90 Base) MCG/ACT No Albuterol Sulfate HFA 108 (90 Base) MCG/ACT Symbicort 160-4.5 MCG/ACT Symbicort 160-4.5 MCG/ACT No 2{puffs } BID Symbicort 160-4.5 MCG/ACT Alendronate Sodium 35 MG Alendronate Sodium 35 MG No Alendronat e Sodium 35 MG Potassium Chloride Deborah ER 20 MEQ Potassium Chloride Deborah ER 20 MEQ No Potassium Chloride Deborah ER 20 MEQ Atorvastati n Calcium 10 MG Atorvastati n Calcium 10 MG No 1{table t} QD Atorvastat in Calcium 10 MG Nasonex 50 MCG/ACT Nasonex 50 MCG/ACT No 2{spray s_in_ea ch_nost ril} QD Nasonex 50 MCG/ACT B12 Fast Dissolve 5000 MCG B12 Fast Dissolve 5000 MCG No B12 Fast Dissolve 5000 MCG Citalopram Hydrobromid e 20 MG Citalopram Hydrobromid e 20 MG No QD Citalopram Hydrobromi de 20 MG Cranberry Cranberry No Cranberry Turmeric 500 MG Turmeric 500 MG No Turmeric 500 MG Magnesium Oxide -Mg Supplement 400 MG Magnesium Oxide -Mg Supplement 400 MG No 1{capsu le_as_n eeded} BID Magnesium Oxide -Mg Supplement 400 MG Docusate Sodium 100 MG Docusate Sodium 100 MG No 1{capsu le_as_n eeded} QD Docusate Sodium 100 MG Myrbetriq 50 MG Myrbetriq 50 MG No Myrbetriq 50 MG ProAir HFA 108 (90 Base) MCG/ACT ProAir HFA 108 (90 Base) MCG/ACT No ProAir HFA 108 (90 Base) MCG/ACT Centrum Silver Adult 50+ - Centrum Silver Adult 50+ - No Centrum Silver Adult 50+ - Potassium Chloride Deborah ER 20 MEQ Potassium Chloride Deborah ER 20 MEQ No Potassium Chloride Deborah ER 20 MEQ Mesalamine 1.2 GM Mesalamine 1.2 GM No 2{table ts_with _a_meal } QD Mesalamine 1.2 GM Centrum Silver Adult 50+ - Centrum Silver Adult 50+ - No Centrum Silver Adult 50+ - Omeprazole 40 MG Omeprazole 40 MG No 1{capsu le} QD Omeprazole 40 MG Ocuvite Ocuvite No 1{table t} QD Ocuvite Albuterol Sulfate HFA 108 (90 Base) MCG/ACT Albuterol Sulfate HFA 108 (90 Base) MCG/ACT No Albuterol Sulfate HFA 108 (90 Base) MCG/ACT Alendronate Sodium 35 MG Alendronate Sodium 35 MG No Alendronat e Sodium 35 MG Symbicort 160-4.5 MCG/ACT Symbicort 160-4.5 MCG/ACT No 2{puffs } BID Symbicort 160-4.5 MCG/ACT Alendronate Sodium 35 MG Alendronate Sodium 35 MG No Alendronat e Sodium 35 MG Atorvastati n Calcium 10 MG Atorvastati n Calcium 10 MG No 1{table t} QD Atorvastat in Calcium 10 MG Nasonex 50 MCG/ACT Nasonex 50 MCG/ACT No 2{spray s_in_ea ch_nost ril} QD Nasonex 50 MCG/ACT B12 Fast Dissolve 5000 MCG B12 Fast Dissolve 5000 MCG No B12 Fast Dissolve 5000 MCG Citalopram Hydrobromid e 20 MG Citalopram Hydrobromid e 20 MG No QD Citalopram Hydrobromi de 20 MG Cranberry Cranberry No Cranberry Turmeric 500 MG Turmeric 500 MG No Turmeric 500 MG Magnesium Oxide -Mg Supplement 400 MG Magnesium Oxide -Mg Supplement 400 MG No 1{capsu le_as_n eeded} BID Magnesium Oxide -Mg Supplement 400 MG Docusate Sodium 100 MG Docusate Sodium 100 MG No 1{capsu le_as_n eeded} QD Docusate Sodium 100 MG Cranberry Plus Vitamin C 4200-20-3 MG-MG-UNIT Cranberry Plus Vitamin C 4200-20-3 MG-MG-UNIT No Cranberry Plus Vitamin C 4200-20-3 MG-MG-UNIT Myrbetriq 50 MG Myrbetriq 50 MG No Myrbetriq 50 MG ProAir HFA 108 (90 Base) MCG/ACT ProAir HFA 108 (90 Base) MCG/ACT No ProAir HFA 108 (90 Base) MCG/ACT Potassium Chloride Deborah ER 20 MEQ Potassium Chloride Deborah ER 20 MEQ No Potassium Chloride Deborah ER 20 MEQ Fasenra Pen 30 MG/ML Fasenra Pen 30 MG/ML No Fasenra Pen 30 MG/ML CeleXA 20 MG CeleXA 20 MG No CeleXA 20 MG Mesalamine 1.2 GM Mesalamine 1.2 GM No 2{table ts_with _a_meal } QD Mesalamine 1.2 GM Centrum Silver Adult 50+ - Centrum Silver Adult 50+ - No Centrum Silver Adult 50+ - Omeprazole 40 MG Omeprazole 40 MG No 1{capsu le} QD Omeprazole 40 MG Ocuvite Ocuvite No 1{table t} QD Ocuvite Albuterol Sulfate HFA 108 (90 Base) MCG/ACT Albuterol Sulfate HFA 108 (90 Base) MCG/ACT No Albuterol Sulfate HFA 108 (90 Base) MCG/ACT Symbicort 160-4.5 MCG/ACT Symbicort 160-4.5 MCG/ACT No 2{puffs } BID Symbicort 160-4.5 MCG/ACT Alendronate Sodium 35 MG Alendronate Sodium 35 MG No Alendronat e Sodium 35 MG Atorvastati n Calcium 10 MG Atorvastati n Calcium 10 MG No 1{table t} QD Atorvastat in Calcium 10 MG Nasonex 50 MCG/ACT Nasonex 50 MCG/ACT No 2{spray s_in_ea ch_nost ril} QD Nasonex 50 MCG/ACT Symbicort 160-4.5 MCG/ACT Symbicort 160-4.5 MCG/ACT No Symbicort 160-4.5 MCG/ACT B12 Fast Dissolve 5000 MCG B12 Fast Dissolve 5000 MCG No B12 Fast Dissolve 5000 MCG Citalopram Hydrobromid e 20 MG Citalopram Hydrobromid e 20 MG No QD Citalopram Hydrobromi de 20 MG Cranberry Cranberry No Cranberry Turmeric 500 MG Turmeric 500 MG No Turmeric 500 MG Magnesium Oxide -Mg Supplement 400 MG Magnesium Oxide -Mg Supplement 400 MG No 1{capsu le_as_n eeded} BID Magnesium Oxide -Mg Supplement 400 MG Docusate Sodium 100 MG Docusate Sodium 100 MG No 1{capsu le_as_n eeded} QD Docusate Sodium 100 MG Myrbetriq 50 MG Myrbetriq 50 MG No Myrbetriq 50 MG ProAir HFA 108 (90 Base) MCG/ACT ProAir HFA 108 (90 Base) MCG/ACT No ProAir HFA 108 (90 Base) MCG/ACT Potassium Chloride Deborah ER 20 MEQ Potassium Chloride Deborah ER 20 MEQ No Potassium Chloride Deborah ER 20 MEQ ProAir HFA 108 (90 Base) MCG/ACT ProAir HFA 108 (90 Base) MCG/ACT No ProAir HFA 108 (90 Base) MCG/ACT Mesalamine 1.2 GM Mesalamine 1.2 GM No 2{table ts_with _a_meal } QD Mesalamine 1.2 GM Centrum Silver Adult 50+ - Centrum Silver Adult 50+ - No Centrum Silver Adult 50+ - Omeprazole 40 MG Omeprazole 40 MG No 1{capsu le} QD Omeprazole 40 MG Ocuvite Ocuvite No 1{table t} QD Ocuvite Albuterol Sulfate HFA 108 (90 Base) MCG/ACT Albuterol Sulfate HFA 108 (90 Base) MCG/ACT No Albuterol Sulfate HFA 108 (90 Base) MCG/ACT Symbicort 160-4.5 MCG/ACT Symbicort 160-4.5 MCG/ACT No 2{puffs } BID Symbicort 160-4.5 MCG/ACT Alendronate Sodium 35 MG Alendronate Sodium 35 MG No Alendronat e Sodium 35 MG Atorvastati n Calcium 10 MG Atorvastati n Calcium 10 MG No 1{table t} QD Atorvastat in Calcium 10 MG Nasonex 50 MCG/ACT Nasonex 50 MCG/ACT No 2{spray s_in_ea ch_nost ril} QD Nasonex 50 MCG/ACT Omeprazole 40 MG Omeprazole 40 MG No 1{capsu le} QD Omeprazole 40 MG B12 Fast Dissolve 5000 MCG B12 Fast Dissolve 5000 MCG No B12 Fast Dissolve 5000 MCG Citalopram Hydrobromid e 20 MG Citalopram Hydrobromid e 20 MG No QD Citalopram Hydrobromi de 20 MG Cranberry Cranberry No Cranberry Turmeric 500 MG Turmeric 500 MG No Turmeric 500 MG Magnesium Oxide -Mg Supplement 400 MG Magnesium Oxide -Mg Supplement 400 MG No 1{capsu le_as_n eeded} BID Magnesium Oxide -Mg Supplement 400 MG Docusate Sodium 100 MG Docusate Sodium 100 MG No 1{capsu le_as_n eeded} QD Docusate Sodium 100 MG Myrbetriq 50 MG Myrbetriq 50 MG No Myrbetriq 50 MG ProAir HFA 108 (90 Base) MCG/ACT ProAir HFA 108 (90 Base) MCG/ACT No ProAir HFA 108 (90 Base) MCG/ACT Potassium Chloride Deborah ER 20 MEQ Potassium Chloride Deborah ER 20 MEQ No Potassium Chloride Deborah ER 20 MEQ ProAir HFA 108 (90 Base) MCG/ACT ProAir HFA 108 (90 Base) MCG/ACT No ProAir HFA 108 (90 Base) MCG/ACT Mesalamine 1.2 GM Mesalamine 1.2 GM No 2{table ts_with _a_meal } QD Mesalamine 1.2 GM Centrum Silver Adult 50+ - Centrum Silver Adult 50+ - No Centrum Silver Adult 50+ - Omeprazole 40 MG Omeprazole 40 MG No 1{capsu le} QD Omeprazole 40 MG B12 Fast Dissolve 5000 MCG B12 Fast Dissolve 5000 MCG No B12 Fast Dissolve 5000 MCG Albuterol Sulfate HFA 108 (90 Base) MCG/ACT Albuterol Sulfate HFA 108 (90 Base) MCG/ACT No Albuterol Sulfate HFA 108 (90 Base) MCG/ACT ProAir HFA 108 (90 Base) MCG/ACT ProAir HFA 108 (90 Base) MCG/ACT No ProAir HFA 108 (90 Base) MCG/ACT Triamcinolo ne Acetonide 0.1 % Triamcinolo ne Acetonide 0.1 % No 1{appli cation_ to_affe cted_ar ea} BID Triamcinol one Acetonide 0.1 % Atorvastati n Calcium 10 MG Atorvastati n Calcium 10 MG No 1{table t} QD Atorvastat in Calcium 10 MG Cranberry Cranberry No Cranberry Alendronate Sodium 35 MG Alendronate Sodium 35 MG No Alendronat e Sodium 35 MG Turmeric 500 MG Turmeric 500 MG No Turmeric 500 MG Docusate Sodium 100 MG Docusate Sodium 100 MG No 1{capsu le_as_n eeded} QD Docusate Sodium 100 MG Magnesium Oxide -Mg Supplement 400 MG Magnesium Oxide -Mg Supplement 400 MG No 1{capsu le_as_n eeded} BID Magnesium Oxide -Mg Supplement 400 MG Potassium Chloride Deborah ER 20 MEQ Potassium Chloride Deborah ER 20 MEQ No Potassium Chloride Deborah ER 20 MEQ Citalopram Hydrobromid e 20 MG Citalopram Hydrobromid e 20 MG No QD Citalopram Hydrobromi de 20 MG Myrbetriq 50 MG Myrbetriq 50 MG No 1{table t} QD Myrbetriq 50 MG Nasonex 50 MCG/ACT Nasonex 50 MCG/ACT No 2{spray s_in_ea ch_nost ril} QD Nasonex 50 MCG/ACT Myrbetriq 25 MG Myrbetriq 25 MG No Myrbetriq 25 MG Ocuvite Ocuvite No 1{table t} QD Ocuvite Symbicort 160-4.5 MCG/ACT Symbicort 160-4.5 MCG/ACT No 2{puffs } BID Symbicort 160-4.5 MCG/ACT Mesalamine 1.2 GM Mesalamine 1.2 GM No 2{table ts_with _a_meal } QD Mesalamine 1.2 GM Centrum Silver Adult 50+ - Centrum Silver Adult 50+ - No Centrum Silver Adult 50+ - Omeprazole 40 MG Omeprazole 40 MG No 1{capsu le} QD Omeprazole 40 MG Temovate 0.05 % Temovate 0.05 % No 1{appli cation_ to_affe cted_ar ea} BID Temovate 0.05 % B12 Fast Dissolve 5000 MCG B12 Fast Dissolve 5000 MCG No B12 Fast Dissolve 5000 MCG Albuterol Sulfate HFA 108 (90 Base) MCG/ACT Albuterol Sulfate HFA 108 (90 Base) MCG/ACT No Albuterol Sulfate HFA 108 (90 Base) MCG/ACT ProAir HFA 108 (90 Base) MCG/ACT ProAir HFA 108 (90 Base) MCG/ACT No ProAir HFA 108 (90 Base) MCG/ACT Atorvastati n Calcium 10 MG Atorvastati n Calcium 10 MG No 1{table t} QD Atorvastat in Calcium 10 MG Cranberry Cranberry No Cranberry Alendronate Sodium 35 MG Alendronate Sodium 35 MG No Alendronat e Sodium 35 MG Turmeric 500 MG Turmeric 500 MG No Turmeric 500 MG Docusate Sodium 100 MG Docusate Sodium 100 MG No 1{capsu le_as_n eeded} QD Docusate Sodium 100 MG Magnesium Oxide -Mg Supplement 400 MG Magnesium Oxide -Mg Supplement 400 MG No 1{capsu le_as_n eeded} BID Magnesium Oxide -Mg Supplement 400 MG Potassium Chloride Deborah ER 20 MEQ Potassium Chloride Deborah ER 20 MEQ No Potassium Chloride Deborah ER 20 MEQ Nasonex 50 MCG/ACT Nasonex 50 MCG/ACT No Nasonex 50 MCG/ACT Citalopram Hydrobromid e 20 MG Citalopram Hydrobromid e 20 MG No QD Citalopram Hydrobromi de 20 MG Myrbetriq 50 MG Myrbetriq 50 MG No 1{table t} QD Myrbetriq 50 MG Nasonex 50 MCG/ACT Nasonex 50 MCG/ACT No 2{spray s_in_ea ch_nost ril} QD Nasonex 50 MCG/ACT Ocuvite Ocuvite No 1{table t} QD Ocuvite Symbicort 160-4.5 MCG/ACT Symbicort 160-4.5 MCG/ACT No 2{puffs } BID Symbicort 160-4.5 MCG/ACT Mesalamine 1.2 GM Mesalamine 1.2 GM No 2{table ts_with _a_meal } QD Mesalamine 1.2 GM B12 Fast Dissolve 5000 MCG B12 Fast Dissolve 5000 MCG No B12 Fast Dissolve 5000 MCG Centrum Silver Adult 50+ - Centrum Silver Adult 50+ - No Centrum Silver Adult 50+ - Omeprazole 40 MG Omeprazole 40 MG No 1{capsu le} QD Omeprazole 40 MG B12 Fast Dissolve 5000 MCG B12 Fast Dissolve 5000 MCG No B12 Fast Dissolve 5000 MCG Albuterol Sulfate HFA 108 (90 Base) MCG/ACT Albuterol Sulfate HFA 108 (90 Base) MCG/ACT No Albuterol Sulfate HFA 108 (90 Base) MCG/ACT ProAir HFA 108 (90 Base) MCG/ACT ProAir HFA 108 (90 Base) MCG/ACT No ProAir HFA 108 (90 Base) MCG/ACT Atorvastati n Calcium 10 MG Atorvastati n Calcium 10 MG No 1{table t} QD Atorvastat in Calcium 10 MG Cranberry Cranberry No Cranberry Alendronate Sodium 35 MG Alendronate Sodium 35 MG No Alendronat e Sodium 35 MG Turmeric 500 MG Turmeric 500 MG No Turmeric 500 MG Docusate Sodium 100 MG Docusate Sodium 100 MG No 1{capsu le_as_n eeded} QD Docusate Sodium 100 MG Nasonex 50 MCG/ACT Nasonex 50 MCG/ACT No 2{spray s_in_ea ch_nost ril} QD Nasonex 50 MCG/ACT Magnesium Oxide -Mg Supplement 400 MG Magnesium Oxide -Mg Supplement 400 MG No 1{capsu le_as_n eeded} BID Magnesium Oxide -Mg Supplement 400 MG Potassium Chloride Deborah ER 20 MEQ Potassium Chloride Deborah ER 20 MEQ No Potassium Chloride Deborah ER 20 MEQ Citalopram Hydrobromid e 20 MG Citalopram Hydrobromid e 20 MG No QD Citalopram Hydrobromi de 20 MG Myrbetriq 50 MG Myrbetriq 50 MG No 1{table t} QD Myrbetriq 50 MG Nasonex 50 MCG/ACT Nasonex 50 MCG/ACT No 2{spray s_in_ea ch_nost ril} QD Nasonex 50 MCG/ACT Ocuvite Ocuvite No 1{table t} QD Ocuvite Symbicort 160-4.5 MCG/ACT Symbicort 160-4.5 MCG/ACT No 2{puffs } BID Symbicort 160-4.5 MCG/ACT Albuterol Sulfate HFA 108 (90 Base) MCG/ACT Albuterol Sulfate HFA 108 (90 Base) MCG/ACT No QID Albuterol Sulfate HFA 108 (90 Base) MCG/ACT Magnesium Oxide -Mg Supplement 400 MG Magnesium Oxide -Mg Supplement 400 MG No 1{capsu le_as_n eeded} BID Magnesium Oxide -Mg Supplement 400 MG Triamcinolo ne Acetonide 0.1 % Triamcinolo ne Acetonide 0.1 % No 1{appli cation_ to_affe cted_ar ea} BID Triamcinol one Acetonide 0.1 % Citalopram Hydrobromid e 20 MG Citalopram Hydrobromid e 20 MG No Citalopram Hydrobromi de 20 MG busPIRone HCl 5 MG busPIRone HCl 5 MG No busPIRone HCl 5 MG Ocuvite Ocuvite No 1{table t} QD Ocuvite Turmeric 500 MG Turmeric 500 MG No Turmeric 500 MG Potassium Chloride Deborah ER 20 MEQ Potassium Chloride Deborah ER 20 MEQ No Potassium Chloride Deborah ER 20 MEQ Centrum Silver Adult 50+ - Centrum Silver Adult 50+ - No Centrum Silver Adult 50+ - Alendronate Sodium 35 MG Alendronate Sodium 35 MG No Alendronat e Sodium 35 MG Cranberry Plus Vitamin C 4200-20-3 MG-MG-UNIT Cranberry Plus Vitamin C 4200-20-3 MG-MG-UNIT No Cranberry Plus Vitamin C 4200-20-3 MG-MG-UNIT Fasenra Pen 30 MG/ML Fasenra Pen 30 MG/ML No Fasenra Pen 30 MG/ML CeleXA 20 MG CeleXA 20 MG No CeleXA 20 MG Symbicort 160-4.5 MCG/ACT Symbicort 160-4.5 MCG/ACT No Symbicort 160-4.5 MCG/ACT ProAir HFA 108 (90 Base) MCG/ACT ProAir HFA 108 (90 Base) MCG/ACT No ProAir HFA 108 (90 Base) MCG/ACT Omeprazole 40 MG Omeprazole 40 MG No 1{capsu le} QD Omeprazole 40 MG ProAir HFA 108 (90 Base) MCG/ACT ProAir HFA 108 (90 Base) MCG/ACT No ProAir HFA 108 (90 Base) MCG/ACT Triamcinolo ne Acetonide 0.1 % Triamcinolo ne Acetonide 0.1 % No 1{appli cation_ to_affe cted_ar ea} BID Triamcinol one Acetonide 0.1 % Myrbetriq 50 MG Myrbetriq 50 MG 07-31 00:00 :00 No 1{table t} QD Myrbetriq 50 MG Myrbetriq 50 MG Myrbetriq 50 MG 07-31 00:00 :00 No 1{table t} QD Myrbetriq 50 MG Myrbetriq 50 MG Myrbetriq 50 MG 07-31 00:00 :00 No 1{table t} QD Myrbetriq 50 MG Myrbetriq 50 MG Myrbetriq 50 MG 07-31 00:00 :00 No 1{table t} QD Myrbetriq 50 MG Myrbetriq 50 MG Myrbetriq 50 MG 07-31 00:00 :00 No 1{table t} QD Myrbetriq 50 MG Myrbetriq 50 MG Myrbetriq 50 MG 07-31 00:00 :00 No 1{table t} QD Myrbetriq 50 MG Myrbetriq 50 MG Myrbetriq 50 MG 07-31 00:00 :00 No 1{table t} QD Myrbetriq 50 MG Myrbetriq 50 MG Myrbetriq 50 MG 07-31 00:00 :00 No 1{table t} QD Myrbetriq 50 MG Myrbetriq 50 MG Myrbetriq 50 MG 07-31 00:00 :00 No 1{table t} QD Myrbetriq 50 MG Myrbetriq 50 MG Myrbetriq 50 MG 07-31 00:00 :00 No 1{table t} QD Myrbetriq 50 MG Symbicort 160-4.5 MCG/ACT Symbicort 160-4.5 MCG/ACT 2021- 12-13 00:00 :00 No BID Symbicort 160-4.5 MCG/ACT Symbicort 160-4.5 MCG/ACT 04-09 00:00 :00 No BID Symbicort 160-4.5 MCG/ACT Symbicort 160-4.5 MCG/ACT Symbicort 160-4.5 MCG/ACT 04-09 00:00 :00 No BID Symbicort 160-4.5 MCG/ACT Symbicort 160-4.5 MCG/ACT Symbicort 160-4.5 MCG/ACT 04-09 00:00 :00 No BID Symbicort 160-4.5 MCG/ACT Magnesium Oxide -Mg Supplement Magnesium Oxide -Mg Supplement 03-14 00:00 :00 No Na Wilson 1 capsule as needed [facility] Immunizations Ordered Immunization Name Filled Immunization Name Date Status Comments Source FluAD FluAD 2021-01-30 13:48:00 Completed [facility] FluAD FluAD 2021-01-30 13:48:00 Completed [facility] FluAD FluAD 2021-01-30 13:48:00 Completed [facility] FluAD FluAD 2021-01-30 13:48:00 Completed [facility] FluAD FluAD 2021-01-30 13:48:00 Completed [facility] FluAD FluAD 2021-01-30 13:48:00 Completed [facility] FluAD FluAD 2021-01-30 13:48:00 Completed [facility] FluAD FluAD 2021-01-30 13:48:00 Completed [facility] FluAD FluAD 2021-01-30 13:48:00 Completed [facility] FluAD FluAD 2021-01-30 13:48:00 Completed [facility] FluAD FluAD 2021-01-30 13:48:00 Completed [facility] FluAD FluAD 2021-01-30 13:48:00 Completed [facility] FluAD FluAD 2021-01-30 13:48:00 Completed [facility] FluAD FluAD 2021-01-30 13:48:00 Completed [facility] FluAD FluAD 2021-01-30 13:48:00 Completed [facility] [place] [place] [facility] FluAD FluAD 2021-01-30 13:48:00 Completed [facility] FluAD FluAD 2021-01-30 13:48:00 Completed [facility] FluAD FluAD 2021-01-30 13:48:00 Completed [facility] FluAD FluAD 2021-01-30 13:48:00 Completed [facility] FluAD FluAD 2021-01-30 13:48:00 Completed [facility] FluAD FluAD 2021-01-30 13:48:00 Completed [facility] FluAD FluAD 2021-01-30 13:48:00 Completed [facility] FluAD FluAD 2021-01-30 13:48:00 Completed [facility] FluAD FluAD 2021-01-30 13:48:00 Completed [facility] FluAD FluAD 2021-01-30 13:48:00 Completed [facility] FluAD FluAD 2021-01-30 13:48:00 Completed [facility] FluAD FluAD 2021-01-30 13:48:00 Completed [facility] FluAD FluAD 2021-01-30 13:48:00 Completed [facility] [place] [place] [facility] FluAD FluAD 2021-01-30 13:48:00 Completed [facility] FluAD FluAD 2021-01-30 13:48:00 Completed [facility] FluAD FluAD 2021-01-30 13:48:00 Completed [facility] FluAD FluAD 2021-01-30 13:48:00 Completed [facility] Prevnar 20 (PCV20) Prevnar 20 (PCV20) Unknown Completed [facility] FluAD FluAD Unknown Completed [facility] Prevnar 20 (PCV20) Prevnar 20 (PCV20) Unknown Completed [facility] FluAD FluAD Unknown Completed [facility] Prevnar 20 (PCV20) Prevnar 20 (PCV20) Unknown Completed [facility] FluAD FluAD Unknown Completed [facility] Prevnar 20 (PCV20) Prevnar 20 (PCV20) Unknown Completed [facility] FluAD FluAD Unknown Completed [facility] Prevnar 20 (PCV20) Prevnar 20 (PCV20) Unknown Completed [facility] FluAD FluAD Unknown Completed [facility] Prevnar 20 (PCV20) Prevnar 20 (PCV20) Unknown Completed [facility] FluAD FluAD Unknown Completed [facility] Prevnar 20 (PCV20) Prevnar 20 (PCV20) Unknown Completed [facility] FluAD FluAD Unknown Completed [facility] Prevnar 20 (PCV20) Prevnar 20 (PCV20) Unknown Completed [facility] FluAD FluAD Unknown Completed [facility] Prevnar 20 (PCV20) Prevnar 20 (PCV20) Unknown Completed [facility] FluAD FluAD Unknown Completed [facility] Prevnar 20 (PCV20) Prevnar 20 (PCV20) Unknown Completed [facility] FluAD FluAD Unknown Completed [facility] Prevnar 20 (PCV20) Prevnar 20 (PCV20) Unknown Completed [facility] FluAD FluAD Unknown Completed [facility] Prevnar 20 (PCV20) Prevnar 20 (PCV20) Unknown Completed [facility] FluAD FluAD Unknown Completed [facility] Prevnar 20 (PCV20) Prevnar 20 (PCV20) Unknown Completed [facility] FluAD FluAD Unknown Completed [facility] Prevnar 20 (PCV20) Prevnar 20 (PCV20) Unknown Completed [facility] FluAD FluAD Unknown Completed [facility] Prevnar 20 (PCV20) Prevnar 20 (PCV20) Unknown Completed [facility] FluAD FluAD Unknown Completed [facility] Prevnar 20 (PCV20) Prevnar 20 (PCV20) Unknown Completed [facility] FluAD FluAD Unknown Completed [facility] Prevnar 20 (PCV20) Prevnar 20 (PCV20) Unknown Completed [facility] FluAD FluAD Unknown Completed [facility] Prevnar 20 (PCV20) Prevnar 20 (PCV20) Unknown Completed [facility] FluAD FluAD Unknown Completed [facility] Vital Signs Vital Name Observation Time Observation Value Comments S ource height 2023-01-01 14:30:00 63.00 [in_i] Com [facility] weight 2023-01-01 14:30:00 129 [lb_av] Comm [facility] temperature 2023-01-01 14:30:00 96.8 [degF] Com [facility] bmi 2023-01-01 14:30:00 22.85 kg/m2 Comm on [facility] oximetry 2023-01-01 14:30:00 97 % Commo n [facility] respiratory rate 2023-01-01 14:30:00 16 /min [facility] blood pressure systolic 2023-01-01 14:30:00 138 mm[Hg] [facility] blood pressure diastolic 2023-01-01 14:30:00 68 mm[Hg] [facility] height 2022-10-01 14:20:00 63.00 [in_i] Com [facility] weight 2022-10-01 14:20:00 126.2 [lb_av] [facility] temperature 2022-10-01 14:20:00 97.6 [degF] Com [facility] bmi 2022-10-01 14:20:00 22.35 kg/m2 Comm on [facility] oximetry 2022-10-01 14:20:00 97 % Commo [facility] respiratory rate 2022-10-01 14:20:00 18 /min [facility] blood pressure systolic 2022-10-01 14:20:00 137 mm[Hg] [facility] blood pressure diastolic 2022-10-01 14:20:00 70 mm[Hg] [facility] height 2022-10-01 14:40:00 63.00 [in_i] Com [facility] weight 2022-10-01 14:40:00 126.2 [lb_av] [facility] temperature 2022-10-01 14:40:00 97.6 [degF] Com [facility] bmi 2022-10-01 14:40:00 22.35 kg/m2 Comm [facility] oximetry 2022-10-01 14:40:00 97 % Com[facility] respiratory rate 2022-10-01 14:40:00 18 /min [facility] blood pressure systolic 2022-10-01 14:40:00 137 mm[Hg] [facility] blood pressure diastolic 2022-10-01 14:40:00 70 mm[Hg] Common [facility] height 2022-05-15 14:00:00 63.00 [in_i] Com [facility] weight 2022-05-15 14:00:00 128.6 [lb_av] [facility] temperature 2022-05-15 14:00:00 97.9 [degF] Com [facility] bmi 2022-05-15 14:00:00 22.78 kg/m2 Comm [facility] oximetry 2022-05-15 14:00:00 100 % Com[facility] respiratory rate 2022-05-15 14:00:00 17 /min [facility] blood pressure systolic 2022-05-15 14:00:00 128 mm[Hg] [facility] blood pressure diastolic 2022-05-15 14:00:00 67 mm[Hg] Common [facility] height 2022-01-28 16:00:00 63.00 [in_i] Com [facility] weight 2022-01-28 16:00:00 132 [lb_av] Comm [facility] temperature 2022-01-28 16:00:00 97.6 [degF] Com [facility] bmi 2022-01-28 16:00:00 23.38 kg/m2 Comm [facility] oximetry 2022-01-28 16:00:00 96 % Commo [facility] respiratory rate 2022-01-28 16:00:00 17 /min [facility] blood pressure systolic 2022-01-28 16:00:00 138 mm[Hg] [facility] blood pressure diastolic 2022-01-28 16:00:00 86 mm[Hg] [facility] height 2021-11-27 15:40:00 63.00 [in_i] Com [facility] weight 2021-11-27 15:40:00 133.8 [lb_av] Co [facility] temperature 2021-11-27 15:40:00 97.2 [degF] Com [facility] bmi 2021-11-27 15:40:00 23.70 kg/m2 Comm [facility] oximetry 2021-11-27 15:40:00 99 % Commo [facility] respiratory rate 2021-11-27 15:40:00 16 /min [facility] blood pressure systolic 2021-11-27 15:40:00 138 mm[Hg] Common [facility] blood pressure diastolic 2021-11-27 15:40:00 67 mm[Hg] [facility] height 2021-09-10 15:00:00 79.00 [in_i] Com [facility] weight 2021-09-10 15:00:00 135.0 [lb_av] Co [facility] temperature 2021-09-10 15:00:00 97.1 [degF] Com [facility] bmi 2021-09-10 15:00:00 15.21 kg/m2 Comm [facility] oximetry 2021-09-10 15:00:00 100 % Com[facility] respiratory rate 2021-09-10 15:00:00 18 /min [facility] blood pressure systolic 2021-09-10 15:00:00 135 mm[Hg] [facility] blood pressure diastolic 2021-09-10 15:00:00 67 mm[Hg] [facility] height 2021-03-02 14:40:00 79.0 [in_i] Comm [facility] weight 2021-03-02 14:40:00 141 [lb_av] Comm [facility] temperature 2021-03-02 14:40:00 97.2 [degF] Com [facility] bmi 2021-03-02 14:40:00 15.88 kg/m2 [facility] oximetry 2021-03-02 14:40:00 72 % Commo n [facility] respiratory rate 2021-03-02 14:40:00 18 /min [facility] blood pressure systolic 2021-03-02 14:40:00 130 mm[Hg] [facility] blood pressure diastolic 2021-03-02 14:40:00 82 mm[Hg] [facility] height 2021-03-02 14:40:00 79.00 [in_i] Com mon [facility] weight 2021-03-02 14:40:00 141.0 [lb_av] Co [facility] temperature 2021-03-02 14:40:00 97.2 [degF] Com [facility] bmi 2021-03-02 14:40:00 15.88 kg/m2 Comm [facility] oximetry 2021-03-02 14:40:00 72 % Commo [facility] respiratory rate 2021-03-02 14:40:00 18 /min [facility] blood pressure systolic 2021-03-02 14:40:00 130 mm[Hg] [facility] blood pressure diastolic 2021-03-02 14:40:00 82 mm[Hg] [facility] height 2021-01-30 13:00:00 79.00 [in_i] Com [facility] weight 2021-01-30 13:00:00 142 [lb_av] Comm [facility] temperature 2021-01-30 13:00:00 98 [degF] [facility] bmi 2021-01-30 13:00:00 16 kg/m2 Commo [facility] oximetry 2021-01-30 13:00:00 98 % Commo [facility] respiratory rate 2021-01-30 13:00:00 23 /min [facility] blood pressure systolic 2021-01-30 13:00:00 127 mm[Hg] [facility] blood pressure diastolic 2021-01-30 13:00:00 76 mm[Hg] [facility] Procedures Procedure Date / Time Performed Performing Clinicia n Source CONSENT/REFUSAL FOR DIAGNOSIS AND TREATMENT 2022-04-16 21:58:19 Doctor Unassigned, [place] [facility] REFERRAL- REQUEST/RESPONSE 2022-04-02 06:01:00 Doctor Unassigned, [place] [facility] Encounters Start Date/Time End Date/Time Encounter Type Admission Type Attending [facility] Care Facility Care Department Encounter ID Source 2023-05-01 10:40:00 Outpatient Amy Hutsonh STLMLC STLMLC [id number] [facility] 2022-09-27 09:48:00 Outpatient Amy Hutsonh STLMLC STLMLC [id number] [facility] 2022-09-11 12:43:00 Outpatient Amy Hutsonh STLMLC STLMLC [id number] [facility] 2022-09-04 08:39:00 Outpatient Dennison, Avlianee STLMLC STLMLC [id number] [facility] 2022-08-02 13:26:00 Outpatient Dennison, Avbarb STLMLC STLMLC [id number] [facility] 2022-08-01 15:33:00 Outpatient Dennison Avlianee STLMLC STLMLC [id number] [facility] 2022-07-10 14:01:00 Outpatient Lenora, Marycarmen STLMLC STLMLC [id number] [facility] 2022-05-15 13:46:00 Outpatient Lenora, Marycarmen STLMLC STLMLC [id number] [facility] 2022-05-13 07:41:00 Outpatient STEVE Na STLMLC STLMLC [id number] [facility] 2022-01-24 13:29:00 Outpatient Wilson, Na STLMLC STLMLC [id number] [facility] 2021-12-07 11:02:00 Outpatient Wilson, Na STLMLC STLMLC [id number] [facility] 2021-09-07 14:38:00 Outpatient Wilson, Na STLMLC STLMLC [id number] [facility] 2021-09-06 13:21:01 Outpatient Wilosn, Na STLMLC STLMLC [id number] [facility] 2021-05-31 10:39:01 Outpatient Wilson, Na STLMLC STLMLC [id number] [facility] 2021-05-23 14:20:57 Outpatient Wilson, Na STLMLC STLMLC [id number] [facility] 2021-05-23 14:19:59 Outpatient Wilson, Na STLMLC STLMLC [id number] [facility] 2021-05-23 14:08:13 Outpatient Wilson, Na STLMLC STLMLC [id number] [facility] 2021-05-23 13:56:34 Outpatient Wilson, Na STLMLC STLMLC [id number] [facility] 2021-05-23 12:40:53 Outpatient Wilson, Na STLMLC STLMLC [id number] [facility] 2021-05-23 12:36:05 Outpatient Wilson, Na STLMLC STLMLC [id number] [facility] 2021-05-23 11:24:48 Outpatient Wilson, Na STLMLC STLMLC [id number] [facility] 2021-05-23 11:12:27 Outpatient Wilson, Na STLMLC STLMLC [id number] [facility] 2023-06-06 00:00:00 2023-06-06 00:00:00 (TEL) STLMLC STLMLC [id number] [facility] 2023-05-05 00:00:00 2023-05-05 00:00:00 (TEL) STLMLC STLMLC [id number] [facility] 2023-03-19 00:00:00 2023-03-19 00:00:00 (TEL) STLMLC STLMLC [id number] [facility] 2023-01-01 00:00:00 2023-01-01 00:00:00 OFFICE VISIT ESTAB PT LEVEL 4 STLMLC STLMLC [id number] [facility] 2023-01-01 00:00:00 2023-01-01 00:00:00 (TEL) STLMLC STLMLC [id number] [facility] 2022-12-31 00:00:00 2022-12-31 00:00:00 (TEL) STLMLC STLMLC [id number] [facility] 2022-12-09 00:00:00 2022-12-09 00:00:00 (TEL) STLMLC STLMLC [id number] [facility] 2022-12-02 00:00:00 2022-12-02 00:00:00 (TEL) STLMLC STLMLC [id number] [facility] 2022-11-22 15:30:00 2022-11-22 16:30:00 JOSE Wheeler [id number] [facility] 2022-11-19 00:00:00 2022-11-19 00:00:00 Outpatient Hunt_A DMG [facility] [id number] [facility] 2022-11-19 00:00:00 2022-11-19 00:00:00 Outpatient Hunt_A DMG [facility] [id number] [facility] 2022-10-01 00:00:00 2022-10-01 00:00:00 OFFICE VISIT ESTAB PT LEVEL 4 STLMLC STLMLC [id number] [facility] 2022-10-01 00:00:00 2022-10-01 00:00:00 SUB ANNUAL [facility] WELLNESS VISIT STLMLC STLMLC [id number] [facility] 2022-09-17 00:00:00 2022-09-17 00:00:00 (TEL) STLMLC STLMLC [id number] [facility] 2022-08-30 00:00:00 2022-08-30 00:00:00 Outpatient DMG DMG [id number] [facility] 2022-08-26 00:00:00 2022-08-26 00:00:00 (TEL) STLMLC STLMLC [id number] [facility] 2022-08-02 00:00:00 2022-08-02 00:00:00 (TEL) STLMLC STLMLC [id number] [facility] 2022-07-31 16:30:00 2022-07-31 17:00:00 Care Dwayne King [id number] [facility] 2022-07-31 00:00:00 2022-07-31 00:00:00 (TEL) STLMLC STLMLC [id number] [facility] 2022-07-18 00:00:00 2022-07-18 00:00:00 Outpatient DMG DMG [id number] [facility] 2022-07-05 00:00:00 2022-07-05 00:00:00 (TEL) STLMLC STLMLC [id number] [facility] 2022-07-04 00:00:00 2022-07-04 00:00:00 (TEL) STLMLC STLMLC [id number] [facility] 2022-06-27 00:00:00 2022-06-27 00:00:00 (TEL) STLMLC STLMLC [id number] [facility] 2022-05-31 00:00:00 2022-05-31 00:00:00 (TEL) STLMLC STLMLC [id number] [facility] 2022-05-24 00:00:00 2022-05-24 00:00:00 (TEL) STLMLC STLMLC [id number] [facility] 2022-05-15 00:00:00 2022-05-15 00:00:00 OFFICE VISIT ESTAB PT LEVEL 4 STLMLC STLMLC [id number] [facility] 2022-05-08 00:00:00 2022-05-08 00:00:00 (TEL) STLMLC STLMLC [id number] [facility] 2022-04-18 00:00:00 2022-04-18 00:00:00 (TEL) STLMLC STLMLC [id number] [facility] 2022-04-16 16:00:00 2022-04-16 16:30:00 Office Visit Jono Whitaker [facility] 1..840.114 [id number] [facility] 2022-04-16 16:00:00 2022-04-16 16:00:00 Outpatient JONO CRISTINA [facility] [id number] [facility] 2022-04-16 00:00:00 2022-04-16 00:00:00 Orders Only Doctor Unassigned, [place] [facility] 1..840.114 [id number] [facility] 2022-04-03 15:30:00 2022-04-03 15:30:00 Outpatient CHANELLE RODRIGUEZ [facility] [id number] [facility] 2022-04-02 00:00:00 2022-04-02 00:00:00 Orders Only Doctor Unassigned, [place] [facility] [id number] [facility] 2022-03-19 00:00:00 2022-03-19 00:00:00 (TEL) STLMLC STLMLC [id number] [facility] 2022-03-11 00:00:00 2022-03-11 00:00:00 (TEL) STLMLC STLMLC [id number] [facility] 2022-01-29 00:00:00 2022-01-29 00:00:00 (TEL) STLMLC STLMLC [id number] [facility] 2022-01-28 00:00:00 2022-01-28 00:00:00 OFFICE VISIT EST PT LEVEL 3 STLMLC STLMLC [id number] [facility] 2022-01-28 00:00:00 2022-01-28 00:00:00 (TEL) STLMLC STLMLC [id number] [facility] 2021-12-13 00:00:00 2021-12-13 00:00:00 (TEL) STLMLC STLMLC [id number] [facility] 2021-11-27 00:00:00 2021-11-27 00:00:00 OFFICE VISIT ESTAB PT LEVEL 4 STLMLC STLMLC [id number] [facility] 2021-11-27 00:00:00 2021-11-27 00:00:00 (TEL) STLMLC STLMLC [id number] [facility] 2021-11-26 00:00:00 2021-11-26 00:00:00 (TEL) STLMLC STLMLC [id number] [facility] 2021-11-02 00:00:00 2021-11-02 00:00:00 (TEL) STLMLC STLMLC [id number] [facility] 2021-10-31 00:00:00 2021-10-31 00:00:00 OL DIG E/M SVC 21+ MIN STLMLC STLMLC [id number] [facility] 2021-10-30 00:00:00 2021-10-30 00:00:00 (TEL) STLMLC STLMLC [id number] [facility] 2021-09-21 00:00:00 2021-09-21 00:00:00 (TEL) STLMLC STLMLC [id number] [facility] 2021-09-10 00:00:00 2021-09-10 00:00:00 OFFICE VISIT EST PT LEVEL 3 STLMLC STLMLC [id number] [facility] 2021-08-14 00:00:00 2021-08-14 00:00:00 (TEL) STLMLC STLMLC [id number] [facility] 2021-08-02 00:00:00 2021-08-02 00:00:00 (TEL) STLMLC STLMLC [id number] [facility] 2021-06-06 00:00:00 2021-06-06 00:00:00 OL DIG E/M SVC 11-20 MIN STLMLC STLMLC [id number] [facility] 2021-06-01 00:00:00 2021-06-01 00:00:00 (TEL) STLMLC STLMLC [id number] [facility] 2021-04-10 00:00:00 2021-04-10 00:00:00 (TEL) STLMLC STLMLC [id number] [facility] 2021-03-23 00:00:00 2021-03-23 00:00:00 (TEL) STLMLC STLMLC [id number] [facility] 2021-03-20 00:00:00 2021-03-20 00:00:00 (TEL) STLMLC STLMLC [id number] [facility] 2021-03-02 00:00:00 2021-03-02 00:00:00 SUB ANNUAL MCR WELLNESS VISIT STLMLC STLMLC [id number] [facility] 2021-03-02 00:00:00 2021-03-02 00:00:00 OFFICE VISIT EST PT LEVEL 3 STLMLC STLMLC [id number] [facility] 2021-02-05 00:00:00 2021-02-05 00:00:00 (TEL) STLMLC STLMLC [id number] [facility] 2021-01-30 00:00:00 2021-01-30 00:00:00 OFFICE VISIT ESTAB PT LEVEL 3 STLMLC STLMLC [id number] [facility] 2021-01-19 00:00:00 2021-01-19 00:00:00 Outpatient STLMLC STLMLC [id number] [facility] 2020-12-01 00:00:00 2020-12-01 00:00:00 Outpatient STLMLC STLMLC [id number] [facility] 2020-11-24 00:00:00 2020-11-24 00:00:00 Outpatient STLMLC STLMLC [id number] [facility] 2020-10-19 00:00:00 2020-10-19 00:00:00 Outpatient STLMLC STLMLC [id number] [facility] 2020-10-11 00:00:00 2020-10-11 00:00:00 Outpatient STLMLC STLMLC [id number] [facility] 2020-08-07 00:00:00 2020-08-07 00:00:00 Outpatient STLMLC STLMLC [id number] [facility] 2020-08-06 00:00:00 2020-08-06 00:00:00 Outpatient STLMLC STLMLC [id number] [facility] 2020-07-04 00:00:2020-07-04 00:00:00 Outpatient STLMLC STLMLC [id number] [facility] 2020-07-03 00:00:00 2020-07-03 00:00:00 Outpatient STLMLC STLMLC [id number] [facility] 2020-06-02 00:00:00 2020-06-02 00:00:00 Outpatient STLMLC STLMLC [id number] [facility] 2020-04-06 00:00:00 2020-04-06 00:00:00 Outpatient STLMLC STLMLC [id number] [facility] 2020-04-04 00:00:00 2020-04-04 00:00:00 Outpatient STLMLC STLMLC [id number] [facility] 2020-01-06 04:55:00 2020-01-06 04:55:[address] [facility] [id number] [facility] 2020 13:20:00 2020 13:20:[address] [facility] [id number] [facility] 2019-10-28 15:22:00 2019-10-28 15:22:00 [facility] [id number] [facility] 2019-10-04 13:20:00 2019-10-04 13:20:00 [facility] [id number] [facility] [place] [place] [facility] 2019-07-02 14:00:00 2019-07-02 14:00:00 [facility] [id number] [facility] [place] [place] [facility] 2019-06-11 14:53:00 2019-06-11 14:53:00 [facility] [id number] [facility] [place] [place] [facility] 2019-05-20 13:40:00 2019-05-20 13:40:[address] [facility] [id number] [facility] [facility] 2019-05-05 12:00:00 2019-05-05 12:00:00 [facility] [id number] [facility] 2019-02-27 23:48:00 2019-02-27 23:48:00 [facility] [id number] [facility] 2019-02-16 13:20:00 2019-02-16 13:20:00 [facility] [id number] [facility] 2018-11-17 14:40:00 2018-11-17 14:40:00 [facility] [id number] [facility] 2018-10-27 13:43:00 2018-10-27 13:43:00 [facility] [id number] [facility] 2018-08-18 14:00:00 2018-08-18 14:00:00 [facility] [id number] [facility] 2018-08-07 15:28:00 2018-08-07 15:28:00 [facility] [id number] [facility] 2018-07-03 09:48:00 2018-07-03 09:48:00 [facility] [id number] [facility] 2018-05-20 14:45:00 2018-05-20 14:45:00 [facility] [id number] [facility] 2018-01-22 14:45:00 2018-01-22 14:45:00 [facility] [id number] [facility] 2017-10-23 14:15:00 2017-10-23 14:15:00 Outpatient [facility] [id number] [facility] 2017-07-23 14:15:00 2017-07-23 14:15:00 Outpatient [facility] [id number] [facility] Results Test Description Test Time Test Comments Results Result Co mments Source HEMOGLOBIN [id number] 00:00:00* Test Item Value Reference Range Interpretation Comme nts HEMOGLOBIN A1c (test code = 4548-4) 5.0 % See_Comment [Automated messa ge] The system which generated this result transmitted reference range: 4.2-5.6 %. The reference range was not used to interpret this result as normal/abnormal. TSH REFLEX TO FREE [id number] 00:00:00* Test Item Value Reference Range Interpretation Comme nts TSH REFLEX TO FREE T4 (test code = 63198-6) 0.516 UIU/ML See_Comment [Automated messa ge] The system which generated this result transmitted reference range: 0.400-4.100 UIU/ML. The reference range was not used to interpret this result as normal/abnormal. LIPID PANEL WITH REFLEX DIRECT [id number] 00:00:00* Test Item Value Reference Range Interpretation Comme nts CALC LDL CHOL (test code = 31127-8) 64 MG/DL See_Comment [Automated messa ge] The system which generated this result transmitted reference range: <100 MG/DL. The reference range was not used to interpret this result as normal/abnormal. CHOLESTEROL (test code = 2093-3) 146 MG/DL See_Comment [Automated messa ge] The system which generated this result transmitted reference range: <200 MG/DL. The reference range was not used to interpret this result as normal/abnormal. HDL CHOLESTEROL (test code = 2085-9) 59 MG/DL See_Comment [Automated messa ge] The system which generated this result transmitted reference range: >39 MG/DL. The reference range was not used to interpret this result as normal/abnormal. RISK RATIO LDL/HDL (test code = 58510-4) 1.08 RATIO See_Comment [Automated message] The system which generated this result transmitted reference range: <3.22 RATIO. The reference range was not used to interpret this result as normal/abnormal. TRIGLYCERIDES (test code = 2571-8) 155 MG/DL See_Comment H [Automated messa ge] The system which generated this result transmitted reference range: <150 MG/DL. The reference range was not used to interpret this result as normal/abnormal. COMPREHENSIVE METABOLIC [id number] 00:00:00* Test Item Value Reference Range Interpretation Comme nts ALBUMIN (test code = 1751-7) 4.6 G/DL See_Comment [Automated messa ge] The system which generated this result transmitted reference range: 3.5-5.2 G/DL. The reference range was not used to interpret this result as normal/abnormal. ALKALINE PHOSPHATASE (test code = 6768-6) 82 U/L See_Comment [Automated message] The system which generated this result transmitted reference range: 40-142 U/L. The reference range was not used to interpret this result as normal/abnormal. BILIRUBIN, TOTAL (test code = 1975-2) <0.2 MG/DL See_Comment [Automated message] The system which generated this result transmitted reference range: <=1.2 MG/DL. The reference range was not used to interpret this result as normal/abnormal. BUN (test code = 3094-0) 15 MG/DL See_Comment [Automated messa ge] The system which generated this result transmitted reference range: 8-23 MG/DL. The reference range was not used to interpret this result as normal/abnormal. CALCIUM (test code = 53817-2) 9.1 MG/DL See_Comment [Automated messa ge] The system which generated this result transmitted reference range: 8.5-10.5 MG/DL. The reference range was not used to interpret this result as normal/abnormal. CALC A/G RATIO (test code = 1759-0) 1.8 RATIO See_Comment [Automated messa ge] The system which generated this result transmitted reference range: 1.0-2.6 RATIO. The reference range was not used to interpret this result as normal/abnormal. CALC BUN/CREAT (test code = 3097-3) 14 RATIO See_Comment [Automated messa ge] The system which generated this result transmitted reference range: 6-28 RATIO. The reference range was not used to interpret this result as normal/abnormal. CALC GLOBULIN (test code = 85596-2) 2.6 G/DL See_Comment [Automated messa ge] The system which generated this result transmitted reference range: 1.9-3.7 G/DL. The reference range was not used to interpret this result as normal/abnormal. CARBON DIOXIDE (test code = 1963-8) 20 MEQ/L See_Comment [Automated messa ge] The system which generated this result transmitted reference range: 19-31 MEQ/L. The reference range was not used to interpret this result as normal/abnormal. CHLORIDE (test code = 2075-0) 107 MEQ/L See_Comment [Automated messa ge] The system which generated this result transmitted reference range: 95-107 MEQ/L. The reference range was not used to interpret this result as normal/abnormal. CREATININE (test code = 2160-0) 1.04 MG/DL See_Comment [Automated messa ge] The system which generated this result transmitted reference range: 0.60-1.30 MG/DL. The reference range was not used to interpret this result as normal/abnormal. eGFR (2020 CKD-EPI) (test code = 79730-0) 55 ML/MIN/1.73 See_Comment L [Automated messa ge] The system which generated this result transmitted reference range: >60 ML/MIN/1.73. The reference range was not used to interpret this result as normal/abnormal. GLUCOSE (test code = 1558-6) 118 MG/DL See_Comment H [Automated messa ge] The system which generated this result transmitted reference range: 70-99 MG/DL. The reference range was not used to interpret this result as normal/abnormal. POTASSIUM (test code = 2823-3) 3.9 MEQ/L See_Comment [Automated messa ge] The system which generated this result transmitted reference range: 3.5-5.4 MEQ/L. The reference range was not used to interpret this result as normal/abnormal. PROTEIN, TOTAL (test code = 2885-2) 7.2 G/DL See_Comment [Automated messa ge] The system which generated this result transmitted reference range: 6.1-8.3 G/DL. The reference range was not used to interpret this result as normal/abnormal. AST (test code = 1920-8) 21 U/L See_Comment [Automated messa ge] The system which generated this result transmitted reference range: 9-40 U/L. The reference range was not used to interpret this result as normal/abnormal. ALT (test code = 1742-6) 13 U/L See_Comment [Automated messa ge] The system which generated this result transmitted reference range: 5-40 U/L. The reference range was not used to interpret this result as normal/abnormal. SODIUM (test code = 2951-2) 139 MEQ/L See_Comment [Automated messa ge] The system which generated this result transmitted reference range: 133-146 MEQ/L. The reference range was not used to interpret this result as normal/abnormal.
--- NOTE | 2023-06-09 10:29 | RAD REPORT ---
EXAM DESCRIPTION: CT - Head Brain Wo Cont - 06/09/2023 9:54 am CLINICAL HISTORY: fall COMPARISON: Head Brain Wo Cont dated 10/26/2021; Head Brain Wo Cont dated 01/19/2021 TECHNIQUE: Noncontrast head CT images were obtained without IV contrast. Multiplanar reformats were generated and reviewed. All CT scans are performed using dose optimization technique as appropriate and may include automated exposure control or mA/KV adjustment according to patient size. FINDINGS: No intracranial hemorrhage, mass, or edema. Midline structures are unremarkable. Stable ventricular caliber with mild central predominant volume loss. Contreras-white matter differentiation is preserved, without evidence of acute infarct. No abnormal extra- axial fluid collections. Mastoid air cells and visualized portions of the paranasal sinuses are clear. No acute bony findings. IMPRESSION: No evidence of an acute intracranial process.
--- NOTE | 2023-06-09 10:52 | EDPHYS ---
Physician Documentation [facility] Name: Qing Mojica Age: 78 yrs Sex: Female : 1945 Arrival Date: 06/09/2023 Time: 09:23 Bed DX3 Private MD: ED Physician Lele lAberto HPI: 06/09 09:45 This 78 yrs old Female presents to ER via Ambulatory with complaints of Fall ec2 Injury, Headache. 09:45 Patient arrives today for headache. Patient reports that she had a ground-level fall 1 ec2 week ago. States she is not having head pain since that time. Has been taking some Tylenol with improvement in symptoms. Patient reports no nausea or vomiting, no diarrhea symptoms. Reports no blood thinner use. . Historical: - Allergies: 09:43 PENICILLINS; nj1 - PMHx: 09:43 Anxiety; Chronic obstructive lung disease; COPD; Depression; GERD; nj1 - PSHx: 09:43 h/ocolostomy; hernia repair; partial hysterectomy; nj1 - Immunization history:: Client reports receiving the 2nd dose of the Covid vaccine. - Social history:: Smoking status: Patient reports the use of cigarette tobacco products, smokes one-half pack cigarettes per day. ROS: 09:45 Constitutional: as per hpi ec2 Exam: 09:45 Constitutional: GEN: NAD Head: atraumatic Eyes: EOMI Ears: External ears are ec2 normal. CV: regular rate LUNGS: no respiratory distress ABD: non-distended SKIN: no evidence of rashes MSK: no evidence of trauma NEURO: moves all extremities equally, cranial nerves II through XII intact, strength intact all 4 extremities Vital Signs: 09:41 BP 175 / 93; Pulse 71; Resp 17; Pulse Ox 100% on R/A; Weight 61.23 kg; Height 5 ft. 3 nj1 in. ; Pain 0/10; 09:41 Body Mass Index 23.91 (61.23 kg, 160.02 cm) nj1 09:41 Pain Scale: Adult nj1 [place] Coma Score: 11:05 Eye Response: spontaneous(4). Motor Response: obeys commands(6). Verbal Response: aa5 oriented(5). Total: 15. MDM: 09:40 Patient medically screened. ec2 09:45 Data reviewed: vital signs. ED course: Patient arrives today for headache after fall 1 ec2 week ago. Examination remarkable for well-appearing neuro intact individual is otherwise in no acute distress. Will obtain CT scan of the head. Suspect that she has concussive type symptoms causing her headache, low suspicion for intracranial brain bleed, will suspicion for mass. Patient otherwise systemically well-appearing, do not feel she would benefit from any lab work such as CBC or BMP.. 10:51 ED course: CT scan of the head shows no acute intracranial process. Will discharge ec2 home. Turn precautions given. Instructed to follow-up primary care doctor.. 06/09 09:45 Order name: CT Head Brain wo Cont; Complete Time: 10:51 ec2 Administered Medications: No medications were administered Disposition Summary: 06/09/23 10:52 Discharge Ordered Notes: Location: Home ec2 Condition: Stable ec2 Diagnosis - Headache ec2 Followup: ec2 - With: Private Physician - When: - Reason: Recheck today's complaints Discharge Instructions: - Discharge Summary Sheet ec2 - Concussion, Adult, [id number] ec2 Forms: - Medication Reconciliation Form ec2 - Thank You Letter ec2 - Antibiotic Education ec2 - Prescription Opioid Use ec2 - Patient Portal Instructions ec2 - Leadership Thank You Letter ec2 Signatures: Dispatcher [employer] EDPat Ravi RN RN nj1 Lele Alberto MD MD ec2 Corrections: (The following items were deleted from the chart) 09:52 09:51 Patient medically screened. ec2 ec2
--- NOTE | 2023-06-09 10:52 | ER ---
Nurse's Notes [facility] Name: Qing Mojica Age: 78 yrs Sex: Female : 1945 Arrival Date: 06/09/2023 Time: 09:23 Bed DX3 Private MD: Diagnosis: Headache Presentation: 06/09 09:41 Chief complaint: Patient states: Intermittent headache, fall a week ago at [facility]. nj1 Has been taking Tylenol, no vomiting. Ebola Screen: Patient denies travel to an Ebola-affected area in the 21 days before illness onset. Initial Sepsis Screen: Does the patient meet any 2 criteria? No. Patient's initial sepsis screen is negative. Does the patient have a suspected source of infection? No. Patient's initial sepsis screen is negative. Risk Assessment: Do you want to hurt yourself or someone else? Patient reports no desire to harm self or others. Onset of symptoms was April 2023. 09:41 Method Of Arrival: Ambulatory [facility] 09:41 Acuity: LUIS 3 nj 09:44 Coronavirus screen: Vaccine status: Patient reports receiving the 2nd dose of the covid nj1 vaccine. Historical: - Allergies: 09:43 PENICILLINS; nj1 - PMHx: 09:43 Anxiety; Chronic obstructive lung disease; COPD; Depression; GERD; nj1 - PSHx: 09:43 h/ocolostomy; hernia repair; partial hysterectomy; nj1 - Immunization history:: Client reports receiving the 2nd dose of the Covid vaccine. - Social history:: Smoking status: Patient reports the use of cigarette tobacco products, smokes one-half pack cigarettes per day. Assessment: 11:05 Reassessment: Patient is alert, oriented x 3, equal unlabored respirations, skin aa5 warm/dry/pink. Vital Signs: 09:41 BP 175 / 93; Pulse 71; Resp 17; Pulse Ox 100% on R/A; Weight 61.23 kg; Height 5 ft. 3 nj1 in. ; Pain 0/10; 09:41 Body Mass Index 23.91 (61.23 kg, 160.02 cm) nj 09:41 Pain Scale: Adult nj1 [place] Coma Score: 11:05 Eye Response: spontaneous(4). Motor Response: obeys commands(6). Verbal Response: aa5 oriented(5). Total: 15. ED Course: 09:27 Patient arrived in ED. mg5 09:31 Lele Alberto MD is Attending Physician. ec2 09:43 Triage completed. nj1 09:44 Arm band placed on left wrist. nj1 09:55 CT Head Brain wo Cont In Process Unspecified. EDMS 11:05 No provider procedures requiring assistance completed. Patient did not have IV access aa5 during this emergency room visit. Administered Medications: No medications were administered Outcome: 10:52 Discharge ordered by MD. ec2 11:05 Discharged to home ambulatory, aa5 11:05 Condition: stable 11:05 Discharge instructions given to patient, Instructed on discharge instructions, follow up and referral plans. Demonstrated understanding of instructions, follow-up care, 11:07 Patient left the ED. aa5 Signatures: Dispatcher [employer] Carla Urias, RN RN aa5 Pat Edwards RN RN n[address] [place] [address] mg5 Lele Alberto MD MD 2
[2023-06-09 11:29] VITALS: BP 175/93; O2SAT 100
== END ==
LOC: ER 09:23
DX: R51.9 Headache, unspecified (principal); J44.9 Chronic obstructive pulmonary disease, unspecified; F17.210 Nicotine dependence, cigarettes, uncomplicated; Z88.0 Allergy status to penicillin
CPT/HCPCS: 70450

== ENCOUNTER 2023-11-25 19:28 | Emergency (ER) | payer OTHER ==
--- OUTSIDE RECORDS SUMMARY | 2023-11-25 19:33 | XMS REPORT | Continuity of Care Document ---
Author Name Unknown Address [address] [place] [address] [facility] Address [address] [place] [address] Care Team Providers Care Car Parker Name Role Phone Justine Wilson Primary Care Physician [phone] Tomer Hutson Attending Clinician Unavailable Franco Dennison Attending Clinician Unavailable Marycarmen Cooley Attending Clinician Unavailable Justine WILSON Attending Clinician Unavailable Karina Wheeler Attending Clinician Linda Attending Clinician Unavailable Medardo King Attending Clinician [phone] Jono Shaw Attending Clinician [phone] JONO WHITAKER Attending Clinician Unavailable Doctor Unassigned, [place] Attending Clinician U CHANELLE Lopez Attending Clinician Unavailabl e Wallyt_A Admitting Clinician Unavailable Payers Payer Name Policy Type Policy Number Effective Date Expirati on Date Source [facility] MCR Dual Complete (HMO-POS D-SNP) [id number] 2023 00:00:00 [facility] (MEDICARE REPLACEMENT HMO) [id number] 2022 00:00:00 [employer] MED[employer]ARE 53 [id number] 2021 00:00:00 [facility] Problems Condition Name Condition Details Condition Category Status Onset Date Resolution Date Last Treatment Date Treating Clinician Comments Source No known active problems No known active problems Disease [facility] [id number] 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 Problem Common [facility] [id number] Stress at home Problem Common [facility] [id number] Breast cancer screening by mammogram Problem Common [facility] Abnormal mammogram Abnormal mammogram Problem Common [facility] Colonic polyp Colonic polyp Problem Common [facility] Chronic kidney disease stage 2 Stage 2 chronic kidney disease Problem Common [facility] Iron deficiency Iron deficiency Problem [facility] Chronic obstructiv e pulmonary disease Chronic obstructiv e pulmonary disease (COPD) Problem Common [facility] Idiopathic peripheral neuropathy Idiopathic peripheral neuropathy Problem Common [facility] [id number] Unsteady gait Problem [facility] [id number] Need for assistance due to unsteady gait Problem Common [facility] [id number] Moderate major depression , single episode Problem [facility] Chronic kidney disease due to hypertensi on Benign hypertensi on with chronic kidney disease, stage III Problem [facility] Nonexudati ve age-relate d macular degenerati on Nonexudati ve age-relate d macular degenerati on, bilateral, early dry stage Problem Common [facility] [id number] Mixed hyperlipid emia Problem Common [facility] 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 Problem Common [facility] [id number] Unsteadine ss Problem Common [facility] Psoriasis Psoriasis Problem Comm on [facility] Hyperglyce mario Hyperglyce mario Problem Common [facility] Gastroesop hageal reflux disease GERD (gastroeso phageal reflux disease) Problem Common [facility] Hypertensi on Hypertensi on Problem Common [facility] Vitamin B12 deficiency Vitamin B12 deficiency Problem Common [facility] Hiatal hernia Hiatal hernia Problem [facility] Essential hypertensi on Essential (primary) hypertensi on Problem [facility] Degenerati on of lumbar interverte bral disc Other interverte bral disc degenerati on, lumbar region Problem [facility] Allergic rhinitis Allergic rhinitis Problem [facility] [id number] Cigarette nicotine dependence with other nicotine-i nduced disorder Problem [facility] Mixed anxiety and depressive disorder Depression with anxiety Problem [facility] [id number] Irritable bowel syndrome with diarrhea Problem [facility] Chronic back pain Chronic back pain Problem [facility] Osteopenia Osteopenia Problem [facility] Osteoarthr itis Osteoarthr itis involving multiple joints on both sides of body Problem [facility] Epidermoid cyst of skin Epidermoid cyst of skin Problem [facility] [id number] Vitamin B12 deficiency (dietary) anemia Problem [facility] Chronic kidney disease stage 3 Stage 3 chronic kidney disease, unspecifie d whether stage 3a or 3b CKD Problem [facility] Hemorrhoid s without complicati on Unspecifie d hemorrhoid s without mention of complicati on Problem [facility] Cramp in lower limb Leg cramps Problem [facility] Nicotine dependence Nicotine dependence Problem [facility] [id number] Mixed stress and urge urinary incontinen ce Problem [facility] At risk for falls At risk for falls Problem [facility] [id number] Iron deficiency anemia, unspecifie d iron deficiency anemia type Problem [facility] Renal insufficie ncy syndrome Renal insufficie ncy syndrome Problem [facility] Tobacco user Tobacco use disorder Problem [facility] Urinary incontinen ce Urinary incontinen ce Problem [facility] [id number] 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 Problem [facility] Allergies, Adverse Reactions, Alerts Allergy Name Allergy Type Status Severity Reaction(s) Onset Date Inactive Date Treating Clinician Comments Source Penicill ins Propensi ty to adverse reaction s Active Rash 2016-04 00:00: 00 [facility] Tetanus And Diphther ia Toxoids Propensi ty to adverse reaction s Active Unknown - See comments 2016-04 00:00: 00 [facility] PENICILL INS Drug Class Active Rash 2016-04 00:00: 00 [facility] TETANUS AND DIPHTHER IA TOXOIDS DRUG INGREDI Active Unknown-Cmnt 2016-04 00:00: 00 [facility] 6933 Drug allergy Active [facility] amoxicil kaelyn amoxicil kaelyn Active [facility] Penicill in Penicill in Active [facility] Social History Social Habit Start Date Stop Date Quantity Comments Source History of Tobacco Use Current Smoker [facility] Exposure to SARS-CoV-2 (event) 2022-04-06 00:00:00 2022-04-16 15:58:00 Not sure [facility] Alcohol intake 2022-04-16 00:00:00 2022-04-16 00:00:00 0 /d [facility] Cigarettes smoked current (pack per day) - Reported 2016-01-22 00:00:00 2016-01-22 00:00:00 [facility] Tobacco use and exposure 2016-01-22 00:00:00 2016-01-22 00:00:00 Smokeless tobacco non-user [facility] Sex Assigned At 1945 00:00:00 1945 00:00:00 [facility] Smoking Status Start Date Stop Date Source Smokes tobacco daily 2016-01-22 00:00:00 [facility] Medications Ordered Medication Name Filled Medication Name Start Date Stop Date Current Medication? Ordering Clinician Indication Dosage Frequency Signature (SIG) Comments Components Source Atorvastati n Calcium 10 MG Atorvastati n Calcium 10 MG 10 00:00: 00 No 1{table t} QD Atorvastat in Calcium 10 MG vits A-C-E-B complx-min- lutein (LIPOTRIAD, WITH LUTEIN,) 5,000 unit- 120 mg-60 unit TbSR 2016-04 13:52: 18 Yes 1{tbl} Take 1 tablet by mouth daily. [facility] alendronate (FOSAMAX) 35 mg tablet 2016-04 13:52: 18 Yes 35mg Take 35 mg by mouth weekly. Indication s: Patient takes on Tuesdays [facility] [place]-3 Fatty Acids (FISH OIL) 500 mg Cap 2016-04 13:52: 18 Yes 1{capsu le} Take 1 capsule by mouth daily. [facility] VITAMIN E, DL,TOCOPHER YL ACET, (DL-VITAMIN E ACETATE) 100 unit capsule 2016-04 13:52: 18 Yes 100U Take 100 Units by mouth daily. [facility] LACTOBACILL US ACIDOPHILUS (PROBIOTIC ORAL) 2016-04 13:52: 18 Yes 1{tbl} Take 1 tablet by mouth daily. [facility] ibuprofen (ADVIL) 200 mg tablet 2016-04 13:52: 18 Yes 600mg Take 600 mg by mouth every 6 (six) hours as needed. [facility] cetirizine (ZYRTEC) 10 mg tablet 2016-04 13:52: 18 Yes 10mg Take 10 mg by mouth daily. [facility] Multivitami n Cmb No.21-Iron- FA (CENTRUM COMPLETE) 18-400 mg-mcg Tab 2016-04 13:52: 18 Yes 1{tbl} Take 1 tablet by mouth daily. [facility] celecoxib (CELEBREX) 200 mg capsule 2016-04 13:52: 18 Yes 200mg Take 200 mg by mouth daily. [facility] iron,iron asp gly-FA-mv,m in27 (CORVITE FE) 125 mg iron-25 mg iron-1 mg Tab 2016-04 13:52: 18 Yes 1{tbl} Take 1 tablet by mouth daily. [facility] mirabegron (MYRBETRIQ) 25 mg tablet 2016-04 13:52: 18 Yes 1{tbl} Take 1 tablet by mouth every evening. [facility] mometasone (NASONEX) 50 mcg/actuati on nasal spray 2016-04 13:52: 18 Yes 1{spray } Use 1 [place] in each nostril daily. [facility] budesonide- formoterol (SYMBICORT) 160-4.5 mcg/actuati on inhaler 2016-04 13:52: 18 Yes 2{puff} Inhale 2 Puffs 2 (two) times daily. [facility] vitamin B-12 (VITAMIN B-12) 1,000 mcg tablet 2016-04 13:52: 18 Yes 1000ug Take 1,000 mcg by mouth daily. [facility] diclofenac 75 mg EC tablet 2016-04 00:00: 00 Yes 75mg Take 1 tablet by mouth 2 (two) times daily with meals. [facility] Centrum Silver Adult 50+ - Centrum Silver Adult 50+ - No Na Wilson Centrum Silver Adult 50+ - [facility] Cranberry Cranberry No 2{sp ray s_in_ea ch_nost ril} QD [place] Potassium Chloride Deborah ER 20 MEQ Potassium Chloride Deborah ER 20 MEQ No Potassium Chloride Deborah ER 20 MEQ Omeprazole 40 MG Omeprazole 40 MG No 1{capsu le} QD Omeprazole 40 MG Mesalamine 1.2 GM Mesalamine 1.2 GM No 2{table ts_with _a_meal } QD Mesalamine 1.2 GM Turmeric 500 MG Turmeric 500 MG No Turmeric 500 MG Citalopram Hydrobromid e 20 MG Citalopram Hydrobromid e 20 MG No QD Citalopram Hydrobromi de 20 MG Albuterol Sulfate HFA 108 (90 Base) MCG/ACT Albuterol Sulfate HFA 108 (90 Base) MCG/ACT No Albuterol Sulfate HFA 108 (90 Base) MCG/ACT Symbicort 160-4.5 MCG/ACT Symbicort 160-4.5 MCG/ACT No 2{puffs } BID Symbicort 160-4.5 MCG/ACT B12 Fast Dissolve 5000 MCG B12 Fast Dissolve 5000 MCG No B12 Fast Dissolve 5000 MCG Magnesium Oxide -Mg Supplement 400 MG Magnesium Oxide -Mg Supplement 400 MG No 1{capsu le_as_n eeded} BID Magnesium Oxide -Mg Supplement 400 MG Myrbetriq 50 MG Myrbetriq 50 MG 07-31 00:00 :00 No 1{table t} QD Myrbetriq 50 MG Immunizations Ordered Immunization Name Filled Immunization Name Date Status Comments Source FluAD FluAD 2021-01-30 13:48:00 Completed [facility] FluAD FluAD 2021-01-30 13:48:00 Completed [facility] FluAD FluAD 2021-01-30 13:48:00 Completed [facility] FluAD FluAD 2021-01-30 13:48:00 Completed [facility] FluAD FluAD 2021-01-30 13:48:00 Completed [facility] FluAD FluAD 2021-01-30 13:48:00 Completed [facility] FluAD FluAD 2021-01-30 13:48:00 Completed [facility] FluAD FluAD 2021-01-30 13:48:00 Completed [facility] FluAD FluAD 2021-01-30 13:48:00 Completed [facility] FluAD FluAD 2021-01-30 13:48:00 Completed [facility] FluAD FluAD 2021-01-30 13:48:00 Completed [facility] FluAD FluAD 2021-01-30 13:48:00 Completed [facility] FluAD FluAD 2021-01-30 13:48:00 Completed [facility] FluAD FluAD 2021-01-30 13:48:00 Completed [facility] FluAD FluAD 2021-01-30 13:48:00 Completed [facility] FluAD FluAD 2021-01-30 13:48:00 Completed [facility] FluAD FluAD 2021-01-30 13:48:00 Completed [facility] FluAD FluAD 2021-01-30 13:48:00 Completed [facility] FluAD FluAD 2021-01-30 13:48:00 Completed [facility] FluAD FluAD 2021-01-30 13:48:00 Completed [facility] FluAD FluAD 2021-01-30 13:48:00 Completed [facility] FluAD FluAD 2021-01-30 13:48:00 Completed [facility] FluAD FluAD 2021-01-30 13:48:00 Completed [facility] FluAD FluAD 2021-01-30 13:48:00 Completed [facility] FluAD FluAD 2021-01-30 13:48:00 Completed [facility] FluAD FluAD 2021-01-30 13:48:00 Completed [facility] FluAD FluAD 2021-01-30 13:48:00 Completed [facility] FluAD FluAD 2021-01-30 13:48:00 Completed [facility] FluAD FluAD 2021-01-30 13:48:00 Completed [facility] FluAD FluAD 2021-01-30 13:48:00 Completed [facility] FluAD FluAD 2021-01-30 13:48:00 Completed [facility] FluAD FluAD 2021-01-30 13:48:[address] [facility] Prevnar 20 (PCV20) Prevnar 20 (PCV20) Unknown Completed [facility] FluAD FluAD Unknown Completed [facility] Prevnar 20 (PCV20) Prevnar 20 (PCV20) Unknown Completed [facility] FluAD FluAD Unknown Completed [facility] Prevnar 20 (PCV20) Prevnar 20 (PCV20) Unknown Completed [facility] FluAD FluAD Unknown Completed [facility] Prevnar 20 (PCV20) Prevnar 20 (PCV20) Unknown Completed [facility] FluAD FluAD Unknown Completed Common [facility] Prevnar 20 (PCV20) Prevnar 20 (PCV20) Unknown Completed Common [facility] FluAD FluAD Unknown Completed [facility] Prevnar 20 (PCV20) Prevnar 20 (PCV20) Unknown Completed [facility] FluAD FluAD Unknown Completed [facility] Prevnar 20 (PCV20) Prevnar 20 (PCV20) Unknown Completed [facility] FluAD FluAD Unknown Completed [facility] Prevnar 20 (PCV20) Prevnar 20 (PCV20) Unknown Completed [facility] FluAD FluAD Unknown Completed [facility] Prevnar 20 (PCV20) Prevnar 20 (PCV20) Unknown Completed [facility] FluAD FluAD Unknown Completed [facility] Prevnar 20 (PCV20) Prevnar 20 (PCV20) Unknown Completed [facility] FluAD FluAD Unknown Completed [facility] Prevnar 20 (PCV20) Prevnar 20 (PCV20) Unknown Completed [facility] FluAD FluAD Unknown Completed [facility] Prevnar 20 (PCV20) Prevnar 20 (PCV20) Unknown Completed [facility] FluAD FluAD Unknown Completed [facility] Prevnar 20 (PCV20) Prevnar 20 (PCV20) Unknown Completed [facility] FluAD FluAD Unknown Completed [facility] Prevnar 20 (PCV20) Prevnar 20 (PCV20) Unknown Completed [facility] FluAD FluAD Unknown Completed [facility] Prevnar 20 (PCV20) Prevnar 20 (PCV20) Unknown Completed [facility] FluAD FluAD Unknown Completed [facility] Prevnar 20 (PCV20) Prevnar 20 (PCV20) Unknown Completed [facility] FluAD FluAD Unknown Completed [facility] Prevnar 20 (PCV20) Prevnar 20 (PCV20) Unknown Completed [facility] FluAD FluAD Unknown Completed [facility] Prevnar 20 (PCV20) Prevnar 20 (PCV20) Unknown Completed [facility] FluAD FluAD Unknown Completed [facility] Prevnar 20 (PCV20) Prevnar 20 (PCV20) Unknown Completed [facility] FluAD FluAD Unknown Completed [facility] Prevnar 20 (PCV20) Prevnar 20 (PCV20) Unknown Completed [facility] FluAD FluAD Unknown Completed [facility] Prevnar 20 (PCV20) Prevnar 20 (PCV20) Unknown Completed [facility] FluAD FluAD Unknown Completed [facility] Prevnar 20 (PCV20) Prevnar 20 (PCV20) Unknown Completed [facility] FluAD FluAD Unknown Completed [facility] Prevnar 20 (PCV20) Prevnar 20 (PCV20) Unknown Completed [facility] FluAD FluAD Unknown Completed [facility] Vital Signs Vital Name Observation Time Observation Value Comments S ource height 2023-09-05 13:40:00 63.00 [in_i] Com [facility] weight 2023-09-05 13:40:00 125.7 [lb_av] Co mmon [facility] temperature 2023-09-05 13:40:00 97.9 [degF] Com [facility] bmi 2023-09-05 13:40:00 22.26 kg/m2 Comm on [facility] oximetry 2023-09-05 13:40:00 99 % Commo n [facility] respiratory rate 2023-09-05 13:40:00 18 /min [facility] blood pressure systolic 2023-09-05 13:40:00 130 mm[Hg] Common [facility] blood pressure diastolic 2023-09-05 13:40:00 59 mm[Hg] [facility] height 2023-07-03 13:50:00 63.00 [in_i] Com [facility] weight 2023-07-03 13:50:00 125.4 [lb_av] Co mmon [facility] temperature 2023-07-03 13:50:00 97.6 [degF] Com [facility] bmi 2023-07-03 13:50:00 22.21 kg/m2 Comm on [facility] oximetry 2023-07-03 13:50:00 99 % Commo n [facility] respiratory rate 2023-07-03 13:50:00 18 /min Common [facility] blood pressure systolic 2023-07-03 13:50:00 130 mm[Hg] [facility] blood pressure diastolic 2023-07-03 13:50:00 71 mm[Hg] Common [facility] height 2023-01-01 14:30:00 63.00 [in_i] Com [facility] weight 2023-01-01 14:30:00 129 [lb_av] Comm on [facility] temperature 2023-01-01 14:30:00 96.8 [degF] Com [facility] bmi 2023-01-01 14:30:00 22.85 kg/m2 Comm on [facility] oximetry 2023-01-01 14:30:00 97 % Commo n [facility] respiratory rate 2023-01-01 14:30:00 16 /min Common [facility] blood pressure systolic 2023-01-01 14:30:00 138 mm[Hg] [facility] blood pressure diastolic 2023-01-01 14:30:00 68 mm[Hg] Common [facility] height 2022-10-01 14:20:00 63.00 [in_i] Com [facility] weight 2022-10-01 14:20:00 126.2 [lb_av] Co [facility] temperature 2022-10-01 14:20:00 97.6 [degF] Com [facility] bmi 2022-10-01 14:20:00 22.35 kg/m2 Comm on [facility] oximetry 2022-10-01 14:20:00 97 % Commo n [facility] respiratory rate 2022-10-01 14:20:00 18 /min Common [facility] blood pressure systolic 2022-10-01 14:20:00 137 mm[Hg] Common [facility] blood pressure diastolic 2022-10-01 14:20:00 70 mm[Hg] Common [facility] height 2022-10-01 14:40:00 63.00 [in_i] Com [facility] weight 2022-10-01 14:40:00 126.2 [lb_av] Co [facility] temperature 2022-10-01 14:40:00 97.6 [degF] Com [facility] bmi 2022-10-01 14:40:00 22.35 kg/m2 Comm on [facility] oximetry 2022-10-01 14:40:00 97 % Commo n [facility] respiratory rate 2022-10-01 14:40:00 18 /min Common [facility] blood pressure systolic 2022-10-01 14:40:00 137 mm[Hg] Common [facility] blood pressure diastolic 2022-10-01 14:40:00 70 mm[Hg] [facility] height 2022-05-15 14:00:00 63.00 [in_i] Com [facility] weight 2022-05-15 14:00:00 128.6 [lb_av] Co mmon [facility] temperature 2022-05-15 14:00:00 97.9 [degF] Com [facility] bmi 2022-05-15 14:00:00 22.78 kg/m2 Comm on [facility] oximetry 2022-05-15 14:00:00 100 % Commo n [facility] respiratory rate 2022-05-15 14:00:00 17 /min Common [facility] blood pressure systolic 2022-05-15 14:00:00 128 mm[Hg] [facility] blood pressure diastolic 2022-05-15 14:00:00 67 mm[Hg] [facility] height 2022-01-28 16:00:00 63.00 [in_i] Com [facility] weight 2022-01-28 16:00:00 132 [lb_av] Comm on [facility] temperature 2022-01-28 16:00:00 97.6 [degF] Com [facility] bmi 2022-01-28 16:00:00 23.38 kg/m2 Comm on [facility] oximetry 2022-01-28 16:00:00 96 % Commo n [facility] respiratory rate 2022-01-28 16:00:00 17 /min [facility] blood pressure systolic 2022-01-28 16:00:00 138 mm[Hg] [facility] blood pressure diastolic 2022-01-28 16:00:00 86 mm[Hg] [facility] height 2021-11-27 15:40:00 63.00 [in_i] Com [facility] weight 2021-11-27 15:40:00 133.8 [lb_av] Co mmon [facility] temperature 2021-11-27 15:40:00 97.2 [degF] Com [facility] bmi 2021-11-27 15:40:00 23.70 kg/m2 Comm on [facility] oximetry 2021-11-27 15:40:00 99 % Commo n [facility] respiratory rate 2021-11-27 15:40:00 16 /min [facility] blood pressure systolic 2021-11-27 15:40:00 138 mm[Hg] [facility] blood pressure diastolic 2021-11-27 15:40:00 67 mm[Hg] [facility] height 2021-09-10 15:00:00 79.00 [in_i] Com [facility] weight 2021-09-10 15:00:00 135.0 [lb_av] Co mmon [facility] temperature 2021-09-10 15:00:00 97.1 [degF] Com [facility] bmi 2021-09-10 15:00:00 15.21 kg/m2 Comm on [facility] oximetry 2021-09-10 15:00:00 100 % Commo n [facility] respiratory rate 2021-09-10 15:00:00 18 /min [facility] blood pressure systolic 2021-09-10 15:00:00 135 mm[Hg] [facility] blood pressure diastolic 2021-09-10 15:00:00 67 mm[Hg] [facility] height 2021-03-02 14:40:00 79.0 [in_i] Comm on [facility] weight 2021-03-02 14:40:00 141 [lb_av] Comm on [facility] temperature 2021-03-02 14:40:00 97.2 [degF] Com [facility] bmi 2021-03-02 14:40:00 15.88 kg/m2 Comm on [facility] oximetry 2021-03-02 14:40:00 72 % Commo n [facility] respiratory rate 2021-03-02 14:40:00 18 /min Common [facility] blood pressure systolic 2021-03-02 14:40:00 130 mm[Hg] [facility] blood pressure diastolic 2021-03-02 14:40:00 82 mm[Hg] [facility] height 2021-03-02 14:40:00 79.00 [in_i] Com [facility] weight 2021-03-02 14:40:00 141.0 [lb_av] Co mmon [facility] temperature 2021-03-02 14:40:00 97.2 [degF] Com [facility] bmi 2021-03-02 14:40:00 15.88 kg/m2 Comm on [facility] oximetry 2021-03-02 14:40:00 72 % Commo n [facility] respiratory rate 2021-03-02 14:40:00 18 /min [facility] blood pressure systolic 2021-03-02 14:40:00 130 mm[Hg] [facility] blood pressure diastolic 2021-03-02 14:40:00 82 mm[Hg] [facility] height 2021-01-30 13:00:00 79.00 [in_i] Com [facility] weight 2021-01-30 13:00:00 142 [lb_av] Comm on [facility] temperature 2021-01-30 13:00:00 98 [degF] Comm on [facility] bmi 2021-01-30 13:00:00 16 kg/m2 Commo n [facility] oximetry 2021-01-30 13:00:00 98 % Commo n [facility] respiratory rate 2021-01-30 13:00:00 23 /min Common [facility] blood pressure systolic 2021-01-30 13:00:00 127 mm[Hg] [facility] blood pressure diastolic 2021-01-30 13:00:00 76 mm[Hg] [facility] Procedures Procedure Date / Time Performed Performing Clinicia n Source CONSENT/REFUSAL FOR DIAGNOSIS AND TREATMENT 2022-04-16 21:58:19 Doctor Unassigned, [place] [facility] REFERRAL- REQUEST/RESPONSE 2022-04-02 06:01:00 Doctor Unassigned, [place] [facility] Encounters Start Date/Time End Date/Time Encounter Type Admission Type Attending [facility] Care Facility Care Department Encounter ID Source 2023-09-05 12:53:00 Outpatient HutsonAmyh STLMLC STLC [id number] [facility] 2023-07-01 15:11:00 Outpatient Hutson, Tomer STLMLC STLMLC [id number] [facility] 2023-05-01 10:40:00 Outpatient Hutson, Tomer STLMLC STLMLC [id number] [facility] 2022-09-27 09:48:00 Outpatient Hutson, Tomer STLMLC STLMLC [id number] [facility] 2022-09-11 12:43:00 Outpatient Hutson, Tomer STLMLC STLMLC [id number] [facility] 2022-09-04 08:39:00 Outpatient Dennison, Avnee STLMLC STLMLC [id number] [facility] 2022-08-02 13:26:00 Outpatient Dennison, Avnee STLMLC STLMLC [id number] [facility] 2022-08-01 15:33:00 Outpatient Dennison, Avnee STLMLC STLMLC [id number] [facility] 2022-07-10 14:01:00 Outpatient LenoraMarycarmen mendez STLMLC STLC [id number] [facility] 2022-05-15 13:46:00 Outpatient Marycarmen Cooley STLMLC STLMLC [id number] [facility] 2022-05-13 07:41:00 Outpatient WILSON, Na STLMLC STLMLC [id number] [facility] 2022-01-24 13:29:00 Outpatient Wilson, Na STLMLC STLMLC [id number] [facility] 2021-12-07 11:02:00 Outpatient Wilson, Na STLMLC STLMLC [id number] [facility] 2021-09-07 14:38:00 Outpatient Wilson, Na STLMLC STLMLC [id number] [facility] 2021-09-06 13:21:01 Outpatient Wilson, Na STLMLC STLMLC [id number] [facility] 2021-05-31 10:39:01 Outpatient Wilson, Na STLMLC STLMLC [id number] [facility] 2021-05-23 14:20:57 Outpatient Wilson, Na STLMLC STLMLC [id number] [facility] 2021-05-23 14:19:59 Outpatient Wilson, Na STLMLC STLMLC [id number] 57713 [facility] 2021-05-23 14:08:13 Outpatient Wilson, Na STLMLC STLMLC [id number] 45772 [facility] 2021-05-23 13:56:34 Outpatient Wilson, Na STLMLC STLMLC [id number] [facility] 2021-05-23 12:40:53 Outpatient Wilson, Na STLMLC STLMLC [id number] 39981 [facility] 2021-05-23 12:36:05 Outpatient Wilson, Na STLMLC STLMLC [id number] [facility] 2021-05-23 11:24:48 Outpatient Wilson, Na STLMLC STLMLC [id number] [facility] 2021-05-23 11:12:27 Outpatient Jeff, Na STLMLC STLMLC [id number] [facility] 2023-11-19 00:00:00 2023-11-19 00:00:00 (TEL) STLMLC STLMLC [id number] [facility] 2023-09-05 00:00:00 2023-09-05 00:00:00 OFFICE VISIT ESTAB PT LEVEL 4 STLMLC STLMLC [id number] [facility] 2023-09-02 00:00:00 2023-09-02 00:00:00 (TEL) STLMLC STLMLC [id number] [facility] 2023-07-31 00:00:00 2023-07-31 00:00:00 (TEL) STLMLC STLMLC [id number] [facility] 2023-07-03 00:00:00 2023-07-03 00:00:00 SUB ANNUAL [facility] VISIT STLMLC STLMLC [id number] [facility] 2023-06-06 00:00:00 2023-06-06 00:00:00 (TEL) STLMLC STLMLC [id number] [facility] 2023-05-05 00:00:00 2023-05-05 00:00:00 (TEL) STLMLC STLMLC [id number] [facility] 2023-03-19 00:00:00 2023-03-19 00:00:00 (TEL) STLMLC STLMLC [id number] [facility] 2023-01-01 00:00:00 2023-01-01 00:00:00 OFFICE VISIT ESTAB PT LEVEL 4 STLMLC STLMLC [id number] [facility] 2023-01-01 00:00:00 2023-01-01 00:00:00 (TEL) STLMLC STLMLC [id number] [facility] 2022-12-31 00:00:00 2022-12-31 00:00:00 (TEL) STLMLC STLMLC [id number] [facility] 2022-12-09 00:00:00 2022-12-09 00:00:00 (TEL) STLMLC STLMLC [id number] [facility] 2022-12-02 00:00:00 2022-12-02 00:00:00 (TEL) STLMLC STLMLC [id number] [facility] 2022-11-22 15:30:00 2022-11-22 16:30:00 CAV Karina Wheeler [id number] [facility] 2022-11-19 00:00:00 2022-11-19 00:00:00 Outpatient Hunt_A DMG DM [id number] [facility] 2022-11-19 00:00:00 2022-11-19 00:00:00 Outpatient Hunt_A DMG DMG [id number] [facility] 2022-10-01 00:00:00 2022-10-01 00:00:00 OFFICE VISIT ESTAB PT LEVEL 4 STLMLC STLMLC [id number] [facility] 2022-10-01 00:00:00 2022-10-01 00:00:00 SUB ANNUAL [facility] STLMLC STLMLC [id number] [facility] 2022-09-17 00:00:00 2022-09-17 00:00:00 (TEL) STLMLC STLMLC [id number] [facility] 2022-08-30 00:00:00 2022-08-30 00:00:00 Outpatient DMG DMG [id number] [facility] 2022-08-26 00:00:00 2022-08-26 00:00:00 (TEL) STLMLC STLMLC [id number] [facility] 2022-08-02 00:00:00 2022-08-02 00:00:00 (TEL) STLMLC STLMLC [id number] [facility] 2022-07-31 16:30:00 2022-07-31 17:00:00 Care Dwayne King [id number] [facility] 2022-07-31 00:00:00 2022-07-31 00:00:00 (TEL) STLMLC STLMLC [id number] [facility] 2022-07-18 00:00:00 2022-07-18 00:00:00 Outpatient DMG DMG [id number] [facility] 2022-07-05 00:00:00 2022-07-05 00:00:00 (TEL) STLMLC STLMLC [id number] [facility] 2022-07-04 00:00:00 2022-07-04 00:00:00 (TEL) STLMLC STLMLC [id number] [facility] 2022-06-27 00:00:00 2022-06-27 00:00:00 (TEL) STLMLC STLMLC [id number] [facility] 2022-05-31 00:00:00 2022-05-31 00:00:00 (TEL) STLMLC STLMLC [id number] [facility] 2022-05-24 00:00:00 2022-05-24 00:00:00 (TEL) STLMLC STLMLC [id number] [facility] 2022-05-15 00:00:00 2022-05-15 00:00:00 OFFICE VISIT ESTAB PT LEVEL 4 STLMLC STLMLC [id number] [facility] 2022-05-08 00:00:00 2022-05-08 00:00:00 (TEL) STLMLC STLMLC [id number] [facility] 2022-04-18 00:00:00 2022-04-18 00:00:00 (TEL) STLMLC STLMLC [id number] [facility] 2022-04-16 16:00:00 2022-04-16 16:30:00 [facility] [id number] [facility] 2022-04-16 16:00:00 2022-04-16 16:00:00 Outpatient R JONO WHITAKER [facility] [id number] [facility] 2022-04-16 00:00:00 2022-04-16 00:00:00 Orders Only Doctor Unassigned, [place] [facility] [id number] [facility] 2022-04-03 15:30:00 2022-04-03 15:30:00 Outpatient CHANELLE RODRIGUEZ [facility] [id number] [facility] 2022-04-02 00:00:00 2022-04-02 00:00:00 Orders Only Doctor Unassigned, [place] [facility] [id number] [facility] 2022-03-19 00:00:00 2022-03-19 00:00:00 (TEL) STLMLC STLMLC [id number] [facility] 2022-03-11 00:00:00 2022-03-11 00:00:00 (TEL) STLMLC STLMLC [id number] [facility] 2022-01-29 00:00:00 2022-01-29 00:00:00 (TEL) STLMLC STLMLC [id number] [facility] 2022-01-28 00:00:00 2022-01-28 00:00:00 OFFICE VISIT EST PT LEVEL 3 STLMLC STLMLC [id number] [facility] 2022-01-28 00:00:00 2022-01-28 00:00:00 (TEL) STLMLC STLMLC [id number] [facility] 2021-12-13 00:00:00 2021-12-13 00:00:00 (TEL) STLMLC STLMLC [id number] [facility] 2021-11-27 00:00:00 2021-11-27 00:00:00 OFFICE VISIT ESTAB PT LEVEL 4 STLMLC STLMLC [id number] [facility] 2021-11-27 00:00:00 2021-11-27 00:00:00 (TEL) STLMLC STLMLC [id number] [facility] 2021-11-26 00:00:00 2021-11-26 00:00:00 (TEL) STLMLC STLMLC [id number] [facility] 2021-11-02 00:00:00 2021-11-02 00:00:00 (TEL) STLMLC STLMLC [id number] [facility] 2021-10-31 00:00:00 2021-10-31 00:00:00 OL DIG E/M SVC 21+ MIN STLMLC STLMLC [id number] [facility] 2021-10-30 00:00:00 2021-10-30 00:00:00 (TEL) STLMLC STLMLC [id number] [facility] 2021-09-21 00:00:00 2021-09-21 00:00:00 (TEL) STLMLC STLMLC [id number] [facility] 2021-09-10 00:00:00 2021-09-10 00:00:00 OFFICE VISIT EST PT LEVEL 3 STLMLC STLMLC [id number] [facility] 2021-08-14 00:00:00 2021-08-14 00:00:00 (TEL) STLMLC STLMLC [id number] [facility] 2021-08-02 00:00:00 2021-08-02 00:00:00 (TEL) STLMLC STLMLC [id number] [facility] 2021-06-06 00:00:00 2021-06-06 00:00:00 OL DIG E/M SVC 11-20 MIN STLMLC STLMLC [id number] [facility] 2021-06-01 00:00:00 2021-06-01 00:00:00 (TEL) STLMLC STLMLC [id number] [facility] 2021-04-10 00:00:00 2021-04-10 00:00:00 (TEL) STLMLC STLMLC [id number] [facility] 2021-03-23 00:00:00 2021-03-23 00:00:00 (TEL) STLMLC STLMLC [id number] [facility] 2021-03-20 00:00:00 2021-03-20 00:00:00 (TEL) STLMLC STLMLC [id number] [facility] 2021-03-02 00:00:00 2021-03-02 00:00:00 SUB ANNUAL [facility] V[facility] STLMLC STLMLC [id number] [facility] 2021-03-02 00:00:00 2021-03-02 00:00:00 OFFICE VISIT EST PT LEVEL 3 STLMLC STLMLC [id number] [facility] 2021-02-05 00:00:00 2021-02-05 00:00:00 (TEL) STLMLC STLMLC [id number] [facility] 2021-01-30 00:00:00 2021-01-30 00:00:00 OFFICE VISIT ESTAB PT LEVEL 3 STLMLC STLMLC [id number] [facility] 2021-01-19 00:00:00 2021-01-19 00:00:00 Outpatient STLMLC STLMLC [id number] [facility] 2020-12-01 00:00:00 2020-12-01 00:00:00 Outpatient STLMLC STLMLC [id number] [facility] 2020-11-24 00:00:00 2020-11-24 00:00:00 Outpatient STLMLC STLMLC [id number] [facility] 2020-10-19 00:00:00 2020-10-19 00:00:00 Outpatient STLMLC STLMLC [id number] [facility] 2020-10-11 00:00:00 2020-10-11 00:00:00 Outpatient STLMLC STLMLC [id number] [facility] 2020-08-07 00:00:00 2020-08-07 00:00:00 Outpatient STLMLC STLMLC [id number] [facility] 2020-08-06 00:00:00 2020-08-06 00:00:00 Outpatient STLMLC STLMLC [id number] [facility] 2020-07-04 00:00:00 2020-07-04 00:00:00 Outpatient STLMLC STLMLC [id number] [facility] 2020-07-03 00:00:00 2020-07-03 00:00:00 Outpatient STLMLC STLMLC [id number] [facility] 2020-06-02 00:00:00 2020-06-02 00:00:00 Outpatient STLMLC STLMLC [id number] [facility] 2020-04-06 00:00:00 2020-04-06 00:00:00 Outpatient STLMLC STLMLC [id number] [facility] 2020-04-04 00:00:00 2020-04-04 00:00:00 Outpatient STLMLC STLMLC [id number] [facility] 2020-01-06 04:55:00 2020-01-06 04:55:[address] [facility] [facility] [id number] [facility] 2020 13:20:00 2020 13:20:[address] [facility] [id number] [facility] 2019-10-28 15:22:00 2019-10-28 15:22:00 [facility] [id number] [facility] 2019-10-04 13:20:00 2019-10-04 13:20:00 [facility] [id number] [facility] 2019-07-02 14:00:00 2019-07-02 14:00:00 [facility] [id number] [facility] 2019-06-11 14:53:00 2019-06-11 14:53:[address] [facility] [facility] [id number] [facility] 2019-05-20 13:40:00 2019-05-20 13:40:00 [facility] [id number] [facility] 2019-05-05 12:00:00 2019-05-05 12:00:00 [facility] [id number] [facility] 2019-02-27 23:48:00 2019-02-27 23:48:[address] [facility] [facility] [id number] [facility] 2019-02-16 13:20:00 2019-02-16 13:20:00 [facility] [id number] [facility] 2018-11-17 14:40:00 2018-11-17 14:40:[address] [facility] [id number] [facility] 2018-10-27 13:43:00 2018-10-27 13:43:[address] [facility] [id number] [facility] 2018-08-18 14:00:00 2018-08-18 14:00:00 [facility] [id number] [facility] 2018-08-07 15:28:00 2018-08-07 15:28:[address] [facility] [facility] [id number] [facility] 2018-07-03 09:48:00 2018-07-03 09:48:00 [facility] [id number] [facility] 2018-05-20 14:45:00 2018-05-20 14:45:[address] [facility] [facility] [id number] [facility] 2018-01-22 14:45:00 2018-01-22 14:45:[address] [facility] [facility] [id number] [facility] 2017-10-23 14:15:00 2017-10-23 14:15:[address] [facility] [facility] [id number] [facility] 2017-07-23 14:15:00 2017-07-23 14:15:[address] [facility] [facility] [id number] [facility] Results Test Description Test Time Test Comments Results Result Co mments Source HEMOGLOBIN [id number] 00:00:00* Test Item Value Reference Range Interpretation Comme nts HEMOGLOBIN A1c (test code = 4548-4) 5.0 % See_Comment [Automated messa ge] The system which generated this result transmitted reference range: 4.2-5.6 %. The reference range was not used to interpret this result as normal/abnormal. TSH REFLEX TO FREE [id number] 00:00:00* Test Item Value Reference Range Interpretation Comme nts TSH REFLEX TO FREE T4 (test code = 88300-7) 0.516 UIU/ML See_Comment [Automated messa ge] The system which generated this result transmitted reference range: 0.400-4.100 UIU/ML. The reference range was not used to interpret this result as normal/abnormal. LIPID PANEL WITH REFLEX DIRECT [id number] 00:00:00* Test Item Value Reference Range Interpretation Comme nts CALC LDL CHOL (test code = 37289-1) 64 MG/DL See_Comment [[facility] The system which generated this result transmitted reference range: <100 MG/DL. The reference range was not used to interpret this result as normal/abnormal. CHOLESTEROL (test code = 2093-3) 146 MG/DL See_Comment [[facility]ated [facility]] The system which generated this result transmitted reference range: <200 MG/DL. The reference range was not used to interpret this result as normal/abnormal. HDL CHOLESTEROL (test code = 2085-9) 59 MG/DL See_Comment [[facility]ated [facility]] The system which generated this result transmitted reference range: >39 MG/DL. The reference range was not used to interpret this result as normal/abnormal. RISK RATIO LDL/HDL (test code = 35923-4) 1.08 RATIO See_Comment [Automated message] The system which generated this result transmitted reference range: <3.22 RATIO. The reference range was not used to interpret this result as normal/abnormal. TRIGLYCERIDES (test code = 2571-8) 155 MG/DL See_Comment H [[facility]ated [facility]] The system which generated this result transmitted reference range: <150 MG/DL. The reference range was not used to interpret this result as normal/abnormal. COMPREHENSIVE METABOLIC [id number] 00:00:00* Test Item Value Reference Range Interpretation Comme nts ALBUMIN (test code = 1751-7) 4.6 G/DL See_Comment [[facility]ated [facility]] The system which generated this result [...] result as normal/abnormal. CALCIUM (test code = 53431-3) 9.1 MG/DL See_Comment [Automated messa ge] The [...] as normal/abnormal. CALC GLOBULIN (test code = 44146-2) 2.6 G/DL See_Comment [Automated messa ge] The [...] normal/abnormal. eGFR (2020 CKD-EPI) (test code = 87175-4) 55 ML/MIN/1.73 See_Comment L [Automated messa ge] [...]
[2023-11-25] MEDS ORDERED: ONDANSETRON 4 MG/2 ML VIAL ONE (20:21)
[2023-11-25] MEDS ORDERED: MORPHINE 2 MG/ML SYR ONE (20:22)
[2023-11-25] MEDS ORDERED: BACI/NEOMYCIN/POLY OINT 15GM TOP ONE (20:22)
[2023-11-25] MEDS ORDERED: KETOROLAC 30 MG/ML INJ ONE (20:22)
[2023-11-25] MEDS ORDERED: NA CHLORIDE 0.9% 1,000 ML ONE (20:22)
--- NOTE | 2023-11-25 20:32 | RAD REPORT ---
EXAM DESCRIPTION: CT - Head C Spine Cap Wo Con - 11/25/2023 7:54 pm CLINICAL HISTORY: TRAUMA COMPARISON: Head Brain Wo Cont dated 06/09/2023 TECHNIQUE: Head and cervical spine CT images were obtained without IV contrast. Chest, abdomen, and pelvis CT images were obtained also without IV contrast. Multiplanar reformats were generated and rev iewed. All CT scans are performed using dose optimization technique as appropriate and may include automated exposure control or mA/KV adjustment according to patient size. FINDINGS: CT HEAD: No intracranial hemorrhage, mass effect, or edema. No evidence of acute territorial infarct. No midli ne shift or abnormal fluid collection. The ventricles are relatively prominent, which may relate to c entrally predominant volume loss. Mild periventricular and deep white matter hypodensities, suggest c hronic small vessel ischemic changes, although nonspecific. Basal cisterns are patent. Mastoid aircel ls and paranasal sinuses are clear. No acute skull fracture. CT CERVICAL SPINE: No acute cervical spine fracture or subluxation. Vertebral body heights are well maintained. Multilev el moderate to advanced degenerative changes with minimal degrees of spondylolisthesis. Moderate to s evere neural foraminal narrowing on the left at C4-5 and on the right at C5-6. No hyperattenuating ca nal hematoma. Prevertebral and paraspinous soft tissues are unremarkable. CT CHEST: No pneumothorax, pulmonary contusion or pleural fluid collection. No mediastinal hematoma and the aor ta and pulmonary arteries are unremarkable. No chest will mass or abnormal axillary finding. No displ aced rib fracture or other significant bony finding. CT ABDOMEN/ PELVIS: No evidence of traumatic injury to solid abdominal viscera. Gallbladder shows small stones near the g allbladder neck. No bowel injury or significant finding. No free air, free fluid or abnormal fat stra nding. No urinary bladder abnormality. No significant bony finding. IMPRESSION: No acute traumatic findings. Incidental findings as above, including cholelithiasis and up to advanced cervical spine spondylitic changes.
[2023-11-25 20:35] LABS: Absolute Lymphocytes (CBC) 2.1 K/uL (0.7-4.9); Absolute Monocytes 0.7 K/uL (0.1-1.3); Absolute Neutrophil 3.8 K/uL (1.8-8.0); Basophils % 0.3 % (0-1.3); Hematocrit 33.7 % (36.0-45.0); Hemoglobin 11.3 g/dL (12.0-15.0); Lymphocytes % 31.8 % (15.3-44.8); MCH 32.4 pg (27.0-35.0); MCHC 33.7 g/dL (32.0-36.0); MCV 96.3 fL (80-100); MPV 8.9 fL (7.6-11.3); Monocytes % 10.2 % (3.3-12.3); Neutrophils % 57.7 % (41.7-73.7); Nucleated Red Blood Cells % 0.1 % (0-0); Platelets 201 thou/uL (152-406); Red Cell Distribution Width 12.9 % (12.1-15.2)
[2023-11-25 20:46] LABS: Albumin 3.8 g/dL (3.4-5.0); Albumin/Globulin Ratio 1.1 (1.1-1.8); Anion Gap 7.5 mEq/L (5.0-15.0); Bilirubin Total 0.3 mg/dL (0.2-1.0); Globulin 3.4 g/dL (2.3-3.5); Potassium 4.5 mEq/L (3.5-5.1); Protein, Total 7.2 g/dL (6.4-8.2)
--- NOTE | 2023-11-25 20:50 | ER ---
Nurse's Notes [facility] Name: Qing Mojica Age: 78 yrs Sex: Female : 1945 Arrival Date: 11/25/2023 Time: 19:28 Bed IW10 Private MD: Diagnosis: Fall on same level, unspecified;Fracture of one rib, left side;Laceration without foreign body of left forearm-SKIN TEAR;Contusion of thorax;Contusion of left back wall of thorax Presentation: 11/24 19:30 Chief complaint: EMS states: Pt was asleep on couch and when she stood up she fell but pc2 unsure of why. C/o left side pain and skin tear to left arm. Denies LOC. -blood thinners. 19:30 Coronavirus screen: At this time, the client does not indicate any symptoms associated pc2 with coronavirus-19. Ebola Screen: No symptoms or risks identified at this time. Initial Sepsis Screen: Does the patient meet any 2 criteria? No. Patient's initial sepsis screen is negative. Does the patient have a suspected source of infection? No. Patient's initial sepsis screen is negative. Risk Assessment: Do you want to hurt yourself or someone else? Patient reports no desire to harm self or others. Onset of symptoms was November 25, 2023. Care prior to arrival:. 19:30 Method Of Arrival: EMS: [facility] 19:30 Acuity: LUIS 3 pc2 Triage Assessment: 19:48 General: Appears in no apparent distress. comfortable, Behavior is calm, cooperative, pc2 appropriate for age. Pain: Complains of pain in left mid back Pain currently is 6 out of 10 on a pain scale. EENT: No signs and/or symptoms were reported regarding the EENT system. Neuro: Level of Consciousness is awake, alert, obeys commands, Oriented to person, place, time, situation. Cardiovascular: Denies chest pain, lightheadedness, syncope, Patient's skin is warm and dry. Respiratory: Airway is patent Respiratory effort is even, unlabored, Respiratory pattern is regular, symmetrical. GI: No signs and/or symptoms were reported involving the gastrointestinal system. : No signs and/or symptoms were reported regarding the genitourinary system. Derm: Skin skin tear to left forearm. Musculoskeletal: No signs and/or symptoms reported regarding the musculoskeletal system. Historical: - Allergies: 19:51 PENICILLINS; pc2 19:51 Tetanus Vaccines \T\ Toxoid; pc2 - PMHx: 19:51 Anxiety; Chronic obstructive lung disease; COPD; Depression; GERD; pc2 - PSHx: 19:51 h/ocolostomy; hernia repair; partial hysterectomy; pc2 - Immunization history:: Adult Immunizations unknown. - Infectious Disease History:: Denies. - Family history:: not pertinent. - Social history:: Smoking status: Patient reports the use of cigarette tobacco products, smokes one-half pack cigarettes per day. Screenin:50 [facility] ED Fall Risk Assessment (Adult) History of falling in the last 3 months, pc2 including since admission Yes- single mechanical fall (1 pt) Confusion or Disorientation No (0 pts) Intoxicated or Sedated No (0 pts) Impaired Gait No (0 pts) Mobility Assist Device Used Yes (1 pt) Altered Elimination No (0 pt) Score/Fall Risk Level 3 or more points = High Risk Oriented to surroundings, Maintained a safe environment. Abuse screen: Denies threats or abuse. Denies injuries from another. Nutritional screening: No deficits noted. Tuberculosis screening: No symptoms or risk factors identified. Assessment: 19:51 Reassessment: SEE TRIAGE. pc2 21:00 Reassessment: Patient appears in no apparent distress at this time. Patient and/or pc2 family updated on plan of care and expected duration. Pain level reassessed. Patient denies pain at this time. Patient states feeling better. Patient states symptoms have improved. Vital Signs: 19:30 BP 169 / 72; Pulse 68; Resp 16; Temp 98.4; Pulse Ox 99% on R/A; pc2 21:00 BP 170 / 80; Pulse 72; Resp 18; Pulse Ox 99% on R/A; pc2 ED Course: 19:30 Patient arrived in ED. ty 19:31 Syd Willams MD is Attending Physician. christy 19:32 Esmer Montelongo, RN is Primary Nurse. pc2 19:48 Triage completed. pc2 19:50 Arm band placed on right wrist. pc2 19:50 Patient has correct armband on for positive identification. Fall risk band placed. Bed pc2 in low position. Call light in reach. Side rails up X2. Provided Education on: POC and time frame. 19:50 No provider procedures requiring assistance completed. pc2 19:55 CT Traumagram (Head C Spine CAP wo con) In Process Unspecified. EDMS 20:15 Inserted saline lock: 20 gauge in left antecubital area, using aseptic technique. Blood pc2 collected. Flushed with 10 mL NS. 20:18 Comprehensive Metabolic Panel Sent. pc2 20:18 CBC with Diff Sent. pc2 21:26 IV discontinued, intact, bleeding controlled, No redness/swelling at site. Pressure pc2 dressing applied. Administered Medications: 20:30 Drug: NS 0.9% IV 1000 ml IV at 1 bolus Per protocol; 1000 mL bolus Route: IV; Rate: 1 pc2 bolus; Site: left antecubital; 21:00 Follow up: Response: No adverse reaction; IV Status: Completed infusion; IV Intake: pc2 1000ml 20:30 Drug: morphine IVP or IV 2 mg IVP once over 4 mins Route: IVP; Infused Over: 4 mins; pc2 Site: left antecubital; 21:00 Follow up: Response: No adverse reaction; Pain is decreased; RASS: Alert and Calm (0) pc2 20:30 Drug: Ondansetron IVP 4 mg IVP once; over 2 minutes Route: IVP; Site: left antecubital; pc2 21:00 Follow up: Response: No adverse reaction pc2 20:32 Drug: Ketorolac IVP 15 mg IVP once Route: IVP; Site: left antecubital; pc2 21:00 Follow up: Response: No adverse reaction; Pain is decreased pc2 20:35 Drug: Bcrqdkbt-Qyzmqvozkd-Xebucymfr Topical Ointment 1 application Topical once Route: pc2 Topical; Site: left forearm; Medication: 19:51 VIS not applicable for this client. pc2 Intake: 21:00 IV: 1000ml; Total: 1000ml. pc2 Outcome: 20:49 Discharge ordered by . christy 21:25 Discharged to home via wheelchair, pc2 21:25 Condition: stable 21:25 Discharge instructions given to patient, Instructed on discharge instructions, follow up and referral plans. medication usage, Demonstrated understanding of instructions, follow-up care, medications, Prescriptions given X 3, 21:35 Patient left the ED. pc2 Signatures: Dispatcher [employer] EDMS Syd Willams MD MD cha Yandell, Tylor ty Coleman, Pam, RN RN pc2
--- NOTE | 2023-11-25 20:50 | EDPHYS ---
Physician Documentation [facility] Name: Qing Mojica Age: 78 yrs Sex: Female : 1945 Arrival Date: 11/25/2023 Time: 19:28 Bed IW10 Private MD: ED Physician Syd Willams HPI: 11/24 19:46 This 78 yrs old Female presents to ER via Unassigned with complaints of FALL christy AND HIT LEFT BACK. 19:46 The patient presents with pain that is acute, and an abrasion, and contusion, and christy decreased range of motion, and an injury. The symptoms are located in the left mid back. Onset: The symptoms/episode began/occurred just prior to arrival. The pain does not radiate. Associated signs and symptoms: The patient has no apparent associated signs or symptoms. Modifying factors: The patient symptoms are alleviated by nothing, remaining still, the patient symptoms are aggravated by any movement. Details of fall: The patient fell from an upright position, while standing, while walking. Severity of symptoms: At their worst the symptoms were moderate, in the emergency department the symptoms are unchanged. Historical: - Allergies: 19:51 PENICILLINS; pc2 19:51 Tetanus Vaccines \T\ Toxoid; pc2 - PMHx: 19:51 Anxiety; Chronic obstructive lung disease; COPD; Depression; GERD; pc2 - PSHx: 19:51 h/ocolostomy; hernia repair; partial hysterectomy; pc2 - Immunization history:: Adult Immunizations unknown. - Infectious Disease History:: Denies. - Family history:: not pertinent. - Social history:: Smoking status: Patient reports the use of cigarette tobacco products, smokes one-half pack cigarettes per day. ROS: 19:46 Constitutional: Negative for fever, chills, and weight loss, Eyes: Negative for injury, christy pain, redness, and discharge, ENT: Negative for injury, pain, and discharge, Neck: Negative for injury, pain, and swelling, Cardiovascular: Negative for chest pain, palpitations, and edema, Respiratory: Negative for shortness of breath, cough, wheezing, and pleuritic chest pain, Abdomen/GI: Negative for abdominal pain, nausea, vomiting, diarrhea, and constipation, : Negative for injury, bleeding, discharge, and swelling, Skin: Negative for injury, rash, and discoloration, Neuro: Negative for headache, weakness, numbness, tingling, and seizure, Psych: Negative for depression, anxiety, suicide ideation, homicidal ideation, and hallucinations, Allergy/Immunology: Negative for hives, rash, and allergies, Endocrine: Negative for neck swelling, polydipsia, polyuria, polyphagia, and marked weight changes, Hematologic/Lymphatic: Negative for swollen nodes, abnormal bleeding, and unusual bruising, 19:46 Back: Positive for decreased range of motion, pain at rest, pain with movement, of the left mid back, 19:46 Skin: Positive for laceration(s), LEFT FOREARM SKIN TEAR, 20:49 : Negative for urinary symptoms, urinary frequency, hematuria, burning with christy urination, difficulty urinating, Exam: 19:46 Constitutional: This is a well developed, well nourished patient who is awake, alert, christy and in no acute distress. Head/Face: Normocephalic, atraumatic. Eyes: Pupils equal round and reactive to light, extra-ocular motions intact. Lids and lashes normal. Conjunctiva and sclera are non-icteric and not injected. Cornea within normal limits. Periorbital areas with no swelling, redness, or edema. ENT: Nares patent. No nasal discharge, no septal abnormalities noted. Tympanic membranes are normal and external auditory canals are clear. Oropharynx with no redness, swelling, or masses, exudates, or evidence of obstruction, uvula midline. Mucous membranes moist. Neck: Trachea midline, no thyromegaly or masses palpated, and no cervical lymphadenopathy. Supple, full range of motion without nuchal rigidity, or vertebral point tenderness. No Meningismus. Chest/axilla: Normal chest wall appearance and motion. Nontender with no deformity. No lesions are appreciated. Cardiovascular: Regular rate and rhythm with a normal S1 and S2. No gallops, murmurs, or rubs. Normal PMI, no JVD. No pulse deficits. Respiratory: Lungs have equal breath sounds bilaterally, clear to auscultation and percussion. No rales, rhonchi or wheezes noted. No increased work of breathing, no retractions or nasal flaring. Abdomen/GI: Soft, non-tender, with normal bowel sounds. No distension or tympany. No guarding or rebound. No evidence of tenderness throughout. Female : Normal external genitalia. Neuro: Awake and alert, GCS 15, oriented to person, place, time, and situation. Cranial nerves II-XII grossly intact. Motor strength 5/5 in all extremities. Sensory grossly intact. Cerebellar exam normal. Normal gait. Psych: Awake, alert, with orientation to person, place and time. Behavior, mood, and affect are within normal limits. 19:46 Back: pain, that is mild, that is moderate, ROM is painful, with all movement, normal spinal alignment noted, CVA tenderness, is absent, vertebral tenderness, is not appreciated, muscle spasm, is not present, 19:46 Skin: injury, laceration(s), the wound is approximately 2.5 cm(s), with a depth of .025 cm(s), of the left arm, Vital Signs: 19:30 BP 169 / 72; Pulse 68; Resp 16; Temp 98.4; Pulse Ox 99% on R/A; pc2 21:00 BP 170 / 80; Pulse 72; Resp 18; Pulse Ox 99% on R/A; pc2 Laceration: 19:46 Wound Repair of 2.5cm ( 1.0in ) subcutaneous laceration to left arm. Irregularly christy shaped.. Skin/tissue flap noted.. Distal neuro/vascular/tendon intact. Anesthesia: NONE with 0 mls of 1% lidocaine. Wound prep: Simple cleansing by nurse by me. Skin closed with NONE NONE, SKIN FLAP REMOVED using CLENS AND DRESSED WITH NEOSPORIN , FLAP CUT, REMOVED. Dressed with Neosporin, non-adherent dressing. Patient tolerated well. MDM: 19:31 Patient medically screened. christy 19:51 Differential diagnosis: chronic back pain, Fracture Renal Infarction ruptured disc, christy spinal injury, sprain, Blunt Chest Trauma Chest Wall Contusion Chest Wall Injury Pneumothorax Pulmonary Contusion Rib Fracture. Differential diagnosis: abrasion, closed head injury, contusion, fracture, laceration, multiple trauma, sprain, strain. Data reviewed: vital signs, nurses notes, lab test result(s), radiologic studies, CT scan. Consideration of Admission/Observation Escalation of care including admission/observation considered. I considered the following discharge prescriptions or medication management in the emergency department Medications were administered in the Emergency Department. See MAR. Independent interpretation of the following test(s) in the Emergency Department CT Scan: My interpretation is CT TRAUMA. Test considered but Not performed: Ultrasound NO FAST EXAM. Historians other than the Patient: EMS: EMS WELL INFORMED. Care significantly affected by the following chronic conditions: Chronic Obstructive Pulmonary Disease, GERD, DEPRESSION, ANXIETY. 11/24 19:31 Order name: CBC with Diff; Complete Time: 20:45 [facility] 11/24 19:31 Order name: Comprehensive Metabolic Panel; Complete Time: 20:48 [facility] 11/24 19:31 Order name: CT Traumagram (Head C Spine CAP wo con); Complete Time: 20:37 [facility] 11/24 19:43 Order name: Wound Care; Complete Time: 20:18 [facility] Administered Medications: 20:30 Drug: NS 0.9% IV 1000 ml IV at 1 bolus Per protocol; 1000 mL bolus Route: IV; Rate: 1 pc2 bolus; Site: left antecubital; 21:00 Follow up: Response: No adverse reaction; IV Status: Completed infusion; IV Intake: pc2 1000ml 20:30 Drug: morphine IVP or IV 2 mg IVP once over 4 mins Route: IVP; Infused Over: 4 mins; pc2 Site: left antecubital; 21:00 Follow up: Response: No adverse reaction; Pain is decreased; RASS: Alert and Calm (0) pc2 20:30 Drug: Ondansetron IVP 4 mg IVP once; over 2 minutes Route: IVP; Site: left antecubital; pc2 21:00 Follow up: Response: No adverse reaction pc2 20:32 Drug: Ketorolac IVP 15 mg IVP once Route: IVP; Site: left antecubital; pc2 21:00 Follow up: Response: No adverse reaction; Pain is decreased pc2 20:35 Drug: Msfdeiha-Cbypfmhzqw-Ctekdubtk Topical Ointment 1 application Topical once Route: pc2 Topical; Site: left forearm; Disposition Summary: 11/25/23 20:49 Discharge Ordered Notes: Location: Home christy Problem: new christy Symptoms: have improved christy Condition: Stable christy Diagnosis - Fall on same level, unspecified christy - Fracture of one rib, left side christy - Laceration without foreign body of left forearm - SKIN TEAR christy - Contusion of thorax christy - Contusion of left back wall of thorax christy Followup: christy - With: Private Physician - When: 2 - 3 days - Reason: Recheck today's complaints, Continuance of care, Re-evaluation by your physician Discharge Instructions: - Discharge Summary Sheet christy - Fall Prevention in the Home, Adult christy - Laceration Care, Adult christy - How to Use an Incentive Spirometer christy - Laceration Care, Adult, [id number] christy - Fall Prevention in the Home, Adult, [id number] [facility] Forms: - Medication Reconciliation Form [facility] - Antibiotic Education [facility] - Prescription Opioid Use christy - Patient Portal Instructions [facility] - Leadership Thank You Letter [facility] Prescriptions: - Centany 2 % Topical ointment - apply 1 application TOPICAL route 3 times per day; 15 gram tube; Refills: 0, christy Product Selection Permitted - acetaminophen-codeine 300-30 mg Oral tablet - take 2 tablet ORAL route every 6 hours as needed for pain; 20 tablet; Refills: christy 0, Product Selection Permitted - Motrin IB 200 mg Oral tablet - take 2 tablet ORAL route every 6 hours As needed as needed with food; 30 christy tablet; Refills: 0, Product Selection Permitted Signatures: Dispatcher [employer] Syd Hughes MD MD cha Coleman, Pam, RN RN pc2 Corrections: (The following items were deleted from the chart) 19:44 19:44 [email or web address] ordered. EDMD EDMS
[2023-11-26 02:38] VITALS: TEMP 98.4; O2SAT 99
[2023-11-26 02:43] VITALS: BP 170/80
== END 2023-11-25 21:35 | disposition home or self-care (01) ==
LOC: ER 19:28
PROC: 0HQEXZZ Repair Left Lower Arm Skin, External Approach (ICD-10-PCS; principal; 2023-11-25)
DX: S22.32XA Fracture of one rib, left side, initial encounter for closed fracture (principal); S51.812A Laceration without foreign body of left forearm, initial encounter; S20.222A Contusion of left back wall of thorax, initial encounter; W18.30XA Fall on same level, unspecified, initial encounter
CPT/HCPCS: 85025; 36415; 80053; 70450; 71250; 72125; 12001; J2270; J2405; J7030; 96374; 96375; 99284